=== PATIENT | male | born 1950 | race Caucasian/White ===

== ENCOUNTER 2019-11-19 12:44 | Inpatient (IN) ==
[2019-11-19 14:05] LABS: Hematocrit (blood only) 41.3 % (42-52); Hemoglobin 14.3 g/dL (14.0-18.0); Mean Corpuscular Hemoglobin 32.7 pg (25-34); Mean Corpuscular Hgb Conc 34.6 g/dL (32-36); Mean Corpuscular Volume 94.5 fL (80-100); Mean Platelet Volume 10.2 fL (7.4-10.4); Platelet Count 137 K/uL (130-400); RDW Coefficient of Variation 13.6 % (11.5-14.5); RDW Standard Deviation 46.8 fL (36.4-46.3); Red Blood Count 4.37 M/uL (4.7-6.1); White Blood Count 13.32 K/uL (4.8-10.8)
[2019-11-19 14:22] LABS: BUN Creatinine Ratio 12.8 (10-20); C Reactive Protein 11.7 mg/dl (0-0.29); Calcium 8.4 mg/dl (8.5-10.1); Creatinine Clr Calc Pharmacy 61.9 ml/min; Est GFR (Non-African American) 41.4; Potassium 4.4 mmol/L (3.5-5.1)
[2019-11-19 14:23] LABS: Basophils # (auto) 0.01 K/uL (0-0.2); Basophils % (auto) 0.1 %; Immature Granulocytes # (auto) 0.11 K/uL (0.00-0.02); Immature Granulocytes % (auto) 0.8 %; Lymphocytes # (auto) 0.42 K/uL (1.2-3.4); Lymphocytes % (auto) 3.2 %; Monocytes # (auto) 0.81 K/uL (0.11-0.59); Monocytes % (auto) 6.1 %; Neutrophils # (auto) 11.97 K/uL (1.4-6.5); Neutrophils % (auto) 89.8 %
[2019-11-19] MEDS ORDERED: DAPTOmycin 625 MG in SYRINGE 0 ML IV ONE (14:29)
[2019-11-19] MEDS ORDERED: CEFEPIME 2,000 MG/20 ML VIAL IV STA (14:29)
[2019-11-19] MEDS ORDERED: SODIUM CHLORIDE 0.9% 1000ML 1,000 ML IV ONE (14:29)
[2019-11-19] MEDS ORDERED: MoRPHine SULFATE 10 MG/ML CARP/VIAL IV STA (14:38)
[2019-11-19] MEDS ORDERED: ONDANSETRON INJ 2 MG/ML 2 ML VIAL IV STA (16:09)
--- NOTE | 2019-11-19 16:19 | History & Physical Report ---
Date of Service November 19, 2019 Assessment & Plan (1) Cellulitis of left leg: (2) PAD (peripheral artery disease): (3) Leg wound, left: - has had LLE wound since July 2019 - was treated w/ Bactim and also in wound clinic, discharged from wound clinic earlier this month (October) - in the past 4 days developed increased pain in LLE, erythema, and swelling, there is superficial open wound above left ankle - lactic acid elevated at 2.2, CRP above 11 - received daptomycin and cefepime in the ER - will obtain LLE U/S and L ankle MR to r/o osteomyelitis - will repeat lactic acid - will cont. dapto and cefepime for now - blood cltx - obtained - will obtain wound cltx - wound nurse consult (4) GERD (gastroesophageal reflux disease): - at home takes ranitidine as needed, no active issues (5) CAD (coronary artery disease): s/p CAD - at home on ASA, metoprolol and atorvastatin - will hold statin while on daptomycin - currently no chest pain, no active issues (6) COPD (chronic obstructive pulmonary disease): - does not use inhalers - no active issues (7) Dyslipidemia: - on statin, will hold while on daptomycin (8) Chronic venous insufficiency of lower extremity: - as above, chronic venous insuff. - venous stasis changes anthony. of LLE (9) Morbid obesity: - encourage lifestyle modification Code status: Full (10) ELIZ (acute kidney injury): - no known hx of CKD - current Cr 1.66, (Cr 1.2 in 02/2019 per review of outpt records) - poss. prerenal as pt reported poor appetite in the past couple of days, poss. 2/2 NSAID use (for pain) - received IVF in the ED - hold losartan for now - will cont. to monitor, avoid nephrotoxic agents, renally dose meds History of Present Illness Chief Complaint: Left lower extremity pain and fever Primary Care Provider: Vee Marquez MD Mr. Aditya Yusuf is a 68-year-old male, with history of CAD status post CABG, in 2011, PAD, hypertension, COPD, dyslipidemia, GERD, morbid obesity, chronic venous insufficiency who presents with left lower extremity pain and ulceration, and fever. Patient has had wound at his medial ankle since the end of June 2019. At that time he was evaluated at PCPs office, and was treated with Bactrim. As this was not easily healed, he was also evaluated and treated at wound clinic, by Dr. Ferguson, was diagnosed with chronic venous insufficiency and PAD, has been improving and actually discharged from wound clinic earlier this month. Per wound care clinic, it was recommended for him to wear compression stockings and continuous care for the wound. About 4 days ago, he developed pain in his left lower extremity again, which got progressively worse. He also noticed increased erythema from his ankle area up to his knee, and a superficial open wound at his medial ankle area. He then developed fever which prompted him to come to the hospital. In the ED, he was started on daptomycin and cefepime, blood cultures were obtained. He was also given 1 L of normal saline. Lactate was elevated at 2.2. CRP 11.7, WBC 13.3k. Cr also elevated at 1.66. He otherwise denied any shortness of breath, chest pain, palpitations, abdominal pain, nausea or vomiting. Allergies Allergy/AdvReac Type Severity Reaction Status Date / Time No Known Drug Allergies Allergy Verified 11/19/19 13:17 Home Medications Home Medications Medication Instructions Recorded Confirmed Type aspirin 81 mg tablet,delayed 81 mg PO DAILY 08/14/19 11/19/19 History release atorvastatin 40 mg tablet 40 mg PO DAILY 08/14/19 11/19/19 History doxazosin 2 mg tablet 2 mg PO DAILY 08/14/19 11/19/19 History furosemide 40 mg tablet 40 mg PO DAILY 08/14/19 11/19/19 History gabapentin 300 mg capsule 300 mg PO TID 08/14/19 11/19/19 History metoprolol tartrate 50 mg tablet 50 mg PO DAILY tab 08/14/19 11/19/19 History naltrexone 8 mg-bupropion 90 mg 1 tab PO BID 08/14/19 11/19/19 History tablet,extended release nitroglycerin 0.4 mg sublingual 0.4 mg SL Q5M PRN 08/14/19 11/19/19 History tablet potassium chloride 20 mEq 20 meq PO DAILY 08/14/19 11/19/19 History tablet,extended release(part/cryst) ranitidine HCl 150 mg tablet 150 mg PO BID 08/14/19 11/19/19 History ibuprofen [Advil] 600 mg PO Q6H PRN 11/19/19 11/19/19 History losartan 11/20/19 History Past Med/Surg History Medical History BPH (benign prostatic hyperplasia) (Chronic) Chronic GERD (Chronic) High cholesterol (Chronic) HTN (hypertension) (Chronic) Neuropathy (Chronic) Obesity (Chronic) Surgical History H/O wisdom tooth extraction (Resolved) History of cholecystectomy (Resolved) History of heart bypass surgery (Chronic) Family History Father Diabetes Heart disease Brother AAA (abdominal aortic aneurysm) Social History Preferred Language: Romanian Communication Ability: Effective Visual Impairment: Limited Hearing Ability: Normal 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 Beliefs That Will Affect Care: None marital status: Current Living Situation: Family current occupational status: employed current occupation: [employer] Other Information That Helps Us Care for You: No Feels Safe at Home: Yes Safety Concerns: Feels Safe At This Time Smoking Status: Former smoker Tobacco Type: cigarettes ; packs per day: 1 ; Second Hand Exposure: No ; Hx Alcohol Use: No Hx Substance Use: No Childhood Exposure to Second-Hand Smoke: Yes Review of Systems Review of Systems: All systems reviewed & are unremarkable except as noted in HPI & below Constitutional: + fever and + chills Eyes: no eye pain, no worsening vision and no problem reported Ear, Nose, Mouth, Throat: as per Subjective / HPI; no ear pain, no hearing loss and no sore throat Respiratory: as per Subjective / HPI; no cough and no dyspnea Cardiovascular: as per Subjective / HPI and + edema (LLE); no chest pain and no palpitations Gastrointestinal: + nausea; no abdominal pain and no vomiting Genitourinary: + as per Subjective / HPI; no dysuria and no flank pain Musculoskeletal: as per Subjective / HPI; no back pain and no muscle weakness Integumentary: + wounds (LLE above ankle) and + erythema (LLE) Neurologic: as per Subjective / HPI; no gait abnormality, no generalized weakness and no headache(s) Psychiatric: as per Subjective / HPI; no behavioral changes and no problem reported Endocrine: as per Subjective / HPI; no fatigue, no cold intolerance and no heat intolerance Hematologic / Lymphatic: as per Subjective / HPI; no easy bleeding and no lymphadenopathy Allergy / Immunological: as per Subjective / HPI; no seasonal rhinorrhea Physical Exam Physical Exam: Obese male sitting up in bed in NAD Constitutional: WD/WN, vitals as above well developed, well nourished and + morbidly obese; no acute distress Eyes: PERRL, conjunctivae normal, anicteric sclerae EOM intact bilaterally ENMT: external ear and nose normal, oropharynx normal Ears: no hearing impairment Neck: trachea midline, no thyromegaly normal visual inspection Respiratory: normal respiratory effort, lungs clear to auscultation Auscultation: no crackles, no rhonchi and no wheezes Cardiovascular: RRR, no murmur, no edema Heart Sounds: no murmur Extremities: + edema (LLE) Chest (Breasts): Chest: normal inspection of chest (vertical post. surg. scar) Gastrointestinal (Abdomen): Inspection/Auscultation: abdomen normal to inspection and normal bowel sounds; abdomen not distended Percussion/Palpation: abdomen soft; abdomen nontender and no guarding obese Musculoskeletal: Head/Neck/Chest: normocephalic, head atraumatic and neck supple Extremities: + extremities abnormal to inspection (LLE erythema, wound above left ankle, mild swelling, tenderness to palp.) Skin: + wound (LLE above ankle) Neurologic: PERRL, EOMI, accommodation nl, no face palsy, no dysarthria moves all extremities; no focal motor deficits Speech / Cognition: normal speech Psychiatric: A+Ox3, euthymic affect Speech: normal rate/rhythm/volume of speech Genitourinary: no CVA tenderness Lymphatic: no cervical or axillary lymphadenopathy + lymphedema (LLE) Results & Data Vital Signs (Past 12 Hours) Vital Signs Temp Pulse Pulse Resp BP BP Pulse Ox 11/19/19 15:26 84 20 173/75 H 96 11/19/19 12:46 36.6 C 88 20 152/74 H 96 Laboratory Results 11/19/19 11/19/19 11/19/19 Range/Units 13:56 13:56 13:56 WBC 13.32 H (4.8-10.8) K/uL RBC 4.37 L (4.7-6.1) M/uL Hgb 14.3 (14.0-18.0) g/dL Hct 41.3 L (42-52) % MCV 94.5 (80-100) fL MCH 32.7 (25-34) pg MCHC 34.6 (32-36) g/dL RDW Std Deviation 46.8 H (36.4-46.3) fL RDW Coeff of Alan 13.6 (11.5-14.5) % Plt Count 137 (130-400) K/uL MPV 10.2 (7.4-10.4) fL Immature Gran % (Auto) 0.8 % Neut % (Auto) 89.8 % Lymph % (Auto) 3.2 % [place] % (Auto) 6.1 % Eos % (Auto) 0.0 % Baso % (Auto) 0.1 % Immature Gran # (Auto) 0.11 H (0.00-0.02) K/uL Neut # (Auto) 11.97 H (1.4-6.5) K/uL Lymph # (Auto) 0.42 L (1.2-3.4) K/uL [place] # (Auto) 0.81 H (0.11-0.59) K/uL Eos # (Auto) 0.00 (0-0.5) K/uL Baso # (Auto) 0.01 (0-0.2) K/uL Sodium 138 (136-145) mmol/L Potassium 4.4 (3.5-5.1) mmol/L Chloride 105 (98-107) mmol/L Carbon Dioxide 28 (21-32) mmol/L Anion Gap 5.0 (3-11) BUN 21 H (7-18) mg/dl Creatinine 1.66 H (0.6-1.4) mg/dl Est Cr Clr Drug Dosing 61.9 ml/min Est GFR ( Amer) 48.0 Est GFR (Non-Af Amer) 41.4 BUN/Creatinine Ratio 12.8 (10-20) Glucose 74 (70-99) mg/dl Lactate 2.2 H* (0.4-2.0) mmol/L Calcium 8.4 L (8.5-10.1) mg/dl C-Reactive Protein 11.70 H (0-0.29) mg/dl Code Status & VTE Plan Code Status FULL CODE VTE Prophylaxis Plan VTE Prophylaxis will be ordered: Yes
[2019-11-19] MEDS ORDERED: NITROGLYCERIN SL 0.4 MG/TAB TAB SL PRN (18:19)
[2019-11-19] MEDS ORDERED: CEFEPIME CONSULT ACTIVE PRN (18:19)
[2019-11-19] MEDS ORDERED: POLYETHYLENE (MIRALAX) 17 GM PACK PO PRN (18:19)
[2019-11-19] MEDS ORDERED: DAPTOMYCIN CONSULT ACTIVE PRN (19:23)
--- NOTE | 2019-11-19 20:53 | Ultrasound Report ---
LEFT LOWER EXTREMITY VENOUS DOPPLER CLINICAL HISTORY: Left lower extremity swelling. COMPARISON STUDY: Left lower extremity venous Doppler ultrasound March 22, 2019. TECHNIQUE: Sonography of the deep venous system of the left lower extremity was performed. Compressi on and augmentation were evaluated. FINDINGS: The left common femoral, superficial femoral and popliteal veins were compressible. Augmen tation was normal. Flow was shown within the deep calf vessels. Left lower extremity subcutaneous angelita ma was noted. IMPRESSION: No evidence of deep venous thrombus within the left lower extremity. ACT 112: Negative or not required by law. Electronically signed by: Jay Jaime M.D. 11/19/2019 8:52 PM
[2019-11-19] MEDS: LACTATED RINGER'S 1,000 ML IV SCH (21:15)
[2019-11-19] MEDS: GABAPENTIN 300 MG CAP PO SCH (21:15)
[2019-11-19] MEDS: ACETAMINOPHEN 325 MG TAB PO PRN (22:19)
[2019-11-20] MEDS ORDERED: MoRPHine SULFATE 4 MG/ML 1 ML CARP\\VIAL IV STA (00:16)
[2019-11-20] MEDS ORDERED: MoRPHine SULFATE 4 MG/ML 1 ML CARP\\VIAL ONE (00:22)
[2019-11-20] MEDS ORDERED: CEFEPIME 2,000 MG in SYRINGE 7.5 ML IV SCH (03:00)
[2019-11-20] MEDS: SODIUM CHLORIDE 0.9% 1000ML 1,000 ML IV SCH ×4 (03:24→23:23)
[2019-11-20 06:11] LABS: Hematocrit (blood only) 39.5 % (42-52); Hemoglobin 13.5 g/dL (14.0-18.0); Immature Granulocytes # (auto) 0.21 K/uL (0.00-0.02); Immature Granulocytes % (auto) 1.7 %; Lymphocytes % (auto) 4.2 %; Mean Corpuscular Hemoglobin 32.5 pg (25-34); Mean Corpuscular Hgb Conc 34.2 g/dL (32-36); Mean Platelet Volume 10.2 fL (7.4-10.4); Monocytes # (auto) 0.59 K/uL (0.11-0.59); Monocytes % (auto) 4.9 %; Neutrophils # (auto) 10.74 K/uL (1.4-6.5); Neutrophils % (auto) 89.2 %; Platelet Count 118 K/uL (130-400); RDW Coefficient of Variation 13.8 % (11.5-14.5); Red Blood Count 4.16 M/uL (4.7-6.1); White Blood Count 12.04 K/uL (4.8-10.8)
[2019-11-20 06:45] LABS: Calcium 8.2 mg/dl (8.5-10.1); Est GFR (African American) 53.8; Est GFR (Non-African American) 46.5; Magnesium 1.9 mg/dl (1.8-2.4); Potassium 3.6 mmol/L (3.5-5.1)
--- NOTE | 2019-11-20 07:29 | Magnetic Resonance Report ---
MR ankle LT wo con CLINICAL HISTORY: 68 years-old Male presenting with open wound along the medial ankle, marker placed, r/o osteomyelitis. TECHNIQUE: Multisequence, multiplanar MR imaging of the left ankle was performed without the use of i ntravenous contrast. IV contrast: None. COMPARISON: None. FINDINGS: Localizer images: Unremarkable. The [id number] was widened to include the lower leg ensure adequate assessment to address the clin ical question. This results in a slightly suboptimal assessment of the ankle ligaments and tendons. A marker is in place over the medial lower leg, where there is a bandage. At this site, a blister is noted. There is also minimal irregularity of the cutis (series 12 image 26). Extensive subcutaneous e jerrica not limited to this region noted. No gross evidence of the subjacent fluid collection. Flow-void s within the subjacent superficial veins preserved. No edema deep to the superficial fascia. The subj acent musculature and osseous structures are preserved. Bone marrow signal is normal throughout. Medial, anterior, and lateral tendons are preserved. Lateral ligamentous complex and deltoid ligament ous complex grossly preserved. Chopart joint ligaments not well assessed. Plantar fascia and Achilles tendon grossly preserved. No ankle joint effusion. Suboptimal assessment of the articular cartilage. IMPRESSION: 1. No evidence of osteomyelitis. 2. Minimal irregularity/erosion of the cutis and suspected blister at the site of clinical concern. No subjacent abscess or deeper soft tissue wound. 3. Diffuse subcutaneous edema not limited to the site of clinical concern, nonspecific. ACT 112: Negative or not required by law. Electronically signed by: Adalid Francisco M.D. 11/20/2019 7:27 AM
[2019-11-20] MEDS: GABAPENTIN 300 MG CAP PO SCH ×3 (07:56→21:05)
[2019-11-20] MEDS: POTASSIUM CHLORIDE 20 MEQ TABCR PO SCH (07:57)
[2019-11-20] MEDS: ASPIRIN 81 MG ECTAB PO SCH (07:57)
[2019-11-20] MEDS: DOXAZosin MESYLATE TAB 2 MG TAB PO SCH (07:57)
[2019-11-20] MEDS: METOPROLOL TARTRATE 50 MG TAB PO SCH (07:58)
[2019-11-20] MEDS: ACETAMINOPHEN 325 MG TAB PO PRN (08:07)
[2019-11-20] MEDS ORDERED: LOSARTAN POTASSIUM 50 MG TAB PO SCH ×2 (09:00)
[2019-11-20] MEDS ORDERED: ATORVASTATIN 40 MG TAB PO SCH (09:00)
[2019-11-20] MEDS ORDERED: FUROSEMIDE 40 MG TAB PO SCH (09:00)
--- NOTE | 2019-11-20 09:08 | Hospitalist Progress Note ---
Date of Service November 20, 2019 Assessment & Plan (1) Bacteremia: Blood culture from November 19, 2019 -positive for gram-positive cocci -Patient is already on daptomycin, will continue for now -Likely source is patient's left lower extremity wound -ID consulted for further recommendations -Transthoracic echo ordered -Repeat blood cultures -Upgrade patient to PCU with telemetry, given his worsening clinical status (patient is now very somnolent, nauseous, fever last night), concern for pt becoming septic (2) Leg wound, left: - has had LLE wound since July 2019 -vwas treated w/ Bactim and also in wound clinic, discharged from wound clinic earlier this month (October) - in the past 4 days prior to admission developed increased pain in LLE, erythema, and swelling, there is superficial open wound above left ankle - lactic acid elevated at 2.2, CRP above 11, WBC above 13k - received daptomycin and cefepime in the ER - LLE U/S -negative for DVT and L ankle MR - negative for osteomyelitis - - will cont. dapto and cefepime for now, ID consulted - blood cltx - positive for Gram posit. cocci - wound cltx-pending - wound provider consulted (3) Chronic venous insufficiency of lower extremity: - as above, chronic venous insuff. - venous stasis changes anthony. of LLE (4) Cellulitis of left leg: (5) ELIZ (acute kidney injury): - no known hx of CKD - Cr 1.2 in 02/2019 per review of outpt records - Cr 1.66 on admission, now improved to 1.5 - poss. prerenal as pt reported poor appetite in the past couple of days, poss. 2/2 NSAID use (for pain), 2/2 infection - received IVF in the ED - hold losartan for now - will cont. to monitor, avoid nephrotoxic agents, renally dose meds (6) CAD (coronary artery disease): s/p CAD - at home on ASA, metoprolol and atorvastatin - will hold statin while on daptomycin - currently no chest pain, no active issues (7) PAD (peripheral artery disease): (8) COPD (chronic obstructive pulmonary disease): - does not use inhalers - no active issues (9) Dyslipidemia: - on statin, will hold while on daptomycin (10) Morbid obesity: - encourage lifestyle modification (11) GERD (gastroesophageal reflux disease): - at home takes ranitidine as needed, no active issues CODE STATUS : FULL Subjective Patient is lying in bed, appears tired, answers questions appropriately. Complains of some nausea. His left lower extremity, now besides superficial open wound also has increased blisters. Fever last night, Tmax 38.8C. Patient's at the bedside. Patient denies any chest pain, shortness of breath, palpitations, abdominal pain, diarrhea,or vomiting. Notified this morning that patient's blood cultures came positive, discussed t his with patient and his . Review of Systems Review of Systems: All systems reviewed & are unremarkable except as noted in HPI & below Constitutional: + fatigue Respiratory: no cough and no dyspnea Cardiovascular: + edema (LLE); no chest pain and no palpitations Gastrointestinal: + nausea; no abdominal pain and no vomiting Integumentary: + wounds (LLE above ankle, also incr. blistering of LLE) and + erythema (LLE) Neurologic: no headache(s) Endocrine: + fatigue Physical Exam Physical Exam: Obese male, lying in bed, appears tired, answers questions appropriately Constitutional: well developed, well nourished and + morbidly obese; no acute distress Eyes: PERRL, conjunctivae normal, anicteric sclerae EOM intact bilaterally ENMT: external ear and nose normal, oropharynx normal Ears: no hearing impairment Neck: trachea midline, no thyromegaly normal visual inspection Respiratory: normal respiratory effort, lungs clear to auscultation Auscultation: no crackles, no rhonchi and no wheezes Cardiovascular: RRR, no murmur, no edema Heart Sounds: no murmur Extremities: + edema (LLE) Chest (Breasts): Chest: normal inspection of chest (vertical post. surg. scar) Gastrointestinal (Abdomen): Inspection/Auscultation: abdomen normal to inspection (but very obese), + abdomen distended and normal bowel sounds Percussion/Palpation: abdomen soft; abdomen nontender and no guarding Musculoskeletal: Head/Neck/Chest: normocephalic, head atraumatic and neck supple Extremities: + extremities abnormal to inspection (LLE erythema, wound above left ankle, mild swelling, tenderness to palp.) also incr. blistering of LLE Skin: + wound (LLE above ankle) Neurologic: PERRL, EOMI, accommodation nl, no face palsy, no dysarthria moves all extremities; no focal motor deficits Speech / Cognition: normal speech appears tired Psychiatric: A+Ox3, euthymic affect Speech: normal rate/rhythm/volume of speech Genitourinary: no CVA tenderness Lymphatic: no cervical or axillary lymphadenopathy + lymphedema (LLE) Results & Data Vital Signs (Past 12 Hours) Vital Signs Temp Pulse Resp BP BP Pulse Ox 11/20/19 07:37 37.2 C 79 20 111/66 94 11/19/19 23:03 38.8 C H 89 20 140/72 93 Laboratory Results Blood cltx (11/19/2019) - Gram posit. cocci 11/20/19 11/20/19 11/20/19 Range/Units 06:03 06:03 06:03 WBC (4.8-10.8) K/uL RBC (4.7-6.1) M/uL Hgb (14.0-18.0) g/dL Hct (42-52) % MCV (80-100) fL MCH (25-34) pg MCHC (32-36) g/dL RDW Std Deviation (36.4-46.3) fL RDW Coeff of Alan (11.5-14.5) % Plt Count (130-400) K/uL MPV (7.4-10.4) fL Immature Gran % (Auto) % Neut % (Auto) % Lymph % (Auto) % [place] % (Auto) % Eos % (Auto) % Baso % (Auto) % Immature Gran # (Auto) (0.00-0.02) K/uL Neut # (Auto) (1.4-6.5) K/uL Lymph # (Auto) (1.2-3.4) K/uL [place] # (Auto) (0.11-0.59) K/uL Eos # (Auto) (0-0.5) K/uL Baso # (Auto) (0-0.2) K/uL Sodium 139 (136-145) mmol/L Potassium 3.6 D (3.5-5.1) mmol/L Chloride 106 (98-107) mmol/L Carbon Dioxide 25 (21-32) mmol/L Anion Gap 8.0 (3-11) BUN 32 H D (7-18) mg/dl Creatinine 1.51 H (0.6-1.4) mg/dl Est Cr Clr Drug Dosing 68.0 ml/min Est GFR ( Amer) 53.8 Est GFR (Non-Af Amer) 46.5 BUN/Creatinine Ratio 21.0 H (10-20) Glucose 99 (70-99) mg/dl POC Lactic Acid Rodolfo (0.90-1.70) mmol/L Lactate 2.2 H* (0.4-2.0) mmol/L Calcium 8.2 L (8.5-10.1) mg/dl Magnesium 1.9 (1.8-2.4) mg/dl C-Reactive Protein (0-0.29) mg/dl Hepatitis C Ab Screen Neg (Neg) 11/20/19 11/20/19 11/19/19 Range/Units 06:03 01:21 18:55 WBC 12.04 H (4.8-10.8) K/uL RBC 4.16 L (4.7-6.1) M/uL Hgb 13.5 L (14.0-18.0) g/dL Hct 39.5 L (42-52) % MCV 95.0 (80-100) fL MCH 32.5 (25-34) pg MCHC 34.2 (32-36) g/dL RDW Std Deviation 48.0 H (36.4-46.3) fL RDW Coeff of Alan 13.8 (11.5-14.5) % Plt Count 118 L (130-400) K/uL MPV 10.2 (7.4-10.4) fL Immature Gran % (Auto) 1.7 % Neut % (Auto) 89.2 % Lymph % (Auto) 4.2 % [place] % (Auto) 4.9 % Eos % (Auto) 0.0 % Baso % (Auto) 0.0 % Immature Gran # (Auto) 0.21 H (0.00-0.02) K/uL Neut # (Auto) 10.74 H (1.4-6.5) K/uL Lymph # (Auto) 0.50 L (1.2-3.4) K/uL [place] # (Auto) 0.59 (0.11-0.59) K/uL Eos # (Auto) 0.00 (0-0.5) K/uL Baso # (Auto) 0.00 (0-0.2) K/uL Sodium (136-145) mmol/L Potassium (3.5-5.1) mmol/L Chloride (98-107) mmol/L Carbon Dioxide (21-32) mmol/L Anion Gap (3-11) BUN (7-18) mg/dl Creatinine (0.6-1.4) mg/dl Est Cr Clr Drug Dosing ml/min Est GFR ( Amer) Est GFR (Non-Af Amer) BUN/Creatinine Ratio (10-20) Glucose (70-99) mg/dl POC Lactic Acid Rodolfo (0.90-1.70) mmol/L Lactate 3.4 H* 2.5 H* (0.4-2.0) mmol/L Calcium (8.5-10.1) mg/dl Magnesium (1.8-2.4) mg/dl C-Reactive Protein (0-0.29) mg/dl Hepatitis C Ab Screen (Neg) 11/19/19 11/19/19 11/19/19 Range/Units 17:00 13:56 13:56 WBC (4.8-10.8) K/uL RBC (4.7-6.1) M/uL Hgb (14.0-18.0) g/dL Hct (42-52) % MCV (80-100) fL MCH (25-34) pg MCHC (32-36) g/dL RDW Std Deviation (36.4-46.3) fL RDW Coeff of Alan (11.5-14.5) % Plt Count (130-400) K/uL MPV (7.4-10.4) fL Immature Gran % (Auto) % Neut % (Auto) % Lymph % (Auto) % [place] % (Auto) % Eos % (Auto) % Baso % (Auto) % Immature Gran # (Auto) (0.00-0.02) K/uL Neut # (Auto) (1.4-6.5) K/uL Lymph # (Auto) (1.2-3.4) K/uL [place] # (Auto) (0.11-0.59) K/uL Eos # (Auto) (0-0.5) K/uL Baso # (Auto) (0-0.2) K/uL Sodium 138 (136-145) mmol/L Potassium 4.4 (3.5-5.1) mmol/L Chloride 105 (98-107) mmol/L Carbon Dioxide 28 (21-32) mmol/L Anion Gap 5.0 (3-11) BUN 21 H (7-18) mg/dl Creatinine 1.66 H (0.6-1.4) mg/dl Est Cr Clr Drug Dosing 61.9 ml/min Est GFR ( Amer) 48.0 Est GFR (Non-Af Amer) 41.4 BUN/Creatinine Ratio 12.8 (10-20) Glucose 74 (70-99) mg/dl POC Lactic Acid Rodolfo 2.25 H (0.90-1.70) mmol/L Lactate 2.2 H* (0.4-2.0) mmol/L Calcium 8.4 L (8.5-10.1) mg/dl Magnesium (1.8-2.4) mg/dl C-Reactive Protein 11.70 H (0-0.29) mg/dl Hepatitis C Ab Screen (Neg) 11/19/19 Range/Units 13:56 WBC 13.32 H (4.8-10.8) K/uL RBC 4.37 L (4.7-6.1) M/uL Hgb 14.3 (14.0-18.0) g/dL Hct 41.3 L (42-52) % MCV 94.5 (80-100) fL MCH 32.7 (25-34) pg MCHC 34.6 (32-36) g/dL RDW Std Deviation 46.8 H (36.4-46.3) fL RDW Coeff of Alan 13.6 (11.5-14.5) % Plt Count 137 (130-400) K/uL MPV 10.2 (7.4-10.4) fL Immature Gran % (Auto) 0.8 % Neut % (Auto) 89.8 % Lymph % (Auto) 3.2 % [place] % (Auto) 6.1 % Eos % (Auto) 0.0 % Baso % (Auto) 0.1 % Immature Gran # (Auto) 0.11 H (0.00-0.02) K/uL Neut # (Auto) 11.97 H (1.4-6.5) K/uL Lymph # (Auto) 0.42 L (1.2-3.4) K/uL [place] # (Auto) 0.81 H (0.11-0.59) K/uL Eos # (Auto) 0.00 (0-0.5) K/uL Baso # (Auto) 0.01 (0-0.2) K/uL Sodium (136-145) mmol/L Potassium (3.5-5.1) mmol/L Chloride (98-107) mmol/L Carbon Dioxide (21-32) mmol/L Anion Gap (3-11) BUN (7-18) mg/dl Creatinine (0.6-1.4) mg/dl Est Cr Clr Drug Dosing ml/min Est GFR ( Amer) Est GFR (Non-Af Amer) BUN/Creatinine Ratio (10-20) Glucose (70-99) mg/dl POC Lactic Acid Rodolfo (0.90-1.70) mmol/L Lactate (0.4-2.0) mmol/L Calcium (8.5-10.1) mg/dl Magnesium (1.8-2.4) mg/dl C-Reactive Protein (0-0.29) mg/dl Hepatitis C Ab Screen (Neg) Diagnostic Findings MRI Left ankle 11/19/2019 IMPRESSION: 1. No evidence of osteomyelitis. 2. Minimal irregularity/erosion of the cutis and suspected blister at the site of clinical concern. No subjacent abscess or deeper soft tissue wound. 3. Diffuse subcutaneous edema not limited to the site of clinical concern, nonspecific. Left LE doppler 11/19/2019 FINDINGS: The left common femoral, superficial femoral and popliteal veins were compressible. Augmentation was normal. Flow was shown within the deep calf vessels. Left lower extremity subcutaneous edema was noted. IMPRESSION: No evidence of deep venous thrombus within the left lower extremity. Medications Administered Current Inpatient Medications Acetaminophen (Tylenol) 650 mg PO Q4H [facility] Stop: 12/20/19 09:14 Aspirin (Ecotrin Ectab) 81 mg PO DAILY [facility] Stop: 12/20/19 08:59 Last Admin: 11/20/19 07:57 Dose: 81 mg Documented by: Doxazosin Mesylate (Cardura) 2 mg PO DAILY [facility] Stop: 12/20/19 08:59 Last Admin: 11/20/19 07:57 Dose: 2 mg Documented by: Gabapentin (Neurontin) 300 mg PO TID [facility] Stop: 12/19/19 20:59 Last Admin: 11/20/19 07:56 Dose: 300 mg Documented by: Daptomycin 425 mg/ Syringe 8.5 mls @ 4.25 mls/min IV DAILY@1600 [facility]; Protocol Stop: 11/29/19 15:59 Cefepime HCl 2,000 mg/ Syringe 20 mls @ 5 mls/min IV Q12H [facility] Stop: 11/30/19 02:59 Last Admin: 11/20/19 02:57 Dose: 5 mls/min Documented by: Sodium Chloride (Nss 1000ml) 1,000 mls @ 150 mls/hr IV .Q6H40M [facility] Stop: 12/20/19 03:14 Last Admin: 11/20/19 03:24 Dose: 150 mls/hr Documented by: Losartan Potassium (Cozaar) 50 mg PO DAILY [facility] Stop: 12/20/19 08:59 Last Admin: 11/20/19 08:00 Dose: 50 mg Documented by: Metoprolol Tartrate (Lopressor) 50 mg PO DAILY [facility] Stop: 12/20/19 08:59 Last Admin: 11/20/19 07:58 Dose: 50 mg Documented by: Miscellaneous (Order Awaiting Action) 1 ea N/A QS [facility] Stop: 12/20/19 00:00 Last Admin: 11/20/19 08:02 Dose: Not Given Documented by: Miscellaneous Information (Cefepime Consult Active) 1 ea N/A UD PRN PRN Reason: Consult Stop: 12/19/19 18:18 Miscellaneous Information (Consult) 1 ea N/A UD PRN PRN Reason: Consult Stop: 12/19/19 19:22 Nitroglycerin (Nitrostat) 0.4 mg SL Q5M PRN PRN Reason: Chest Pain Stop: 12/19/19 18:18 Polyethylene Glycol (Miralax Powder Packet) 17 gm PO DAILY PRN PRN Reason: Constipation Stop: 12/19/19 18:18 Potassium Chloride (Klor-Con M20) 20 meq PO DAILY [facility] Stop: 12/20/19 08:59 Last Admin: 11/20/19 07:57 Dose: 20 meq Documented by: Tramadol HCl (Ultram) 50 mg PO Q4H PRN PRN Reason: Pain Stop: 12/20/19 09:03
[2019-11-20] MEDS: LACTATED RINGER'S 1,000 ML IV SCH (10:57)
[2019-11-20] MEDS: ACETAMINOPHEN 325 MG TAB PO SCH ×4 (10:57→21:05)
--- NOTE | 2019-11-20 11:07 | Infectious Disease Consult ---
Date of Consultation November 20, 2019 Assessment & Plan (1) Gram positive sepsis: will continue abx, if no gnr identified tomorrow, can stop cefepime. continue dapto. repeat blood cultures, will need echo. suggest surgery eval. (2) Cellulitis of left leg: History of Present Illness Attending Physician: Benedict Maldonado MD pt admitted with increased pain on lle. was previously treated at wound center for MSSA infection, did not follow with ID, was treated with bactrim and improved. now with pain in leg. pt was lethargic on my exam and did not supply ros. He was seen on 4th floor but not transferred to [facility]. His blood cultures in ER are growing gpc in chains, 2/2 sets. wound culture done yesterday is growing S. aureus, no additional sensitivity info at this time. tmax 38.8 this am, he is currently on cefepime and dapto, tolerating well. wbc 12, creat 1.5, CRP 11. ankle MRI negative for osteo. Doppler negative for clot. he admits to fever, letheragy and pain in leg on my exam. Allergies Allergy/AdvReac Type Severity Reaction Status Date / Time No Known Drug Allergies Allergy Verified 11/19/19 13:17 Home Medications Home Medications Medication Instructions Recorded Confirmed Type aspirin 81 mg tablet,delayed 81 mg PO DAILY 08/14/19 11/19/19 History release atorvastatin 40 mg tablet 40 mg PO DAILY 08/14/19 11/19/19 History doxazosin 2 mg tablet 2 mg PO DAILY 08/14/19 11/19/19 History furosemide 40 mg tablet 40 mg PO DAILY 08/14/19 11/19/19 History gabapentin 300 mg capsule 300 mg PO TID 08/14/19 11/19/19 History metoprolol tartrate 50 mg tablet 50 mg PO DAILY tab 08/14/19 11/19/19 History naltrexone 8 mg-bupropion 90 mg 1 tab PO BID 08/14/19 11/19/19 History tablet,extended release nitroglycerin 0.4 mg sublingual 0.4 mg SL Q5M PRN 08/14/19 11/19/19 History tablet potassium chloride 20 mEq 20 meq PO DAILY 08/14/19 11/19/19 History tablet,extended release(part/cryst) ranitidine HCl 150 mg tablet 150 mg PO BID 08/14/19 11/19/19 History ibuprofen [Advil] 600 mg PO Q6H PRN 11/19/19 11/19/19 History losartan 11/20/19 History Patient History Medical History BPH (benign prostatic hyperplasia) (Chronic) Chronic GERD (Chronic) High cholesterol (Chronic) HTN (hypertension) (Chronic) Neuropathy (Chronic) Obesity (Chronic) Surgical History H/O wisdom tooth extraction (Resolved) History of cholecystectomy (Resolved) History of heart bypass surgery (Chronic) Family History Father Diabetes Heart disease Brother AAA (abdominal aortic aneurysm) Social History Preferred Language: Yakut Communication Ability: Effective Visual Impairment: Limited Hearing Ability: Normal 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 Beliefs That Will Affect Care: None marital status: Current Living Situation: Family current occupational status: employed current occupation: [employer] Other Information That Helps Us Care for You: No Feels Safe at Home: Yes Safety Concerns: Feels Safe At This Time Smoking Status: Former smoker Tobacco Type: cigarettes ; packs per day: 1 ; Second Hand Exposure: No ; Hx Alcohol Use: No Hx Substance Use: No Childhood Exposure to Second-Hand Smoke: Yes Review of Systems Review of Systems: All systems reviewed & are unremarkable except as noted in HPI & below Physical Exam Constitutional: WD/WN, vitals as above Eyes: PERRL, conjunctivae normal, anicteric sclerae ENMT: external ear and nose normal, oropharynx normal Neck: normal visual inspection Respiratory: normal respiratory effort, lungs clear to auscultation Auscultation: + diminished lung sounds Cardiovascular: RRR, no murmur, no edema Gastrointestinal (Abdomen): normal bowel sounds, soft, nontender, no hepatosplenomegaly Musculoskeletal: no cyanosis or clubbing, extremities motor strength 5/5 Skin: no rashes, warm and dry + wound, + erythema and + purpura Trauma: + evidence of skin trauma lle with significant edema, erythema, warmth, multiple bullous lesions noted Psychiatric: A+Ox3, euthymic affect appropriate but lethargic Results & Data Vital Signs (Past 12 Hours) Vital Signs Temp Pulse Resp BP Pulse Ox 11/20/19 07:37 37.2 C 79 20 111/66 94 Laboratory Results Microbiology 11/19/19 16:30 Leg,Left Gram Stain - Final 11/19/19 16:30 Leg,Left Wound Culture - Preliminary Staphylococcus aureus 11/19/19 13:56 Blood Aerobic Blood Culture - Preliminary Gram positive cocci in chains 11/19/19 13:56 Blood Anaerobic Blood Culture - Preliminary Gram positive cocci in chains 11/19/19 13:56 Blood Aerobic Blood Culture - Preliminary Gram positive cocci in chains 11/19/19 13:56 Blood Anaerobic Blood Culture - Preliminary Gram positive cocci in chains PG Care Time/CCT Total # of Minutes Spent Total Time Spent with Patient: Total time spent is greater than 50% in coordination of care (as documented) at patient's floor/unit and/or counseling patient:
[2019-11-20] MEDS: CEFEPIME 2,000 MG in SYRINGE 7.5 ML IV SCH ×2 (11:39→21:05)
[2019-11-20] MEDS ORDERED: DAPTOmycin 625 MG in SYRINGE 0 ML IV SCH (16:00)
[2019-11-20] MEDS ORDERED: DAPTOmycin 425 MG in SYRINGE 0 ML IV SCH (16:00)
[2019-11-20] MEDS ORDERED: PROMETHAZINE HCL 6.25 MG in SODIUM CHLORIDE 0.9% 50 ML IV STA (17:27)
[2019-11-20] MEDS: SACCHAROMYCES BOULARDII 250 MG CAP PO SCH (18:09)
--- NOTE | 2019-11-20 18:25 | Emergency Department Note ---
Entered by Annalisa Jefferson acting as a scribe for ED Provider Note Name: DAYA BALLARD Age: 68 Arrives Via: Walk-In Informant: Patient CC: Wound HPI: [id number] arrives for evaluation of a wound. He has an existing wound on his left lower leg, and states it has been painful and swollen for the past few days. His thinks he was febrile last night. [facility]. He denies any groin pain. He denies any recent falls or trauma. He was nauseous last night but did not vomit. He denies any other symptoms. He denies any abdominal pain, shortness of breath or issues urinating. ROS: See above HPI for pertinent positives & negatives. A total of 10 systems reviewed and were otherwise negative. Past Medical History:COPD, CAD, GERD, DLP, HTN Past Surgical History:Cholecystectomy Family History:CAD, DMII, AAA Social History:, retired, no smoking, no drugs Home Medications:See Below Allergies:NKDA Vitals:See Below Physical Exam: GENERAL: Patient is mildly uncomfortable appearing and in no acute distress. EYES: No scleral icterus, unremarkable pupils. ENT: Mucous membranes moist, no nasal congestion. NECK: No masses appreciated, nomeningismus, trachea is midline. RESPIRATORY: No dyspnea. Clear to auscultation and equal bilaterally. No wheeze, no rhonchi. CARDIOVASCULAR: Regular rate and rhythm.No murmurs, rubs, gallops appreciated. GASTROINTESTINAL: Abdomen soft, non-tender, no peritonitis.Bowel sounds positive.No masses appreciated. BACK: No midline tenderness, no CVA tenderness EXTREMITIES: Erythema to left lower leg from the knee to the ankle, 8 cm by 4 cm area of weeping tissue along medial left lower leg, some abrasions over the top of the foot, streaking and erythema up the medial left thigh to the groin. NEUROLOGIC: Alert and oriented, no acute motor or sensory deficits, no focal weakness, cranial nerves grossly intact. SKIN: No rash, no jaundice, no diaphoresis. ED Course: Prior Medical Record, Triage/Nursing Notes, Medications, Allergies reviewed by Me Vital Signs: reviewed and remarkable for no significant abnormalities Labs:Reviewed and remarkable for +lactic acid, moderate wbc elevation, CRP elevation Interventions: saline lock, dapto IV, cefepime IV, NSS bolus Reassessments/Times: 1306: The patient was evaluated in room C11. A complete history and physical were performed. 1435: I reevaluated the patient. I discussed his results and my recommendation he remain in the hospital for further evaluation and management and he is agreeable with the plan. 1440: I discussed the patients case with Faustina Garcia PA-C, [facility] Hospitalist. The patient will be further evaluated. The admitting doctor is Dr. Maldonado. 1608: The patient is nauseous and was given IV Zofran. Blood pressure:Elevated - Referred to Hospitalist Disposition:Hospitalization. Condition: Good.. Differentials: includes etiologies such as cellulitis, abscess, MRSA infection, DVT, necrotizing fasciitis, dermatitis, drug eruption, as well as others were entertained. Medical Decision Makin yr old overweight male with history of DMII, HTN, CAD, COPD and on and off wound left lower leg though OK for last few weeks. Arrives with diffuse lower leg erythema and draining wound left lower inner leg. While here rash actively spreading and is all the way to groin with streaking. Vitals OK though CRP and LA are elevated. Having fevers at home. He very much appears to be septic and will be treated as much. I did obtain blood cultures due to concerns for bacteremia. Previously with MSSA as well as Pseudomona wound infections thus dapto and cefepine used. Fluids given as well though due to size clearly not 30ml/kg. He was stable while here and hospitalist to evaluate further. Impression: Left leg cellulitis Sepsis Lactic acidosis The scribe's documentation has been prepared under my direction and personally reviewed by me in its entirety. I confirm that the note above accurately reflects all work, treatment, procedures, and medical decision making performed by me. Boo Mata MD Impression & Plan Cellulitis of left leg, Sepsis, Lactic acidosis Past Med/Surg History Medical History BPH (benign prostatic hyperplasia) (Chronic) Chronic GERD (Chronic) High cholesterol (Chronic) HTN (hypertension) (Chronic) Neuropathy (Chronic) Obesity (Chronic) Surgical History H/O wisdom tooth extraction (Resolved) History of cholecystectomy (Resolved) History of heart bypass surgery (Chronic) Family History Father Diabetes Heart disease Brother AAA (abdominal aortic aneurysm) Social History Preferred Language: Korean Communication Ability: Effective Visual Impairment: Limited Hearing Ability: Normal Psychology Instructor Required: No Beliefs That Will Affect Care: None marital status: Current Living Situation: Family current occupational status: employed 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 Other Information That Helps Us Care for You: No Feels Safe at Home: Yes Safety Concerns: Feels Safe At This Time Smoking Status: Former smoker Tobacco Type: cigarettes ; packs per day: 1 ; Second Hand Exposure: No ; Hx Alcohol Use: No Hx Substance Use: No Childhood Exposure to Second-Hand Smoke: Yes Results & Data Vital Signs Vital Signs - 24 hr 11/19/19 12:46 11/19/19 15:26 Temperature 97.9 F Temperature Source Oral Pulse Rate 88 Pulse Rate [Right Finger] 84 Respiratory Rate 20 20 Respiratory Effort / Characteristics Non-Labored Spontaneous Respiratory Depth Normal Blood Pressure 152/74 H Blood Pressure [Right Arm] 173/75 H Blood Pressure Mean 100 Blood Pressure Mean [Right Arm] 107 Pulse Oximetry 96 96 Oxygen Delivery Method Room Air Room Air Sepsis Recent Fever Within 48 Hours Yes Sepsis New/Unexplained Change in Mental Status Yes Sepsis Action Taken by Nursing No Action Required Home Medications Current Medication List: was personally reviewed by me Laboratory Data Attestation: I reviewed the patient's lab results. Result diagrams: 11/20/19 06:03 11/20/19 06:03 Lab Results 11/19/19 11/19/19 11/19/19 Range/Units 13:56 13:56 13:56 WBC 13.32 H (4.8-10.8) K/uL RBC 4.37 L (4.7-6.1) M/uL Hgb 14.3 (14.0-18.0) g/dL Hct 41.3 L (42-52) % MCV 94.5 (80-100) fL MCH 32.7 (25-34) pg MCHC 34.6 (32-36) g/dL RDW Std Deviation 46.8 H (36.4-46.3) fL RDW Coeff of Alan 13.6 (11.5-14.5) % Plt Count 137 (130-400) K/uL MPV 10.2 (7.4-10.4) fL Immature Gran % (Auto) 0.8 % Neut % (Auto) 89.8 % Lymph % (Auto) 3.2 % [place] % (Auto) 6.1 % Eos % (Auto) 0.0 % Baso % (Auto) 0.1 % Immature Gran # (Auto) 0.11 H (0.00-0.02) K/uL Neut # (Auto) 11.97 H (1.4-6.5) K/uL Lymph # (Auto) 0.42 L (1.2-3.4) K/uL [place] # (Auto) 0.81 H (0.11-0.59) K/uL Eos # (Auto) 0.00 (0-0.5) K/uL Baso # (Auto) 0.01 (0-0.2) K/uL Sodium 138 (136-145) mmol/L Potassium 4.4 (3.5-5.1) mmol/L Chloride 105 (98-107) mmol/L Carbon Dioxide 28 (21-32) mmol/L Anion Gap 5.0 (3-11) BUN 21 H (7-18) mg/dl Creatinine 1.66 H (0.6-1.4) mg/dl Est Cr Clr Drug Dosing 61.9 ml/min Est GFR ( Amer) 48.0 Est GFR (Non-Af Amer) 41.4 BUN/Creatinine Ratio 12.8 (10-20) Glucose 74 (70-99) mg/dl Lactate 2.2 H* (0.4-2.0) mmol/L Calcium 8.4 L (8.5-10.1) mg/dl C-Reactive Protein 11.70 H (0-0.29) mg/dl Administered Medications Acetaminophen (Tylenol) 650 mg PO Q4H [facility] Stop: 12/20/19 09:14 Last Admin: 11/20/19 18:14 Dose: 650 mg Documented by: [id number] Admin: 11/20/19 13:32 Dose: 650 mg Documented by: [id number] Admin: 11/20/19 10:57 Dose: Not Given Documented by: [id number] Aspirin (Ecotrin Ectab) 81 mg PO DAILY [facility] Stop: 12/20/19 08:59 Last Admin: 11/20/19 07:57 Dose: 81 mg Documented by: [id number] Doxazosin Mesylate (Cardura) 2 mg PO DAILY [facility] Stop: 12/20/19 08:59 Last Admin: 11/20/19 07:57 Dose: 2 mg Documented by: [id number] Gabapentin (Neurontin) 300 mg PO TID [facility] Stop: 12/19/19 20:59 Last Admin: 11/20/19 13:33 Dose: 300 mg Documented by: [id number] Admin: 11/20/19 07:56 Dose: 300 mg Documented by: [id number] Admin: 11/19/19 21:15 Dose: 300 mg Documented by: [id number] Sodium Chloride (Nss 1000ml) 1,000 mls @ 150 mls/hr IV .Q6H40M [facility] Stop: 12/20/19 03:14 Last Admin: 11/20/19 17:26 Dose: 150 mls/hr Documented by: [id number] Infusion: 11/20/19 16:41 Dose: 150 mls/hr Documented by: [id number] Admin: 11/20/19 10:00 Dose: 150 mls/hr Documented by: [id number] Infusion: 11/20/19 09:59 Dose: 0 mls/hr Documented by: [id number] Admin: 11/20/19 03:24 Dose: 150 mls/hr Documented by: [id number] Daptomycin 625 mg/ Syringe 12.5 mls @ 6.25 mls/min IV DAILY@1600 [facility]; Protocol Stop: 11/30/19 15:59 Last Admin: 11/20/19 15:29 Dose: 6.25 mls/min Documented by: [id number] Cefepime HCl 2,000 mg/ Syringe 20 mls @ 5 mls/min IV Q8H [facility] Stop: 11/30/19 10:29 Last Admin: 11/20/19 11:39 Dose: 5 mls/min Documented by: [id number] Metoprolol Tartrate (Lopressor) 50 mg PO DAILY [facility] Stop: 12/20/19 08:59 Last Admin: 11/20/19 07:58 Dose: 50 mg Documented by: [id number] Miscellaneous (Order Awaiting Action) 1 ea N/A QS [facility] Stop: 12/20/19 00:00 Last Admin: 11/20/19 15:29 Dose: Not Given Documented by: [id number] Admin: 11/20/19 08:02 Dose: Not Given Documented by: [id number] Admin: 11/20/19 01:12 Dose: Not Given Documented by: [id number] Potassium Chloride (Klor-Con M20) 20 meq PO DAILY [facility] Stop: 12/20/19 08:59 Last Admin: 11/20/19 07:57 Dose: 20 meq Documented by: [id number] Saccharomyces Boulardii (Florastor) 250 mg PO DAILY [facility] Stop: 12/20/19 17:44 Last Admin: 11/20/19 18:09 Dose: 250 mg Documented by: [id number] Discontinued Medications Acetaminophen (Tylenol) 650 mg PO Q4H PRN PRN Reason: pain/fever Stop: 12/19/19 18:18 Last Admin: 11/20/19 08:07 Dose: 650 mg Documented by: [id number] Admin: 11/19/19 22:19 Dose: 650 mg Documented by: [id number] Atorvastatin Calcium (Lipitor) 40 mg PO DAILY [facility] Stop: 12/20/19 08:59 Last Admin: 11/20/19 07:56 Dose: 40 mg Documented by: [id number] Furosemide (Lasix) 40 mg PO DAILY [facility] Stop: 12/20/19 08:59 Last Admin: 11/20/19 07:56 Dose: 40 mg Documented by: [id number] Sodium Chloride (Nss 1000ml) 1,000 mls @ 999 mls/hr IV .Q1H1M [facility] Stop: 11/19/19 15:29 Last Infusion: 11/19/19 16:51 Dose: 0 mls/hr Documented by: [id number] Admin: 11/19/19 15:28 Dose: 999 mls/hr Documented by: [id number] Cefepime HCl (Maxipime) 2,000 mg in 20 mls @ 5 mls/min IV NOW STA Stop: 11/19/19 14:32 Last Admin: 11/19/19 15:21 Dose: 5 mls/min Documented by: [id number] Daptomycin 625 mg/ Syringe 12.5 mls @ 6.25 mls/min IV NOW ONE; Protocol Stop: 11/19/19 14:30 Last Admin: 11/19/19 16:01 Dose: 6.25 mls/min Documented by: [id number] Lactated Ringer's (Lr) 1,000 mls @ 150 mls/hr IV .Q6H40M [facility] Stop: 12/19/19 19:59 Last Admin: 11/20/19 10:57 Dose: Not Given Documented by: [id number] Infusion: 11/20/19 03:18 Dose: 0 mls/hr Documented by: [id number] Admin: 11/19/19 21:15 Dose: 150 mls/hr Documented by: [id number] Cefepime HCl 2,000 mg/ Syringe 20 mls @ 5 mls/min IV Q12H [facility] Stop: 11/30/19 02:59 Last Admin: 11/20/19 02:57 Dose: 5 mls/min Documented by: [id number] Promethazine HCl 6.25 mg/ (Sodium Chloride) 50.25 mls @ 201 mls/hr IV NOW STA Stop: 11/20/19 17:41 Last Admin: 11/20/19 18:09 Dose: 201 mls/hr Documented by: [id number] Losartan Potassium (Cozaar) 50 mg PO DAILY [facility] Stop: 12/20/19 08:59 Last Admin: 11/20/19 08:00 Dose: 50 mg Documented by: [id number] Morphine Sulfate (Morphine Sulfate) 8 mg IV NOW STA Stop: 11/19/19 14:39 Last Admin: 11/19/19 15:21 Dose: 8 mg Documented by: [id number] Morphine Sulfate (Morphine Sulfate) 3 mg IV NOW STA Stop: 11/20/19 00:17 Last Admin: 11/20/19 00:38 Dose: 3 mg Documented by: [id number] Morphine Sulfate (Morphine Sulfate) Confirm Administered Dose 4 mg .ROUTE .STK- MED ONE Stop: 11/20/19 00:23 Last Admin: 11/20/19 01:14 Dose: Not Given Documented by: [id number] Ondansetron HCl (Zofran) 4 mg IV NOW STA Stop: 11/19/19 16:10 Last Admin: 11/19/19 16:28 Dose: 4 mg Documented by: [id number] Blood Pressure Blood Pressure Findings: Elevated blood pressure Blood Pressure Disposition: further management by hospitalist Discharge Plan Visit Data *Final* Discharge Date/Time: 11/19/19 18:29 Chief Complaint: Wound Stated Complaint: LEFT LEG SENSITIVITY, OPEN WOUND ED Provider: Esperanza,Boo F Discharge Problem: Cellulitis of left leg, Sepsis, Lactic acidosis Patient Disposition: Admitted As Inpatient Discharge Instructions Interventions: ED Discharge Assessment Last Done: 11/19/19 18:29 The scribe's documentation has been prepared under my direction and personally reviewed by me in its entirety. I confirm that the note above accurately r eflects all work, treatment, procedures, and medical decision making performed by me.
[2019-11-20] MEDS ORDERED: ONDANSETRON INJ 2 MG/ML 2 ML VIAL IV STA (23:08)
[2019-11-20] MEDS ORDERED: ONDANSETRON INJ 2 MG/ML 2 ML VIAL ONE (23:12)
[2019-11-21] MEDS: PROMETHAZINE HCL 6.25 MG in SODIUM CHLORIDE 0.9% 50 ML IV PRN ×2 (01:09→10:05)
[2019-11-21] MEDS: ACETAMINOPHEN 325 MG TAB PO SCH ×6 (01:09→23:41)
[2019-11-21] MEDS: CEFEPIME 2,000 MG in SYRINGE 7.5 ML IV SCH (03:49)
[2019-11-21 06:11] LABS: Basophils # (auto) 0.01 K/uL (0-0.2); Basophils % (auto) 0.1 %; Eosinophils # (auto) 0.01 K/uL (0-0.5); Eosinophils % (auto) 0.1 %; Hemoglobin 12.9 g/dL (14.0-18.0); Immature Granulocytes # (auto) 0.04 K/uL (0.00-0.02); Immature Granulocytes % (auto) 0.4 %; Lymphocytes # (auto) 0.44 K/uL (1.2-3.4); Lymphocytes % (auto) 4.4 %; Mean Corpuscular Hemoglobin 31.9 pg (25-34); Mean Corpuscular Hgb Conc 33.9 g/dL (32-36); Mean Corpuscular Volume 94.1 fL (80-100); Mean Platelet Volume 10.4 fL (7.4-10.4); Monocytes # (auto) 0.45 K/uL (0.11-0.59); Monocytes % (auto) 4.5 %; Neutrophils # (auto) 9.01 K/uL (1.4-6.5); Neutrophils % (auto) 90.5 %; Platelet Count 121 K/uL (130-400); RDW Coefficient of Variation 13.7 % (11.5-14.5); RDW Standard Deviation 47.2 fL (36.4-46.3); Red Blood Count 4.04 M/uL (4.7-6.1); White Blood Count 9.96 K/uL (4.8-10.8)
[2019-11-21] MEDS: SODIUM CHLORIDE 0.9% 1000ML 1,000 ML IV SCH ×2 (06:13→06:31)
[2019-11-21 06:46] LABS: BUN Creatinine Ratio 28.8 (10-20); Calcium 8.1 mg/dl (8.5-10.1); Creatinine Clr Calc Pharmacy 87.7 ml/min; Est GFR (African American) 72.5; Est GFR (Non-African American) 62.6; Magnesium 2.2 mg/dl (1.8-2.4); Potassium 3.7 mmol/L (3.5-5.1)
[2019-11-21] MEDS: POTASSIUM CHLORIDE 20 MEQ TABCR PO SCH (07:24)
[2019-11-21] MEDS: METOPROLOL TARTRATE 50 MG TAB PO SCH (07:24)
[2019-11-21] MEDS: ASPIRIN 81 MG ECTAB PO SCH (07:24)
[2019-11-21] MEDS: SACCHAROMYCES BOULARDII 250 MG CAP PO SCH (07:24)
[2019-11-21] MEDS: GABAPENTIN 300 MG CAP PO SCH ×3 (07:24→21:08)
[2019-11-21] MEDS: DOXAZosin MESYLATE TAB 2 MG TAB PO SCH (07:24)
--- NOTE | 2019-11-21 07:57 | Hospitalist Progress Note ---
Date of Service November 21, 2019 Assessment & Plan (1) Bacteremia: Blood culture from November 19, 2019 -positive for Group A strep -Patient treated with daptomycin and cefepime since admission, per ID, switch to Rocephin and Clinda for GAS (11/21) -thought the source is patient's left lower extremity wound (wound cltx - posit. for MSSA) -ID consulted for further recommendations -Transthoracic echo (11/21) - EF 55-60%, grade II diast. dysfunction,moderate pericardial effusion w/o hemodynamic compromise, poorly visualized valves -Repeat blood cultures- ordered/pending -continue to monitor patient at PCU with telemetry (2) Leg wound, left: - has had LLE wound since July 2019 - was treated w/ Bactim and also in wound clinic, discharged from wound clinic earlier this month (October) - in the past 4 days prior to admission developed increased pain in LLE, erythema, and swelling, there is superficial open wound above left ankle - lactic acid elevated at 2.2, CRP above 11, WBC above 13k - received daptomycin and cefepime in the ER - LLE U/S -negative for DVT and L ankle MR - negative for osteomyelitis - continued dapto and cefepime until now, ID consulted, switch to rocephin and clinda for GAS (11/21) - blood cltx - positive for Group A Strep - wound cltx- posit. for MSSA - wound nurse consulted, wound provider/physician also consulted (was unable to see the pt today, as pt was in EGD) (3) Chronic venous insufficiency of lower extremity: - as above, chronic venous insuff. - venous stasis changes anthony. of LLE (4) Cellulitis of left leg: (5) ELIZ (acute kidney injury): - no known hx of CKD - Cr 1.2 in 02/2019 per review of outpt records - Cr 1.66 on admission, now resolved, current Cr 1.18 (back to baseline) - poss. prerenal as pt reported poor appetite in the past couple of days, poss. 2/2 NSAID use (for pain), 2/2 infection - received IVF in the ED - hold losartan for now - will cont. to monitor, avoid nephrotoxic agents, renally dose meds (6) GERD (gastroesophageal reflux disease): - at home takes ranitidine as needed - today developed severe epigastric pain, on CT image there is duodenitis and poss. ulcer - started pt on pantoprazole and carafate, GI was consulted, plan for EGD - Update: EGD showed erosive esophagitis. Gastritis and Multiple non-bleeding large and deeply cratered duodenal ulcers. - Recommend IV PPI for 2 days then PO PPI for 3 months, cont. carafate, consult surgery for duodenal ulcer - risk of perforation, avoid NSAIDs (7) Gastritis: - found today (11/21) on EGD - likely d/t NSAID use - recommendations, as above - cont. IV PPI for 2 days then PO PPI for 3 months, carafate, avoid NSAIDS (8) Erosive esophagitis: found today (11/21) on EGD - recommendations, as above - cont. IV PPI for 2 days then PO PPI for 3 months, carafate, avoid NSAIDS (9) Duodenal ulcer: found today (11/21) on EGD - recommendations, as above - cont. IV PPI for 2 days then PO PPI for 3 months, carafate, avoid NSAIDS - surgery consulted for evaluation - risk of duodenal ulcer perforation, rec ommend PPI and clear liquid diet for now, will cont. to follow (10) CAD (coronary artery disease): s/p CAD - at home on ASA, metoprolol and atorvastatin - will hold statin while on daptomycin - currently no chest pain, no active issues (11) PAD (peripheral artery disease): (12) COPD (chronic obstructive pulmonary disease): - does not use inhalers - no active issues (13) Dyslipidemia: - on statin, will hold while on daptomycin (14) Morbid obesity: - encourage lifestyle modification CODE STATUS: FULL Subjective This morning patient was undergoing echocardiogram (to r/o endocarditis), and developed abdominal pain, this was concerning for possible AAA dissection and so cardiology ordered CTA of the abdomen. CTA negative for dissection but significant for inflammation of duodenum and poss. ulcer. Also showed small to mod. pericardial effusion. Pt is sitting up in bed, somewhat uncomfortable d/t epigastric abd. pain. Says it started after he got MRI of his ankle here (to r/o osteomyelitis). At home he would take ranitidine for GERD and also took NSAIDs for leg pain. Discussed the findings with him and his . Will start pantoprazole and carafate and will consult GI. Pt denies fever, chills, chest pain, shortness of breath. Says his abd. pain is bothering him more than his leg now. Review of Systems Review of Systems: All systems reviewed & are unremarkable except as noted in HPI & below Constitutional: + fatigue; no fever and no chills Respiratory: no cough and no dyspnea Cardiovascular: + edema (LLE); no chest pain and no palpitations Gastrointestinal: + abdominal pain (epigatric, severe) Integumentary: + wounds (LLE above ankle, also incr. blistering of LLE) and + erythema (LLE) Physical Exam Physical Exam: Obese male sitting up in the bed, in mild distress due to abdominal pain Constitutional: well developed, well nourished, + acute distress (mild distress d/t abd. pain) and + morbidly obese Eyes: PERRL, conjunctivae normal, anicteric sclerae EOM intact bilaterally ENMT: external ear and nose normal, oropharynx normal Ears: no hearing impairment Neck: trachea midline, no thyromegaly normal visual inspection Respiratory: normal respiratory effort, lungs clear to auscultation Auscultation: no crackles, no rhonchi and no wheezes Cardiovascular: RRR, no murmur, no edema Heart Sounds: no murmur Extremities: + edema (LLE) Chest (Breasts): Chest: normal inspection of chest (vertical post. surg. scar) Gastrointestinal (Abdomen): Inspection/Auscultation: abdomen normal to inspection (but very obese), + abdomen distended and normal bowel sounds Percussion/Palpation: + abdomen tender (in epigastric region) and abdomen soft; no guarding Musculoskeletal: Head/Neck/Chest: normocephalic, head atraumatic and neck supple Extremities: + extremities abnormal to inspection (LLE erythema, wound above left ankle, mild swelling, tenderness to palp.) Skin: + wound (LLE above ankle) Neurologic: PERRL, EOMI, accommodation nl, no face palsy, no dysarthria moves all extremities; no focal motor deficits Speech / Cognition: normal speech Psychiatric: A+Ox3, euthymic affect Speech: normal rate/rhythm/volume of speech Genitourinary: no CVA tenderness Lymphatic: no cervical or axillary lymphadenopathy + lymphedema (LLE) Results & Data Vital Signs (Past 12 Hours) Vital Signs Temp Pulse Pulse Resp BP Pulse Ox 11/21/19 06:48 37.3 C 75 22 157/71 H 95 11/21/19 03:08 37 C 70 18 115/64 95 11/20/19 23:52 73 11/20/19 23:12 36.9 C 70 20 102/56 L 93 Laboratory Results 11/21/19 11/21/19 11/20/19 Range/Units 05:56 05:56 06:03 WBC 9.96 (4.8-10.8) K/uL RBC 4.04 L (4.7-6.1) M/uL Hgb 12.9 L (14.0-18.0) g/dL Hct 38.0 L (42-52) % MCV 94.1 (80-100) fL MCH 31.9 (25-34) pg MCHC 33.9 (32-36) g/dL RDW Std Deviation 47.2 H (36.4-46.3) fL RDW Coeff of Alan 13.7 (11.5-14.5) % Plt Count 121 L (130-400) K/uL MPV 10.4 (7.4-10.4) fL Immature Gran % (Auto) 0.4 % Neut % (Auto) 90.5 % Lymph % (Auto) 4.4 % [place] % (Auto) 4.5 % Eos % (Auto) 0.1 % Baso % (Auto) 0.1 % Immature Gran # (Auto) 0.04 H (0.00-0.02) K/uL Neut # (Auto) 9.01 H (1.4-6.5) K/uL Lymph # (Auto) 0.44 L (1.2-3.4) K/uL [place] # (Auto) 0.45 (0.11-0.59) K/uL Eos # (Auto) 0.01 (0-0.5) K/uL Baso # (Auto) 0.01 (0-0.2) K/uL Sodium 139 (136-145) mmol/L Potassium 3.7 (3.5-5.1) mmol/L Chloride 109 H (98-107) mmol/L Carbon Dioxide 24 (21-32) mmol/L Anion Gap 6.0 (3-11) BUN 34 H (7-18) mg/dl Creatinine 1.18 D (0.6-1.4) mg/dl Est Cr Clr Drug Dosing 87.7 ml/min Est GFR ( Amer) 72.5 Est GFR (Non-Af Amer) 62.6 BUN/Creatinine Ratio 28.8 H (10-20) Glucose 119 H (70-99) mg/dl Calcium 8.1 L (8.5-10.1) mg/dl Magnesium 2.2 (1.8-2.4) mg/dl Hepatitis C Ab Screen Neg (Neg) Diagnostic Findings CTA abdomen/pelvis 11/21/2019 IMPRESSION: 1. Extensive calcified atherosclerotic plaque. No focal vessel occlusion, aneurysm, or dissection. Less than 50% stenosis of the origin of the SMA. 2. Extensive inflammatory changes at the level of the duodenal bulb and descending duodenum with associated wall thickening, retroperitoneal fluid, and adjacent inflammatory changes along the hepatic flexure of the colon. Findings are suspicious for duodenitis or underlying duodenal ulcer. Gastroenterology consultation to be considered. 3. 2.1 cm left adrenal nodule, statistically most likely to represent a benign adenoma. 4. Small to moderate pericardial effusion. Medications Administered Current Inpatient Medications Acetaminophen (Tylenol) 650 mg PO Q4H [facility] Stop: 12/20/19 09:14 Last Admin: 11/21/19 04:55 Dose: 650 mg Documented by: Aspirin (Ecotrin Ectab) 81 mg PO DAILY [facility] Stop: 12/20/19 08:59 Last Admin: 11/21/19 07:24 Dose: 81 mg Documented by: Doxazosin Mesylate (Cardura) 2 mg PO DAILY [facility] Stop: 12/20/19 08:59 Last Admin: 11/21/19 07:24 Dose: 2 mg Documented by: Gabapentin (Neurontin) 300 mg PO TID [facility] Stop: 12/19/19 20:59 Last Admin: 11/21/19 07:24 Dose: 300 mg Documented by: Sodium Chloride (Nss 1000ml) 1,000 mls @ 150 mls/hr IV .Q6H40M [facility] Stop: 12/20/19 03:14 Last Infusion: 11/21/19 07:28 Dose: 0 mls/hr Documented by: Daptomycin 625 mg/ Syringe 12.5 mls @ 6.25 mls/min IV DAILY@1600 [facility]; Protocol Stop: 11/30/19 15:59 Last Admin: 11/20/19 15:29 Dose: 6.25 mls/min Documented by: Cefepime HCl 2,000 mg/ Syringe 20 mls @ 5 mls/min IV Q8H [facility] Stop: 11/30/19 10:29 Last Admin: 11/21/19 03:49 Dose: 5 mls/min Documented by: Promethazine HCl 6.25 mg/ (Sodium Chloride) 50.25 mls @ 201 mls/hr IV Q6H PRN PRN Reason: Nausea And Vomiting Stop: 12/20/19 17:26 Last Infusion: 11/21/19 01:36 Dose: Infused Documented by: Metoprolol Tartrate (Lopressor) 50 mg PO DAILY [facility] Stop: 12/20/19 08:59 Last Admin: 11/21/19 07:24 Dose: 50 mg Documented by: Miscellaneous (Order Awaiting Action) 1 ea N/A QS [facility] Stop: 12/20/19 00:00 Last Admin: 11/21/19 07:25 Dose: Not Given Documented by: Miscellaneous Information (Cefepime Consult Active) 1 ea N/A UD PRN PRN Reason: Consult Stop: 12/19/19 18:18 Miscellaneous Information (Consult) 1 ea N/A UD PRN PRN Reason: Consult Stop: 12/19/19 19:22 Nitroglycerin (Nitrostat) 0.4 mg SL Q5M PRN PRN Reason: Chest Pain Stop: 12/19/19 18:18 Polyethylene Glycol (Miralax Powder Packet) 17 gm PO DAILY PRN PRN Reason: Constipation Stop: 12/19/19 18:18 Potassium Chloride (Klor-Con M20) 20 meq PO DAILY [facility] Stop: 12/20/19 08:59 Last Admin: 11/21/19 07:24 Dose: 20 meq Documented by: Saccharomyces Boulardii (Florastor) 250 mg PO DAILY [facility] Stop: 12/20/19 17:44 Last Admin: 11/21/19 07:24 Dose: 250 mg Documented by: Tramadol HCl (Ultram) 50 mg PO Q4H PRN PRN Reason: Pain Stop: 12/20/19 09:03
[2019-11-21] MEDS ORDERED: OPTIRAY 320 125ml IV PRN (08:33)
--- NOTE | 2019-11-21 08:35 | Cardiology Consultation ---
Date of Consultation November 21, 2019 Assessment & Plan (1) Acute abdominal pain: Given the clinical presentation along with the fact that he is a male over the age of 64 with a history of hypertension and tobacco abuse my initial concern is that he could be suffering from an abdominal aortic aneurysm dissection. His body habitus makes physical examination very difficult to appreciate any bruit. For further evaluation he will undergo a stat CT angios of the abdomen and pelvis to further evaluate. He did have some decreased renal function on admission but is now normalized and he was made aware of the risk of renal impairment or failure with dye load and he states he agrees to proceed with the angiogram. A moderate anterior pericardial effusion is also present however, given the presentation I believe is more prudent to rule out AAA dissection first and should it be ruled out then we can initiate treatment for pericarditis. (2) Morbid obesity: (3) CAD (coronary artery disease): Stable (4) Cellulitis of left leg: (5) PAD (peripheral artery disease): (6) Chronic venous insufficiency of lower extremity: (7) Tobacco abuse, in remission: History of Present Illness Reason for Consultation: abdominal pain Attending Physician: Benedict Maldonado MD History of Present Illness It was my pleasure to see Mr. Guthrie is a stat cardiology consult today November 21, 2019. He is a very pleasant yet very medically complex 68-year-old gentleman who normally follows with Dr. Love of our cardiology practice. He presented to [facility] on 11/19/2019 with complaints of recurrent lower extremity cellulitis. However, during admission he started complaining of abdominal pain. He states that started during his MRI of his ankle and he describes as a sharp stabbing/tearing sensation occurring in his abdomen with radiation into his back. He states is been waxing and waning overnight but during transthoracic echocardiogram today became very severe. I was called in the room to evaluate the patient and he is currently in moderate distress. He states that sometimes it can improve if he sits up but it does significantly worsen with motion otherwise. He denies any history of abdominal aortic aneurysm but states he is not sure if he is ever been screened for one either. He does have a history of hypertension and tobacco abuse. He states that this pain is completely different than his chronic low back pain. Past cardiac history per Dr. Huff's most recent outpatient follow-up: 1. Stable chronic coronary heart disease status post CABG x2 with ZAPATA to LAD SVG to OM on 10/28/2012, [facility], Dr. Hernandez 2. Known chronic occlusion of the right coronary artery and therefore this territory was not bypassed 3. Peripheral arterial disease 4. Hypertension 5. Dyslipidemia 6. Chronic low back pain, radiculopathy Allergies Allergy/AdvReac Type Severity Reaction Status Date / Time No Known Drug Allergies Allergy Verified 11/19/19 13:17 Home Medications Home Medications Medication Instructions Recorded Confirmed Type aspirin 81 mg tablet,delayed 81 mg PO DAILY 08/14/19 11/19/19 History release atorvastatin 40 mg tablet 40 mg PO DAILY 08/14/19 11/19/19 History doxazosin 2 mg tablet 2 mg PO DAILY 08/14/19 11/19/19 History furosemide 40 mg tablet 40 mg PO DAILY 08/14/19 11/19/19 History gabapentin 300 mg capsule 300 mg PO TID 08/14/19 11/19/19 History metoprolol tartrate 50 mg tablet 50 mg PO DAILY tab 08/14/19 11/19/19 History naltrexone 8 mg-bupropion 90 mg 1 tab PO BID 08/14/19 11/19/19 History tablet,extended release nitroglycerin 0.4 mg sublingual 0.4 mg SL Q5M PRN 08/14/19 11/19/19 History tablet potassium chloride 20 mEq 20 meq PO DAILY 08/14/19 11/19/19 History tablet,extended release(part/cryst) ranitidine HCl 150 mg tablet 150 mg PO BID 08/14/19 11/19/19 History ibuprofen [Advil] 600 mg PO Q6H PRN 11/19/19 11/19/19 History losartan 11/20/19 History Patient History Medical History BPH (benign prostatic hyperplasia) (Chronic) Chronic GERD (Chronic) High cholesterol (Chronic) HTN (hypertension) (Chronic) Neuropathy (Chronic) Obesity (Chronic) Surgical History H/O wisdom tooth extraction (Resolved) History of cholecystectomy (Resolved) History of heart bypass surgery (Chronic) Family History Father Diabetes Heart disease Brother AAA (abdominal aortic aneurysm) Social History Preferred Language: Maori Communication Ability: Effective Visual Impairment: Limited Hearing Ability: Normal Access Clinician Required: No Beliefs That Will Affect Care: None marital status: Current Living Situation: Family current occupational status: employed 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 No acute distress. HEENT: Normocephalic, atraumatic. Pupils equal, round and reactive to light and accommodation. Extraocular muscles are intact. Anicteric sclera. Moist mucous membranes. Neck: No JVD. No bruit. Cardiovascular: Regular. Positive S-4. Normal S-1 and S-2. No S-3. No murmurs or rubs. Pulmonary: Clear to auscultation B/L. No rales, rhonchi or wheezing Abdomen: Very large and protuberant. Unable to appreciate bowel sounds or bruit. Diffusely tender to palpation particularly in the upper midline. Extremities: No clubbing, cyanosis. +2 bilateral lower extremity nonpitting edema. +1 pedal pulses bilaterally. Left leg dressed. Significant chronic venous stasis changes bilaterally. Skin: Warm and dry. Results & Data Vital Signs (Past 12 Hours) Vital Signs Temp Pulse Pulse Resp BP Pulse Ox 11/21/19 06:48 37.3 C 75 22 157/71 H 95 11/21/19 03:08 37 C 70 18 115/64 95 11/20/19 23:52 73 11/20/19 23:12 36.9 C 70 20 102/56 L 93 Laboratory Results Laboratory Results - last 24 hr 11/21/19 11/21/19 05:56 05:56 WBC 9.96 RBC 4.04 L Hgb 12.9 L Hct 38.0 L MCV 94.1 MCH 31.9 MCHC 33.9 RDW Std Deviation 47.2 H RDW Coeff of Alan 13.7 Plt Count 121 L MPV 10.4 Immature Gran % (Auto) 0.4 Neut % (Auto) 90.5 Lymph % (Auto) 4.4 [place] % (Auto) 4.5 Eos % (Auto) 0.1 Baso % (Auto) 0.1 Immature Gran # (Auto) 0.04 H Neut # (Auto) 9.01 H Lymph # (Auto) 0.44 L [place]ac[place] # (Auto) 0.45 Eos # (Auto) 0.01 Baso # (Auto) 0.01 Sodium 139 Potassium 3.7 Chloride 109 H Carbon Dioxide 24 Anion Gap 6.0 BUN 34 H Creatinine 1.18 D Est Cr Clr Drug Dosing 87.7 Est GFR ( Amer) 72.5 Est GFR (Non-Af Amer) 62.6 BUN/Creatinine Ratio 28.8 H Glucose 119 H Calcium 8.1 L Magnesium 2.2 Medications Administered Current Inpatient Medications Acetaminophen (Tylenol) 650 mg PO Q4H [facility] Stop: 12/20/19 09:14 Last Admin: 11/21/19 04:55 Dose: 650 mg Documented by: Aspirin (Ecotrin Ectab) 81 mg PO DAILY [facility] Stop: 12/20/19 08:59 Last Admin: 11/21/19 07:24 Dose: 81 mg Documented by: Doxazosin Mesylate (Cardura) 2 mg PO DAILY [facility] Stop: 12/20/19 08:59 Last Admin: 11/21/19 07:24 Dose: 2 mg Documented by: Gabapentin (Neurontin) 300 mg PO TID [facility] Stop: 12/19/19 20:59 Last Admin: 11/21/19 07:24 Dose: 300 mg Documented by: Sodium Chloride (Nss 1000ml) 1,000 mls @ 150 mls/hr IV .Q6H40M [facility] Stop: 12/20/19 03:14 Last Infusion: 11/21/19 07:28 Dose: 0 mls/hr Documented by: Daptomycin 625 mg/ Syringe 12.5 mls @ 6.25 mls/min IV DAILY@1600 [facility]; Protocol Stop: 11/30/19 15:59 Last Admin: 11/20/19 15:29 Dose: 6.25 mls/min Documented by: Cefepime HCl 2,000 mg/ Syringe 20 mls @ 5 mls/min IV Q8H [facility] Stop: 11/30/19 10:29 Last Admin: 11/21/19 03:49 Dose: 5 mls/min Documented by: Promethazine HCl 6.25 mg/ (Sodium Chloride) 50.25 mls @ 201 mls/hr IV Q6H PRN PRN Reason: Nausea And Vomiting Stop: 12/20/19 17:26 Last Infusion: 11/21/19 01:36 Dose: Infused Documented by: Metoprolol Tartrate (Lopressor) 50 mg PO DAILY [facility] Stop: 12/20/19 08:59 Last Admin: 11/21/19 07:24 Dose: 50 mg Documented by: Miscellaneous (Order Awaiting Action) 1 ea N/A QS [facility] Stop: 12/20/19 00:00 Last Admin: 11/21/19 07:25 Dose: Not Given Documented by: Miscellaneous Information (Cefepime Consult Active) 1 ea N/A UD PRN PRN Reason: Consult Stop: 12/19/19 18:18 Miscellaneous Information (Consult) 1 ea N/A UD PRN PRN Reason: Consult Stop: 12/19/19 19:22 Nitroglycerin (Nitrostat) 0.4 mg SL Q5M PRN PRN Reason: Chest Pain Stop: 12/19/19 18:18 Polyethylene Glycol (Miralax Powder Packet) 17 gm PO DAILY PRN PRN Reason: Constipation Stop: 12/19/19 18:18 Potassium Chloride (Klor-Con M20) 20 meq PO DAILY [facility] Stop: 12/20/19 08:59 Last Admin: 11/21/19 07:24 Dose: 20 meq Documented by: Saccharomyces Boulardii (Florastor) 250 mg PO DAILY [facility] Stop: 12/20/19 17:44 Last Admin: 11/21/19 07:24 Dose: 250 mg Documented by: Tramadol HCl (Ultram) 50 mg PO Q4H PRN PRN Reason: Pain Stop: 12/20/19 09:03
--- NOTE | 2019-11-21 08:52 | CT Scan Report ---
CT angio abdomen pelvis w con CLINICAL HISTORY: 68 years-old Male presenting with persistent nausea, generalized abdominal pain, cl inical concern for aneurysm or dissection. TECHNIQUE: Multidetector CT angiography of the abdomen and pelvis was performed after the administrat ion of intravenous contrast. 3-D volumetric and/or maximum intensity projection (MIP) images were sub sequently reconstructed for review. IV contrast: Optiray 320. One or more dose lowering techniques we re used consistent with the principles of ALARA (as low as reasonably achievable), including automati c exposure control, mA or kV adjustment to individual patient size, and/or use of iterative reconstru ction. Stenosis measurements were based on NASCET-like criteria (distal lumen diameter as the denomin ator for stenosis measurement). COMPARISON: None. CT DOSE (mGy.cm): The estimated cumulative dose is 1742.96 mGy.cm. FINDINGS: Senior Quality Analyst topogram: Cholecystectomy clips. Median sternotomy wires noted. Vasculature: Atherosclerosis of the normal caliber abdominal aorta. No aneurysm. No dissection. No periaortic fat infiltration or hematoma. Densely calcified atherosclerotic plaque at the origins of the major branch vessels. The greatest degree of stenosis is evident at the origin of the superior mesenteric artery, where there is less than 50% stenosis. Bilateral common, external, and internal iliac arteries paten t though with significant calcified atherosclerotic burden. Similar findings in the patent bilateral common, superficial and deep femoral arteries. Remaining abdomen and pelvis: Lung bases: Normal heart size. Coronary artery calcification. Small to moderate pericardial effusion noted. No pleural effusion. Minimal dependent changes likely atelectasis. Liver: Normal morphology. No focal lesion allowing for the early arterial phase of contrast. Conventi onal hepatic arterial anatomy. Biliary: No intrahepatic or extrahepatic biliary ductal dilatation. Gallbladder surgically absent. Pancreas: Mild parenchymal atrophy. Spleen: Normal. Adrenal glands: 2.1 cm nodule in the left adrenal gland, indeterminate by density on this contrast-en hanced study. Right adrenal gland with focus of calcification possibly implying prior hemorrhage or i nfection. Kidneys and ureters: Normal. No hydronephrosis. Bladder: Normal. Pelvic organs: Prostate and seminal vesicles normal. Bowel: Pericolonic fat infiltration at the level of the hepatic flexure, which also tracks along the duodenal bulb and descending duodenum. The greatest degree of inflammation appears to emanate from th e duodenum, which is thick-walled. No significant wall thickening of the hepatic flexure of the colon . The appendix is normal. No bowel obstruction. No gross evidence of extravasation of contrast in the bowel lumen. Peritoneal cavity: No free fluid or intraperitoneal gas. Trace retroperitoneal fluid tracking along t he periduodenal region. Lymph nodes: No enlarged lymph nodes in the abdomen or pelvis. Abdominal wall: Trace fat infiltration along the anterior subcutaneous tissue, nonspecific edema. Fat -containing ability hernia. Musculoskeletal: Degenerative changes of the spine. IMPRESSION: 1. Extensive calcified atherosclerotic plaque. No focal vessel occlusion, aneurysm, or dissection. L ess than 50% stenosis of the origin of the SMA. 2. Extensive inflammatory changes at the level of the duodenal bulb and descending duodenum with ass ociated wall thickening, retroperitoneal fluid, and adjacent inflammatory changes along the hepatic f lexure of the colon. Findings are suspicious for duodenitis or underlying duodenal ulcer. Gastroenter ology consultation to be considered. 3. 2.1 cm left adrenal nodule, statistically most likely to represent a benign adenoma. 4. Small to moderate pericardial effusion. ACT 112: Negative or not required by law. Electronically signed by: Adalid Francisco M.D. 11/21/2019 8:51 AM
--- NOTE | 2019-11-21 09:28 | Infectious Disease Progress Nt ---
Date of Service November 21, 2019 Assessment & Plan (1) Gram positive sepsis: will change to rocephin, will add clinda due to GAS, concerning for possibility of necrotizing infection, would suggest ct leg and surgery eval. will need echo. repeat blood cultures pending. will need min 21 days abx. I will be away until 12/04/2019, if any ongoing ID concerns would suggest transfer. (2) Cellulitis of left leg: Subjective pt transferred to second floor yesterday, more awake today but remains lethargic. no f/c. 11/19 blood cultures growing GAS, sensitivities pending. wound culture growing MSSA, remains on dapto and cefepime. repeat cultures p ending, echo pending. leg dressed, states less pain. no cp, sob, cough. no abd pain, no n/v/d. Review of Systems Review of Systems: All systems reviewed & are unremarkable except as noted in HPI & below Physical Exam Constitutional: WD/WN, vitals as above Eyes: PERRL, conjunctivae normal, anicteric sclerae ENMT: external ear and nose normal, oropharynx normal Neck: normal visual inspection Respiratory: normal respiratory effort, lungs clear to auscultation Auscultation: + diminished lung sounds Cardiovascular: RRR, no murmur, no edema Gastrointestinal (Abdomen): normal bowel sounds, soft, nontender, no hepatosplenomegaly Musculoskeletal: no cyanosis or clubbing, extremities motor strength 5/5 Skin: no rashes, warm and dry + wound, + erythema and + purpura Trauma: + evidence of skin trauma dressing c/d/i Psychiatric: A+Ox3, euthymic affect Results & Data Vital Signs (Past 12 Hours) Vital Signs Temp Pulse Pulse Resp BP Pulse Ox 11/21/19 06:48 37.3 C 75 22 157/71 H 95 11/21/19 03:08 37 C 70 18 115/64 95 11/20/19 23:52 73 11/20/19 23:12 36.9 C 70 20 102/56 L 93 Laboratory Results Microbiology 11/19/19 16:30 Leg,Left Gram Stain - Final 11/19/19 16:30 Leg,Left Wound Culture - Final Staphylococcus aureus 11/19/19 13:56 Blood Aerobic Blood Culture - Preliminary Gram positive cocci in chains 11/19/19 13:56 Blood Anaerobic Blood Culture - Preliminary Group A Beta Strep 11/19/19 13:56 Blood Aerobic Blood Culture - Preliminary Gram positive cocci in chains 11/19/19 13:56 Blood Anaerobic Blood Culture - Preliminary Group A Beta Strep PG Care Time/CCT Total # of Minutes Spent Total Time Spent with Patient: Total time spent is greater than 50% in coordination of care (as documented) at patient's floor/unit and/or counseling patient:
[2019-11-21] MEDS ORDERED: PANTOprazole 40 MG TAB PO SCH (09:30)
--- NOTE | 2019-11-21 09:53 | Gastrointestinal Consultation ---
Date of Consultation November 21, 2019 Assessment & Plan (1) Epigastric pain: Epigastric pain in the setting of chronic NSAID use and abnormal CT that suggests an ulcer and duodenitis. Plan for EGD today to r/o duodenitis and duodenal ulcer. Please keep pt NPO until after the procedure. Further recommendations to follow EGD. Present on Admission?: Yes Supervising Physician Co-Signing Physician Notes I performed a history and physical examination of the patient, including specifically on physical exam - soft, nontender abdomen. I have discussed the patient's management with Dino. Please refer to the nurse practitioner's note for the documented findings and plan of care. Abdominal pain in the setting of NSAIDs, use, likely PUD, will do EGD History of Present Illness Reason for Consultation: Abdominal pain, duodenitis on CT. Requesting Physician: Dr. Maldonado Attending Physician: Benedict Maldonado MD History of Present Illness Mr. Aditya Guthrie is a 68 yr old male with a hx of COPD, CAD, PVD, BPH, HTN,GERD and obesity. He presented to the ED on 11/19 for cellulitis. During the hospitalization, he experienced abdominal pain. CT was completed with suggestion of duodenal wall thickening suggestive of possible ulcer disease. He tells me that, at baseline, he has reflux symptoms, managed with ranitidine. Recently, his reflux has been somewhat worsened but not severe. Since yesterday he has had severe upper abd pain, nausea and some dry heaves. He denies any melena or hematochezia though he did have a large liquid BM yesterday. He takes 3 ibuprofen daily for pain. Allergies Allergy/AdvReac Type Severity Reaction Status Date / Time No Known Drug Allergies Allergy Verified 11/19/19 13:17 Home Medications Home Medications Medication Instructions Recorded Confirmed Type aspirin 81 mg tablet,delayed 81 mg PO DAILY 08/14/19 11/19/19 History release atorvastatin 40 mg tablet 40 mg PO DAILY 08/14/19 11/19/19 History doxazosin 2 mg tablet 2 mg PO DAILY 08/14/19 11/19/19 History furosemide 40 mg tablet 40 mg PO DAILY 08/14/19 11/19/19 History gabapentin 300 mg capsule 300 mg PO TID 08/14/19 11/19/19 History metoprolol tartrate 50 mg tablet 50 mg PO DAILY tab 08/14/19 11/19/19 History naltrexone 8 mg-bupropion 90 mg 1 tab PO BID 08/14/19 11/19/19 History tablet,extended release nitroglycerin 0.4 mg sublingual 0.4 mg SL Q5M PRN 08/14/19 11/19/19 History tablet potassium chloride 20 mEq 20 meq PO DAILY 08/14/19 11/19/19 History tablet,extended release(part/cryst) ranitidine HCl 150 mg tablet 150 mg PO BID 08/14/19 11/19/19 History ibuprofen [Advil] 600 mg PO Q6H PRN 11/19/19 11/19/19 History losartan 11/20/19 History Patient History Medical History BPH (benign prostatic hyperplasia) (Chronic) Chronic GERD (Chronic) High cholesterol (Chronic) HTN (hypertension) (Chronic) Neuropathy (Chronic) Obesity (Chronic) Surgical History H/O wisdom tooth extraction (Resolved) History of cholecystectomy (Resolved) History of heart bypass surgery (Chronic) Family History Father Diabetes Heart disease Brother AAA (abdominal aortic aneurysm) Social History Preferred Language: Slovenian Communication Ability: Effective Visual Impairment: Limited Hearing Ability: Normal Process 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 Required: No Beliefs That Will Affect Care: None marital status: Current Living Situation: Family current occupational status: employed current occupation: [employer] Other Information That Helps Us Care for You: No Feels Safe at Home: Yes Safety Concerns: Feels Safe At This Time Smoking Status: Former smoker Tobacco Type: cigarettes ; packs per day: 1 ; Second Hand Exposure: No ; Hx Alcohol Use: No Hx Substance Use: No Childhood Exposure to Second-Hand Smoke: Yes Review of Systems Review of Systems: ROS: Gen: Denies weakness, fevers, weight loss Eyes: No eye redness, or pain, no recent vision changes Resp: No SOB, no cough Cardio: No palpitations/irregular beats, no chest pain GI: + abdominal pain, + nausea/vomiting, no melena, no hematochezia : Denies pain on urination Skin: No jaundice, + cellulitis Physical Exam Constitutional: WD/WN, vitals as above + obese Eyes: PERRL, conjunctivae normal, anicteric sclerae ENMT: external ear and nose normal, oropharynx normal Neck: trachea midline, no thyromegaly Respiratory: normal respiratory effort, lungs clear to auscultation Cardiovascular: RRR, no murmur, no edema Gastrointestinal (Abdomen): Inspection/Auscultation: abdomen not distended Percussion/Palpation: + abdomen tender (moderately tender across the entire upper abdomen) and abdomen soft obese Neurologic: PERRL, EOMI, accommodation nl, no face palsy, no dysarthria Psychiatric: A+Ox3, euthymic affect Results & Data Vital Signs (Past 12 Hours) Vital Signs Temp Pulse Pulse Resp BP Pulse Ox 11/21/19 06:48 37.3 C 75 22 157/71 H 95 11/21/19 03:08 37 C 70 18 115/64 95 11/20/19 23:52 73 11/20/19 23:12 36.9 C 70 20 102/[address] abd/pelvis on 11/11/19: 1. Extensive calcified atherosclerotic plaque. No focal vessel occlusion, aneurysm, or dissection. Less than 50% stenosis of the origin of the SMA. 2. Extensive inflammatory changes at the level of the duodenal bulb and desc ending duodenum with associated wall thickening, retroperitoneal fluid, and adjacent inflammatory changes along the hepatic flexure of the colon. Findings are suspicious for duodenitis or underlying duodenal ulcer. Gastroenterology consultation to be considered. 3. 2.1 cm left adrenal nodule, statistically most likely to represent a benign adenoma. 4. Small to moderate pericardial effusion.
--- NOTE | 2019-11-21 11:15 | Anesthesiology Consultation ---
Date of Service November 21, 2019 Assessment & Plan Chart Review Chart Review: Acceptable Risk for Surgery and Patient NOT seen in Pre Admission Testing Consults Requested none History Surgery Operation Date: 11/21/19 17:00 Proposed Procedures p Esophagogastroduodenoscopy Dr Patrick - oRb Patrick MD Height/Weight Height: 5 ft 10 in Weight: 152.8 kg Allergies Allergy/AdvReac Type Severity Reaction Status Date / Time No Known Drug Allergies Allergy Verified 11/19/19 13:17 Medications Home Medications Medication Instructions Recorded Confirmed Last Taken aspirin 81 mg tablet,delayed 81 mg PO DAILY 08/14/19 11/19/19 11/18/19 release atorvastatin 40 mg tablet 40 mg PO DAILY 08/14/19 11/19/19 11/18/19 doxazosin 2 mg tablet 2 mg PO DAILY 08/14/19 11/19/19 11/18/19 furosemide 40 mg tablet 40 mg PO DAILY 08/14/19 11/19/19 11/18/19 gabapentin 300 mg capsule 300 mg PO TID 08/14/19 11/19/19 11/18/19 metoprolol tartrate 50 mg tablet 50 mg PO DAILY tab 08/14/19 11/19/19 11/18/19 naltrexone 8 mg-bupropion 90 mg 1 tab PO BID 08/14/19 11/19/19 11/18/19 tablet,extended release nitroglycerin 0.4 mg sublingual 0.4 mg SL Q5M PRN 08/14/19 11/19/19 Unknown tablet potassium chloride 20 mEq 20 meq PO DAILY 08/14/19 11/19/19 11/18/19 tablet,extended release(part/cryst) ranitidine HCl 150 mg tablet 150 mg PO BID 08/14/19 11/19/19 11/18/19 ibuprofen [Advil] 600 mg PO Q6H PRN 11/19/19 11/19/19 11/19/19 losartan 11/20/19 Unknown Active Medications Generic Name Dose Route Start Last Admin Trade Name Freq PRN Reason Stop Dose Admin Acetaminophen 650 mg 11/20/19 09:15 11/21/19 09:20 Tylenol PO 12/20/19 09:14 650 mg Q4H MARY BETH Administration Aspirin 81 mg 11/20/19 09:00 11/21/19 07:24 Ecotrin Ectab PO 12/20/19 08:59 81 mg DAILY MARY BETH Administration Doxazosin Mesylate 2 mg 11/20/19 09:00 11/21/19 07:24 Cardura PO 12/20/19 08:59 2 mg DAILY MARY BETH Administration Gabapentin 300 mg 11/19/19 21:00 11/21/19 07:24 Neurontin PO 12/19/19 20:59 300 mg TID MARY BETH Administration Promethazine HCl 6.25 mg/ 50.25 mls @ 201 mls/hr 11/20/19 17:27 11/21/19 10:24 Sodium Chloride IV 12/20/19 17:26 Infused Q6H PRN Infusion Nausea And Vomiting Ioversol 119 ml 11/21/19 08:33 11/21/19 08:36 Optiray 320 125ml IV 11/25/19 08:32 119 ml ONCE PRN Administration Interaction Checking Metoprolol Tartrate 50 mg 11/20/19 09:00 11/21/19 07:24 Lopressor PO 12/20/19 08:59 50 mg DAILY MARY BETH Administration Miscellaneous 1 ea 11/20/19 00:00 11/21/19 07:25 Order Awaiting Action N/A 12/20/19 00:00 Not Given QS MARY BETH Potassium Chloride 20 meq 11/20/19 09:00 11/21/19 07:24 Klor-Con M20 PO 12/20/19 08:59 20 meq DAILY MARY BETH Administration Saccharomyces Boulardii 250 mg 11/20/19 17:45 11/21/19 07:24 Florastor PO 12/20/19 17:44 250 mg DAILY MARY BETH Administration NPO Date Last Intake of Fluids: 11/21/19 Time Last Intake of Fluids: 10:30 Last Intake of Fluids Comment: SIP OF WATER WITH PILL Date Last Intake of Solids: 11/20/19 Time Last Intake of Solids: 16:00 Past Medical History Medical History BPH (benign prostatic hyperplasia) (Chronic) Chronic GERD (Chronic) High cholesterol (Chronic) HTN (hypertension) (Chronic) Neuropathy (Chronic) Obesity (Chronic) Past Family History Family History Father Diabetes Heart disease Brother AAA (abdominal aortic aneurysm) Past Surgical History Surgical History H/O wisdom tooth extraction (Resolved) History of cholecystectomy (Resolved) History of heart bypass surgery (Chronic) Social History Smoking Status: Former smoker tobacco type: cigarettes Hx Alcohol Use: No Hx Substance Use: No Physical Exam Vital Signs Last Vital Signs Temp 36.8 C 11/21/19 11:05 Pulse 69 11/21/19 11:05 Resp 24 11/21/19 11:05 BP 152/62 H 11/21/19 11:05 Pulse Ox 96 11/21/19 11:05 Testing Laboratory Results 11/21/19 05:56 11/21/19 05:56 11/19/19 13:56 Aerobic Blood Culture - Preliminary Blood Gram positive cocci in chains Anaerobic Blood Culture - Preliminary Group A Beta Strep 11/19/19 16:30 Gram Stain - Final Leg,Left Wound Culture - Final Staphylococcus aureus 11/19/19 13:56 Aerobic Blood Culture - Preliminary Blood Gram positive cocci in chains Anaerobic Blood Culture - Preliminary Group A Beta Strep
[2019-11-21] MEDS ORDERED: ePHEDrine sulfate 50 MG/ML AMP IV PRN (11:19)
[2019-11-21] MEDS ORDERED: ATROPINE SULFATE 0.1 MG/ML 10ML SYR IV PRN (11:19)
[2019-11-21] MEDS ORDERED: PROPOFOL IV EMULSION 10 MG/ML 20 ML VIAL IV ONE (11:50)
[2019-11-21] MEDS ORDERED: LIDOCAINE HCL 2% 2 ML VIAL/AMP(20MG/ML) INFIL ONE (11:50)
[2019-11-21] MEDS ORDERED: PANTOprazole 80 MG in DEXTROSE 5% 100 ML IV SCH (12:15)
--- NOTE | 2019-11-21 12:17 | GI REPORT ---
Patient Name: Aditya Guthrie Procedure Date: 11/21/2019 11:23 AM Date of : 1950 Admit Type: Inpatient Age: 68 Gender: Male Attending MD: Rob Patrick MD Procedure: Upper GI endoscopy Providers: Rob Patrick MD Referring MD: Benedict Maldonado Md Indications: Epigastric abdominal pain, Abnormal CT of the GI tract Medicines: Propofol per Anesthesia Complications: No immediate complications. Estimated Blood Loss: Estimated blood loss: none. Procedure: Pre-Anesthesia Assessment: - Prior to the procedure, a History and Physical was performed, and patient medications, allergies and sensitivities were reviewed. The patient's tolerance of previous anesthesia was reviewed. - The risks and benefits of the procedure and the sedation options and risks were discussed with the patient. All questions were answered and informed consent was obtained. - Patient identification and proposed procedure were verified prior to the procedure by the physician and the nurse. The procedure was verified in the procedure room. - Pre-procedure physical examination revealed no contraindications to sedation. After obtaining informed consent, the endoscope was passed under direct vision. Throughout the procedure, the patient's blood pressure, pulse, and oxygen saturations were monitored continuously. The Endoscope was introduced through the mouth, and advanced to the second part of duodenum. The upper GI endoscopy was accomplished without difficulty. The patient tolerated the procedure well. Findings: LA Grade B (one or more mucosal breaks greater than 5 mm, not extending between the tops of two mucosal folds) esophagitis with no bleeding was found in the lower third of the esophagus. Moderate inflammation characterized by erosions and erythema was found in the stomach. Biopsies were taken with a cold forceps for Helicobacter pylori testing. Verification of patient identification for the specimen was done by the physician and nurse using the patient's name and date. Many non-bleeding cratered duodenal ulcers with no stigmata of bleeding were found in the duodenal bulb and in the second portion of the duodenum. The largest lesion was 20 mm in largest dimension. The ulcers were deeply cratered and circumferential. Impression: - LA Grade B reflux and erosive esophagitis. - Gastritis. Biopsied. - Multiple non-bleeding duodenal ulcers with no stigmata of bleeding. Recommendation: - Discharge patient to home. - Await pathology results. - Repeat upper endoscopy in 3 months to check healing. - No aspirin, ibuprofen, naproxen, or other non-steroidal anti-inflammatory drugs. - Use a proton pump inhibitor IV daily for 2 days. - Use Protonix (pantoprazole) 40 mg PO BID for 3 months. - Use sucralfate suspension 1 gram PO QID for 2 weeks. - Surgery evaluation as the ulcer is at high risk for perforation. Rob Patrick MD 11/21/2019 12:17:05 PM This report has been signed electronically. Note Initiated On: 11/21/2019 11:23 AM Number of Addenda: 0 I attest to the content of the Intraoperative Record and orders documented therein, exceptions below {[id number]}
[2019-11-21] MEDS: CLINDAMYCIN 600 MG in DEXTROSE 5% 50 ML IV SCH ×2 (12:28→19:30)
--- NOTE | 2019-11-21 12:32 | Progress Note ---
Date of Service November 21, 2019 Subjective EGD showed erosive esophagitis. Gastritis and Multiple non-bleeding large and deeply cratered duodenal ulcers. Recommend: Avoid NSAIDS. IV PPI for 2 days then switch to max dose PO PPI for 3 months. Sucralfate suspension 1 gram PO QID for 2 weeks. Surgery evaluation as the ulcer is at high risk for perforation. 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 Recall if needed. Results & Data Vital Signs (Past 12 Hours) Vital Signs Temp Pulse Pulse Resp BP Pulse Ox 11/21/19 12:24 36.6 C 70 20 144/72 H 98 11/21/19 12:17 65 18 154/64 H 98 11/21/19 12:02 68 16 149/66 H 98 11/21/19 11:47 70 16 136/53 L 97 11/21/19 11:05 36.8 C 69 24 152/62 H 96 11/21/19 06:48 37.3 C 75 22 157/71 H 95 11/21/19 03:08 37 C 70 18 115/64 95
--- NOTE | 2019-11-21 12:50 | Anesthesiology Progress Note ---
Date of Service November 21, 2019 Anesthesia Post Procedure Vital Signs Vital Signs: Temp Pulse Pulse Pulse Resp BP Pulse Ox 11/21/19 12:24 36.6 C 70 20 144/72 H 98 11/21/19 12:17 65 18 154/64 H 98 11/21/19 12:02 68 16 149/66 H 98 11/21/19 11:47 70 16 136/53 L 97 11/21/19 11:05 36.8 C 69 24 152/62 H 96 11/21/19 06:48 37.3 C 75 22 157/71 H 95 11/21/19 03:08 37 C 70 18 115/64 95 11/20/19 23:52 73 11/20/19 23:12 36.9 C 70 20 102/56 L 93 11/20/19 19:36 36.8 C 72 17 107/62 94 11/20/19 17:12 75 11/20/19 15:02 36.5 C 69 22 107/65 98 Pain Intensity Left Lower Leg: Pain Intensity: 10 Abdomen: Pain Intensity: 8 Transfer of Care Handoff Completed per policy Notes Mental Status: alert / awake / arousable Patient Amnestic to Procedure: Yes Nausea / Vomiting: adequately controlled Pain: adequately controlled Airway Patency, RR, SpO2: stable & adequate BP & HR: stable & adequate Hydration State: stable & adequate Anesthetic Complications: no major complications apparent and Pt Satisfied with anesthetic care
[2019-11-21] MEDS: SUCRALFATE 1 GM TAB PO SCH ×3 (12:54→21:07)
[2019-11-21] MEDS: PANTOprazole 40 MG in DEXTROSE 5% 100 ML IV SCH ×3 (12:55→22:01)
[2019-11-21] MEDS: cefTRIAXone SODIUM 2,000 MG in DEXTROSE 5% 50 ML IV SCH (12:55)
--- NOTE | 2019-11-21 15:25 | Surgery Consultation ---
Date of Consultation November 21, 2019 Assessment & Plan (1) Epigastric pain: Duodenal ulceration most likely secondary to nonsteroidal anti- inflammatory use. He has been placed on a PPI and Carafate. We will continue to follow. There is no evidence for immediate surgical intervention at this time. (2) Leg wound, left: Continue local care as per wound care team. History of Present Illness Requesting Physician: Rob Mcdermott Attending Physician: Benedict Maldonado MD History of Present Illness I have been asked by Dr. Mcdermott to see this 68-year-old male who was initially admitted for care cellulitis and ulcerations in the calf region on his left leg. He was being evaluated with an MRI and following that procedure he developed abdominal pain centered in the upper abdomen. There was no lower abdominal pain. He had no nausea or vomiting. He has had no fever or chills. He had been taking a large amount of nonsteroidal anti-inflammatory medication for the pain related to the ulcers. He has had a laparoscopic cholecystectomy. He underwent an EGD that demonstrated a circumferential ulcer in the duodenal bulb. There was no evidence of acute perforation and no bleeding. He has a history of coronary artery disease. He underwent coronary artery bypass grafting. He stated that when he walks up steps he occasionally gets a little bit of short of breath and a little bit of chest pain. Allergies Allergy/AdvReac Type Severity Reaction Status Date / Time No Known Drug Allergies Allergy Verified 11/19/19 13:17 Home Medications Home Medications Medication Instructions Recorded Confirmed Type aspirin 81 mg tablet,delayed 81 mg PO DAILY 08/14/19 11/19/19 History release atorvastatin 40 mg tablet 40 mg PO DAILY 08/14/19 11/19/19 History doxazosin 2 mg tablet 2 mg PO DAILY 08/14/19 11/19/19 History furosemide 40 mg tablet 40 mg PO DAILY 08/14/19 11/19/19 History gabapentin 300 mg capsule 300 mg PO TID 08/14/19 11/19/19 History metoprolol tartrate 50 mg tablet 50 mg PO DAILY tab 08/14/19 11/19/19 History naltrexone 8 mg-bupropion 90 mg 1 tab PO BID 08/14/19 11/19/19 History tablet,extended release nitroglycerin 0.4 mg sublingual 0.4 mg SL Q5M PRN 08/14/19 11/19/19 History tablet potassium chloride 20 mEq 20 meq PO DAILY 08/14/19 11/19/19 History tablet,extended release(part/cryst) ranitidine HCl 150 mg tablet 150 mg PO BID 08/14/19 11/19/19 History ibuprofen [Advil] 600 mg PO Q6H PRN 11/19/19 11/19/19 History losartan 11/20/19 History Patient History Medical History BPH (benign prostatic hyperplasia) (Chronic) Chronic GERD (Chronic) High cholesterol (Chronic) HTN (hypertension) (Chronic) Neuropathy (Chronic) Obesity (Chronic) Surgical History H/O wisdom tooth extraction (Resolved) History of cholecystectomy (Resolved) History of heart bypass surgery (Chronic) Family History Father Diabetes Heart disease Brother AAA (abdominal aortic aneurysm) Social History Preferred Language: Croatian Communication Ability: Effective Visual Impairment: Limited Hearing Ability: Normal Gateman Required: No Beliefs That Will Affect Care: None marital status: Current Living Situation: Family current occupational status: employed current occupation: [employer] Other Information That Helps Us Care for You: No Feels Safe at Home: Yes Safety Concerns: Feels Safe At This Time Smoking Status: Former smoker Tobacco Type: cigarettes ; packs per day: 1 ; Second Hand Exposure: No ; Hx Alcohol Use: No Hx Substance Use: No Childhood Exposure to Second-Hand Smoke: Yes Physical Exam Constitutional: no acute distress Neck: trachea midline Respiratory: normal respiratory effort, lungs clear to auscultation Cardiovascular: Rate/Rhythm: regular rate and regular rhythm Gastrointestinal (Abdomen): Inspection/Auscultation: normal bowel sounds; abdomen not distended Percussion/Palpation: + abdomen tender (Mild to moderate palpation in the upper abdomen bilaterally) and abdomen soft Musculoskeletal: Dressings are in place over the ulceration in the left lower leg and he has edema of both lower extremities below the knee. Results & Data Vital Signs (Past 12 Hours) Vital Signs Temp Pulse Pulse Resp BP Pulse Ox 11/21/19 12:24 36.6 C 70 20 144/72 H 98 11/21/19 12:17 65 18 154/64 H 98 11/21/19 12:02 68 16 149/66 H 98 11/21/19 11:47 70 16 136/53 L 97 11/21/19 11:05 36.8 C 69 24 152/62 H 96 11/21/19 06:48 37.3 C 75 22 157/71 H 95 Laboratory Results 11/21/19 11/21/19 Range/Units 05:56 05:56 WBC 9.96 (4.8-10.8) K/uL RBC 4.04 L (4.7-6.1) M/uL Hgb 12.9 L (14.0-18.0) g/dL Hct 38.0 L (42-52) % MCV 94.1 (80-100) fL MCH 31.9 (25-34) pg MCHC 33.9 (32-36) g/dL RDW Std Deviation 47.2 H (36.4-46.3) fL RDW Coeff of Alan 13.7 (11.5-14.5) % Plt Count 121 L (130-400) K/uL MPV 10.4 (7.4-10.4) fL Immature Gran % (Auto) 0.4 % Neut % (Auto) 90.5 % Lymph % (Auto) 4.4 % [place]ike % (Auto) 4.5 % Eos % (Auto) 0.1 % Baso % (Auto) 0.1 % Immature Gran # (Auto) 0.04 H (0.00-0.02) K/uL Neut # (Auto) 9.01 H (1.4-6.5) K/uL Lymph # (Auto) 0.44 L (1.2-3.4) K/uL [place]ike # (Auto) 0.45 (0.11-0.59) K/uL Eos # (Auto) 0.01 (0-0.5) K/uL Baso # (Auto) 0.01 (0-0.2) K/uL Sodium 139 (136-145) mmol/L Potassium 3.7 (3.5-5.1) mmol/L Chloride 109 H (98-107) mmol/L Carbon Dioxide 24 (21-32) mmol/L Anion Gap 6.0 (3-11) BUN 34 H (7-18) mg/dl Creatinine 1.18 D (0.6-1.4) mg/dl Est Cr Clr Drug Dosing 87.7 ml/min Est GFR ( Amer) 72.5 Est GFR (Non-Af Amer) 62.6 BUN/Creatinine Ratio 28.8 H (10-20) Glucose 119 H (70-99) mg/dl Calcium 8.1 L (8.5-10.1) mg/dl Magnesium 2.2 (1.8-2.4) mg/dl
--- NOTE | 2019-11-21 23:11 | Wound Consultation ---
Date of Consultation November 21, 2019 Assessment & Plan (1) Cellulitis of left leg: Patient was in EGD suite and was not seen. Will continue to dress wounds with aquacel AG. Will continue to follow. Will see in office after discharge. Thank you for allowing me to participate in the care of this patient. (2) Venous ulcer of left leg: History of Present Illness Reason for Consultation: LLE cellulitis Attending Physician: Nellie Crocker MD History of Present Illness This is a 68 year old male with a history of cad s/p cabg, pad, venous insufficiency, hypertension, copd and gerd who is known to the wound clinic. Patient was admitted with cellulitis left lower extremity in the setting of chronic venous insufficiency. Allergies Allergy/AdvReac Type Severity Reaction Status Date / Time No Known Drug Allergies Allergy Verified 11/19/19 13:17 Home Medications Home Medications Medication Instructions Recorded Confirmed Type aspirin 81 mg tablet,delayed 81 mg PO DAILY 08/14/19 11/19/19 History release atorvastatin 40 mg tablet 40 mg PO DAILY 08/14/19 11/19/19 History doxazosin 2 mg tablet 2 mg PO DAILY 08/14/19 11/19/19 History furosemide 40 mg tablet 40 mg PO DAILY 08/14/19 11/19/19 History gabapentin 300 mg capsule 300 mg PO TID 08/14/19 11/19/19 History metoprolol tartrate 50 mg tablet 50 mg PO DAILY tab 08/14/19 11/19/19 History naltrexone 8 mg-bupropion 90 mg 1 tab PO BID 08/14/19 11/19/19 History tablet,extended release nitroglycerin 0.4 mg sublingual 0.4 mg SL Q5M PRN 08/14/19 11/19/19 History tablet potassium chloride 20 mEq 20 meq PO DAILY 08/14/19 11/19/19 History tablet,extended release(part/cryst) ranitidine HCl 150 mg tablet 150 mg PO BID 08/14/19 11/19/19 History ibuprofen [Advil] 600 mg PO Q6H PRN 11/19/19 11/19/19 History losartan 11/20/19 History Patient History Medical History BPH (benign prostatic hyperplasia) (Chronic) Chronic GERD (Chronic) High cholesterol (Chronic) HTN (hypertension) (Chronic) Neuropathy (Chronic) Obesity (Chronic) Surgical History H/O wisdom tooth extraction (Resolved) History of cholecystectomy (Resolved) History of heart bypass surgery (Chronic) Family History Father Diabetes Heart disease Brother AAA (abdominal aortic aneurysm) Social History Preferred Language: Estonian Communication Ability: Effective Visual Impairment: Limited Hearing Ability: Normal Nuclear Operator Required: No Beliefs That Will Affect Care: None marital status: Current Living Situation: Family current occupational status: employed current occupation: [email or web address] Other Information That Helps Us Care for You: No Feels Safe at Home: Yes Safety Concerns: Feels Safe At This Time Smoking Status: Former smoker Tobacco Type: cigarettes ; packs per day: 1 ; Second Hand Exposure: No ; Hx Alcohol Use: No Hx Substance Use: No Childhood Exposure to Second-Hand Smoke: Yes Results & Data Vital Signs (Past 12 Hours) Vital Signs Temp Pulse Pulse Pulse Resp BP Pulse Ox 11/21/19 18:51 37.0 C 81 18 146/63 H 96 11/21/19 16:00 73 11/21/19 15:39 37 C 72 20 131/71 98 11/21/19 12:24 36.6 C 70 20 144/72 H 98 11/21/19 12:17 65 18 154/64 H 98 11/21/19 12:02 68 16 149/66 H 98 11/21/19 11:47 70 16 136/53 L 97 PG Care Time/CCT Total # of Minutes Spent Total Time Spent with Patient: Total time spent is greater than 50% in coordination of care (as documented) at patient's floor/unit and/or counseling patient:
[2019-11-22] MEDS: PANTOprazole 40 MG in DEXTROSE 5% 100 ML IV SCH ×5 (02:21→22:28)
[2019-11-22] MEDS: CLINDAMYCIN 600 MG in DEXTROSE 5% 50 ML IV SCH ×3 (02:21→17:59)
[2019-11-22] MEDS: TRAMADOL HCL 50 MG TABLET PO PRN (02:24)
[2019-11-22] MEDS: ACETAMINOPHEN 325 MG TAB PO SCH ×4 (06:27→23:56)
[2019-11-22 06:52] LABS: Basophils # (auto) 0.01 K/uL (0-0.2); Basophils % (auto) 0.1 %; Eosinophils # (auto) 0.21 K/uL (0-0.5); Eosinophils % (auto) 2.2 %; Hematocrit (blood only) 35.8 % (42-52); Hemoglobin 12.2 g/dL (14.0-18.0); Immature Granulocytes # (auto) 0.03 K/uL (0.00-0.02); Immature Granulocytes % (auto) 0.3 %; Lymphocytes # (auto) 0.61 K/uL (1.2-3.4); Lymphocytes % (auto) 6.4 %; Mean Corpuscular Hemoglobin 32.4 pg (25-34); Mean Corpuscular Hgb Conc 34.1 g/dL (32-36); Mean Corpuscular Volume 95.2 fL (80-100); Mean Platelet Volume 9.9 fL (7.4-10.4); Monocytes # (auto) 0.64 K/uL (0.11-0.59); Monocytes % (auto) 6.7 %; Neutrophils # (auto) 8.04 K/uL (1.4-6.5); Neutrophils % (auto) 84.3 %; Platelet Count 138 K/uL (130-400); RDW Coefficient of Variation 13.6 % (11.5-14.5); RDW Standard Deviation 46.7 fL (36.4-46.3); Red Blood Count 3.76 M/uL (4.7-6.1); White Blood Count 9.54 K/uL (4.8-10.8)
[2019-11-22 07:34] LABS: BUN Creatinine Ratio 18.9 (10-20); Calcium 8.1 mg/dl (8.5-10.1); Creatinine Clr Calc Pharmacy 106.6 ml/min; Est GFR (African American) 91.9; Est GFR (Non-African American) 79.3; Potassium 3.2 mmol/L (3.5-5.1)
[2019-11-22] MEDS: GABAPENTIN 300 MG CAP PO SCH ×3 (07:38→20:42)
[2019-11-22] MEDS: ASPIRIN 81 MG ECTAB PO SCH (07:39)
[2019-11-22] MEDS: DOXAZosin MESYLATE TAB 2 MG TAB PO SCH (07:39)
[2019-11-22] MEDS: SUCRALFATE 1 GM TAB PO SCH ×4 (07:39→20:42)
[2019-11-22] MEDS: SACCHAROMYCES BOULARDII 250 MG CAP PO SCH (07:39)
[2019-11-22] MEDS: METOPROLOL TARTRATE 50 MG TAB PO SCH (07:39)
[2019-11-22] MEDS: POTASSIUM CHLORIDE 20 MEQ TABCR PO SCH (07:40)
--- NOTE | 2019-11-22 11:17 | Cardiology Progress Note ---
Date of Service November 22, 2019 Assessment & Plan (1) Acute abdominal pain: EGD reflected erosive esophagitis and duodenal ulcers as cause her pain symptoms now nearly resolved with IV proton pump inhibitor (2) Morbid obesity: (3) CAD (coronary artery disease): Stable (4) Cellulitis of left leg: Clinically improved per patient but weeping from lower extremity edema. Patient did initially receive high-volume fluid resuscitation appropriately for infection and elevated lactate levels. Diuretics have been held since admission Recommend resuming furosemide 40 mg/day and adding spironolactone 25 mg/day (5) PAD (peripheral artery disease): (6) Chronic venous insufficiency of lower extremity: (7) Tobacco abuse, in remission: (8) Pericardial effusion: Moderate sized effusion identified on routine echocardiogram. No signs of tamponade or hemodynamic significance initially. IVC nondilated Subjective Patient feels substantially improved from day prior. Abdominal pain is nearly resolved. No chest pain or discomfort. Notes leg pain has improved also substantially still with weeping wounds in the left lower extremity. Results of endoscopy noted with erosive esophagitis as well as duodenal ulcers defined Physical Exam Constitutional: + morbidly obese Eyes: PERRL, conjunctivae normal, anicteric sclerae ENMT: external ear and nose normal, oropharynx normal Neck: + thick neck Respiratory: normal respiratory effort, lungs clear to auscultation Auscultation: + diminished lung sounds Cardiovascular: Rate/Rhythm: regular rate and regular rhythm Heart Sounds: normal S1 and normal S2 Vessels: no JVD Gastrointestinal (Abdomen): Percussion/Palpation: abdomen soft; no hepatomegaly Musculoskeletal: Weeping cellulitis left lower extremity Results & Data Vital Signs (Past 12 Hours) Vital Signs Temp Pulse Resp BP BP Pulse Ox 11/22/19 06:54 36.7 C 81 20 149/73 H 98 11/22/19 03:37 37.0 C 83 20 124/57 L 94 11/21/19 23:49 37.1 C 83 20 143/50 H 95 Laboratory Results Laboratory Results - last 24 hr 11/22/19 11/22/19 06:37 06:37 WBC 9.54 RBC 3.76 L Hgb 12.2 L Hct 35.8 L MCV 95.2 MCH 32.4 MCHC 34.1 RDW Std Deviation 46.7 H RDW Coeff of Alan 13.6 Plt Count 138 MPV 9.9 Immature Gran % (Auto) 0.3 Neut % (Auto) 84.3 Lymph % (Auto) 6.4 Amelia % (Auto) 6.7 Eos % (Auto) 2.2 Baso % (Auto) 0.1 Immature Gran # (Auto) 0.03 H Neut # (Auto) 8.04 H Lymph # (Auto) 0.61 L Amelia # (Auto) 0.64 H Eos # (Auto) 0.21 Baso # (Auto) 0.01 Sodium 140 Potassium 3.2 L Chloride 108 H Carbon Dioxide 28 Anion Gap 4.0 BUN 18 Creatinine 0.97 Est Cr Clr Drug Dosing 106.6 Est GFR ( Amer) 91.9 Est GFR (Non-Af Amer) 79.3 BUN/Creatinine Ratio 18.9 Glucose 101 H Calcium 8.1 L
[2019-11-22] MEDS ORDERED: POTASSIUM CHLORIDE 20 MEQ TABCR PO STA (11:25)
[2019-11-22] MEDS: cefTRIAXone SODIUM 2,000 MG in DEXTROSE 5% 50 ML IV SCH (11:26)
[2019-11-22] MEDS: FUROSEMIDE 40 MG TAB PO SCH (11:57)
[2019-11-22] MEDS: SPIRONOLACTONE 25 MG TAB PO SCH (11:57)
--- NOTE | 2019-11-22 12:33 | Progress Note ---
Date of Service November 22, 2019 Subjective Patient was seen and examined today, feels much better, abdominal pain resolved, tolerating clears, no BM or bleeding. On exam abdomen is nontender. Labs: stable H/H Recommend: Continue IV PPI till tomorrow then switch to PO BID max dose. Advance diet as tolerated. Recall GI if needed. Results & Data Vital Signs (Past 12 Hours) Vital Signs Temp Pulse Pulse Resp BP BP Pulse Ox 11/22/19 11:37 37.1 C 71 20 109/68 97 11/22/19 06:54 36.7 C 81 20 149/73 H 98 11/22/19 03:37 37.0 C 83 20 124/57 L 94
--- NOTE | 2019-11-22 12:55 | Surgery Progress Note ---
Date of Service pt is doing better, no abdominal pain, November 22, 2019 Assessment & Plan (1) Epigastric pain: Duodenal ulceration most likely secondary to nonsteroidal anti- inflammatory use. He has been placed on a PPI and Carafate. We will continue to follow. There is no evidence for immediate surgical intervention at this time. 11/22/2019 12:54PM Dr. Stanley doing better, continue treatment, will F/U (2) Leg wound, left: Continue local care as per wound care team. Supervising Physician Co-Signing Physician Notes I performed a history and physical examination of the patient, including specifically on physical exam - soft, nontender abdomen. I have discussed the patient's management with Dino. Please refer to the nurse practitioner's note for the documented findings and plan of care. Abdominal pain in the setting of NSAIDs, use, likely PUD, will do EGD Subjective Patient was seen and examined today, feels much better, abdominal pain resolved, tolerating clears, no BM or bleeding. On exam abdomen is nontender. Labs: stable H/H Recommend: Continue IV PPI till tomorrow then switch to PO BID max dose. Advance diet as tolerated. Recall GI if needed. Physical Exam Constitutional: WD/WN, vitals as above well developed and well nourished Neck: trachea midline, no thyromegaly Respiratory: normal respiratory effort, lungs clear to auscultation Cardiovascular: RRR, no murmur, no edema Gastrointestinal (Abdomen): soft, NT, ND, BS + Neurologic: patellar DTR's 2+ bilat, sensation intact awake Psychiatric: Orientation: alert and oriented x 3 Results & Data Vital Signs (Past 12 Hours) Vital Signs Temp Pulse Pulse Resp BP BP Pulse Ox 11/22/19 11:37 37.1 C 71 20 109/68 97 11/22/19 06:54 36.7 C 81 20 149/73 H 98 11/22/19 03:37 37.0 C 83 20 124/57 L 94 Laboratory Results Abnormal lab results 11/22/19 11/22/19 Range/Units 06:37 06:37 RBC 3.76 L (4.7-6.1) M/uL Hgb 12.2 L (14.0-18.0) g/dL Hct 35.8 L (42-52) % RDW Std Deviation 46.7 H (36.4-46.3) fL Immature Gran # (Auto) 0.03 H (0.00-0.02) K/uL Neut # (Auto) 8.04 H (1.4-6.5) K/uL Lymph # (Auto) 0.61 L (1.2-3.4) K/uL [place] # (Auto) 0.64 H (0.11-0.59) K/uL Potassium 3.2 L (3.5-5.1) mmol/L Chloride 108 H (98-107) mmol/L Glucose 101 H (70-99) mg/dl Calcium 8.1 L (8.5-10.1) mg/dl
--- NOTE | 2019-11-22 14:37 | Hospitalist Progress Note ---
Date of Service November 22, 2019 Assessment & Plan (1) Bacteremia: Blood culture from November 19, 2019 -positive for Group A strep -Patient treated with daptomycin and cefepime since admission, per ID, switch to Rocephin and Clinda for GAS (11/21) -thought the source is patient's left lower extremity wound (wound cltx - posit. for MSSA) -ID consulted for further recommendations -Transthoracic echo (11/21) - EF 55-60%, grade II diast. dysfunction,moderate pericardial effusion w/o hemodynamic compromise, poorly visualized valves -Repeat blood cultures- ordered/pending -continue to monitor patient at PCU with telemetry (2) Leg wound, left: - has had LLE wound since July 2019 Follows at [facility] wound clinic - was treated w/ Bactim and also in wound clinic, discharged from wound clinic earlier this month (October) - in the past 4 days prior to admission developed increased pain in LLE, erythema, and swelling, there is superficial open wound above left ankle - LLE U/S -negative for DVT and L ankle MR - negative for osteomyelitis , ID consulted, switch to rocephin and clinda for GAS (11/21) - blood cltx - positive for Group A Strep - wound cltx- posit. for MSSA - wound nurse consulted, wound provider/physician also consulted -patient input (3) Chronic venous insufficiency of lower extremity: - as above, chronic venous insuff. - venous stasis changes anthony. of LLE (4) Cellulitis of left leg: (5) ELIZ (acute kidney injury): - no known hx of CKD - Cr 1.2 in 02/2019 per review of outpt records - Cr 1.66 on admission, now resolved, current Cr 1.18 (back to baseline) - poss. prerenal as pt reported poor appetite in the past couple of days, poss. 2/2 NSAID use (for pain), 2/2 infection Resume losartan tomorrow - will cont. to monitor, avoid nephrotoxic agents, renally dose meds (6) GERD (gastroesophageal reflux disease): - at home takes ranitidine as needed - today developed severe epigastric pain, on CT image there is duodenitis and poss. ulcer - started pt on pantoprazole and carafate, GI was consulted, status post EGD - : EGD showed erosive esophagitis. Gastritis and Multiple non-bleeding large and deeply cratered duodenal ulcers. Possible NSAID induced, - Recommend IV PPI for 2 days then PO PPI for 3 months, cont. carafate, Patient did not had any episode of GI bleed, no complaint of abdominal pain, no nausea vomiting, appreciate GI input, diet advance to full liquid (7) Gastritis: -Noted in EGD - likely d/t NSAID use - recommendations, as above - cont. IV PPI for 2 days then PO PPI for 3 months, carafate, avoid NSAIDS (8) Erosive esophagitis: found today (11/21) on EGD - recommendations, as above - cont. IV PPI for 2 days then PO PPI for 3 months, carafate, avoid NSAIDS (9) Duodenal ulcer: found today (11/21) on EGD - recommendations, as above - cont. IV PPI for 2 days then PO PPI for 3 months, carafate, avoid NSAIDS (10) CAD (coronary artery disease): s/p CAD - at home on ASA, metoprolol and atorvastatin - - currently no chest pain, no active issues (11) PAD (peripheral artery disease): (12) COPD (chronic obstructive pulmonary disease): - does not use inhalers - no active issues (13) Dyslipidemia: - on statin, (14) Morbid obesity: - encourage lifestyle modification CODE STATUS: FULL Disposition: Expected to be discharged home when medically stable Subjective Patient clear liquid diet, feels hungry, wants diet to be advanced no complaint of abdominal pain, no nausea vomiting, no dark stool did not had any bowel movement for last 2 days Has mild soreness of right lower extremity, which is improved since before, no fever chills, no cough no shortness of breath no chest discomfort Review of Systems Constitutional: + fatigue; no fever and no chills Ear, Nose, Mouth, Throat: as per Subjective / HPI; no ear pain, no hearing loss and no sore throat Cardiovascular: + edema (LLE); no chest pain and no palpitations Gastrointestinal: + abdominal pain (epigatric, severe) Genitourinary: + as per Subjective / HPI; no dysuria and no flank pain Musculoskeletal: as per Subjective / HPI; no back pain and no muscle weakness Integumentary: + wounds (LLE above ankle, also incr. blistering of LLE) and + erythema (LLE) Psychiatric: as per Subjective / HPI; no behavioral changes and no problem reported Endocrine: + fatigue Hematologic / Lymphatic: as per Subjective / HPI; no easy bleeding and no lymphadenopathy Allergy / Immunological: as per Subjective / HPI; no seasonal rhinorrhea Physical Exam Constitutional: WD/WN, vitals as above well developed, well nourished, + acute distress (mild distress d/t abd. pain) and + morbidly obese Eyes: PERRL, conjunctivae normal, anicteric sclerae EOM intact bilaterally ENMT: external ear and nose normal, oropharynx normal Ears: no hearing impairment Neck: trachea midline, no thyromegaly normal visual inspection Respiratory: normal respiratory effort, lungs clear to auscultation Auscultation: no crackles, no rhonchi and no wheezes Cardiovascular: RRR, no murmur, no edema Heart Sounds: no murmur Extremities: + edema (LLE) Chest (Breasts): Chest: normal inspection of chest (vertical post. surg. scar) Gastrointestinal (Abdomen): Inspection/Auscultation: abdomen normal to inspection (but very obese), + abdomen distended and normal bowel sounds Percussion/Palpation: + abdomen tender (in epigastric region) and abdomen soft; no guarding Musculoskeletal: Head/Neck/Chest: normocephalic, head atraumatic and neck supple Extremities: + extremities abnormal to inspection (LLE erythema, wound above left ankle, mild swelling, tenderness to palp.) Skin: + wound (LLE above ankle) Neurologic: PERRL, EOMI, accommodation nl, no face palsy, no dysarthria moves all extremities; no focal motor deficits Speech / Cognition: normal speech Psychiatric: A+Ox3, euthymic affect Speech: normal rate/rhythm/volume of speech Genitourinary: no CVA tenderness Lymphatic: no cervical or axillary lymphadenopathy + lymphedema (LLE) Results & Data Vital Signs (Past 12 Hours) Vital Signs Temp Pulse Pulse Resp BP BP Pulse Ox 11/22/19 11:37 37.1 C 71 20 109/68 97 11/22/19 06:54 36.7 C 81 20 149/73 H 98 11/22/19 03:37 37.0 C 83 20 124/57 L 94
[2019-11-23] MEDS: PANTOprazole 40 MG in DEXTROSE 5% 100 ML IV SCH ×3 (03:38→16:01)
[2019-11-23] MEDS: CLINDAMYCIN 600 MG in DEXTROSE 5% 50 ML IV SCH ×2 (03:40→11:36)
[2019-11-23] MEDS: ACETAMINOPHEN 325 MG TAB PO SCH ×4 (05:30→23:14)
[2019-11-23 06:50] LABS: Hematocrit (blood only) 36.8 % (42-52); Hemoglobin 12.2 g/dL (14.0-18.0)
[2019-11-23] MEDS: ASPIRIN 81 MG ECTAB PO SCH (08:42)
[2019-11-23] MEDS: GABAPENTIN 300 MG CAP PO SCH ×3 (08:43→20:38)
[2019-11-23] MEDS: FUROSEMIDE 40 MG TAB PO SCH (08:43)
[2019-11-23] MEDS: METOPROLOL TARTRATE 50 MG TAB PO SCH (08:43)
[2019-11-23] MEDS: SPIRONOLACTONE 25 MG TAB PO SCH (08:43)
[2019-11-23] MEDS: SUCRALFATE 1 GM TAB PO SCH ×4 (08:44→20:35)
[2019-11-23] MEDS: POTASSIUM CHLORIDE 20 MEQ TABCR PO SCH (08:44)
[2019-11-23] MEDS: DOXAZosin MESYLATE TAB 2 MG TAB PO SCH (08:45)
--- NOTE | 2019-11-23 09:50 | Surgery Progress Note ---
Date of Service November 23, 2019 Assessment & Plan (1) Duodenal ulcer: H&H stable abdominal pain resolved tolerating full liquids Plan: No surgical indication at this time Clinically improving on PPI drip , Carafate Diet advancement per GI Highly advised pt to avoid any NSAIDs. Patient and completely agreed. Our service signing off, please call with questions or concerns. Dr. Dillard has seen and examined pt, agrees with above. (2) Epigastric pain: Supervising Physician Co-Signing Physician Notes I have interviewed and examined this patient I agree with the above note. He is now asymptomatic from the duodenal ulcer standpoint. I do not feel there is any need for surgical intervention at this time. We will sign off. Please let us know if we can be of further assistance. Subjective feeling much better no abdominal pain no nausea or vomiting, tolerating full liquids Physical Exam Constitutional: + morbidly obese; no acute distress and not ill appearing Gastrointestinal (Abdomen): Inspection/Auscultation: abdomen normal to inspection; abdomen not distended Percussion/Palpation: abdomen soft; abdomen nontender, no guarding and abdomen not rigid Skin: no rashes, warm and dry LLE covered with dressing due to cellulitis and wound Psychiatric: A+Ox3, euthymic affect Results & Data Vital Signs (Past 12 Hours) Vital Signs Temp Pulse Pulse Pulse Resp BP Pulse Ox 11/23/19 07:52 36.8 C 76 18 142/68 H 96 11/23/19 02:35 36.8 C 75 20 162/72 H 95 11/22/19 23:50 75 11/22/19 23:01 37.0 C 75 19 119/66 97 Laboratory Results 11/23/19 Range/Units 05:59 Hgb 12.2 L (14.0-18.0) g/dL Hct 36.8 L (42-52) %
[2019-11-23] MEDS: cefTRIAXone SODIUM 2,000 MG in DEXTROSE 5% 50 ML IV SCH (12:15)
[2019-11-23] MEDS: TRAMADOL HCL 50 MG TABLET PO PRN ×2 (12:48→20:34)
--- NOTE | 2019-11-23 14:15 | Wound Progress Note ---
Date of Service November 23, 2019 Assessment & Plan (1) Cellulitis of left le-year-old male with cellulitis of his left leg in the setting of chronic venous insufficiency. Wound is improving. Wound needed debridement. After obtaining permission topical Xylocaine was applied. Using scissors and forceps, the wound was debrided of nonviable skin and slough. Patient tolerated the procedure well with no complications. There was no bleeding. This represents non-excisional debridement of less than 20 cm. Wound will be dressed with Aquasol AG, ultra sorb and a Coban lite wrap. Continue antibiotics. We will see patient in the office upon discharge. Thank you for limited to speak in the care of this patient. Please not hesitate to call with any questions. (2) Leg wound, left: (3) Venous ulcer of left leg: Subjective Patient was seen laying in bed with at bedside. History is given IV antibiotics. Patient with no complaints. States the swelling in his leg has gone down. Blister on the left anterior leg has popped and has been draining. Review of Systems Review of Systems: All systems reviewed & are unremarkable except as noted in HPI & below Physical Exam Skin: Left leg wound measuring 8 x 13.5 x 0.1 cm. Wound is covered with fibrin, slough and nonviable skin. Periwound is intact with erythema. There is large amount drainage no foul odors. Neurologic: awake; not confused Psychiatric: A+Ox3, euthymic affect Results & Data Vital Signs (Past 12 Hours) Vital Signs Temp Pulse Pulse Pulse Resp BP Pulse Ox 11/23/19 11:39 36.8 C 81 18 123/65 98 11/23/19 07:52 36.8 C 76 18 142/68 H 96 11/23/19 07:25 88 11/23/19 02:35 36.8 C 75 20 162/72 H 95 PG Care Time/CCT Total # of Minutes Spent Total Time Spent with Patient: Total time spent is greater than 50% in coordination of care (as documented) at patient's floor/unit and/or counseling patient:
[2019-11-23] MEDS ORDERED: OXYCODONE HCL IR 5 MG TAB (IMMEDIATE RELEASE) PO STA (15:56)
--- NOTE | 2019-11-23 16:09 | Hospitalist Progress Note ---
Date of Service November 23, 2019 Assessment & Plan (1) Bacteremia: Blood culture from November 19, 2019 -positive for Group A strep -Patient treated with daptomycin and cefepime since admission, per ID, switch to Rocephin on 11/21/19 -thought the source is patient's left lower extremity wound (wound cltx - staph aureus MSSA clindamycin D/jeffrey -resistant to staph Aureus changed to PO Doxycycline -ID consulted for further recommendations -Transthoracic echo (11/21) - EF 55-60%, grade II diast. dysfunction,moderate pericardial effusion w/o hemodynamic compromise, poorly visualized valves -Repeat blood cultures- negative growth pt will need total 21 days of Abx ( Rocephin /Doxycycline ) (2) Leg wound, left: - has had LLE wound since July 2019 Follows at [facility] wound clinic - was treated w/ Bactim and also in wound clinic, discharged from wound clinic earlier this month (October) - in the past 4 days prior to admission developed increased pain in LLE, erythema, and swelling, there is superficial open wound above left ankle - LLE U/S -negative for DVT and L ankle MR - negative for osteomyelitis , ID consulted, - blood cltx - positive for Group A Strep - wound cltx- posit. for MSSA pt is on Antibiotic IV Rocephin /PO Doxycycline : Day of Abx therapy # 4 needs total 3 weeks of tx ordered for USG guided IV access for home abx - wound nurse consulted, wound provider/physician also consulted -patient input pt will continue to follow with [facility] (3) Chronic venous insufficiency of lower extremity: - as above, chronic venous insuff. - venous stasis changes anthony. of LLE-treatment of wound infection as outlined above (4) Cellulitis of left leg: management as discussed above (5) ELIZ (acute kidney injury): - no known hx of CKD - Cr 1.2 in 02/2019 per review of outpt records - Cr 1.66 on admission, now resolved, current Cr 1.18 (back to baseline) - poss. prerenal as pt reported poor appetite in the past couple of days, poss. 2/2 NSAID use (for pain), 2/2 infection Resume losartan (6) GERD (gastroesophageal reflux disease): - at home takes ranitidine as needed - today developed severe epigastric pain, on CT image there is duodenitis and poss. ulcer - started pt on pantoprazole and carafate, GI was consulted, status post EGD - : EGD showed erosive esophagitis. Gastritis and Multiple non-bleeding large and deeply cratered duodenal ulcers. Possible NSAID induced, - Recommend IV PPI for 2 days then PO PPI for 3 months, cont. carafate, Patient did not had any episode of GI bleed, no complaint of abdominal pain, no nausea vomiting, appreciate GI input, diet advance to solid tolerating well pt is counselled numerous times NOT to take NSAIDS's (7) Gastritis: -Noted in EGD - likely d/t NSAID use - recommendations, as above - treated with IV PPI for 2 days changed to PO protonix 40 mg BID , will cont for 3 months, carafate, avoid NSAIDS (8) Erosive esophagitis: found today (11/21) on EGD - recommendations, as above - (9) Duodenal ulcer: found (11/21) on EGD: hx of chronic NSAID use - recommendations, as above - (10) CAD (coronary artery disease): s/p CAD - at home on ASA, metoprolol and atorvastatin - - currently no chest pain, no active issues (11) PAD (peripheral artery disease): (12) COPD (chronic obstructive pulmonary disease): - does not use inhalers - no active issues (13) Dyslipidemia: - on statin, (14) Morbid obesity: - encourage lifestyle modification CODE STATUS: FULL Disposition: Expected to be discharged home tomorrow 11/24/19 Subjective Patient is doing well no complaint of abdominal pain or nausea, tolerating solid diet, no dark stool H&H been stable No fever or chills Ambulating independently Patient will need total of 3 weeks of IV Rocephin, Discussed with patient's and patient, comfortable for home IV Rocephin therapy Plan to discharge home after home IV antibiotic treatment is arranged Patient is stable to be transferred to medical floor Review of Systems Constitutional: as per Subjective / HPI; no fatigue Ear, Nose, Mouth, Throat: as per Subjective / HPI; no ear pain, no hearing loss and no sore throat Cardiovascular: + edema (LLE); no chest pain and no palpitations Genitourinary: + as per Subjective / HPI; no dysuria and no flank pain Musculoskeletal: as per Subjective / HPI; no back pain and no muscle weakness Integumentary: + erythema (LLE) Psychiatric: as per Subjective / HPI; no behavioral changes and no problem reported Hematologic / Lymphatic: as per Subjective / HPI; no easy bleeding and no lymphadenopathy Allergy / Immunological: as per Subjective / HPI; no seasonal rhinorrhea Physical Exam Constitutional: WD/WN, vitals as above + morbidly obese; no acute distress (mild distress d/t abd. pain) Eyes: PERRL, conjunctivae normal, anicteric sclerae ENMT: external ear and nose normal, oropharynx normal Ears: no hearing impairment Neck: trachea midline, no thyromegaly normal visual inspection Respiratory: normal respiratory effort, lungs clear to auscultation Auscultation: no crackles, no rhonchi and no wheezes Cardiovascular: RRR, no murmur, no edema Heart Sounds: no murmur Extremities: + edema (LLE) Gastrointestinal (Abdomen): Inspection/Auscultation: abdomen normal to inspection (but very obese) and normal bowel sounds Percussion/Palpation: abdomen soft; no guarding Musculoskeletal: Head/Neck/Chest: normocephalic, head atraumatic and neck supple Extremities: + extremities abnormal to inspection (LLE chronic wound , bandage present ) Skin: + wound (LLE above ankle) Neurologic: PERRL, EOMI, accommodation nl, no face palsy, no dysarthria moves all extremities; no focal motor deficits Psychiatric: A+Ox3, euthymic affect Results & Data Vital Signs (Past 12 Hours) Vital Signs Temp Pulse Pulse Resp BP Pulse Ox 11/23/19 15:56 36.9 C 71 23 151/76 H 97 11/23/19 11:39 36.8 C 81 18 123/65 98 11/23/19 07:52 36.8 C 76 18 142/68 H 96 11/23/19 07:25 88
[2019-11-23] MEDS: LACTOBACILLUS ACIDOPHILUS (FLORANEX) TAB PO SCH ×2 (16:58→20:37)
[2019-11-23] MEDS ORDERED: CLINDAMYCIN HCL 150 MG CAP PO SCH ×2 (18:00→22:00)
[2019-11-23] MEDS: PANTOprazole 40 MG TAB PO SCH (20:38)
[2019-11-23] MEDS: DOXYCYCLINE HYCLATE 100 MG CAP PO SCH (20:58)
[2019-11-24] MEDS: TRAMADOL HCL 50 MG TABLET PO PRN ×3 (04:45→15:44)
[2019-11-24] MEDS: ACETAMINOPHEN 325 MG TAB PO SCH ×3 (06:01→17:08)
[2019-11-24] MEDS: DOXYCYCLINE HYCLATE 100 MG CAP PO SCH (06:01)
[2019-11-24 06:51] LABS: Hematocrit (blood only) 37.4 % (42-52); Hemoglobin 12.5 g/dL (14.0-18.0)
[2019-11-24] MEDS: LACTOBACILLUS ACIDOPHILUS (FLORANEX) TAB PO SCH ×3 (08:03→16:44)
[2019-11-24] MEDS: SUCRALFATE 1 GM TAB PO SCH ×3 (08:03→16:44)
[2019-11-24] MEDS: DOXAZosin MESYLATE TAB 2 MG TAB PO SCH (08:05)
[2019-11-24] MEDS: POTASSIUM CHLORIDE 20 MEQ TABCR PO SCH (08:05)
[2019-11-24] MEDS: ASPIRIN 81 MG ECTAB PO SCH (08:06)
[2019-11-24] MEDS: GABAPENTIN 300 MG CAP PO SCH ×2 (08:06→15:40)
[2019-11-24] MEDS: SPIRONOLACTONE 25 MG TAB PO SCH (08:06)
[2019-11-24] MEDS: METOPROLOL TARTRATE 50 MG TAB PO SCH (08:06)
[2019-11-24] MEDS: PANTOprazole 40 MG TAB PO SCH (08:07)
[2019-11-24] MEDS: FUROSEMIDE 40 MG TAB PO SCH (08:07)
[2019-11-24] MEDS: cefTRIAXone SODIUM 2,000 MG in DEXTROSE 5% 50 ML IV SCH (12:30)
--- NOTE | 2019-11-24 16:05 | Discharge Summary ---
Date of Service November 24, 2019 Admission HPI Per Admitting Provider Mr. Aditya Yusuf is a 68-year-old male, with history of CAD status post CABG, in 2012, PAD, hypertension, COPD, dyslipidemia, GERD, morbid obesity, chronic venous insufficiency who presents with left lower extremity pain and ulceration, and fever. Patient has had wound at his medial ankle since the end of June 2019. At that time he was evaluated at PCPs office, and was treated with Bactrim. As this was not easily healed, he was also evaluated and treated at wound clinic, by Dr. Ferguson, was diagnosed with chronic venous insufficiency and PAD, has been improving and actually discharged from wound clinic earlier this month. Per wound care clinic, it was recommended for him to wear compression stockings and continuous care for the wound. About 4 days ago, he developed pain in his left lower extremity again, which got progressively worse. He also noticed increased erythema from his ankle area up to his knee, and a superficial open wound at his medial ankle area. He then developed fever which prompted him to come to the hospital. In the ED, he was started on daptomycin and cefepime, blood cultures were obtained. He was also given 1 L of normal saline. Lactate was elevated at 2.2. CRP 11.7, WBC 13.3k. Cr also elevated at 1.66. He otherwise denied any shortness of breath, chest pain, palpitations, abdominal pain, nausea or vomiting. Principal Diagnosis Left lower extremity chronic venous insufficiency, left lower extremity chronic wound infection, group B streptococcus bacteremia, gastric/duodenal ulcer due to NSAID Discharge Exam Constitutional WD/WN, vitals as above + morbidly obese; no acute distress (mild distress d/t abd. pain) Eyes PERRL, conjunctivae normal, anicteric sclerae EOM intact bilaterally ENMT external ear and nose normal, oropharynx normal Ears: no hearing impairment Neck trachea midline, no thyromegaly normal visual inspection Respiratory normal respiratory effort, lungs clear to auscultation Auscultation: no crackles, no rhonchi and no wheezes Cardiovascular RRR, no murmur, no edema Heart Sounds: no murmur Extremities: + edema (LLE) Chest (Breasts) Chest: normal inspection of chest (vertical post. surg. scar) Gastrointestinal (Abdomen) Inspection/Auscultation: abdomen normal to inspection (but very obese) and normal bowel sounds Percussion/Palpation: abdomen soft; no guarding Musculoskeletal Head/Neck/Chest: normocephalic, head atraumatic and neck supple Extremities: + extremities abnormal to inspection (LLE chronic wound , bandage present ) Skin + wound (LLE above ankle) Neurologic PERRL, EOMI, accommodation nl, no face palsy, no dysarthria moves all extremities; no focal motor deficits Speech / Cognition: normal speech Psychiatric A+Ox3, euthymic affect Speech: normal rate/rhythm/volume of speech Genitourinary no CVA tenderness Lymphatic no cervical or axillary lymphadenopathy + lymphedema (LLE) Discharge Data Allergies Allergy/AdvReac Type Severity Reaction Status Date / Time No Known Drug Allergies Allergy Verified 11/19/19 13:17 Consultations 11/19/19 14:41 ED Decision to Admit Stat 11/20/19 07:31 Consult Infectious Diseases Routine 11/20/19 17:31 Consult Wound Care Provider Routine 11/21/19 08:25 Consult Cardiology Stat 11/21/19 09:25 Consult Gastroenterology Routine 11/21/19 11:37 Consult General Surgery Routine 11/21/19 11:41 Consult Vascular Surgery Routine Procedures Performed Operation Date: 11/21/19 17:00 Actual Procedures p EGD Biopsy Cytology - Rob Patrick MD Ordered Studies 11/19/19 15:50 MR ankle LT wo con Routine 11/19/19 16:19 US venous doppler LE LT Urgent 11/21/19 08:22 CT angio abdomen pelvis w con Stat Hospital Course (1) Bacteremia: Blood culture from November 19, 2019 -positive for Group A strep -Patient treated with daptomycin and cefepime since admission, per ID, switch to Rocephin on 11/21/19 -thought the source is patient's left lower extremity wound (wound cltx - staph aureus MSSA clindamycin D/jeffrey -resistant to staph Aureus changed to PO Doxycycline -ID consulted for further recommendations -Transthoracic echo (11/21) - EF 55-60%, grade II diast. dysfunction,moderate pericardial effusion w/o hemodynamic compromise, poorly visualized valves -Repeat blood cultures- negative growth pt will need total 21 days of Abx ( Rocephin /Doxycycline ) Ultrasound-guided IV site placed, arrangement made for home IV Rocephin Patient is stable to be discharged home (2) Leg wound, left: - has had LLE wound since July 2019 Follows at [facility] wound clinic - was treated w/ Bactim and also in wound clinic, discharged from wound clinic earlier this month (October) - in the past 4 days prior to admission developed increased pain in LLE, eryth pema, and swelling, there is superficial open wound above left ankle - LLE U/S -negative for DVT and L ankle MR - negative for osteomyelitis , ID consulted, - blood cltx - positive for Group A Strep - wound cltx- posit. for MSSA pt is on Antibiotic IV Rocephin /PO Doxycycline : Day of Abx therapy # 4 needs total 3 weeks of tx ordered for USG guided IV access /arrangement made for home IV antibiotics - wound nurse consulted, wound provider/physician also consulted -patient input pt will continue [place] [facility] [place] [facility] (3) Chronic venous insufficiency of lower extremity: - as above, chronic venous insuff. - venous stasis changes anthony. of LLE-treatment of wound infection as outlined above (4) Cellulitis of left leg: management as discussed above (5) ELIZ (acute kidney injury): - no known hx of CKD - Cr 1.2 in 02/2019 per review of outpt records - Cr 1.66 on admission, now resolved, current Cr 1.18 (back to baseline) - poss. prerenal as pt reported poor appetite in the past couple of days, poss. 2/2 NSAID use (for pain), 2/2 infection Resume losartan (6) GERD (gastroesophageal reflux disease): - at home takes ranitidine as needed - today developed severe epigastric pain, on CT image there is duodenitis and poss. ulcer - started pt on pantoprazole and carafate, GI was consulted, status post EGD - : EGD showed erosive esophagitis. Gastritis and Multiple non-bleeding large and deeply cratered duodenal ulcers. Possible NSAID induced, Treated with IV PPI for 2 days Continue PO PPI for 3 months, cont. carafate, Repeat EGD as outpatient per GI Patient did not had any episode of GI bleed, no complaint of abdominal pain, no nausea vomiting, appreciate GI input, diet advance to solid tolerating well pt is counselled numerous times NOT to take NSAIDS's (7) Gastritis: -Noted in EGD - likely d/t NSAID use - recommendations, as above - treated with IV PPI for 2 days changed to PO protonix 40 mg BID , will cont for 3 months, carafate, avoid NSAIDS (8) Erosive esophagitis: - recommendations, as above - (9) Duodenal ulcer: found (11/21) on EGD: hx of chronic NSAID use - recommendations, as above - (10) CAD (coronary artery disease): s/p CAD - at home on ASA, metoprolol and atorvastatin - - currently no chest pain, no active issues (11) PAD (peripheral artery disease): (12) COPD (chronic obstructive pulmonary disease): - does not use inhalers - no active issues (13) Dyslipidemia: - on statin, (14) Morbid obesity: - encourage lifestyle modification CODE STATUS: FULL Disposition: Able to be discharged home today with IV antibiotics Total Time Total Time Spent Total Time Spent (In Minutes): Approximately 35 minutes Total Time Includes: Examination of the Patient, Discharge Planning and Medication Reconciliation Discharge Plan Discharge Items Patient Disposition: Home - Home Health Services Reason For Visit: LLE CELLULITIS Discharge Diagnosis: Left lower extremity chronic venous insufficiency, left lower extremity chronic wound infection, group B Streptococcus bacteremia, gastric/duodenal ulcer: Due to NSAID Activity: Resume your previous activity Non-emergency contact: Primary Care Provider Call non-emergency contact if: you have any medication questions Follow-up/Referrals: Penelope Cifuentes DO [Physician] - Vee Marquez MD [Primary Care Provider] - 11/28/19 11:05 am Teja Connor [Physician] - Diet: Heart Healthy Addtl Attending Provider Instructions: Complete IV Rocephin (antibiotic) for 16 more days IV access should be discontinued after antibiotic is complete Infectious disease follow-up in 2 weeks prior to completion of antibiotic treatment Wound care clinic follow-up in 1 week Do not take: Motrin, Aleve, Advil, ibuprofen, naproxen, high-dose aspirin-you have ulcers/inflammation in your stomach and small intestine, Taking [id number] medications belonging to the group NSAIDs can cause recurrent ulcer, nonhealing of ulcer and active bleeding You can utilize [id number] Tylenol as needed for pain Please notify your family physician anytime you notice dark tarry stool Pending Studies at Discharge: No Stand-Alone Forms: My Nas[employer]-kl[employer].pl, Smoking Cessation Medications and DC Order Prescriptions: New doxycycline hyclate 100 mg Capsule 100 mg PO BID 16 Days Qty: 32 RF: 0 sucralfate 1 gram Tablet 1 g PO ACHS 30 Days Qty: 30 RF: 3 pantoprazole 40 mg Tablet,Delayed Release (Dr/Ec) 40 mg PO BID 90 Days Qty: 180 RF: 2 ceftriaxone 2 gram recon soln 2 gm IV DAILY Qty: 16 RF: 0 Continued furosemide [Lasix] 40 mg tablet 40 mg PO DAILY RF: 0 Contrave 8-90 mg tablet extended release 1 tab PO BID RF: 0 ranitidine HCl [Zantac] 150 mg tablet 150 mg PO BID RF: 0 potassium chloride [Klor-Con M20] 20 mEq tablet,ER particles/crystals 20 meq PO DAILY RF: 0 aspirin [Adult Aspirin Regimen] 81 mg tablet,delayed release (DR/EC) 81 mg PO DAILY RF: 0 doxazosin [Cardura] 2 mg tablet 2 mg PO DAILY RF: 0 atorvastatin 40 mg tablet 40 mg PO DAILY RF: 0 metoprolol tartrate 50 mg tablet 50 mg PO DAILY RF: 0 nitroglycerin 0.4 mg tablet, sublingual 0.4 mg SL Q5M PRN (Reason: Chest Pain) RF: 0 gabapentin 300 mg capsule 300 mg PO TID RF: 0 losartan 50 mg tablet RF: 0 Discontinued ibuprofen [Advil] 200 mg Tablet 600 mg PO Q6H PRN (Reason: Pain) RF: 0 Discharge Orders: Discharge Order (Routine); Ordered 11/24/19 Ordered By: Nellie Crocker Admission Data Admit Date/Time: 11/19/19 16:14 Attending Provider: Nellie Crocker Admit Provider: Benedict Maldonado Primary Care Provider: Vee Marquez Other Providers: [facility] ; Benedict Maldonado ; Aidan Chaves ; Penelope Cifuentes ; Gerry Peña ; Oleg Blanc ; Dino Garcia ; Samantha Cano ; Juan Manuel Franco ; Candi Peres ; Teja Connor ; Franky Ozuna ; Sacha Deng ; Balbina Cota ; Arsenio Crow ; Mukesh Silverman ; Valeria Segura ; Ofelia Cordova ; Leny Woodall ; Ashly Barreto ; Rob Patrick ; Aiden Dillard ; Guy Tapia Other Interventions: Discharge Summary Assessment (RN) Last Done: 11/24/19 16:07 DC Date/Time DO NOT enter until pt leaves facility: 11/24/19 17:10
[2019-11-24] MEDS ORDERED: PANTOprazole 40 MG in SYRINGE 0 ML IV SCH (21:00)
== END 2019-11-24 17:10 | disposition home health service (06) | DRG 872 ==
LOC: ED 12:44 → 4W 16:14 → SUATTDRO 16:14 → 4W 18:29 → 2S 11-20 09:20 → 2N 11-23 18:37

== ENCOUNTER 2021-07-25 09:56 | Inpatient (IN) ==
[2021-07-25 11:22] LABS: Basophils # (auto) 0.01 K/uL (0-0.2); Basophils % (auto) 0.1 %; Eosinophils % (auto) 0.9 %; Hematocrit (blood only) 43.6 % (42-52); Hemoglobin 14.6 g/dL (14.0-18.0); Immature Granulocytes # (auto) 0.01 K/uL (0.00-0.02); Immature Granulocytes % (auto) 0.1 %; Lymphocytes # (auto) 1.47 K/uL (1.2-3.4); Lymphocytes % (auto) 13.6 %; Mean Corpuscular Hemoglobin 32.4 pg (25-34); Mean Corpuscular Hgb Conc 33.5 g/dL (32-36); Mean Corpuscular Volume 96.7 fL (80-100); Mean Platelet Volume 11.3 fL (7.4-10.4); Monocytes # (auto) 0.79 K/uL (0.11-0.59); Monocytes % (auto) 7.3 %; Neutrophils # (auto) 8.43 K/uL (1.4-6.5); Platelet Count 187 K/uL (130-400); RDW Coefficient of Variation 13.4 % (11.5-14.5); RDW Standard Deviation 46.8 fL (36.4-46.3); Red Blood Count 4.51 M/uL (4.7-6.1); White Blood Count 10.81 K/uL (4.8-10.8)
[2021-07-25 11:36] LABS: INR 1.5 (0.9-1.1); Partial Thromboplastin Time 26.7 Seconds (21.0-31.0); Prothrombin Time 14.8 Seconds (9.0-12.0)
[2021-07-25 11:49] LABS: Alanine Aminotransferase 58 U/L (12-78); Albumin Level 3.1 gm/dl (3.4-5.0); Alkaline Phosphatase 77 U/L (45-117); Aspartate Aminotransferase 41 U/L (15-37); BUN Creatinine Ratio 23.2 (10-20); Bilirubin,Total 0.8 mg/dl (0.2-1); Blood Urea Nitrogen 51 mg/dl (7-18); Calcium 8.7 mg/dl (8.5-10.1); Carbon Dioxide 26 mmol/L (21-32); Chloride 107 mmol/L (98-107); Creatinine Clr Calc Pharmacy 47.6 ml/min; Est GFR (African American) 34.1 ml/min; Est GFR (Non-African American) 29.4 ml/min; Globulin 3.1 gm/dl (2.5-4.0); Glucose 111 mg/dl (70-99); Magnesium 2.6 mg/dl (1.8-2.4); NT Pro B Type Natriuretic Pept 767 pg/ml (0-900); Potassium 5.1 mmol/L (3.5-5.1); Sodium 137 mmol/L (136-145); Total Protein 6.2 gm/dl (6.4-8.2); Troponin I < 0.015 ng/ml (0-0.045)
--- NOTE | 2021-07-25 12:42 | XRay Report ---
SINGLE VIEW CHEST CLINICAL HISTORY: Dyspnea. FINDINGS: 2 AP, portable, upright chest radiographs are obtained. No prior studies are available for comparison at the time of dictation. The patient is status post midline sternotomy. The heart is enl arged noting atherosclerotic calcification of the thoracic aorta. There is mild pulmonary vascular co ngestion. Atelectasis is seen at the lung bases. No large pleural effusion or pneumothorax is identif ied. The skeletal structures are osteopenic. The bony thorax is grossly intact. IMPRESSION: Cardiomegaly with mild pulmonary vascular congestion. ACT 112: Negative or not required by law. Electronically signed by: Juan Carlos Krishna M.D. 07/25/2021 12:40 PM
--- NOTE | 2021-07-25 13:15 | History & Physical Report ---
Date of Service July 25, 2021 Assessment & Plan (1) Pericardial effusion: (2) Fluid retention: Plan: This is a 70yo M with a PMH of PAD s/p interventions on Xarelto, CAD (s/p CABG x 2 in 2011), COPD, HTN, dyslipidemia, chronic back pain, morbid obesity and other medical problems listed below who presents with progressive dyspnea over the past 2 weeks and was found to have moderate pericardial effusion and acute kidney injury. Presenting with progressive dyspnea, 20 pound weight gain, BLE edema EKG with SR with low amplitude and TWI in inferior and lateral leads, which are new from previous CXR with cardiomegaly and mild pulmonary vascular congestion TTE with moderate sized circumferential pericardial effusion, preserved EF, consistent with pretamponade physiology BP and HR stable, patient not in distress ESR and TSH wnl, CRP minimally elevated Per Dr. Blackburn, pericardial effusion does not appear to be easily accessible for pericardiocentesis based on anatomical nature of fluid collection and body habitus Will hold Xarelto for now IV albumin, Tristan placement Lasix dosing per cardiology Monitor in PCU (3) ELIZ (acute kidney injury): Plan: Cr 2.18 today (baseline Cr ~1.2), K of 5.1 In setting of pericardial effusion, pulmonary congestion No evidence of hydronephrosis on renal u/s Hold Valsartan Daily BMP (4) PAD (peripheral artery disease): Plan: Follows with Dr. Ferguson Continue statin Hold Xarelto (5) CAD (coronary artery disease): Plan: S/p CABG x 2 in 2011 Continue aspirin, statin, Toprol (6) COPD (chronic obstructive pulmonary disease): Plan: At baseline, albuterol inh PRN (7) HTN (hypertension): Plan: Continue Toprol with hold parameters, holding Valsartan (8) Morbid obesity: Plan: BMI >50 Recently started Contrave 8-90mg BID DVT Ppx: Holding Xarelto for now Code status: FULL PCP: Alvin Dispo: Admitted to PCU Patient seen in collaboration with Dr. Hagen. Please see addendum. History of Present Illness Chief Complaint: Progressive dyspnea Primary Care Provider: Valente Esquivel, DO This is a 70yo M with a PMH of PAD s/p interventions on Xarelto, CAD (s/p CABG x 2 in 2011), COPD, HTN, dyslipidemia, chronic back pain, morbid obesity and other medical problems listed below who presents with progressive dyspnea over the past 2 weeks. Two weeks ago, patient notes having severe leg cramps and feeling more fatigued than usual. Since then, has noted more labored breathing. Patient states with any type of exertion, even walking around the house, he feels extremely short of breath. Also endorses increased fluid in abdomen and lower legs with approximate 20 pound weight gain in the past 2 weeks. Does not restrict fluids or eat a low sodium diet. No open wounds on BLE or feet. Recently transitioned from lasix to Bumex diuretic for 3-day trial. States he has not been urinating any more frequently and continued to feel short of breath. Denies any orthopnea or PND. Is able to sleep on his side with 1-2 pillows. Denies any chest pain or palpitations. Was sent in Dr. Blackburn due to progressive dyspnea and worsening renal function. No fever, chills, recent known sick contacts, congestion or wheezing. Did receive both doses of Covid vaccine. Did also mention some lower back pain on right side a week ago that is since resolved. No history of kidney stones. Denies lightheadedness, headache, nausea, vomiting, abdominal pain, dysuria, diarrhea or constipation. Allergies Allergy/AdvReac Type Severity Reaction Status Date / Time No Known Drug Allergies Allergy Unknown Verified 07/25/21 13:24 Home Medications Medication Instructions Recorded Confirmed Type aspirin 81 mg tablet,delayed 81 mg PO HS 08/14/19 07/25/21 History release (Adult Aspirin Regimen) atorvastatin 40 mg tablet (Lipitor) 40 mg PO HS 08/14/19 07/25/21 History doxazosin 2 mg tablet (Cardura) 2 mg PO HS 08/14/19 07/25/21 History gabapentin 300 mg capsule See Rx Instructions .ROUTE .COMPLEX 08/14/19 07/25/21 History (Neurontin) naltrexone 8 mg-bupropion 90 mg 2 tab PO BID 08/14/19 07/25/21 History tablet,extended release (Contrave) nitroglycerin 0.4 mg sublingual 0.4 mg SL Q5M PRN 08/14/19 07/25/21 History tablet (Nitrostat) albuterol sulfate 90 mcg/actuation 2 puffs INH BID PRN gm 06/27/20 07/25/21 History aerosol inhaler (Ventolin HFA) pantoprazole 40 mg tablet,delayed 40 mg PO HS 07/16/20 07/25/21 History release (Protonix) rivaroxaban 2.5 mg tablet (Xarelto) 2.5 mg PO BID #60 tab 06/09/21 07/25/21 Rx calcium carbonate 600 mg(1,500 1 tab PO BID 07/25/21 07/25/21 History mg)-vitamin D3 800 unit chewable tablet (Caltrate 600 plus D) metoprolol succinate 50 mg 50 mg PO DAILY 07/25/21 07/25/21 History tablet,extended release 24 hr bumetanide 1 mg tablet 1 mg PO BID17 #60 tab 08/04/21 Rx potassium chloride 20 mEq 20 meq PO BID #60 tab 08/04/21 Rx tablet,extended release(part/cryst) (Klor-Con M) Past Med/Surg History Medical History BPH (benign prostatic hyperplasia) CAD (coronary artery disease) Cellulitis of right leg Chronic GERD COPD (chronic obstructive pulmonary disease) Duodenal ulcer High cholesterol HTN (hypertension) Leg ulcer, left Morbid obesity with BMI of 45.0-49.9, adult Neuropathy Obesity PAD (peripheral artery disease) Peptic ulcer disease Surgical History H/O wisdom tooth extraction History of cholecystectomy History of esophagogastroduodenoscopy (EGD) (~02/05/20) History of heart bypass surgery 10/28/2012--DOUBLE> EVANGELINA > FOLLOWS DR. BLACKBURN> JEANNE History of tonsillectomy Hx of angiography 01/29/2020 @ [facility] Hx of colonoscopy Family History Father Diabetes Heart disease Brother AAA (abdominal aortic aneurysm) Other No family history of adverse response to anesthesia Social History Smoking Status: Former smoker Tobacco Type: Cigarettes packs per day: 1; Years Smoked: 40; Number of Years Since Quit: 20; Second Hand Exposure: No; Hx Alcohol Use: No Hx Substance Use: No Preferred Language: Maltese Communication Ability: Effective Visual Impairment: Limited Hearing Ability: Normal Cattle Killer Required: No Beliefs That Will Affect Care: None marital status: Current Living Situation: Spouse current occupational status: employed current occupation: [employer] How many Children do You have: 1 Feels Safe at Home: Yes Childhood Exposure to Second-Hand Smoke: Yes Assistive Devices: None Review of Systems Review of Systems: At least ten systems reviewed and negative except as noted in the HPI. Physical Exam Physical Exam: General Appearance: WD/WN, vitals as above, NAD, sitting up in bed, morbidly obese Head: normocephalic, atraumatic Eyes: normal inspection, PERRL, conjunctivae normal, anicteric sclerae ENT: external ear and nose normal, oropharynx normal Neck: normal visual inspection, trachea midline, no thyromegaly Respiratory: normal respiratory effort, diminished lung sounds bilaterally, no wheeze, rales or rhonchi. No accessory muscle use Cardiovascular: diminished heart sounds, no murmur appreciated, normal peripheral pulses, 3+ BLE edema. Vessels: unable to assess JVD 2/2 habitus Chest: normal inspection of chest Abdomen/GI: normal bowel sounds, soft but distended, nontender, no hepatosplenomegaly Extremities/Musculoskeletal: no cyanosis or clubbing, extremities motor strength 5/5 Neurologic: PERRL, EOMI, accommodation nl, no face palsy, no dysarthria, CN's II-XI intact bilaterally and moves all extremities Psychiatric: A+Ox3, euthymic affect Skin: no rashes, normal color, warm/dry Results & Data Results & Data ([facility]) Vital Signs (Past 12 Hours) Vital Signs Temp Pulse Pulse Resp BP BP Pulse Ox 07/25/21 13:00 64 15 136/80 97 07/25/21 12:31 66 16 129/73 99 07/25/21 12:00 64 16 96/68 L 96 07/25/21 11:15 65 22 96 07/25/21 11:13 65 20 116/75 96 07/25/21 10:06 36.7 C 72 18 121/62 97 Laboratory Results Short CBC 07/25/21 Range/Units 11:08 WBC 10.81 H (4.8-10.8) K/uL Hgb 14.6 (14.0-18.0) g/dL Hct 43.6 (42-52) % Plt Count 187 (130-400) K/uL BMP 07/25/21 11:08 Sodium 137 Potassium 5.1 Chloride 107 Carbon Dioxide 26 BUN 51 H Creatinine 2.18 H Glucose 111 H Calcium 8.7 Cardiac Enzymes 07/25/21 Range/Units 11:08 Troponin I < 0.015 (0-0.045) ng/ml Liver Function 07/25/21 Range/Units 11:08 Total Bilirubin 0.8 (0.2-1) mg/dl AST 41 H (15-37) U/L ALT 58 (12-78) U/L Alkaline Phosphatase 77 (45-117) U/L Albumin 3.1 L (3.4-5.0) gm/dl Diagnostic Findings Chest X-Ray 07/25/21 11:13 SINGLE VIEW CHEST CLINICAL HISTORY: Dyspnea. FINDINGS: 2 AP, portable, upright chest radiographs are obtained. No prior studies are available for comparison at the time of dictation. The patient is status post midline sternotomy. The heart is enlarged noting atherosclerotic calcification of the thoracic aorta. There is mild pulmonary vascular congestion. Atelectasis is seen at the lung bases. No large pleural effusion or pneumothorax is identified. The skeletal structures are osteopenic. The bony thorax is grossly intact. IMPRESSION: Cardiomegaly with mild pulmonary vascular congestion. ACT 112: Negative or not required by law. Electronically signed by: Juan Carlos Krishna M.D. 07/25/2021 12:40 PM Code Status & VTE Plan VTE Prophylaxis Plan VTE Prophylaxis will be ordered: Yes Supervising Physician Co-Signing Physician Notes Pt was seen and examined. Agreed with Becka HANKS exam, assessment and plan. 70yo M with a PMH of PAD s/p interventions on Xarelto, CAD (s/p CABG x 2 in 2011), COPD, HTN, dyslipidemia, chronic back pain, morbid obesity presents to the ED with worsening progressive dyspnea. He was sent to the ED by his cardiology dr. Blackburn. Pt said that for the last 2 weeks that he has been having SOB worsening with exertion. He said that he feels very fatigue lately. He said that he noted increase in his lower extremities and around his abdomen. He said that he gained about 20 lbs in the last 2 weeks. He said that his doctor changed the lasix to Bumex trial with no significant help with the lower extremity swelling. Denies any chest pain, palpitation, dizziness, fever and chills. CXR on admission showed Cardiomegaly with mild pulmonary vascular congestion. ECHO done in the ER by cardiology showed moderate sized circumferential pericardial effusion, preserved EF, consistent with pretamponade physiology. Cardilogy was consulted that started him on Albumin and Low dose IV lasix. Creatinine elevated to 2.18 with baseline around 1.2. Renal U/S showed no hydronephrosis. Moderate bilateral cortical renal scarring/thinning. Will monitor BMP closely while on IV lasix. Will hold Xarelto. as per cardiology pericardial effusion does not appear to be easily accessible for pericardiocentesis based on anatomical nature of fluid collection and body habitus. Continue monitor I/O. Will monitor closely in Tele. MD Xiao
--- NOTE | 2021-07-25 14:53 | Ultrasound Report ---
RENAL ULTRASOUND HISTORY: acute kidney insufficiency , volume overload COMPARISON: Abdomen and pelvis CTA 11/21/2019. FINDINGS: Right kidney: 12.6 cm. No hydronephrosis. Moderate cortical thinning/scarring. Left kidney: 12.5 cm. No hydronephrosis. Moderate cortical thinning/scarring. Bladder: No bladder wall thickening. The bilateral ureteral jets were identified. Trace perihepatic ascites. IMPRESSION: 1. No hydronephrosis. 2. Moderate bilateral cortical renal scarring/thinning. 3. Trace perihepatic ascites. ACT 112: Negative or not required by law. Electronically signed by: Regan Yousif M.D. 07/25/2021 2:52 PM
[2021-07-25 15:01] LABS: C Reactive Protein 0.61 mg/dl (0-0.29); Thyroid Stimulating Hormone 1.96 uIu/ml (0.300-4.500)
--- NOTE | 2021-07-25 15:19 | Cardiology Consultation ---
Date of Consultation July 25, 2021 Assessment & Plan (1) Fluid retention: (2) Pericardial effusion: (3) ELIZ (acute kidney injury): (4) Hypoalbuminemia: The patient has multifactorial fluid retention with a history of diastolic dysfunction, morbid obesity, venous insufficiency, hypoalbuminemia. He has significant lower extremity edema, ascites, pulmonary edema on chest x-ray, and a moderate circumferential pericardial effusion. Blood pressure has been stable. His symptoms of worsening shortness of breath and fluid retention did not respond to an escalation in his outpatient diuretic dose, and ELIZ developed with baseline creatinine of 1.2, noted to be 2.3 on outpatient labs this morning, 2.18 in the emergency room with borderline hyperkalemia, 5.1 mmol/L. The patient is not in acute distress. He was sitting upright at the time my conversation with him and he was comfortable. Renal ultrasound revealed no evidence of hydronephrosis. I do have concerns that he is at risk for progression of the pericardial effusion with resultant hemodynamic compromise. Terms the cause of the pericardial effusion, he is ESR and TSH are within normal limits. C-reactive protein only minimally elevated 0.61 mg per dl. Pericardial effusion does not appear to be easily accessible for pericardiocentesis based on patient's body characteristics and the anatomical nature of where the fluid has accumulated. At present, recommend placement of a Tristan catheter. 1 dose of albumin has been ordered. We will likely start cautious furosemide IV, perhaps 20 mg twice daily after catheter has been placed with plans to titrate as necessary. Discussed plan with patient and spouse. History of Present Illness History of Present Illness Mr Guthrie is a 70-year-old male seen in cardiology consultation per the [facility] the evaluation of shortness of breath with exertion and fluid retention. The patient notes worsening shortness of breath and lower extremity edema x1 week. He notes dyspnea with minimal exertion such as walking short distances in the parking lot. He had been seen by primary care earlier this week, and it was recommended to discontinue furosemide 40 mg daily in favor of Bumex 1 mg daily for a 3-day course. In the meantime, chemistry panels have revealed ELIZ with baseline creatinine of 1.2, up to 2.3 today, and mild hyperkalemia. The 3-day course of Bumex did not change the way he felt in terms of worsening shortness of breath and he feels his edema has been worse as well. He was therefore referred for emergency room evaluation. At the time my assessment, no conversational dyspnea noted, 2+ pitting lower extremity Noted, slightly worse than when I had recently seen him in the office. Outpatient problem list: 1. Chronic coronary heart disease status post CABG x2 with ZAPATA to LAD, SVG to OM on 10/28/12, with known chronic total occlusion of the right coronary artery and therefore this territory was not bypassed 2. Peripheral arterial disease -followed by Dr Zach Ferguson and Iris Kirby PA-C, of [facility] endovascular medicine /interventional cardiology -In January 2020, underwent left lower extremity angiography with intervention to his left SFA and popliteal arteries in the setting of non healing wounds -Has venous insufficiency as well -Maintained on aspirin and Xarelto (PAD dose) 3. Hypertension 4. Dyslipidemia 5. Chronic low back pain, radiculopathy 6. Morbid obesity, 255 pounds, BMI greater than 50 kg/m Allergies Allergy/AdvReac Type Severity Reaction Status Date / Time No Known Drug Allergies Allergy Unknown Verified 07/25/21 13:24 Home Medications Medication Instructions Recorded Confirmed Type aspirin 81 mg tablet,delayed 81 mg PO HS 08/14/19 07/25/21 History release (Adult Aspirin Regimen) atorvastatin 40 mg tablet (Lipitor) 40 mg PO HS 08/14/19 07/25/21 History doxazosin 2 mg tablet (Cardura) 2 mg PO HS 08/14/19 07/25/21 History furosemide 40 mg tablet (Lasix) 40 mg PO PM 08/14/19 07/25/21 History gabapentin 300 mg capsule See Rx Instructions .ROUTE .COMPLEX 08/14/19 07/25/21 History (Neurontin) naltrexone 8 mg-bupropion 90 mg 2 tab PO BID 08/14/19 07/25/21 History tablet,extended release (Contrave) nitroglycerin 0.4 mg sublingual 0.4 mg SL Q5M PRN 08/14/19 07/25/21 History tablet (Nitrostat) potassium chloride 20 mEq 20 meq PO HS 08/14/19 07/25/21 History tablet,extended release(part/cryst) (Klor-Con M) albuterol sulfate 90 mcg/actuation 2 puffs INH BID PRN gm 06/27/20 07/25/21 History aerosol inhaler (Ventolin HFA) pantoprazole 40 mg tablet,delayed 40 mg PO HS 07/16/20 07/25/21 History release (Protonix) rivaroxaban 2.5 mg tablet (Xarelto) 2.5 mg PO BID #60 tab 06/09/21 07/25/21 Rx bumetanide 1 mg tablet 1 mg PO DAILY 07/25/21 07/25/21 History calcium carbonate 600 mg(1,500 1 tab PO BID 07/25/21 07/25/21 History mg)-vitamin D3 800 unit chewable tablet (Caltrate 600 plus D) metoprolol succinate 50 mg 50 mg PO DAILY 07/25/21 07/25/21 History tablet,extended release 24 hr valsartan 80 mg tablet (Diovan) 80 mg PO HS 07/25/21 07/25/21 History Patient History Medical History BPH (benign prostatic hyperplasia) CAD (coronary artery disease) Cellulitis of right leg Chronic GERD COPD (chronic obstructive pulmonary disease) Duodenal ulcer High cholesterol HTN (hypertension) Leg ulcer, left Morbid obesity with BMI of 45.0-49.9, adult Neuropathy Obesity PAD (peripheral artery disease) Peptic ulcer disease Surgical History H/O wisdom tooth extraction History of cholecystectomy History of esophagogastroduodenoscopy (EGD) (~02/05/20) History of heart bypass surgery 10/28/2012--DOUBLE> [place]ANGELINA > FOLLOWS DR. BLACKBURN> JEANNE History of tonsillectomy Hx of angiography 01/29/2020 @ [facility] Hx of colonoscopy Family History Father Diabetes Heart disease Brother AAA (abdominal aortic aneurysm) Other No family history of adverse response to anesthesia Social History Smoking Status: Former smoker Tobacco Type: Cigarettes packs per day: 1; Years Smoked: 40; Number of Years Since Quit: 20; Second Hand Exposure: No; Hx Alcohol Use: No Hx Substance Use: No Preferred Language: Greenlandic Communication Ability: Effective Visual Impairment: Limited Hearing Ability: Normal Technical Service Rep Required: No Beliefs That Will Affect Care: None marital status: Current Living Situation: Spouse current occupational status: employed current occupation: [employer] Feels Safe at Home: Yes Childhood Exposure to Second-Hand Smoke: Yes Assistive Devices: None Review of Systems Review of Systems: All systems reviewed & are unremarkable except as noted in HPI & below Physical Exam Physical Exam: Temp Pulse Resp BP Pulse Ox 36.7 C 62 13 124/87 99 07/25/21 10:06 07/25/21 16:00 07/25/21 16:00 07/25/21 16:00 07/25/21 16:00 Constitutional: no acute distress Respiratory: Auscultation: + diminished lung sounds (Mildly decreased breath sounds at the bases) Cardiovascular: Distant heart sounds, not auscultated 2+ bilateral lower extremity edema Gastrointestinal (Abdomen): Obese, soft nontender Skin: No erythema or skin breakdown Results & Data ([facility]) Vital Signs (Past 12 Hours) Vital Signs Temp Pulse Pulse Resp BP BP Pulse Ox 07/25/21 14:00 68 14 114/78 96 07/25/21 13:30 65 15 162/93 H 98 07/25/21 13:00 64 15 136/80 97 07/25/21 12:31 66 16 129/73 99 07/25/21 12:00 64 16 96/68 L 96 07/25/21 11:15 65 22 96 07/25/21 11:13 65 20 116/75 96 07/25/21 10:06 36.7 C 72 18 121/62 97 Laboratory Results Laboratory Results WBC 10.81 K/uL (4.8-10.8) H 07/25/21 11:08 RBC 4.51 M/uL (4.7-6.1) L 07/25/21 11:08 Hgb 14.6 g/dL (14.0-18.0) 07/25/21 11:08 Hct 43.6 % (42-52) 07/25/21 11:08 MCV 96.7 fL (80-100) 07/25/21 11:08 MCH 32.4 pg (25-34) 07/25/21 11:08 MCHC 33.5 g/dL (32-36) 07/25/21 11:08 RDW Std Deviation 46.8 fL (36.4-46.3) H 07/25/21 11:08 RDW Coeff of Alan 13.4 % (11.5-14.5) 07/25/21 11:08 Plt Count 187 K/uL (130-400) 07/25/21 11:08 MPV 11.3 fL (7.4-10.4) H 07/25/21 11:08 (Auto) 0.10 K/uL (0-0.5) 07/25/21 11:08 Baso # (Auto) 0.01 K/uL (0-0.2) 07/25/21 11:08 Immature Gran # (Auto) 0.01 K/uL (0.00-0.02) 07/25/21 11:08 ESR 5 mm/hr (0-20) 07/25/21 11:08 PT 14.8 Seconds (9.0-12.0) H 07/25/21 11:08 INR 1.5 (0.9-1.1) H 07/25/21 11:08 APTT 26.7 Seconds (21.0-31.0) 07/25/21 11:08 PTT Ratio 1.0 07/25/21 11:08 Sodium 137 mmol/L (136-145) 07/25/21 11:08 Potassium 5.1 mmol/L (3.5-5.1) 07/25/21 11:08 Chloride 107 mmol/L (98-107) 07/25/21 11:08 Carbon Dioxide 26 mmol/L (21-32) 07/25/21 11:08 Anion Gap 4.0 (3-11) 07/25/21 11:08 BUN 51 mg/dl (7-18) H 07/25/21 11:08 Creatinine 2.18 mg/dl (0.6-1.4) H 07/25/21 11:08 Est Cr Clr Drug Dosing 47.6 ml/min 07/25/21 11:08 Est GFR ( Amer) 34.1 ml/min 07/25/21 11:08 Est GFR (Non-Af Amer) 29.4 ml/min 07/25/21 11:08 BUN/Creatinine Ratio 23.2 (10-20) H 07/25/21 11:08 Glucose 111 mg/dl (70-99) H 07/25/21 11:08 Calcium 8.7 mg/dl (8.5-10.1) 07/25/21 11:08 Magnesium 2.6 mg/dl (1.8-2.4) H 07/25/21 11:08 Total Bilirubin 0.8 mg/dl (0.2-1) 07/25/21 11:08 AST 41 U/L (15-37) H 07/25/21 11:08 ALT 58 U/L (12-78) 07/25/21 11:08 Alkaline Phosphatase 77 U/L (45-117) 07/25/21 11:08 Troponin I < 0.015 ng/ml (0-0.045) 07/25/21 11:08 C-Reactive Protein 0.61 mg/dl (0-0.29) H 07/25/21 11:08 NT-Pro-B Natriuret Pep 767 pg/ml (0-900) 07/25/21 11:08 Total Protein 6.2 gm/dl (6.4-8.2) L 07/25/21 11:08 Albumin 3.1 gm/dl (3.4-5.0) L 07/25/21 11:08 Globulin 3.1 gm/dl (2.5-4.0) 07/25/21 11:08 Albumin/Globulin Ratio 1.0 (0.9-2) 07/25/21 11:08 TSH 1.960 uIu/ml (0.300-4.500) 07/25/21 11:08 Specimen Hemolysis 07/25/21 11:08 COVID-19 Eval Order Covid19 at [facility] 07/25/21 11:45 SARS-CoV-2 (PCR) NEGATIVE (Negative) 07/25/21 11:45 Impressions Chest X-Ray 07/25/21 11:13 SINGLE VIEW CHEST CLINICAL HISTORY: Dyspnea. FINDINGS: 2 AP, portable, upright chest radiographs are obtained. No prior studies are available for comparison at the time of dictation. The patient is status post midline sternotomy. The heart is enlarged noting atherosclerotic calcification of the thoracic aorta. There is mild pulmonary vascular congestion. Atelectasis is seen at the lung bases. No large pleural effusion or pneumothorax is identified. The skeletal structures are osteopenic. The bony thorax is grossly intact. IMPRESSION: Cardiomegaly with mild pulmonary vascular congestion. ACT 112: Negative or not required by law. Electronically signed by: Juan Carlos Krishna M.D. 07/25/2021 12:40 PM Renal Ultrasound 07/25/21 13:09 RENAL ULTRASOUND HISTORY: acute kidney insufficiency , volume overload COMPARISON: Abdomen and pelvis CTA 11/21/2019. FINDINGS: Right kidney: 12.6 cm. No hydronephrosis. Moderate cortical thinning/scarring. Left kidney: 12.5 cm. No hydronephrosis. Moderate cortical thinning/scarring. Bladder: No bladder wall thickening. The bilateral ureteral jets were identified. Trace perihepatic ascites. IMPRESSION: 1. No hydronephrosis. 2. Moderate bilateral cortical renal scarring/thinning. 3. Trace perihepatic ascites. ACT 112: Negative or not required by law. Electronically signed by: Regan Yousif M.D. 07/25/2021 2:52 PM Diagnostic Findings EKG performed today at 1056 revealed sinus rhythm at 72 bpm with low amplitude, T wave inversions noted in the inferior and lateral leads, new compared to previous outpatient EKG. Echocardiogram is technically limited due to patient characteristics/poor acoustic windows but adequate for the referral indication. Biventricular systolic function is normal, LVEF 55-60. There is a moderate size circumferential pericardial effusion with focal posterior fluid collection. The inferior vena cava is plethoric suggestive of increased pericardial pressure and suggestive of pretamponade physiology. Compared to the previous echo performed 11/21/2019, there has been interval increase in the size of the pericardial effusion.
[2021-07-25] MEDS ORDERED: POLYETHYLENE (MIRALAX) 17 GM PACK PO PRN (17:15)
[2021-07-25] MEDS ORDERED: NITROGLYCERIN SL 0.4 MG/TAB TAB SL PRN (17:15)
[2021-07-25] MEDS ORDERED: ALBUTEROL HFA 8 GM INHALER INH PRN (17:15)
[2021-07-25] MEDS ORDERED: ACETAMINOPHEN 325 MG TAB PO PRN (17:15)
[2021-07-25] MEDS: ALBUMIN 25% 12.5 GM/50 ML VIAL IV SCH ×2 (17:27→18:42)
--- NOTE | 2021-07-25 18:03 | Communication Note ---
Date of Service: July 25, 2021 Patient reassessed at bedside, Tristan catheter placement was unsuccessful. Proceed with furosemide 20 mg IV x 1 now.
[2021-07-25] MEDS ORDERED: FUROSEMIDE 20 MG in SYRINGE 0 ML IV ONE (18:30)
--- NOTE | 2021-07-25 18:49 | Emergency Department Note ---
History of Present Illness General Chief complaint: Shortness of Breath/Dyspnea Stated complaint: FLUID BUILD UP CAUSING SOB Source: patient and RN notes reviewed Mode of arrival: ambulatory Limitations: no limitations History of Present Illness Provider complaint: Shortness of breath, fluid retention, sent by cardiology Maximum Pain Intensity: 2 This patient is a 70-year-old male who presents to the emergency department with complaints of shortness of breath, fluid retention and states he was sent by his correction warden for further evaluation. Patient states he has been on fluid pills as well as prednisone this week with no improvement of his symptoms. He states his weight has gone up over 20 pounds over the last 2 weeks. At rest the patient feels fine but any exertion causes him to be dyspneic. He denies any chest pain, fevers, chills, cough, vomiting or diarrhea. Home Medications Medication Instructions Recorded Confirmed Type aspirin 81 mg tablet,delayed 81 mg PO HS 08/14/19 07/25/21 History release (Adult Aspirin Regimen) atorvastatin 40 mg tablet (Lipitor) 40 mg PO HS 08/14/19 07/25/21 History doxazosin 2 mg tablet (Cardura) 2 mg PO HS 08/14/19 07/25/21 History furosemide 40 mg tablet (Lasix) 40 mg PO PM 08/14/19 07/25/21 History gabapentin 300 mg capsule See Rx Instructions .ROUTE .COMPLEX 08/14/19 07/25/21 History (Neurontin) naltrexone 8 mg-bupropion 90 mg 2 tab PO BID 08/14/19 07/25/21 History tablet,extended release (Contrave) nitroglycerin 0.4 mg sublingual 0.4 mg SL Q5M PRN 08/14/19 07/25/21 History tablet (Nitrostat) potassium chloride 20 mEq 20 meq PO HS 08/14/19 07/25/21 History tablet,extended release(part/cryst) (Klor-Con M) albuterol sulfate 90 mcg/actuation 2 puffs INH BID PRN gm 06/27/20 07/25/21 History aerosol inhaler (Ventolin HFA) pantoprazole 40 mg tablet,delayed 40 mg PO HS 07/16/20 07/25/21 History release (Protonix) rivaroxaban 2.5 mg tablet (Xarelto) 2.5 mg PO BID #60 tab 06/09/21 07/25/21 Rx bumetanide 1 mg tablet 1 mg PO DAILY 07/25/21 07/25/21 History calcium carbonate 600 mg(1,500 1 tab PO BID 07/25/21 07/25/21 History mg)-vitamin D3 800 unit chewable tablet (Caltrate 600 plus D) metoprolol succinate 50 mg 50 mg PO DAILY 07/25/21 07/25/21 History tablet,extended release 24 hr valsartan 80 mg tablet (Diovan) 80 mg PO HS 07/25/21 07/25/21 History Allergies Allergy/AdvReac Type Severity Reaction Status Date / Time No Known Drug Allergies Allergy Unknown Verified 07/25/21 13:24 Past Med/Surg History Medical History BPH (benign prostatic hyperplasia) CAD (coronary artery disease) Cellulitis of right leg Chronic GERD COPD (chronic obstructive pulmonary disease) Duodenal ulcer High cholesterol HTN (hypertension) Leg ulcer, left Morbid obesity with BMI of 45.0-49.9, adult Neuropathy Obesity PAD (peripheral artery disease) Peptic ulcer disease Surgical History H/O wisdom tooth extraction History of cholecystectomy History of esophagogastroduodenoscopy (EGD) (~02/05/20) History of heart bypass surgery 10/28/2012--DOUBLE> EVANGELINA > FOLLOWS DR. BLACKBURN> JEANNE History of tonsillectomy Hx of angiography 01/29/2020 @ [facility] Hx of colonoscopy Family History Father Diabetes Heart disease Brother AAA (abdominal aortic aneurysm) Other No family history of adverse response to anesthesia Social History Smoking Status: Former smoker Tobacco Type: Cigarettes packs per day: 1; Years Smoked: 40; Number of Years Since Quit: 20; Second Hand Exposure: No; Hx Alcohol Use: No Hx Substance Use: No Preferred Language: American Communication Ability: Effective Visual Impairment: Limited Hearing Ability: Normal Investor Relations Manager Required: No Beliefs That Will Affect Care: None marital status: Current Living Situation: Spouse current occupational status: employed 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 and A total of 10 systems reviewed and were otherwise negative Physical Exam Vital Signs Vital Signs - 24 hr 07/25/21 10:06 07/25/21 10:10 07/25/21 11:13 Temperature 36.7 C Temperature Source Temporal Artery Scan Pulse Rate 72 Pulse Rate [Apical] 65 Pulse Rate from SpO2 Sensor Respiratory Rate 18 20 Respiratory Effort / Characteristics Short of Breath Short of Breath Non-Labored Spontaneous Respiratory Depth Normal Respiratory Pattern Regular Blood Pressure 121/62 Blood Pressure [Right Arm] 116/75 Blood Pressure Mean 81 Blood Pressure Mean [Right Arm] 88 Blood Pressure Position Sitting Pulse Oximetry 97 96 Oxygen Delivery Method Room Air Room Air Room Air Sepsis Recent Fever Within 48 Hours No Sepsis New/Unexplained Change in Mental Status N/A Sepsis Action Taken by Nursing No Action Required 07/25/21 11:15 07/25/21 12:00 07/25/21 12:31 Temperature Temperature Source Pulse Rate 65 64 66 Pulse Rate [Apical] Pulse Rate from SpO2 Sensor 65 64 Respiratory Rate 22 16 16 Respiratory Effort / Characteristics Respiratory Depth Respiratory Pattern Blood Pressure 96/68 L 129/73 Blood Pressure [Right Arm] Blood Pressure Mean 77 91 Blood Pressure Mean [Right Arm] Blood Pressure Position Pulse Oximetry 96 96 99 Oxygen Delivery Method Room Air Sepsis Recent Fever Within 48 Hours Sepsis New/Unexplained Change in Mental Status Sepsis Action Taken by Nursing 07/25/21 13:00 Temperature Temperature Source Pulse Rate 64 Pulse Rate [Apical] Pulse Rate from SpO2 Sensor 64 Respiratory Rate 15 Respiratory Effort / Characteristics Respiratory Depth Respiratory Pattern Blood Pressure 136/80 Blood Pressure [Right Arm] Blood Pressure Mean 98 Blood Pressure Mean [Right Arm] Blood Pressure Position Pulse Oximetry 97 Oxygen Delivery Method Sepsis Recent Fever Within 48 Hours Sepsis New/Unexplained Change in Mental Status Sepsis Action Taken by Nursing Vital signs reviewed. General: Chronically ill-appearing 70-year-old morbidly obese male, in no significant distress. HEENT: No scleral icterus, PERRLA, neck supple. Atraumatic. Cardiovascular: Diminished heart tones, regular rate and rhythm, no extra sounds. Pulmonary: Clear to auscultation bilaterally, normal work of breathing at rest. Distant breath sounds. Abdomen: Soft, obese, nontender, nondistended, positive bowel sounds. Musculoskeletal: Atraumatic, dependent peripheral edema bilaterally. Neurologic: Patient awake alert and oriented x 3 Skin: Warm, dry, no rash Course Administered Medications Aspirin (Aspirin 81 Mg Ectab) 81 mg PO HS MARY BETH Stop: 08/24/21 20:59 Last Admin: 07/27/21 20:01 Dose: 81 mg Documented by: [id number] Admin: 07/26/21 20:35 Dose: 81 mg Documented by: [id number] Admin: 07/25/21 22:05 Dose: 81 mg Documented by: [id number] Atorvastatin Calcium (Atorvastatin 40 Mg Tab) 40 mg PO HS MARY BETH Stop: 08/24/21 20:59 Last Admin: 07/27/21 20:01 Dose: 40 mg Documented by: [id number] Admin: 07/26/21 20:35 Dose: 40 mg Documented by: [id number] Admin: 07/25/21 21:27 Dose: 40 mg Documented by: [id number] Doxazosin Mesylate (Doxazosin Mesylate Tab 2 Mg Tab) 2 mg PO HS MARY BETH Stop: 08/24/21 20:59 Last Admin: 07/27/21 20:01 Dose: 2 mg Documented by: [id number] Admin: 07/26/21 20:33 Dose: 2 mg Documented by: [id number] Admin: 07/25/21 21:29 Dose: 2 mg Documented by: [id number] Gabapentin (Gabapentin 300 Mg Cap) 600 mg PO QPM MARY BETH Stop: 08/24/21 20:59 Last Admin: 07/27/21 20:01 Dose: 600 mg Documented by: [id number] Admin: 07/26/21 20:35 Dose: 600 mg Documented by: [id number] Admin: 07/25/21 22:06 Dose: 600 mg Documented by: [id number] Gabapentin (Gabapentin 300 Mg Cap) 300 mg PO QAM MARY BETH Stop: 08/25/21 08:59 Last Admin: 07/28/21 08:25 Dose: 300 mg Documented by: [id number] Admin: 07/27/21 08:23 Dose: 300 mg Documented by: [id number] Admin: 07/26/21 07:49 Dose: 300 mg Documented by: [id number] Furosemide 40 mg/ Syringe 4 mls @ 4 mls/min IV BID MARY BETH Stop: 08/26/21 20:59 Last Admin: 07/28/21 08:25 Dose: 4 mls/min Documented by: [id number] Admin: 07/27/21 20:01 Dose: 4 mls/min Documented by: [id number] Metoprolol Succinate (Metoprolol Succ 50mg Ext Rel Tab) 50 mg PO DAILY MARY BETH Stop: 08/25/21 08:59 Last Admin: 07/28/21 08:25 Dose: 50 mg Documented by: [id number] Admin: 07/27/21 08:24 Dose: 50 mg Documented by: [id number] Admin: 07/26/21 07:48 Dose: 50 mg Documented by: [id number] Miscellaneous (Naltrexone-Bupropion [Contrave]*Order Awaiting Action) 1 ea N/A QS MARY BETH Stop: 08/25/21 07:59 Last Admin: 07/28/21 08:10 Dose: Not Given Documented by: [id number] Admin: 07/28/21 08:10 Dose: Not Given Documented by: [id number] Admin: 07/27/21 15:55 Dose: Not Given Documented by: [id number] Admin: 07/27/21 09:32 Dose: Not Given Documented by: [id number] Admin: 07/27/21 02:08 Dose: Not Given Documented by: [id number] Admin: 07/26/21 19:08 Dose: Not Given Documented by: [id number] Admin: 07/26/21 10:18 Dose: Not Given Documented by: [id number] Multivitamins/Minerals (Calcium 600mg + Vit D 400 Iu Tab) 1 tab PO BID MARY BETH Stop: 08/24/21 20:59 Last Admin: 07/28/21 08:25 Dose: 1 tab Documented by: [id number] Admin: 07/27/21 20:01 Dose: 1 tab Documented by: [id number] Admin: 07/27/21 08:24 Dose: 1 tab Documented by: [id number] Admin: 07/26/21 20:34 Dose: 1 tab Documented by: [id number] Admin: 07/26/21 07:47 Dose: 1 tab Documented by: [id number] Admin: 07/25/21 21:27 Dose: 1 tab Documented by: [id number] Pantoprazole Sodium (Pantoprazole 40 Mg Tab) 40 mg PO HS [facility] Stop: 08/24/21 20:59 Last Admin: 07/27/21 20:01 Dose: 40 mg Documented by: [id number] Admin: 07/26/21 20:36 Dose: 40 mg Documented by: [id number] Admin: 07/25/21 22:05 Dose: 40 mg Documented by: [id number] Discontinued Medications Albumin Human (Albumin 25%) 12.5 gm in 50 mls @ 50 mls/hr IV Q1H MARY BETH Stop: 07/25/21 17:59 Last Infusion: 07/25/21 19:42 Dose: 0 mls/hr Documented by: [id number] Admin: 07/25/21 18:42 Dose: 50 mls/hr Documented by: [id number] Infusion: 07/25/21 18:30 Dose: 0 mls/hr Documented by: [id number] Admin: 07/25/21 17:27 Dose: 50 mls/hr Documented by: [id number] Furosemide 20 mg/ Syringe 2 mls @ 4 mls/min IV ONE ONE Stop: 07/25/21 18:31 Last Admin: 07/25/21 19:39 Dose: 4 mls/min Documented by: [id number] Albumin Human (Albumin 25%) 12.5 gm in 50 mls @ 50 mls/hr IV 0830 ONE Stop: 07/26/21 09:29 Last Infusion: 07/26/21 11:28 Dose: 0 mls/hr Documented by: [id number] Admin: 07/26/21 09:26 Dose: 50 mls/hr Documented by: [id number] Furosemide 20 mg/ Syringe 2 mls @ 4 mls/min IV BID MARY BETH Stop: 08/25/21 09:29 Last Admin: 07/27/21 09:35 Dose: 4 mls/min Documented by: [id number] Admin: 07/26/21 20:34 Dose: 4 mls/min Documented by: [id number] Admin: 07/26/21 09:26 Dose: 4 mls/min Documented by: [id number] Medical Decision Making Differential Diagnosis Reactive airway disease, pneumonia, pneumothorax, COPD, CHF, infections, cardiac ischemia, pulmonary embolism, musculoskeletal, gastrointestinal, as well as other pathologies. Medical Records Attestation: I reviewed the patient's medical records. Home Medications Current Medication List: was personally reviewed by me Laboratory Data Attestation: I reviewed the patient's lab results. Result diagrams: 07/27/21 05:55 07/28/21 07:57 Lab Results 07/25/21 07/25/21 07/25/21 Range/Units 11:08 11:08 11:08 WBC 10.81 H (4.8-10.8) K/uL RBC 4.51 L (4.7-6.1) M/uL Hgb 14.6 (14.0-18.0) g/dL Hct 43.6 (42-52) % MCV 96.7 (80-100) fL MCH 32.4 (25-34) pg MCHC 33.5 (32-36) g/dL RDW Std Deviation 46.8 H (36.4-46.3) fL RDW Coeff of Alan 13.4 (11.5-14.5) % Plt Count 187 (130-400) K/uL MPV 11.3 H (7.4-10.4) fL Immature Gran % (Auto) 0.1 % Neut % (Auto) 78.0 % Lymph % (Auto) 13.6 % Hudson % (Auto) 7.3 % Eos % (Auto) 0.9 % Baso % (Auto) 0.1 % Neut # (Auto) 8.43 H (1.4-6.5) K/uL Lymph # (Auto) 1.47 (1.2-3.4) K/uL Hudson # (Auto) 0.79 H (0.11-0.59) K/uL Eos # (Auto) 0.10 (0-0.5) K/uL Baso # (Auto) 0.01 (0-0.2) K/uL Immature Gran # (Auto) 0.01 (0.00-0.02) K/uL ESR (0-20) mm/hr PT 14.8 H (9.0-12.0) Seconds INR 1.5 H (0.9-1.1) APTT 26.7 (21.0-31.0) Seconds PTT Ratio 1.0 Sodium 137 (136-145) mmol/L Potassium 5.1 (3.5-5.1) mmol/L Chloride 107 (98-107) mmol/L Carbon Dioxide 26 (21-32) mmol/L Anion Gap 4.0 (3-11) BUN 51 H (7-18) mg/dl Creatinine 2.18 H (0.6-1.4) mg/dl Est Cr Clr Drug Dosing 47.6 ml/min Est GFR ( Amer) 34.1 ml/min Est GFR (Non-Af Amer) 29.4 ml/min BUN/Creatinine Ratio 23.2 H (10-20) Glucose 111 H (70-99) mg/dl Calcium 8.7 (8.5-10.1) mg/dl Magnesium 2.6 H (1.8-2.4) mg/dl Total Bilirubin 0.8 (0.2-1) mg/dl AST 41 H (15-37) U/L ALT 58 (12-78) U/L Alkaline Phosphatase 77 (45-117) U/L Troponin I < 0.015 (0-0.045) ng/ml C-Reactive Protein (0-0.29) mg/dl NT-Pro-B Natriuret Pep 767 (0-900) pg/ml Total Protein 6.2 L (6.4-8.2) gm/dl Albumin 3.1 L (3.4-5.0) gm/dl Globulin 3.1 (2.5-4.0) gm/dl Albumin/Globulin Ratio 1.0 (0.9-2) TSH (0.300-4.500) uIu/ml Specimen Hemolysis COVID-19 Eval Order SARS-CoV-2 (PCR) (Negative) 07/25/21 07/25/21 07/25/21 Range/Units 11:08 11:08 11:45 WBC (4.8-10.8) K/uL RBC (4.7-6.1) M/uL Hgb (14.0-18.0) g/dL Hct (42-52) % MCV (80-100) fL MCH (25-34) pg MCHC (32-36) g/dL RDW Std Deviation (36.4-46.3) fL RDW Coeff of Alan (11.5-14.5) % Plt Count (130-400) K/uL MPV (7.4-10.4) fL Immature Gran % (Auto) % Neut % (Auto) % Lymph % (Auto) % Hudson % (Auto) % Eos % (Auto) % Baso % (Auto) % Neut # (Auto) (1.4-6.5) K/uL Lymph # (Auto) (1.2-3.4) K/uL Hudson # (Auto) (0.11-0.59) K/uL Eos # (Auto) (0-0.5) K/uL Baso # (Auto) (0-0.2) K/uL Immature Gran # (Auto) (0.00-0.02) K/uL ESR 5 (0-20) mm/hr PT (9.0-12.0) Seconds INR (0.9-1.1) APTT (21.0-31.0) Seconds PTT Ratio Sodium (136-145) mmol/L Potassium (3.5-5.1) mmol/L Chloride (98-107) mmol/L Carbon Dioxide (21-32) mmol/L Anion Gap (3-11) BUN (7-18) mg/dl Creatinine (0.6-1.4) mg/dl Est Cr Clr Drug Dosing ml/min Est GFR ( Amer) ml/min Est GFR (Non-Af Amer) ml/min BUN/Creatinine Ratio (10-20) Glucose (70-99) mg/dl Calcium (8.5-10.1) mg/dl Magnesium (1.8-2.4) mg/dl Total Bilirubin (0.2-1) mg/dl AST (15-37) U/L ALT (12-78) U/L Alkaline Phosphatase (45-117) U/L Troponin I (0-0.045) ng/ml C-Reactive Protein 0.61 H (0-0.29) mg/dl NT-Pro-B Natriuret Pep (0-900) pg/ml Total Protein (6.4-8.2) gm/dl Albumin (3.4-5.0) gm/dl Globulin (2.5-4.0) gm/dl Albumin/Globulin Ratio (0.9-2) TSH 1.960 (0.300-4.500) uIu/ml Specimen Hemolysis COVID-19 Eval Order Covid19 at [facility] SARS-CoV-2 (PCR) (Negative) 07/25/21 Range/Units 11:45 WBC (4.8-10.8) K/uL RBC (4.7-6.1) M/uL Hgb (14.0-18.0) g/dL Hct (42-52) % MCV (80-100) fL MCH (25-34) pg MCHC (32-36) g/dL RDW Std Deviation (36.4-46.3) fL RDW Coeff of Alan (11.5-14.5) % Plt Count (130-400) K/uL MPV (7.4-10.4) fL Immature Gran % (Auto) % Neut % (Auto) % Lymph % (Auto) % Hudson % (Auto) % Eos % (Auto) % Baso % (Auto) % Neut # (Auto) (1.4-6.5) K/uL Lymph # (Auto) (1.2-3.4) K/uL Hudson # (Auto) (0.11-0.59) K/uL Eos # (Auto) (0-0.5) K/uL Baso # (Auto) (0-0.2) K/uL Immature Gran # (Auto) (0.00-0.02) K/uL ESR (0-20) mm/hr PT (9.0-12.0) Seconds INR (0.9-1.1) APTT (21.0-31.0) Seconds PTT Ratio Sodium (136-145) mmol/L Potassium (3.5-5.1) mmol/L Chloride (98-107) mmol/L Carbon Dioxide (21-32) mmol/L Anion Gap (3-11) BUN (7-18) mg/dl Creatinine (0.6-1.4) mg/dl Est Cr Clr Drug Dosing ml/min Est GFR ( Amer) ml/min Est GFR (Non-Af Amer) ml/min BUN/Creatinine Ratio (10-20) Glucose (70-99) mg/dl Calcium (8.5-10.1) mg/dl Magnesium (1.8-2.4) mg/dl Total Bilirubin (0.2-1) mg/dl AST (15-37) U/L ALT (12-78) U/L Alkaline Phosphatase (45-117) U/L Troponin I (0-0.045) ng/ml C-Reactive Protein (0-0.29) mg/dl NT-Pro-B Natriuret Pep (0-900) pg/ml Total Protein (6.4-8.2) gm/dl Albumin (3.4-5.0) gm/dl Globulin (2.5-4.0) gm/dl Albumin/Globulin Ratio (0.9-2) TSH (0.300-4.500) uIu/ml Specimen Hemolysis COVID-19 Eval Order SARS-CoV-2 (PCR) NEGATIVE (Negative) Imaging Data Radiologist's Impression: Chest X-Ray 07/25/21 11:13 SINGLE VIEW CHEST CLINICAL HISTORY: Dyspnea. FINDINGS: 2 AP, portable, upright chest radiographs are obtained. No prior studies are available for comparison at the time of dictation. The patient is status post midline sternotomy. The heart is enlarged noting atherosclerotic calcification of the thoracic aorta. There is mild pulmonary vascular congestion. Atelectasis is seen at the lung bases. No large pleural effusion or pneumothorax is identified. The skeletal structures are osteopenic. The bony thorax is grossly intact. IMPRESSION: Cardiomegaly with mild pulmonary vascular congestion. ACT 112: Negative or not required by law. Electronically signed by: Juan Carlos Krishna M.D. 07/25/2021 12:40 PM Renal Ultrasound 07/25/21 13:09 RENAL ULTRASOUND HISTORY: acute kidney insufficiency , volume overload COMPARISON: Abdomen and pelvis CTA 11/21/2019. FINDINGS: Right kidney: 12.6 cm. No hydronephrosis. Moderate cortical thinning/scarring. Left kidney: 12.5 cm. No hydronephrosis. Moderate cortical thinning/scarring. Bladder: No bladder wall thickening. The bilateral ureteral jets were identified. Trace perihepatic ascites. IMPRESSION: 1. No hydronephrosis. 2. Moderate bilateral cortical renal scarring/thinning. 3. Trace perihepatic ascites. ACT 112: Negative or not required by law. Electronically signed by: Regan Yousif M.D. 07/25/2021 2:52 PM ECG Data Attestation: I personally reviewed and interpreted this ECG as follows: Indication: + SOB/dyspnea Rhythm: + normal sinus ECG Intervals/blocks: + Normal QT-c; no Normal QRS (Low voltage) ECG [place]: + Right axis deviation ECG ST segments: + Nonspecific ST abnormalities ECG Findings: + Q waves (Anterior); no PACs or no PVCs Blood Pressure Blood Pressure Findings: Normal blood pressure Blood Pressure Disposition: did not require urgent referral MDM Narrative This patient was evaluated and appeared to be in no significant distress. IV access was obtained and laboratory work was drawn. An order for cardiac monitoring was placed and the patient is noted to be in a normal sinus rhythm at 64 bpm. Patient's EKG reveals overall low voltage without acute ischemic change. Chest x-ray reveals cardiomegaly with pulmonary vascular congestion. Laboratory work is relatively other than acute kidney injury, likely from the patient's recent diuresis. Patient's physical exam is significantly limited due to his body habitus. Patient's case has been referred to the emergency department for direct admission. The hospitalist service and Dr. Blackburn of cardiology have been notified. Patient is aware of the plan and agrees. Impression & Plan Exertional dyspnea Discharge Plan Visit Data Chief Complaint: Shortness of Breath/Dyspnea Stated Complaint: FLUID BUILD UP CAUSING SOB ED Provider: Dayana Jade Discharge Problem: Exertional dyspnea Patient Disposition: Admitted As Inpatient Discharge Instructions Interventions: ED Discharge Assessment Last Done: 07/25/21 16:10
[2021-07-25] MEDS: ATORVASTATIN 40 MG TAB PO SCH (21:27)
[2021-07-25] MEDS: CALCIUM 600MG + VIT D 400 IU TAB PO SCH (21:27)
[2021-07-25] MEDS: DOXAZosin MESYLATE TAB 2 MG TAB PO SCH (21:29)
[2021-07-25] MEDS: PANTOprazole 40 MG TAB PO SCH (22:05)
[2021-07-25] MEDS: ASPIRIN 81 MG ECTAB PO SCH (22:05)
[2021-07-25] MEDS: GABAPENTIN 300 MG CAP PO SCH (22:06)
[2021-07-26 00:49] LABS: Appearance Urine Clear (Clear); Bacteria Urine Automated Negative (Negative); Bilirubin Urine Negative (Negative); Blood Urine 1+ (Negative); Color Urine Yellow; Glucose Urine UA Negative (Negative); Ketones Urine Negative (Negative); Leukocyte Esterase Urine Negative (Negative); Nitrite Urine Negative (Negative); Protein Urine Negative (Negative); RBC Urine Automated 0-4 /hpf (0-4); Specific Gravity Urine 1.013 (1.000-1.030); Urobilinogen Urine Negative (Negative); pH Urine 5.5 (4.5-7.5)
[2021-07-26 06:27] LABS: Hematocrit (blood only) 42.4 % (42-52); Hemoglobin 14.1 g/dL (14.0-18.0); Mean Corpuscular Hemoglobin 32.3 pg (25-34); Mean Corpuscular Hgb Conc 33.3 g/dL (32-36); Platelet Count 155 K/uL (130-400); RDW Coefficient of Variation 13.4 % (11.5-14.5); RDW Standard Deviation 47.6 fL (36.4-46.3); Red Blood Count 4.37 M/uL (4.7-6.1); White Blood Count 7.98 K/uL (4.8-10.8)
[2021-07-26 07:03] LABS: Calcium 9.3 mg/dl (8.5-10.1); Potassium 4.1 mmol/L (3.5-5.1)
[2021-07-26 07:14] LABS: BUN Creatinine Ratio 28.1 (10-20); Creatinine Clr Calc Pharmacy 64.7 ml/min; Est GFR (African American) 49.1 ml/min; Est GFR (Non-African American) 42.4 ml/min
--- NOTE | 2021-07-26 07:30 | Electrocardiogram Report ---
Test Reason : Blood Pressure : / mmHG Vent. Rate : 072 BPM Atrial Rate : 072 BPM P-R Int : 186 ms QRS Dur : 074 ms QT Int : 364 ms P-R-T Axes : 035 113 215 degrees QTc Int : 398 ms Normal sinus rhythm Right axis deviation Low voltage QRS Cannot rule out Anterior infarct , age undetermined Abnormal ECG When compared with ECG of 20-NOV-2019 23:19, QRS axis Shifted right T wave inversion now evident in Inferior leads Inverted T waves have replaced nonspecific T wave abnormality in Lateral leads Confirmed by Grant Solo ([id number]) on 07/26/2021 7:30:06 AM Referred By: Aditya Love Confirmed By:Grant Solo
[2021-07-26] MEDS: CALCIUM 600MG + VIT D 400 IU TAB PO SCH ×2 (07:47→20:34)
[2021-07-26] MEDS: METOPROLOL SUCC 50MG EXT REL TAB PO SCH (07:48)
[2021-07-26] MEDS: GABAPENTIN 300 MG CAP PO SCH ×2 (07:49→20:35)
[2021-07-26] MEDS ORDERED: ALBUMIN 25% 12.5 GM/50 ML VIAL IV ONE (08:30)
[2021-07-26] MEDS: FUROSEMIDE 20 MG in SYRINGE 0 ML IV SCH ×2 (09:26→20:34)
--- NOTE | 2021-07-26 10:18 | Cardiology Progress Note ---
Date of Service July 26, 2021 Assessment & Plan (1) Acute on chronic heart failure with preserved ejection fraction (HFpEF): (2) Fluid retention: (3) Pericardial effusion: (4) ELIZ (acute kidney injury): (5) Hypoalbuminemia: Plan: Multifactorial fluid retention with a history of diastolic dysfunction, morbid obesity, venous insufficiency, hypoalbuminemia. Significant lower extremity edema, ascites, pulmonary edema, and a moderate pericardial effusion. Fluid balance negative as noted above. Clinically improving today. Recommend Lasix 20 mg IV twice daily. Will give additional dose of IV albumin prior to Lasix this a.m. Monitor daily weight, GFR, and fluid balance. I do have concerns that he is at risk for progression of the pericardial effusion with resultant hemodynamic compromise. Pericardial effusion does not appear to be easily accessible for pericardiocentesis based on patient's body characteristics and posterior location of the effusion. Admission and Anticipated Discharge Date Admission Date: July 25, 2021 Subjective Patient seen and examined at the bedside. Fluid balance -775 cc after 1 dose of intravenous furosemide and albumin yesterday. Patient denies dyspnea or symptoms at rest. No lightheaded, dizziness, syncope, or near syncope. Reports progressive edema and weight gain in the 7 days prior to hospitalization. Oral diuretic therapy was ineffective in the outpatient setting. Admits to daily excessive sodium intake. Compliant with compression stockings in the outpatient setting. 2D transthoracic echocardiogram reviewed demonstrating a moderate primarily posterior loculated pericardial effusion. The IVC was plethoric. Review of Systems Review of Systems: All systems reviewed & are unremarkable except as noted in Subjective Physical Exam Constitutional: well developed, well nourished and + obese; no acute distress Respiratory: Auscultation: + diminished lung sounds (Bases bilateral); no crackles, no rales, no rhonchi and no wheezes Cardiovascular: Rate/Rhythm: regular rate and regular rhythm Heart Sounds: normal S1 and normal S2; no murmur and no cardiac rub Gastrointestinal (Abdomen): Inspection/Auscultation: abdomen normal to in spection and normal bowel sounds; abdomen not distended Percussion/Palpation: abdomen soft; abdomen nontender, no guarding and abdomen not rigid Neurologic: CN's II-XI intact bilaterally and moves all extremities; no focal motor deficits Motor/Sensory: no tremor Psychiatric: A+Ox3, euthymic affect Results & Data ([facility]) Vital Signs (Past 12 Hours) Vital Signs Temp Pulse Pulse Resp BP Pulse Ox 07/26/21 07:18 36.5 C 62 19 126/66 97 07/26/21 05:04 65 07/26/21 00:16 36.5 C 66 17 119/77 96
--- NOTE | 2021-07-26 16:50 | Hospitalist Progress Note ---
Date of Service July 26, 2021 Assessment & Plan (1) Pericardial effusion: (2) Fluid retention: Plan: This is a 70yo M with a PMH of PAD s/p interventions on Xarelto, CAD (s/p CABG x 2 in 2011), COPD, HTN, dyslipidemia, chronic back pain, morbid obesity presents with progressive dyspnea over the past 2 weeks and was found to have moderate pericardial effusion and acute kidney injury. CXR showed cardiomegaly with mild pulmonary vascular congestion. Echo showed moderate sized circumferential pericardial effusion, preserved EF, consistent with pretamponade physiology cardiology on board Continue lasix 20mg IV BID and IV albumin Continue monitor I/O Clinically improves (3) ELIZ (acute kidney injury): Plan: Cr 2.18 on admission (baseline Cr ~1.2), K of 5.1 Renal U/S showed no evidence of hydronephrosis Creatine improves to 1.6 Continue to hold valsartan Continue monitor BMP while on IV lasix (4) PAD (peripheral artery disease): Plan: Follows with Dr. Ferguson Continue statin Continue to hold Xarelto due to pericardial effusion (5) CAD (coronary artery disease): Plan: S/p CABG x 2 in 2011 Continue aspirin, statin, Toprol (6) COPD (chronic obstructive pulmonary disease): Plan: At baseline, albuterol inh PRN (7) HTN (hypertension): Plan: Continue Toprol with hold parameters, Continue holding Valsartan Continue monitor BP (8) Morbid obesity: Plan: BMI >50 Recently started Contrave 8-90mg BID Counseling on weight loss DVT Ppx: SCD Xarelto on hold Code status: FULL Dispo: Will discharge once medically stable Admission and Anticipated Discharge Date Admission Date: July 25, 2021 Subjective Pt was seen and examined for follow up of SOB Sitting in chair with no distress Pt said that his breathing is much better Denies any chest pain, palpitation, dizziness and fever Physical Exam Physical Exam: General- No acute distress Head- atraumatic Eyes- PERRL, EOMI, ENT- oropharynx clear Neck- supple, no JVD Lungs- diminished BS Heart- regular rhythm; no murmur Abdomen- normal bowel sounds, soft, nontender Extremities- no calf tenderness, +edema Neuro- alert, oriented x 3; PERRL, EOMI; no facial palsy; no dysarthria Skin- warm & dry Results & Data Results & Data ([facility]) Vital Signs (Past 12 Hours) Vital Signs Temp Pulse Pulse Pulse Resp BP Pulse Ox 07/26/21 15:10 36.7 C 79 18 127/78 96 07/26/21 12:12 36.6 C 67 21 125/70 97 07/26/21 07:18 36.5 C 62 19 126/66 97 07/26/21 05:04 65
[2021-07-26] MEDS: DOXAZosin MESYLATE TAB 2 MG TAB PO SCH (20:33)
[2021-07-26] MEDS: ATORVASTATIN 40 MG TAB PO SCH (20:35)
[2021-07-26] MEDS: ASPIRIN 81 MG ECTAB PO SCH (20:35)
[2021-07-26] MEDS: PANTOprazole 40 MG TAB PO SCH (20:36)
[2021-07-27 06:48] LABS: Hematocrit (blood only) 41.1 % (42-52); Hemoglobin 13.5 g/dL (14.0-18.0); Mean Corpuscular Hemoglobin 32.4 pg (25-34); Mean Corpuscular Hgb Conc 32.8 g/dL (32-36); Mean Corpuscular Volume 98.6 fL (80-100); Mean Platelet Volume 11.1 fL (7.4-10.4); Platelet Count 149 K/uL (130-400); RDW Coefficient of Variation 13.6 % (11.5-14.5); RDW Standard Deviation 48.7 fL (36.4-46.3); Red Blood Count 4.17 M/uL (4.7-6.1); White Blood Count 6.61 K/uL (4.8-10.8)
[2021-07-27 07:16] LABS: Calcium 8.5 mg/dl (8.5-10.1); Creatinine Clr Calc Pharmacy 73.9 ml/min; Est GFR (African American) 57.7 ml/min; Est GFR (Non-African American) 49.8 ml/min
--- NOTE | 2021-07-27 07:48 | Electrocardiogram Report ---
Test Reason : Blood Pressure : / mmHG Vent. Rate : 064 BPM Atrial Rate : 064 BPM P-R Int : 172 ms QRS Dur : 078 ms QT Int : 396 ms P-R-T Axes : 053 099 198 degrees QTc Int : 408 ms Sinus rhythm with occasional Premature ventricular complexes Rightward axis Low voltage QRS Cannot rule out Anterior infarct (cited on or before 25-JUL-2021) T wave abnormality, consider anterior ischemia Abnormal ECG When compared with ECG of 25-JUL-2021 10:56, Premature ventricular complexes are now Present Confirmed by Addison Soto ([id number]) on 07/27/2021 7:48:07 AM Referred By: Aditya Love Confirmed By:Addison Soto
[2021-07-27] MEDS: GABAPENTIN 300 MG CAP PO SCH ×2 (08:23→20:01)
[2021-07-27] MEDS: METOPROLOL SUCC 50MG EXT REL TAB PO SCH (08:24)
[2021-07-27] MEDS: CALCIUM 600MG + VIT D 400 IU TAB PO SCH ×2 (08:24→20:01)
[2021-07-27] MEDS: FUROSEMIDE 20 MG in SYRINGE 0 ML IV SCH (09:35)
--- NOTE | 2021-07-27 10:51 | Cardiology Progress Note ---
Date of Service July 27, 2021 Assessment & Plan (1) Acute on chronic heart failure with preserved ejection fraction (HFpEF): (2) Fluid retention: (3) Pericardial effusion: (4) ELIZ (acute kidney injury): (5) Hypoalbuminemia: Plan: Negative fluid balance with improved renal function. Blood pressure remains adequate. Recommend titration of Lasix to 40 mg twice daily. Follow daily weight, GFR, and fluid balance. Predominantly posterior pericardial effusion noted. Hemodynamics remain stable. Pericardial effusion does not appear to be easily accessible for pericardiocentesis based on patient's body characteristics and posterior location of the effusion. Continue diuretic therapy. Admission and Anticipated Discharge Date Admission Date: July 25, 2021 Subjective Patient seen exam at the bedside. Feeling better today. Edema unchanged. Fluid balance negative nearly 2 L. Serum creatinine trending downward. Blood pressure stable/adequate. Telemetry demonstrates sinus rhythm with occasional PVCs. Review of Systems Review of Systems: All systems reviewed & are unremarkable except as noted in Subjective Physical Exam Constitutional: well developed, well nourished and + obese; no acute distress Respiratory: Auscultation: + diminished lung sounds (Bases bilateral); no crackles, no rales, no rhonchi and no wheezes Cardiovascular: Rate/Rhythm: regular rate and regular rhythm Heart Sounds: normal S1 and normal S2; no murmur and no cardiac rub Gastrointestinal (Abdomen): Inspection/Auscultation: abdomen normal to inspection and normal bowel sounds; abdomen not distended Percussion/Palpation: abdomen soft; abdomen nontender, no guarding and abdomen not rigid Neurologic: CN's II-XI intact bilaterally and moves all extremities; no focal motor deficits Motor/Sensory: no tremor Psychiatric: A+Ox3, euthymic affect Results & Data ([facility]) Vital Signs (Past 12 Hours) Vital Signs Temp Pulse Pulse Resp BP Pulse Ox 07/27/21 07:59 59 L 07/27/21 07:45 36.4 C L 61 19 137/82 98 07/27/21 03:12 36.5 C 57 L 18 137/86 98
--- NOTE | 2021-07-27 14:53 | Hospitalist Progress Note ---
Date of Service July 27, 2021 Assessment & Plan (1) Pericardial effusion: (2) Fluid retention: Plan: 70yo M with a PMH of PAD s/p interventions on Xarelto, CAD (s/p CABG x 2 in 2011), COPD, HTN, dyslipidemia, chronic back pain, morbid obesity and other medical problems listed below who presents with progressive dyspnea over the past 2 weeks and was found to have moderate pericardial effusion and acute kidney injury. This is a 70yo M with a PMH of PAD s/p interventions on Xarelto, CAD (s/p CABG x 2 in 2011), COPD, HTN, dyslipidemia, chronic back pain, morbid obesity presents with progressive dyspnea over the past 2 weeks and was found to have moderate pericardial effusion and acute kidney injury. CXR showed cardiomegaly with mild pulmonary vascular congestion. Echo showed moderate sized circumferential pericardial effusion, preserved EF, consistent with pretamponade physiology cardiology on board Continue Lasix 40 mg IV twice daily Continue monitor I/O Continue monitor BMP Clinically improves (3) ELIZ (acute kidney injury): Cr 2.18 on admission (baseline Cr ~1.2), K of 5.1 Renal U/S showed no evidence of hydronephrosis Creatine stable at 1.4 Continue to hold valsartan Continue monitor BMP while on IV lasix (4) PAD (peripheral artery disease): Follows with Dr. Ferguson Continue statin Continue to hold Xarelto due to pericardial effusion (5) CAD (coronary artery disease): S/p CABG x 2 in 2012 Continue aspirin, statin, Toprol (6) COPD (chronic obstructive pulmonary disease): At baseline, albuterol inh PRN (7) HTN (hypertension): Continue Toprol with hold parameters, Continue holding Valsartan Continue monitor BP (8) Morbid obesity: BMI >50 Recently started Contrave 8-90mg BID Counseling on weight loss DVT Ppx: SCD Xarelto on hold Code status: FULL Dispo: Will discharge once medically stable Admission and Anticipated Discharge Date Admission Date: July 25, 2021 Subjective Patient was seen and examined for follow-up of pericardial effusion Sitting in chair with no acute distress Patient said that he has been going to the bathroom with the increase of Lasix He said that his breathing is better Denies any chest pain, palpitation, dizziness, shortness of breath. Physical Exam Physical Exam: General- No acute distress Head- atraumatic Eyes- PERRL, EOMI, ENT- oropharynx clear Neck- supple, no JVD Lungs- diminished BS Heart- regular rhythm; no murmur Abdomen- normal bowel sounds, soft, nontender Extremities- no calf tenderness, +edema Neuro- alert, oriented x 3; PERRL, EOMI; no facial palsy; no dysarthria Skin- warm & dry Results & Data Results & Data ([facility]) Vital Signs (Past 12 Hours) Vital Signs Temp Pulse Pulse Resp BP Pulse Ox 07/27/21 11:23 36.4 C L 67 18 129/66 97 07/27/21 07:59 59 L 07/27/21 07:45 36.4 C L 61 19 137/82 98 07/27/21 03:12 36.5 C 57 L 18 137/86 98
[2021-07-27] MEDS: ATORVASTATIN 40 MG TAB PO SCH (20:01)
[2021-07-27] MEDS: DOXAZosin MESYLATE TAB 2 MG TAB PO SCH (20:01)
[2021-07-27] MEDS: FUROSEMIDE 40 MG in SYRINGE 0 ML IV SCH (20:01)
[2021-07-27] MEDS: PANTOprazole 40 MG TAB PO SCH (20:01)
[2021-07-27] MEDS: ASPIRIN 81 MG ECTAB PO SCH (20:01)
[2021-07-28] MEDS: METOPROLOL SUCC 50MG EXT REL TAB PO SCH (08:25)
[2021-07-28] MEDS: FUROSEMIDE 40 MG in SYRINGE 0 ML IV SCH ×2 (08:25→19:22)
[2021-07-28] MEDS: GABAPENTIN 300 MG CAP PO SCH ×2 (08:25→19:23)
[2021-07-28] MEDS: CALCIUM 600MG + VIT D 400 IU TAB PO SCH ×2 (08:25→19:21)
[2021-07-28 08:50] LABS: BUN Creatinine Ratio 20.3 (10-20); Calcium 9.1 mg/dl (8.5-10.1); Creatinine Clr Calc Pharmacy 71.6 ml/min; Est GFR (African American) 54.8 ml/min; Est GFR (Non-African American) 47.3 ml/min; Potassium 3.7 mmol/L (3.5-5.1)
--- NOTE | 2021-07-28 11:48 | Cardiology Progress Note ---
Date of Service July 28, 2021 Assessment & Plan (1) Acute on chronic heart failure with preserved ejection fraction (HFpEF): (2) Fluid retention: (3) Pericardial effusion: (4) ELIZ (acute kidney injury): (5) Hypoalbuminemia: Plan: Maintain negative fluid balance. Lasix titrated to 40 mg IV twice daily 07/27/2021. Monitor daily weight, GFR, and electrolytes. Sodium restriction (less than 2 g daily) and fluid restriction (less than 1.5 L daily) recommended. Predominantly posterior pericardial effusion noted. Hemodynamics remain stable. Pericardial effusion does not appear to be easily accessible for pericardiocentesis based on patient's body characteristics and posterior location of the effusion. Continue diuretic therapy. Case discussed with via telephone for 15 minutes. All questions answered to her satisfaction. Admission and Anticipated Discharge Date Admission Date: July 25, 2021 Subjective Patient seen examined at the bedside. Lower extremity edema unchanged. Mild weeping of the of the right lower extremity. No erythema or associated discomfort. Denies orthopnea or PND. Fluid balance negative approximately 1800 cc. Renal function remains stable. Telemetry demonstrating sinus rhythm with heart rate ranging from 50-70 bpm. Occasional PVCs. No sustained dysrhythmias. Review of Systems Review of Systems: All systems reviewed & are unremarkable except as noted in Subjective Physical Exam Constitutional: well developed, well nourished and + obese; no acute distress Respiratory: Auscultation: + diminished lung sounds (Bases bilateral); no crackles, no rales, no rhonchi and no wheezes Cardiovascular: Rate/Rhythm: regular rate and regular rhythm Heart Sounds: normal S1 and normal S2; no murmur and no cardiac rub Extremities: + edema (2-3+ bilateral pretibial edema,stasis changes,RLE serosanguineous drainage ) Gastrointestinal (Abdomen): Inspection/Auscultation: abdomen normal to inspection and normal bowel sounds; abdomen not distended Percussion/Palpation: abdomen soft; abdomen nontender, no guarding and abdomen not rigid Neurologic: CN's II-XI intact bilaterally and moves all extremities; no focal motor deficits Motor/Sensory: no tremor Psychiatric: A+Ox3, euthymic affect Results & Data ([facility]) Vital Signs (Past 12 Hours) Vital Signs Temp Pulse Pulse Resp BP BP Pulse Ox 07/28/21 08:20 36.6 C 60 20 143/84 H 96 08/30/21 07:57 56 L 07/28/21 03:45 36.4 C L 58 L 20 143/84 H 98
--- NOTE | 2021-07-28 17:15 | Hospitalist Progress Note ---
Date of Service July 28, 2021 Assessment & Plan (1) Pericardial effusion: (2) Fluid retention: Plan: 70yo M with a PMH of PAD s/p interventions on Xarelto, CAD (s/p CABG x 2 in 2011), COPD, HTN, dyslipidemia, chronic back pain, morbid obesity and other medical problems listed below who presents with progressive dyspnea over the past 2 weeks and was found to have moderate pericardial effusion and acute kidney injury. This is a 70yo M with a PMH of PAD s/p interventions on Xarelto, CAD (s/p CABG x 2 in 2011), COPD, HTN, dyslipidemia, chronic back pain, morbid obesity presents with progressive dyspnea over the past 2 weeks and was found to have moderate pericardial effusion and acute kidney injury. CXR showed cardiomegaly with mild pulmonary vascular congestion. Echo showed moderate sized circumferential pericardial effusion, preserved EF, consistent with pretamponade physiology cardiology on board Continue Lasix 40 mg IV twice daily Fluid restriction to 1.5 L daily Continue monitor I/O Continue monitor BMP Clinically improves (3) ELIZ (acute kidney injury): Cr 2.18 on admission (baseline Cr ~1.2), K of 5.1 Renal U/S showed no evidence of hydronephrosis Creatine stable at 1.47 Continue to hold valsartan Continue monitor BMP while on IV lasix (4) PAD (peripheral artery disease): Follows with Dr. Ferguson Continue statin Cardiology recommended to hold Xarelto for another 24 hours due to the pericardial effusion (5) CAD (coronary artery disease): S/p CABG x 2 in 2011 Continue aspirin, statin, Toprol (6) COPD (chronic obstructive pulmonary disease): At baseline, albuterol inh PRN (7) HTN (hypertension): Continue Toprol with hold parameters, Continue holding Valsartan Continue monitor BP (8) Morbid obesity: BMI >50 Recently started Contrave 8-90mg BID Counseling on weight loss DVT Ppx: SCD Xarelto on hold Code status: FULL Dispo: Will discharge once medically stable Admission and Anticipated Discharge Date Admission Date: July 25, 2021 Subjective Patient was seen and examined for follow-up of pericardial effusion Sitting in chair with no acute distress Patient said that he he slept well last night He said that his breathing is better Cardiology spoke to today and provided with updates Denies any chest pain, palpitation, dizziness, shortness of breath. Physical Exam Physical Exam: General- No acute distress Head- atraumatic Eyes- PERRL, EOMI, ENT- oropharynx clear Neck- supple, no JVD Lungs- diminished BS Heart- regular rhythm; no murmur Abdomen- normal bowel sounds, soft, nontender Extremities- no calf tenderness, +edema Neuro- alert, oriented x 3; PERRL, EOMI; no facial palsy; no dysarthria Skin- warm & dry Results & Data Results & Data ([facility]) Vital Signs (Past 12 Hours) Vital Signs Temp Pulse Pulse Resp BP Pulse Ox 07/28/21 17:00 36.5 C 60 18 118/63 98 07/28/21 12:00 36.9 C 59 L 18 121/66 96 07/28/21 08:20 36.6 C 60 20 143/84 H 96 07/28/21 07:57 56 L
[2021-07-28] MEDS ORDERED: FUROSEMIDE 40 MG/4 ML VIAL IV ONE (19:15)
[2021-07-28] MEDS: ATORVASTATIN 40 MG TAB PO SCH (19:21)
[2021-07-28] MEDS: ASPIRIN 81 MG ECTAB PO SCH (19:21)
[2021-07-28] MEDS: PANTOprazole 40 MG TAB PO SCH (19:21)
[2021-07-28] MEDS: DOXAZosin MESYLATE TAB 2 MG TAB PO SCH (19:21)
[2021-07-29 07:07] LABS: BUN Creatinine Ratio 16.1 (10-20); Calcium 8.7 mg/dl (8.5-10.1); Creatinine Clr Calc Pharmacy 64.7 ml/min; Est GFR (African American) 49.1 ml/min; Est GFR (Non-African American) 42.4 ml/min; Potassium 3.7 mmol/L (3.5-5.1)
[2021-07-29] MEDS: CALCIUM 600MG + VIT D 400 IU TAB PO SCH ×2 (08:59→19:31)
[2021-07-29] MEDS: FUROSEMIDE 40 MG in SYRINGE 0 ML IV SCH ×2 (09:03→19:31)
[2021-07-29] MEDS: GABAPENTIN 300 MG CAP PO SCH ×2 (09:04→19:31)
[2021-07-29] MEDS: METOPROLOL SUCC 50MG EXT REL TAB PO SCH (09:04)
--- NOTE | 2021-07-29 13:52 | Cardiology Progress Note ---
Date of Service July 29, 2021 Assessment & Plan (1) Acute on chronic heart failure with preserved ejection fraction (HFpEF): (2) Fluid retention: (3) Pericardial effusion: (4) ELIZ (acute kidney injury): (5) Hypoalbuminemia: Plan: Current hospitalization precipitated by NSAID intake and consumption of excessive water for treatment of leg cramps. Creatinine trending upward. Continue IV Lasix 40 mg every 12 hours. Consider addition of metolazone tomorrow pending review of a.m. labs. Maintain negative fluid balance. Fluid restriction 1.5 L daily. Sodium restriction less than 2 g daily. Predominantly posterior pericardial effusion noted. Hemodynamics remain stable. Pericardial effusion does not appear to be easily accessible for pericardiocentesis based on patient's body characteristics and posterior location of the effusion. Continue diuretic therapy. Admission and Anticipated Discharge Date Admission Date: July 25, 2021 Subjective Patient seen and examined the bedside. Edema unchanged. Creatinine trending upward. Denies chest pain or shortness of breath. Fluid balance -2.5 L. Offers no new concerns/complaints. Telemetry reveals sinus rhythm with heart rate ranging from 70-50 bpm. Occasional PVCs. Review of Systems Review of Systems: All systems reviewed & are unremarkable except as noted in Subjective Physical Exam Constitutional: well developed, well nourished and + obese; no acute distress Respiratory: Auscultation: + diminished lung sounds (Bases bilateral); no crackles, no rales, no rhonchi and no wheezes Cardiovascular: Rate/Rhythm: regular rate and regular rhythm Heart Sounds: normal S1 and normal S2; no murmur and no cardiac rub Extremities: + edema (2-3+ bilateral pretibial edema,stasis changes) Gastrointestinal (Abdomen): Inspection/Auscultation: abdomen normal to inspection and normal bowel sounds; abdomen not distended Percussion/Palpation: abdomen soft; abdomen nontender, no guarding and abdomen not rigid Neurologic: CN's II-XI intact bilaterally and moves all extremities; no focal motor deficits Motor/Sensory: no tremor Psychiatric: A+Ox3, euthymic affect Results & Data ([facility]) Vital Signs (Past 12 Hours) Vital Signs Temp Pulse Pulse Resp BP BP Pulse Ox 07/29/21 11:00 36.9 C 62 20 147/83 H 96 07/29/21 08:00 36.8 C 63 18 163/74 H 95 07/29/21 07:23 58 L 07/29/21 04:11 37 C 66 18 164/93 H 98
[2021-07-29] MEDS: DOXAZosin MESYLATE TAB 2 MG TAB PO SCH (19:32)
[2021-07-29] MEDS: PANTOprazole 40 MG TAB PO SCH (19:32)
[2021-07-29] MEDS: ATORVASTATIN 40 MG TAB PO SCH (19:32)
[2021-07-29] MEDS: ASPIRIN 81 MG ECTAB PO SCH (19:32)
--- NOTE | 2021-07-29 23:15 | Hospitalist Progress Note ---
Date of Service July 29, 2021 Assessment & Plan (1) Pericardial effusion: (2) Fluid retention: Plan: Acute on chronic heart failure with preserved ejection fraction (HFpEF) 70yo M with a PMH of PAD s/p interventions on Xarelto, CAD (s/p CABG x 2 in 2011), COPD, HTN, dyslipidemia, chronic back pain, morbid obesity and other medical problems listed below who presents with progressive dyspnea over the past 2 weeks and was found to have moderate pericardial effusion and acute kidney injury. This is a 70yo M with a PMH of PAD s/p interventions on Xarelto, CAD (s/p CABG x 2 in 2011), COPD, HTN, dyslipidemia, chronic back pain, morbid obesity presents with progressive dyspnea over the past 2 weeks and was found to have moderate pericardial effusion and acute kidney injury. CXR showed cardiomegaly with mild pulmonary vascular congestion. Echo showed moderate sized circumferential pericardial effusion, preserved EF, consistent with pretamponade physiology cardiology on board Continue Lasix 40 mg IV twice daily Fluid restriction to 1.5 L daily Cardiology plan to start on metolazone tomorrow Continue monitor I/O Continue monitor BMP Clinically improves (3) ELIZ (acute kidney injury): Cr 2.18 on admission (baseline Cr ~1.2), K of 5.1 Renal U/S showed no evidence of hydronephrosis Creatine stable at 1.6 Continue to hold valsartan Continue monitor BMP while on IV lasix (4) PAD (peripheral artery disease): Follows with Dr. Ferguson Continue statin Cardiology recommended to hold Xarelto for another 24 hours due to the pericardial effusion (5) CAD (coronary artery disease): S/p CABG x 2 in 2011 Continue aspirin, statin, Toprol (6) COPD (chronic obstructive pulmonary disease): At baseline, albuterol inh PRN (7) HTN (hypertension): Continue Toprol with hold parameters, Continue holding Valsartan Continue monitor BP (8) Morbid obesity: BMI >50 Recently started Contrave 8-90mg BID Counseling on weight loss DVT Ppx: SCD Xarelto on hold Code status: FULL Dispo: Will discharge once medically stable Admission and Anticipated Discharge Date Admission Date: July 25, 2021 Subjective Patient was seen and examined for follow-up of lower extremity edema Sitting in chair with no acute distress Continue to have significant edema in both legs Denies any chest pain, palpitation, dizziness, shortness of breath, and fever Physical Exam Physical Exam: General- No acute distress Head- atraumatic Eyes- PERRL, EOMI, ENT- oropharynx clear Neck- supple, no JVD Lungs- diminished BS Heart- regular rhythm; no murmur Abdomen- normal bowel sounds, soft, nontender Extremities- no calf tenderness, +3 edema Neuro- alert, oriented x 3; PERRL, EOMI; no facial palsy; no dysarthria Skin- warm & dry Results & Data Results & Data ([facility]) Vital Signs (Past 12 Hours) Vital Signs Temp Pulse Pulse Resp BP BP Pulse Ox 07/29/21 22:48 36.8 C 62 18 130/61 96 07/29/21 20:00 60 07/29/21 19:41 36.5 C 59 L 20 126/66 96 07/29/21 15:15 36.5 C 74 18 102/78 96 07/29/21 14:56 58 L
[2021-07-30 06:12] LABS: Hematocrit (blood only) 41.1 % (42-52); Hemoglobin 13.4 g/dL (14.0-18.0); Mean Corpuscular Hemoglobin 31.7 pg (25-34); Mean Corpuscular Hgb Conc 32.6 g/dL (32-36); Mean Corpuscular Volume 97.2 fL (80-100); Mean Platelet Volume 10.4 fL (7.4-10.4); Platelet Count 141 K/uL (130-400); RDW Coefficient of Variation 13.6 % (11.5-14.5); RDW Standard Deviation 47.5 fL (36.4-46.3); Red Blood Count 4.23 M/uL (4.7-6.1); White Blood Count 6.79 K/uL (4.8-10.8)
[2021-07-30 06:49] LABS: Calcium 8.7 mg/dl (8.5-10.1); Creatinine Clr Calc Pharmacy 66.8 ml/min; Est GFR (African American) 51.8 ml/min; Est GFR (Non-African American) 44.7 ml/min; Potassium 3.6 mmol/L (3.5-5.1)
[2021-07-30] MEDS: FUROSEMIDE 40 MG in SYRINGE 0 ML IV SCH ×2 (09:58→21:13)
[2021-07-30] MEDS: METOPROLOL SUCC 50MG EXT REL TAB PO SCH (09:59)
[2021-07-30] MEDS: GABAPENTIN 300 MG CAP PO SCH ×2 (09:59→21:01)
[2021-07-30] MEDS: CALCIUM 600MG + VIT D 400 IU TAB PO SCH ×2 (09:59→20:59)
--- NOTE | 2021-07-30 11:52 | Cardiology Progress Note ---
Date of Service July 30, 2021 Assessment & Plan (1) Acute on chronic heart failure with preserved ejection fraction (HFpEF): (2) Fluid retention: (3) Pericardial effusion: (4) ELIZ (acute kidney injury): (5) Hypoalbuminemia: Plan: Edema improved with creatinine trending downward. Continue IV Lasix 40 mg every 12 hours. I will not administer metolazone today. Consider adding metolazone tomorrow pending review of a.m. labs. Maintain negative fluid balance. Fluid restriction 1.5 L daily. Sodium restriction less than 2 g daily. Predominantly posterior pericardial effusion noted. Hemodynamics remain stable. Pericardial effusion does not appear to be easily accessible for pericardiocentesis based on patient's body characteristics and posterior location of the effusion. Continue diuretic therapy. Admission and Anticipated Discharge Date Admission Date: July 25, 2021 Subjective Patient seen and examined at the bedside. Edema mildly improved. Fluid balance -1.8 L. Creatinine trending downward. Denies orthopnea or PND. No chest discomfort or shortness of breath at rest. Telemetry reveals sinus rhythm with occasional PVCs. Review of Systems Review of Systems: All systems reviewed & are unremarkable except as noted in Subjective Physical Exam Constitutional: well developed, well nourished and + obese; no acute distress Respiratory: Auscultation: + diminished lung sounds (Bases bilateral); no crackles, no rales, no rhonchi and no wheezes Cardiovascular: Rate/Rhythm: regular rate and regular rhythm Heart Sounds: normal S1 and normal S2; no murmur and no cardiac rub Extremities: + edema (2-3+ bilateral pretibial edema,stasis changes) Gastrointestinal (Abdomen): Inspection/Auscultation: abdomen normal to inspection and normal bowel sounds; abdomen not distended Percussion/Palpation: abdomen soft; abdomen nontender, no guarding and abdomen not rigid Neurologic: CN's II-XI intact bilaterally and moves all extremities; no focal motor deficits Motor/Sensory: no tremor Psychiatric: A+Ox3, euthymic affect Results & Data ([facility]) Vital Signs (Past 12 Hours) Vital Signs Temp Pulse Resp BP Pulse Ox 07/30/21 07:49 37.1 C 60 20 121/68 97 07/30/21 05:19 36.7 C 57 L 18 136/58 L 97
--- NOTE | 2021-07-30 12:31 | Hospitalist Progress Note ---
Date of Service July 30, 2021 Assessment & Plan (1) Pericardial effusion: (2) Fluid retention: Plan: Acute on chronic heart failure with preserved ejection fraction (HFpEF) CXR showed cardiomegaly with mild pulmonary vascular congestion. Echo showed moderate sized circumferential pericardial effusion, preserved EF, consistent with pretamponade physiology cardiology on board Continue Lasix 40 mg IV twice daily Net -1.8L in the past 24h Fluid restriction to 1.5 L daily Continue monitor I/O Continue monitor BMP Cardiology on board (3) ELIZ (acute kidney injury): Cr 2.18 on admission (baseline Cr ~1.2), K of 5.1 Renal U/S showed no evidence of hydronephrosis Creatine stable at 1.5 today Continue to hold valsartan Continue monitor BMP while on IV lasix (4) PAD (peripheral artery disease): Follows with Dr. Ferguson Continue statin Discussed with Cardiology. Ok with resuming home xarelto but monitor renal function (5) CAD (coronary artery disease): S/p CABG x 2 in 2011 Continue aspirin, statin, Toprol (6) COPD (chronic obstructive pulmonary disease): At baseline, albuterol inh PRN (7) HTN (hypertension): Controlled Continue Toprol with hold parameters, Continue holding Valsartan Continue monitor BP (8) Morbid obesity: BMI >50 Recently started Contrave 8-90mg BID Counseling on weight loss DVT Ppx: Xarelto Code status: FULL Admission and Anticipated Discharge Date Admission Date: July 25, 2021 Subjective 70-year-old man with history of PAD status post interventions on Xarelto, CAD status post CABG x2 in 2012, COPD, hypertension, hyperlipidemia, chronic back pain, morbid obesity who presented with progressive dyspnea over 2 weeks. Found to be fluid overloaded with moderate pericardial effusion and ELIZ. Patient seen and examined this morning Denies any new complaints Reports only leg swelling which he reports is improving compared to admission. Denies any chest pain or shortness of breath Review of Systems Review of Systems: Other review of systems negative except as mentioned in Subjective above Physical Exam Constitutional: + well hydrated and + obese; no acute distress Eyes: PERRL, conjunctivae normal, anicteric sclerae ENMT: external ear and nose normal, oropharynx normal Respiratory: normal respiratory effort; no respiratory distress Auscultation: + diminished lung sounds (lung bases) Cardiovascular: Rate/Rhythm: regular rate and regular rhythm S1 S2 Gastrointestinal (Abdomen): normal bowel sounds, soft, nontender, no hepatosplenomegaly Musculoskeletal: Bilateral pitting pedal edema Neurologic: PERRL, EOMI, accommodation nl, no face palsy, no dysarthria Psychiatric: A+Ox3, euthymic affect Results & Data Results & Data ([facility]) Vital Signs (Past 12 Hours) Vital Signs Temp Pulse Resp BP Pulse Ox 07/30/21 11:35 36.7 C 58 L 20 120/71 97 07/30/21 07:49 37.1 C 60 20 121/68 97 07/30/21 05:19 36.7 C 57 L 18 136/58 L 97 Laboratory Results Abnormal lab results 07/30/21 07/30/21 Range/Units 05:42 05:42 RBC 4.23 L (4.7-6.1) M/uL Hgb 13.4 L (14.0-18.0) g/dL Hct 41.1 L (42-52) % RDW Std Deviation 47.5 H (36.4-46.3) fL BUN 25 H (7-18) mg/dl Creatinine 1.54 H (0.6-1.4) mg/dl
[2021-07-30] MEDS: ASPIRIN 81 MG ECTAB PO SCH (20:58)
[2021-07-30] MEDS: ATORVASTATIN 40 MG TAB PO SCH (20:59)
[2021-07-30] MEDS: DOXAZosin MESYLATE TAB 2 MG TAB PO SCH (21:00)
[2021-07-30] MEDS: PANTOprazole 40 MG TAB PO SCH (21:01)
[2021-07-30] MEDS: RIVAROXABAN 2.5 MG TAB PO SCH (21:19)
[2021-07-31 07:23] LABS: BUN Creatinine Ratio 16.5 (10-20); Calcium 8.7 mg/dl (8.5-10.1); Est GFR (African American) 55.8 ml/min; Est GFR (Non-African American) 48.1 ml/min; Magnesium 2.3 mg/dl (1.8-2.4)
[2021-07-31 07:24] LABS: Phosphorus 3.2 mg/dl (2.5-4.9)
[2021-07-31] MEDS: METOPROLOL SUCC 50MG EXT REL TAB PO SCH (08:41)
[2021-07-31] MEDS: GABAPENTIN 300 MG CAP PO SCH ×2 (08:43→20:56)
[2021-07-31] MEDS: CALCIUM 600MG + VIT D 400 IU TAB PO SCH ×2 (08:44→20:55)
[2021-07-31] MEDS: RIVAROXABAN 2.5 MG TAB PO SCH ×2 (08:48→20:57)
[2021-07-31] MEDS: FUROSEMIDE 40 MG in SYRINGE 0 ML IV SCH ×2 (08:52→17:45)
--- NOTE | 2021-07-31 13:04 | Cardiology Progress Note ---
Date of Service July 31, 2021 Assessment & Plan (1) Acute on chronic heart failure with preserved ejection fraction (HFpEF): (2) Fluid retention: (3) Pericardial effusion: (4) ELIZ (acute kidney injury): (5) Hypoalbuminemia: Plan: Patient has made modest improvement since admission with approximately 1.8-2.1 L diuresis per day. Change dose schedule of IV Lasix to 7 AM and 5 PM. Add 2.5 mg of metolazone today approximately 30 minutes prior to 5 PM dose of Lasix. Maintain negative fluid balance. Fluid restriction 1.5 L daily. Sodium restriction less than 2 g daily. Avoid NSAIDs. Predominantly posterior pericardial effusion noted. Hemodynamics remain stable. Pericardial effusion does not appear to be easily accessible for pericardiocentesis based on patient's body characteristics and posterior location of the effusion. Continue diuretic therapy. Admission and Anticipated Discharge Date Admission Date: July 25, 2021 Subjective Patient seen and examined at the bedside. Fluid balance -2.1 L over the past 24 hours. Renal function remained stable. Received his second dose of IV Lasix last evening at 9 PM. Reports mild disruption of his sleep. Edema minimally improved. No orthopnea or PND. Telemetry reveals sinus rhythm and sinus bradycardia with heart rates in the 50s and 60s. No palpitations, lighthea dedness, or dizziness. He offers no new concerns/complaints. Review of Systems Review of Systems: All systems reviewed & are unremarkable except as noted in Subjective Physical Exam Constitutional: well developed, well nourished and + obese; no acute distress Respiratory: Auscultation: + diminished lung sounds (Bases bilateral); no crackles, no rales, no rhonchi and no wheezes Cardiovascular: Rate/Rhythm: regular rate and regular rhythm Heart Sounds: normal S1 and normal S2; no murmur and no cardiac rub Extremities: + edema (2-3+ bilateral pretibial edema,stasis changes) Gastrointestinal (Abdomen): Inspection/Auscultation: abdomen normal to inspection and normal bowel sounds; abdomen not distended Percussion/Palpation: abdomen soft; abdomen nontender, no guarding and abdomen not rigid Neurologic: CN's II-XI intact bilaterally and moves all extremities; no focal motor deficits Motor/Sensory: no tremor Psychiatric: A+Ox3, euthymic affect Results & Data ([facility]) Vital Signs (Past 12 Hours) Vital Signs Temp Pulse Pulse Resp BP BP Pulse Ox 07/31/21 11:55 36.3 C L 60 19 151/76 H 98 07/31/21 10:15 55 L 07/31/21 07:11 36.7 C 56 L 18 105/65 96 07/31/21 05:01 36.8 C 54 L 18 131/76 96
--- NOTE | 2021-07-31 15:22 | Hospitalist Progress Note ---
Date of Service July 31, 2021 Assessment & Plan (1) Pericardial effusion: (2) Fluid retention: Plan: Acute on chronic heart failure with preserved ejection fraction (HFpEF) CXR showed cardiomegaly with mild pulmonary vascular congestion. Echo showed moderate sized circumferential pericardial effusion, preserved EF, consistent with pretamponade physiology cardiology on board Continue Lasix 40 mg IV twice daily Net -2L in the past 24h Fluid restriction to 1.5 L daily Continue monitor I/O Continue monitor BMP Cardiology on board. Get one dose of metolazone (3) ELIZ (acute kidney injury): Cr 2.18 on admission (baseline Cr ~1.2), K of 5.1 Renal U/S showed no evidence of hydronephrosis Creatine stable at 1.45 today Continue to hold valsartan Continue monitor BMP while on IV lasix (4) PAD (peripheral artery disease): Follows with Dr. Ferguson Continue statin Discussed with Cardiology. Ok with resuming home xarelto but monitor renal function (5) CAD (coronary artery disease): S/p CABG x 2 in 2011 Continue aspirin, statin, Toprol (6) COPD (chronic obstructive pulmonary disease): At baseline, albuterol inh PRN (7) HTN (hypertension): Controlled Continue Toprol with hold parameters, Continue holding Valsartan Continue monitor BP (8) Morbid obesity: BMI >50 Recently started Contrave 8-90mg BID Counseling on weight loss DVT Ppx: Xarelto Code status: FULL Admission and Anticipated Discharge Date Admission Date: July 25, 2021 Subjective 70-year-old man with history of PAD status post interventions on Xarelto, CAD status post CABG x2 in 2011, COPD, hypertension, hyperlipidemia, chronic back pain, morbid obesity who presented with progressive dyspnea over 2 weeks. Found to be fluid overloaded with moderate pericardial effusion and ELIZ. Patient seen and examined this morning Denies any new complaints except for leg swelling Review of Systems Review of Systems: Other review of systems negative except as mentioned in Subjective above Physical Exam Constitutional: + well hydrated and + obese; no acute distress Eyes: PERRL, conjunctivae normal, anicteric sclerae ENMT: external ear and nose normal, oropharynx normal Respiratory: normal respiratory effort; no respiratory distress Auscultation: + diminished lung sounds (lung bases) Cardiovascular: Rate/Rhythm: regular rate and regular rhythm S1 S2 Gastrointestinal (Abdomen): normal bowel sounds, soft, nontender, no hepatosplenomegaly Musculoskeletal: 2+ bilateral leg edema Neurologic: PERRL, EOMI, accommodation nl, no face palsy, no dysarthria Psychiatric: A+Ox3, euthymic affect Results & Data Results & Data ([facility]) Vital Signs (Past 12 Hours) Vital Signs Temp Pulse Pulse Resp BP BP Pulse Ox 07/31/21 11:55 36.3 C L 60 19 151/76 H 98 07/31/21 10:15 55 L 07/31/21 07:11 36.7 C 56 L 18 105/65 96 07/31/21 05:01 36.8 C 54 L 18 131/76 96 Laboratory Results Abnormal lab results 07/31/21 Range/Units 06:14 Chloride 108 H (98-107) mmol/L Carbon Dioxide 34 H (21-32) mmol/L Anion Gap 1.0 L (3-11) BUN 24 H (7-18) mg/dl Creatinine 1.45 H (0.6-1.4) mg/dl
[2021-07-31] MEDS ORDERED: metOLazone 2.5 MG TABLET PO ONE (16:30)
[2021-07-31] MEDS: ATORVASTATIN 40 MG TAB PO SCH (20:54)
[2021-07-31] MEDS: ASPIRIN 81 MG ECTAB PO SCH (20:54)
[2021-07-31] MEDS: DOXAZosin MESYLATE TAB 2 MG TAB PO SCH (20:55)
[2021-07-31] MEDS: PANTOprazole 40 MG TAB PO SCH (20:57)
[2021-08-01 07:05] LABS: BUN Creatinine Ratio 13.6 (10-20); Calcium 8.8 mg/dl (8.5-10.1); Creatinine Clr Calc Pharmacy 67.3 ml/min; Est GFR (African American) 53.1 ml/min; Est GFR (Non-African American) 45.8 ml/min; Phosphorus 3.6 mg/dl (2.5-4.9)
[2021-08-01 08:20] LABS: Magnesium 2.2 mg/dl (1.8-2.4); Potassium 3.3 mmol/L (3.5-5.1)
[2021-08-01] MEDS: CALCIUM 600MG + VIT D 400 IU TAB PO SCH ×2 (08:27→19:08)
[2021-08-01] MEDS: GABAPENTIN 300 MG CAP PO SCH ×2 (08:28→19:07)
[2021-08-01] MEDS: RIVAROXABAN 2.5 MG TAB PO SCH ×2 (08:28→19:07)
[2021-08-01] MEDS: METOPROLOL SUCC 50MG EXT REL TAB PO SCH (08:28)
[2021-08-01] MEDS ORDERED: POTASSIUM CHLORIDE CRTAB 20 MEQ TABCR PO STA (08:42)
[2021-08-01] MEDS: POTASSIUM CHLORIDE / WTR 10 MEQ/100 ML PLCT IV SCH ×2 (09:10→10:28)
[2021-08-01] MEDS: FUROSEMIDE 40 MG in SYRINGE 0 ML IV SCH ×2 (09:10→17:02)
--- NOTE | 2021-08-01 10:52 | Hospitalist Progress Note ---
Date of Service August 01, 2021 Assessment & Plan (1) Pericardial effusion: (2) Fluid retention: Plan: Acute on chronic heart failure with preserved ejection fraction (HFpEF) CXR showed cardiomegaly with mild pulmonary vascular congestion. Echo showed moderate sized circumferential pericardial effusion, preserved EF, consistent with pretamponade physiology cardiology on board Continue Lasix 40 mg IV twice daily Got one dose of metolazone yesterday Net -3L in the past 24h Fluid restriction to 1.5 L daily Continue monitor I/O Continue monitor BMP Cardiology on board. Hypokalemic today. Being repleted (3) ELIZ (acute kidney injury): Cr 2.18 on admission (baseline Cr ~1.2), K of 5.1 Renal U/S showed no evidence of hydronephrosis Creatine stable at 1.5 today Continue to hold valsartan Continue monitor BMP while on IV lasix (4) PAD (peripheral artery disease): Follows with Dr. Ferguson Continue statin Discussed with Cardiology. Ok with resuming home xarelto but monitor renal function (5) CAD (coronary artery disease): S/p CABG x 2 in 2011 Continue aspirin, statin, Toprol (6) COPD (chronic obstructive pulmonary disease): At baseline, albuterol inh PRN (7) HTN (hypertension): Controlled Continue Toprol with hold parameters, Continue holding Valsartan Continue monitor BP (8) Morbid obesity: BMI >50 Recently started Contrave 8-90mg BID Counseling on weight loss DVT Ppx: Xarelto Code status: FULL Admission and Anticipated Discharge Date Admission Date: July 25, 2021 Subjective 70-year-old man with history of PAD status post interventions on Xarelto, CAD status post CABG x2 in 2012, COPD, hypertension, hyperlipidemia, chronic back pain, morbid obesity who presented with progressive dyspnea over 2 weeks. Found to be fluid overloaded with moderate pericardial effusion and ELIZ. Patient seen and examined this morning No chest pain or shortness of breath Leg swelling Review of Systems Review of Systems: Other review of systems negative except as mentioned in Subjective above Physical Exam Constitutional: + well hydrated and + obese; no acute distress Eyes: PERRL, conjunctivae normal, anicteric sclerae ENMT: external ear and nose normal, oropharynx normal Respiratory: normal respiratory effort; no respiratory distress Auscultation: + diminished lung sounds (lung bases) Cardiovascular: Rate/Rhythm: regular rate and regular rhythm S1 S2 Gastrointestinal (Abdomen): normal bowel sounds, soft, nontender, no hepatosplenomegaly Musculoskeletal: bilateral pitting pedal edema Neurologic: PERRL, EOMI, accommodation nl, no face palsy, no dysarthria Psychiatric: A+Ox3, euthymic affect Results & Data Results & Data ([facility]) Vital Signs (Past 12 Hours) Vital Signs Temp Pulse Resp BP Pulse Ox 08/01/21 08:01 36.6 C 62 20 144/82 H 99 08/01/21 03:40 36.7 C 62 18 125/80 96 07/31/21 23:16 36.6 C 63 18 119/65 96 Laboratory Results Abnormal lab results 08/01/21 08/01/21 Range/Units 06:10 07:32 Potassium 3.3 L D (3.5-5.1) mmol/L Carbon Dioxide 36 H (21-32) mmol/L Anion Gap 0 L (3-11) BUN 21 H (7-18) mg/dl Creatinine 1.51 H (0.6-1.4) mg/dl
--- NOTE | 2021-08-01 12:54 | Cardiology Progress Note ---
Date of Service August 01, 2021 Assessment & Plan (1) Acute on chronic heart failure with preserved ejection fraction (HFpEF): (2) Fluid retention: (3) Pericardial effusion: (4) ELIZ (acute kidney injury): (5) Hypoalbuminemia: (6) Hypokalemia: Plan: Urine output improved 07/31/2021 with addition of metolazone. Recommend additional oral dose of metolazone today approximately 30 minutes prior to 5 PM dose of Lasix. Maintain negative fluid balance. Fluid restriction 1.5 L daily. Sodium restriction less than 2 g daily. Avoid NSAIDs. Replace potassium as indicated. Predominantly posterior pericardial effusion noted. Hemodynamics remain stable. Pericardial effusion does not appear to be easily accessible for pericardiocentesis based on patient's body characteristics and posterior location of the effusion. Continue diuretic therapy. Admission and Anticipated Discharge Date Admission Date: July 25, 2021 Subjective Patient seen and examined the bedside. Fluid balance -3.7 L. Weight is down approximately 8 pounds. Renal function and electrolytes remained stable. Patient denies orthopnea or PND. Telemetry reveals sinus rhythm. No dysrhythmias. Occasional PVCs. Tolerating diet and medications. Offers no new concerns/complaints. Review of Systems Review of Systems: All systems reviewed & are unremarkable except as noted in Subjective Physical Exam Constitutional: well developed, well nourished and + obese; no acute distress Respiratory: Auscultation: + diminished lung sounds (Bases bilateral); no cr ackles, no rales, no rhonchi and no wheezes Cardiovascular: Rate/Rhythm: regular rate and regular rhythm Heart Sounds: normal S1 and normal S2; no murmur and no cardiac rub Extremities: + edema (2-3+ bilateral pretibial edema,stasis changes) Gastrointestinal (Abdomen): Inspection/Auscultation: abdomen normal to inspection and normal bowel sounds; abdomen not distended Percussion/Palpation: abdomen soft; abdomen nontender, no guarding and abdomen not rigid Neurologic: CN's II-XI intact bilaterally and moves all extremities; no focal motor deficits Motor/Sensory: no tremor Psychiatric: A+Ox3, euthymic affect Results & Data ([facility]) Vital Signs (Past 12 Hours) Vital Signs Temp Pulse Pulse Resp BP Pulse Ox 08/01/21 12:08 36.5 C 61 19 139/85 97 08/01/21 08:01 36.6 C 62 20 144/82 H 99 08/01/21 08:00 60 08/01/21 03:40 36.7 C 62 18 125/80 96
[2021-08-01] MEDS ORDERED: metOLazone 2.5 MG TABLET PO ONE (16:30)
[2021-08-01] MEDS: PANTOprazole 40 MG TAB PO SCH (19:07)
[2021-08-01] MEDS: ASPIRIN 81 MG ECTAB PO SCH (19:08)
[2021-08-01] MEDS: DOXAZosin MESYLATE TAB 2 MG TAB PO SCH (19:08)
[2021-08-01] MEDS: ATORVASTATIN 40 MG TAB PO SCH (19:08)
[2021-08-02 07:22] LABS: Calcium 9.4 mg/dl (8.5-10.1); Est GFR (African American) 55.8 ml/min; Est GFR (Non-African American) 48.1 ml/min; Magnesium 2.2 mg/dl (1.8-2.4); Potassium 3.3 mmol/L (3.5-5.1)
[2021-08-02 07:23] LABS: Phosphorus 3.7 mg/dl (2.5-4.9)
[2021-08-02] MEDS ORDERED: POTASSIUM CHLORIDE CRTAB 20 MEQ TABCR PO ONE (08:30)
[2021-08-02] MEDS: POTASSIUM CHLORIDE / WTR 10 MEQ/100 ML PLCT IV SCH ×2 (09:02→10:18)
[2021-08-02] MEDS: METOPROLOL SUCC 50MG EXT REL TAB PO SCH (09:03)
[2021-08-02] MEDS: CALCIUM 600MG + VIT D 400 IU TAB PO SCH ×2 (09:03→20:42)
[2021-08-02] MEDS: GABAPENTIN 300 MG CAP PO SCH ×2 (09:03→20:41)
[2021-08-02] MEDS: FUROSEMIDE 40 MG in SYRINGE 0 ML IV SCH ×3 (09:03→21:00)
[2021-08-02] MEDS: RIVAROXABAN 2.5 MG TAB PO SCH ×2 (09:04→20:40)
--- NOTE | 2021-08-02 10:06 | Hospitalist Progress Note ---
Date of Service August 02, 2021 Assessment & Plan (1) Pericardial effusion: (2) Fluid retention: Plan: Acute on chronic heart failure with preserved ejection fraction (HFpEF) CXR showed cardiomegaly with mild pulmonary vascular congestion. Echo showed moderate sized circumferential pericardial effusion, preserved EF, consistent with pretamponade physiology cardiology on board Has been diuresing quite well on iv lasix with some doses of metolazone in the past 2 days Down 7kg since admission Cardiology on board Lasix increased to TID dosing Continue monitor I/O Hypokalemic today. Being repleted. Now on schedule po potassium as well (3) ELIZ (acute kidney injury) on CKD: Cr 2.18 on admission (baseline Cr ~1.2), K of 5.1 Renal U/S showed no evidence of hydronephrosis Creatine stable at 1.45 today Continue to hold valsartan Continue monitor BMP while on IV lasix (4) PAD (peripheral artery disease): Follows with Dr. Ferguson Continue statin Continue xarelto (5) CAD (coronary artery disease): S/p CABG x 2 in 2011 Continue aspirin, statin, Toprol (6) COPD (chronic obstructive pulmonary disease): At baseline, albuterol inh PRN (7) HTN (hypertension): Controlled Continue Toprol with hold parameters, Continue holding Valsartan Continue monitor BP (8) Morbid obesity: BMI >50 Recently started Contrave 8-90mg BID DVT Ppx: Xarelto Code status: FULL Admission and Anticipated Discharge Date Admission Date: July 25, 2021 Subjective 70-year-old man with history of PAD status post interventions on Xarelto, CAD status post CABG x2 in 2011, COPD, hypertension, hyperlipidemia, chronic back pain, morbid obesity who presented with progressive dyspnea over 2 weeks. Found to be fluid overloaded with moderate pericardial effusion and ELIZ. Patient seen and examined this morning No new complaints except for leg swelling Review of Systems Review of Systems: Other review of systems negative except as mentioned in Subjective above Physical Exam Constitutional: + well hydrated and + obese; no acute distress Eyes: PERRL, conjunctivae normal, anicteric sclerae ENMT: external ear and nose normal, oropharynx normal Respiratory: normal respiratory effort; no respiratory distress Auscultation: + diminished lung sounds (lung bases) Cardiovascular: Rate/Rhythm: regular rate and regular rhythm S1 S2 Gastrointestinal (Abdomen): normal bowel sounds, soft, nontender, no hepatosplenomegaly Musculoskeletal: Bilateral pitting leg edema Neurologic: PERRL, EOMI, accommodation nl, no face palsy, no dysarthria Psychiatric: A+Ox3, euthymic affect Results & Data Results & Data ([facility]) Vital Signs (Past 12 Hours) Vital Signs Temp Pulse Pulse Resp BP Pulse Ox 08/02/21 07:25 36.8 C 68 18 109/68 96 08/02/21 07:00 60 08/02/21 04:15 36.7 C 60 20 132/83 96 08/01/21 23:34 36.7 C 62 20 154/83 H 95 Laboratory Results Abnormal lab results 08/02/21 Range/Units 06:30 Potassium 3.3 L (3.5-5.1) mmol/L Carbon Dioxide 34 H (21-32) mmol/L BUN 20 H (7-18) mg/dl Creatinine 1.45 H (0.6-1.4) mg/dl
[2021-08-02] MEDS ORDERED: POTASSIUM CHLORIDE CRTAB 20 MEQ TABCR PO STA (10:17)
--- NOTE | 2021-08-02 13:05 | Cardiology Progress Note ---
Date of Service August 02, 2021 Assessment & Plan (1) Acute on chronic heart failure with preserved ejection fraction (HFpEF): (2) Fluid retention: (3) Pericardial effusion: (4) ELIZ (acute kidney injury): (5) Hypoalbuminemia: (6) Hypokalemia: Plan: Patient admitted with acute on chronic systolic heart failure with preserved ejection fraction, right greater than left. Now manifesting diuresis. Hypokalemia this morning with poor tolerance of IV potassium. Good oral intake and no problems with potassium orally Plan we will increase furosemide to 40 mg IV 3 times daily Supplement potassium orally with an additional 40 mEq in addition to a.m. dose ordered. We will add potassium 20 mill equivalent twice daily as routine order. Previous hyperkalemia, renal insufficiency precludes use of spironolactone currently Continue CHF instructions fluid and sodium restriction Admission and Anticipated Discharge Date Admission Date: July 25, 2021 Subjective Patient was seen and examined, chart, medications, telemetry reviewed. No acute cardiac complaints but complaining of severe pain and discomfort with potassium infusion. He has manifested brisk diuresis last 2 days with additional metolazone. Weight now down 7 kg. No chest pains or worsening shortness of breath. No dizziness or lightheadedness. Persistent lower extremity edema still present Review of Systems Review of Systems: All systems reviewed & are unremarkable except as noted in Subjective Physical Exam Constitutional: + morbidly obese; no acute distress Eyes: PERRL, conjunctivae normal, anicteric sclerae ENMT: external ear and nose normal, oropharynx normal Neck: trachea midline, no thyromegaly Respiratory: Auscultation: + diminished lung sounds Cardiovascular: Rate/Rhythm: regular rate and regular rhythm Heart Sounds: no murmur Extremities: + edema (2-3+) Gastrointestinal (Abdomen): Inspection/Auscultation: + abdomen distended Percussion/Palpation: abdomen soft; abdomen nontender Musculoskeletal: no cyanosis or clubbing, extremities motor strength 5/5 Neurologic: PERRL, EOMI, accommodation nl, no face palsy, no dysarthria Psychiatric: A+Ox3, euthymic affect Results & Data ([facility]) Vital Signs (Past 12 Hours) Vital Signs Temp Pulse Pulse Resp BP BP Pulse Ox 08/02/21 11:52 36.5 C 60 16 146/68 H 95 08/02/21 07:25 36.8 C 68 18 109/68 96 08/02/21 07:00 60 08/02/21 04:15 36.7 C 60 20 132/83 96 Laboratory Results Laboratory Results - last 24 hr 08/02/21 06:30 Sodium 140 Potassium 3.3 L Chloride 101 Carbon Dioxide 34 H Anion Gap 5.0 BUN 20 H Creatinine 1.45 H Est Cr Clr Drug Dosing 70.0 Est GFR ( Amer) 55.8 Est GFR (Non-Af Amer) 48.1 BUN/Creatinine Ratio 14.0 Glucose 88 Calcium 9.4 Phosphorus 3.7 Magnesium 2.2
[2021-08-02] MEDS: POTASSIUM CHLORIDE CRTAB 20 MEQ TABCR PO SCH (16:29)
[2021-08-02] MEDS: ASPIRIN 81 MG ECTAB PO SCH (20:42)
[2021-08-02] MEDS: ATORVASTATIN 40 MG TAB PO SCH (20:42)
[2021-08-02] MEDS: DOXAZosin MESYLATE TAB 2 MG TAB PO SCH (20:43)
[2021-08-02] MEDS: PANTOprazole 40 MG TAB PO SCH (20:43)
[2021-08-03 06:25] LABS: Calcium 9.6 mg/dl (8.5-10.1); Creatinine Clr Calc Pharmacy 61.4 ml/min; Est GFR (African American) 49.1 ml/min; Est GFR (Non-African American) 42.4 ml/min; Magnesium 2.3 mg/dl (1.8-2.4); Phosphorus 4.1 mg/dl (2.5-4.9); Potassium 3.4 mmol/L (3.5-5.1)
[2021-08-03] MEDS ORDERED: POTASSIUM CHLORIDE CRTAB 20 MEQ TABCR PO STA (07:24)
[2021-08-03] MEDS: GABAPENTIN 300 MG CAP PO SCH ×2 (08:22→20:57)
[2021-08-03] MEDS: FUROSEMIDE 40 MG in SYRINGE 0 ML IV SCH ×2 (08:22→15:27)
[2021-08-03] MEDS: CALCIUM 600MG + VIT D 400 IU TAB PO SCH ×2 (08:23→20:56)
[2021-08-03] MEDS: METOPROLOL SUCC 50MG EXT REL TAB PO SCH (08:23)
[2021-08-03] MEDS: POTASSIUM CHLORIDE CRTAB 20 MEQ TABCR PO SCH ×2 (08:24→17:33)
[2021-08-03] MEDS: RIVAROXABAN 2.5 MG TAB PO SCH ×2 (08:24→20:56)
--- NOTE | 2021-08-03 09:39 | Hospitalist Progress Note ---
Date of Service August 03, 2021 Assessment & Plan (1) Pericardial effusion: (2) Fluid retention: Plan: Acute on chronic heart failure with preserved ejection fraction (HFpEF) CXR showed cardiomegaly with mild pulmonary vascular congestion. Echo showed moderate sized circumferential pericardial effusion, preserved EF, consistent with pretamponade physiology cardiology on board Has been diuresing quite well on iv lasix Cardiology on board Lasix was increased to TID dosing yesterday Continue monitor I/O Hypokalemic 3.4 today. Being repleted. Continue scheduled po potassium as well (3) ELIZ (acute kidney injury) on CKD: Cr 2.18 on admission (baseline Cr ~1.2), K of 5.1 Renal U/S showed no evidence of hydronephrosis Creatine bumped up to 1.61 today. Will discuss with Cardiology about diuretic regimen today Continue to hold valsartan Continue monitor BMP while on IV lasix (4) PAD (peripheral artery disease): Follows with Dr. Ferguson Continue statin Continue xarelto (5) CAD (coronary artery disease): S/p CABG x 2 in 2011 Continue aspirin, statin, Toprol (6) COPD (chronic obstructive pulmonary disease): At baseline, albuterol inh PRN (7) HTN (hypertension): Controlled Continue Toprol with hold parameters, Continue holding Valsartan Continue monitor BP (8) Morbid obesity: BMI >50 Recently started Contrave 8-90mg BID DVT Ppx: Xarelto Code status: FULL Admission and Anticipated Discharge Date Admission Date: July 25, 2021 Subjective 70-year-old man with history of PAD status post interventions on Xarelto, CAD status post CABG x2 in 2011, COPD, hypertension, hyperlipidemia, chronic back pain, morbid obesity who presented with progressive dyspnea over 2 weeks. Found to be fluid overloaded with moderate pericardial effusion and ELIZ. Patient seen and examined this morning No new complaints except for leg swelling Review of Systems Review of Systems: Other review of systems negative except as mentioned in Subjective above Physical Exam Constitutional: + well hydrated and + obese; no acute distress Eyes: PERRL, conjunctivae normal, anicteric sclerae ENMT: external ear and nose normal, oropharynx normal Respiratory: normal respiratory effort; no respiratory distress Auscultation: + diminished lung sounds (lung bases) Cardiovascular: Rate/Rhythm: regular rate and regular rhythm S1 S2 Gastrointestinal (Abdomen): normal bowel sounds, soft, nontender, no hepatosplenomegaly Musculoskeletal: Bilateral pitting edema Neurologic: PERRL, EOMI, accommodation nl, no face palsy, no dysarthria Psychiatric: A+Ox3, euthymic affect Results & Data Results & Data ([facility]) Vital Signs (Past 12 Hours) Vital Signs Temp Pulse Pulse Resp BP Pulse Ox 08/03/21 07:47 36.6 C 57 L 16 132/74 93 08/03/21 07:16 63 08/03/21 04:05 36.4 C L 65 16 92/49 L 94 08/02/21 23:08 36.7 C 64 18 102/50 L 94 Laboratory Results Abnormal lab results 08/03/21 Range/Units 05:20 Potassium 3.4 L (3.5-5.1) mmol/L Carbon Dioxide 34 H (21-32) mmol/L BUN 21 H (7-18) mg/dl Creatinine 1.61 H (0.6-1.4) mg/dl
--- NOTE | 2021-08-03 11:54 | Cardiology Progress Note ---
Date of Service August 03, 2021 Assessment & Plan (1) Acute on chronic heart failure with preserved ejection fraction (HFpEF): (2) Fluid retention: (3) Pericardial effusion: (4) ELIZ (acute kidney injury): (5) Hypoalbuminemia: (6) Hypokalemia: Plan: Patient admitted with acute on chronic systolic heart failure with preserved ejection fraction, right greater than left. Now manifesting large volume diuresis Plan: Stop IV furosemide after midday dose. Reinitiate oral diuretic with Bumex 1 mg twice daily this evening Continue CHF instructions fluid and sodium restriction Admission and Anticipated Discharge Date Admission Date: July 25, 2021 Subjective Patient was seen and examined, chart, medications, telemetry reviewed. Brisk diuresis yesterday with good tolerance. Weight down now greater than 13 kg from admission. No worsening shortness of breath. Edema now improving No chest pains. No dizziness or lightheadedness. No arrhythmias on telemetry with resting sinus bradycardia Review of Systems Review of Systems: All systems reviewed & are unremarkable except as noted in Subjective Physical Exam Constitutional: + morbidly obese; no acute distress Eyes: PERRL, conjunctivae normal, anicteric sclerae ENMT: external ear and nose normal, oropharynx normal Neck: trachea midline, no thyromegaly Respiratory: Auscultation: + diminished lung sounds Cardiovascular: Rate/Rhythm: regular rate and regular rhythm Heart Sounds: no murmur Extremities: + edema (2-3+) Gastrointestinal (Abdomen): Inspection/Auscultation: + abdomen distended Percussion/Palpation: abdomen soft; abdomen nontender Musculoskeletal: no cyanosis or clubbing, extremities motor strength 5/5 Neurologic: PERRL, EOMI, accommodation nl, no face palsy, no dysarthria Psychiatric: A+Ox3, euthymic affect Results & Data ([facility]) Vital Signs (Past 12 Hours) Vital Signs Temp Pulse Pulse Resp BP Pulse Ox 08/03/21 07:47 36.6 C 57 L 16 132/74 93 08/03/21 07:16 63 08/03/21 04:05 36.4 C L 65 16 92/49 L 94
[2021-08-03] MEDS: BUMETANIDE 1 MG TAB PO SCH (17:33)
[2021-08-03] MEDS: ATORVASTATIN 40 MG TAB PO SCH (20:55)
[2021-08-03] MEDS: ASPIRIN 81 MG ECTAB PO SCH (20:56)
[2021-08-03] MEDS: DOXAZosin MESYLATE TAB 2 MG TAB PO SCH (20:56)
[2021-08-03] MEDS: PANTOprazole 40 MG TAB PO SCH (20:56)
[2021-08-04 07:53] LABS: BUN Creatinine Ratio 14.9 (10-20); Calcium 9.6 mg/dl (8.5-10.1); Creatinine Clr Calc Pharmacy 61.3 ml/min; Est GFR (African American) 49.5 ml/min; Est GFR (Non-African American) 42.7 ml/min; Magnesium 2.1 mg/dl (1.8-2.4); Potassium 3.2 mmol/L (3.5-5.1)
[2021-08-04 07:54] LABS: Phosphorus 3.8 mg/dl (2.5-4.9)
[2021-08-04] MEDS: RIVAROXABAN 2.5 MG TAB PO SCH (08:00)
[2021-08-04] MEDS: GABAPENTIN 300 MG CAP PO SCH (08:00)
[2021-08-04] MEDS: METOPROLOL SUCC 50MG EXT REL TAB PO SCH (08:01)
[2021-08-04] MEDS: CALCIUM 600MG + VIT D 400 IU TAB PO SCH (08:01)
[2021-08-04] MEDS: BUMETANIDE 1 MG TAB PO SCH (08:02)
[2021-08-04] MEDS: POTASSIUM CHLORIDE CRTAB 20 MEQ TABCR PO SCH (08:02)
[2021-08-04] MEDS ORDERED: POTASSIUM CHLORIDE CRTAB 20 MEQ TABCR PO ONE (08:21)
--- NOTE | 2021-08-04 08:21 | Cardiology Progress Note ---
Date of Service August 04, 2021 Assessment & Plan (1) Acute on chronic heart failure with preserved ejection fraction (HFpEF): (2) Fluid retention: (3) Pericardial effusion: (4) ELIZ (acute kidney injury): (5) Hypoalbuminemia: (6) Hypokalemia: Plan: Patient admitted with acute on chronic systolic heart failure with preserved ejection fraction, right greater than left. Now status post large-volume diuresis with clinical improvement Plan: Diuretics transition to oral with Bumex 1 mg twice per day. We will give additional potassium this morning then continue 20 mEq twice per day Will need close clinical follow-up in the next week's time through [facility] physician and [facility] congestive heart failure clinic Continue CHF instructions fluid and sodium restriction Admission and Anticipated Discharge Date Admission Date: July 25, 2021 Subjective Patient was seen and examined, chart, medications, telemetry reviewed. Diuretics have been in transition to oral. Weight down now greater than 16 kg from admission. No worsening shortness of breath. Edema now improving No chest pains. No dizziness or lightheadedness. No arrhythmias on telemetry with resting sinus bradycardia Review of Systems Review of Systems: All systems reviewed & are unremarkable except as noted in Subjective Physical Exam Constitutional: + morbidly obese; no acute distress Eyes: PERRL, conjunctivae normal, anicteric sclerae ENMT: external ear and nose normal, oropharynx normal Neck: trachea midline, no thyromegaly Respiratory: Auscultation: + diminished lung sounds Cardiovascular: Rate/Rhythm: regular rate and regular rhythm Heart Sounds: no murmur Extremities: + edema (2-3+) Gastrointestinal (Abdomen): Inspection/Auscultation: + abdomen distended Percussion/Palpation: abdomen soft; abdomen nontender Musculoskeletal: no cyanosis or clubbing, extremities motor strength 5/5 Neurologic: PERRL, EOMI, accommodation nl, no face palsy, no dysarthria Psychiatric: A+Ox3, euthymic affect Results & Data ([place]) Vital Signs (Past 12 Hours) Vital Signs Temp Pulse Pulse Resp BP BP Pulse Ox 08/04/21 07:39 36.5 C 61 18 125/80 96 08/04/21 07:14 57 L 08/04/21 04:02 36.5 C 64 18 119/69 94 08/04/21 00:11 36.7 C 55 L 18 160/66 H 95 Laboratory Results Laboratory Results - last 24 hr 08/04/21 07:13 Sodium 140 Potassium 3.2 L Chloride 100 Carbon Dioxide 35 H Anion Gap 5.0 BUN 24 H Creatinine 1.60 H Est Cr Clr Drug Dosing 61.3 Est GFR ( Amer) 49.5 Est GFR (Non-Af Amer) 42.7 BUN/Creatinine Ratio 14.9 Glucose 97 Calcium 9.6 Phosphorus 3.8 Magnesium 2.1
--- NOTE | 2021-08-04 11:35 | Discharge Summary ---
Date of Service August 04, 2021 Admission HPI Per Admitting Provider This is a 70yo M with a PMH of PAD s/p interventions on Xarelto, CAD (s/p CABG x 2 in 2012), COPD, HTN, dyslipidemia, chronic back pain, morbid obesity and other medical problems listed below who presents with progressive dyspnea over the past 2 weeks. Two weeks ago, patient notes having severe leg cramps and feeling more fatigued than usual. Since then, has noted more labored breathing. Patient states with any type of exertion, even walking around the house, he feels extremely short of breath. Also endorses increased fluid in abdomen and lower legs with approximate 20 pound weight gain in the past 2 weeks. Does not restrict fluids or eat a low sodium diet. No open wounds on BLE or feet. Recently transitioned from lasix to Bumex diuretic for 3-day trial. States he has not been urinating any more frequently and continued to feel short of breath. Denies any orthopnea or PND. Is able to sleep on his side with 1-2 pillows. Denies any chest pain or palpitations. Was sent in Dr. Love due to progressive dyspnea and worsening renal function. No fever, chills, recent known sick contacts, congestion or wheezing. Did receive both doses of Covid vaccine. Did also mention some lower back pain on right side a week ago that is since resolved. No history of kidney stones. Denies lightheadedness, headache, nausea, vomiting, abdominal pain, dysuria, diarrhea or constipation. Admission Exam Per Admitting Provider General Appearance: WD/WN, vitals as above, NAD, sitting up in bed, morbidly obese Head: normocephalic, atraumatic Eyes: normal inspection, PERRL, conjunctivae normal, anicteric sclerae ENT: external ear and nose normal, oropharynx normal Neck: normal visual inspection, trachea midline, no thyromegaly Respiratory: normal respiratory effort, diminished lung sounds bilaterally, no wheeze, rales or rhonchi. No accessory muscle use Cardiovascular: diminished heart sounds, no murmur appreciated, normal peripheral pulses, 3+ BLE edema. Vessels: unable to assess JVD 2/2 habitus Chest: normal inspection of chest Abdomen/GI: normal bowel sounds, soft but distended, nontender, no hepatosplen omegaly Extremities/Musculoskeletal: no cyanosis or clubbing, extremities motor strength 5/5 Neurologic: PERRL, EOMI, accommodation nl, no face palsy, no dysarthria, CN's II-XI intact bilaterally and moves all extremities Psychiatric: A+Ox3, euthymic affect Skin: no rashes, normal color, warm/dry Principal Diagnosis Acute on chronic diastolic heart failure Pericardial effusion Fluid overload Acute kidney injury Discharge Exam Constitutional + well hydrated and + obese; no acute distress Eyes PERRL, conjunctivae normal, anicteric sclerae ENMT external ear and nose normal, oropharynx normal Respiratory normal respiratory effort; no respiratory distress Auscultation: + diminished lung sounds (lung bases) Cardiovascular Rate/Rhythm: regular rate and regular rhythm S1 S2 Gastrointestinal (Abdomen) normal bowel sounds, soft, nontender, no hepatosplenomegaly Musculoskeletal Bilateral pitting pedal edema Neurologic PERRL, EOMI, accommodation nl, no face palsy, no dysarthria Psychiatric A+Ox3, euthymic affect Discharge Data Allergies Allergy/AdvReac Type Severity Reaction Status Date / Time No Known Drug Allergies Allergy Unknown Verified 07/25/21 13:24 Consultations 07/25/21 13:14 Consult Cardiology Routine 07/25/21 14:19 ED Decision to Admit Stat Ordered Studies 07/25/21 13:09 US renal/blad retro comp Stat Right kidney: 12.6 cm. No hydronephrosis. Moderate cortical thinning/scarring. Left kidney: 12.5 cm. No hydronephrosis. Moderate cortical thinning/scarring. Bladder: No bladder wall thickening. The bilateral ureteral jets were identified. Trace perihepatic ascites. IMPRESSION: 1. No hydronephrosis. 2. Moderate bilateral cortical renal scarring/thinning. 3. Trace perihepatic ascites. Hospital Course (1) Pericardial effusion: (2) Fluid retention: Acute on chronic heart failure with preserved ejection fraction (HFpEF) CXR showed cardiomegaly with mild pulmonary vascular congestion. Echo showed moderate sized circumferential pericardial effusion, preserved EF, consistent with pretamponade physiology Patient was evaluated by Cardiology Patient remained hemodynamically stable throughout hospital stay. He was aggressively diuresed. Weight dropped from 161kg on admission to 146.5kg today He was discharged on bumex 1mg bid and potassium 20mEq bid Patient needs close follow up with Cardiology Provided patient with heart failure education, dietary and fluid restriction education (3) ELIZ (acute kidney injury) on CKD: Cr 2.18 on admission (baseline Cr ~1.2), K of 5.1 Renal U/S showed no evidence of hydronephrosis Creatine is 1.6 today Valsartan was discontinued for now (4) PAD (peripheral artery disease): Follows with Dr. Ferguson Continue statin Continue xarelto (5) CAD (coronary artery disease): S/p CABG x 2 in 2012 Continue aspirin, statin, Toprol (6) COPD (chronic obstructive pulmonary disease): At baseline, albuterol inh PRN (7) HTN (hypertension): Controlled Continue Toprol with hold parameters, Valsartan discontinued for now (8) Morbid obesity: BMI >50 Recently started Contrave 8-90mg BID Total Time Total Time Spent Total Time Spent (In Minutes): 55 Total Time Includes: Examination of the Patient, Discharge Planning, Medication Reconciliation and Communication With Other Providers Discharge Plan Discharge Items Patient Disposition: Home - Self-Care Reason For Visit: PROGRESSIVE DYSPNEA Discharge Diagnosis: Acute on chronic diastolic heart failure Pericardial effusion Fluid overload Acute kidney injury Activity: Resume your previous activity Non-emergency contact: Primary Care Provider and Lpn Instructor Call non-emergency contact if: you have any medication questions and your symptoms worsen Follow-up/Referrals: Valente Esquivel, [Primary Care Provider] - Diet: Heart Healthy and Low Sodium (2gm) Fluids: 1800ml (7 cups) Addtl Attending Provider Instructions: Mr. Guthrie. You came to the hospital complaining of worsening shortness of breath over the past 2 weeks. You were evaluated and found to be volume overloaded with pericardial effusion as well as acute kidney injury. You were comanaged with the test engine mechanic. You required several days of IV diuretics. You are being discharged home on oral Bumex 1mg twice daily as well as potassium 20mEq twice daily. Please stop taking valsartan for now. It is very important that you adhere to the dietary and fluid restrictions as discussed. Please ensure follow-up with the test engine mechanic as well as your primary doctor. It was a pleasure taking care of you. Pending Studies at Discharge: No Stand-Alone Forms: My [employer], Smoking Cessation Medications and DC Order Prescriptions: New bumetanide 1 mg Tablet 1 mg PO [id number] Qty: 60 RF: 0 Continued Contrave 8-90 mg tablet extended release 2 tab PO BID RF: 0 aspirin [Adult Aspirin Regimen] 81 mg tablet,delayed release (DR/EC) 81 mg PO HS RF: 0 doxazosin [Cardura] 2 mg tablet 2 mg PO HS RF: 0 atorvastatin [Lipitor] 40 mg tablet 40 mg PO HS RF: 0 nitroglycerin [Nitrostat] 0.4 mg tablet, sublingual 0.4 mg SL Q5M PRN (Reason: Chest Pain) RF: 0 gabapentin [Neurontin] 300 mg capsule See Rx Instructions .ROUTE .COMPLEX RF: 0 albuterol sulfate [Ventolin HFA] 90 mcg/actuation HFA aerosol inhaler 2 puffs INH BID PRN (Reason: Shortness Of Breath Or Wheezing) RF: 0 Xarelto 2.5 mg tablet 2.5 mg PO BID Qty: 60 RF: 11 pantoprazole [Protonix] 40 mg tablet,delayed release (DR/EC) 40 mg PO HS RF: 0 Caltrate 600 plus D 600 mg (1,500 mg)-800 unit Tablet,Chewable 1 tab PO BID RF: 0 metoprolol succinate 50 mg tablet extended release 24 hr 50 mg PO DAILY RF: 0 Changed potassium chloride [Klor-Con M20] 20 mEq tablet,ER particles/crystals 20 meq PO BID Qty: 60 RF: 0 Discontinued furosemide [Lasix] 40 mg tablet 40 mg PO PM RF: 0 valsartan [Diovan] 80 mg tablet 80 mg PO HS RF: 0 bumetanide 1 mg tablet 1 mg PO DAILY RF: 0 Discharge Orders: Discharge Order (Routine); Ordered 08/04/21 Ordered By: Aida Blackburn/Other Patient Handouts: Heart Failure Making Changes to ... Admission Data Admit Date/Time: 07/25/21 13:14 Attending Provider: Aida Stevens I. Admit Provider: Paty Hagen Primary Care Provider: Valente Esquivel Other Providers: Paty Hagen ; Aditya Love Other Interventions: Discharge Summary Assessment (RN) Last Done: 08/04/21 10:37
== END 2021-08-04 12:55 | disposition home or self-care (01) | DRG 314 ==
LOC: ED 09:56 → 2S 13:14 → SUATTDRO 13:14 → 2S 16:10

== ENCOUNTER 2023-02-24 06:22 | Inpatient (IN) ==
--- NOTE | 2023-02-24 06:33 | Emergency Department Note ---
Impression & Plan Cardiac arrest, Lactic acidosis, Aspiration pneumonia of right lower lobe, Multiple closed fractures of ribs of both sides, Syncope and collapse ED Provider Note Name: DAYA BALLARD Age: 72 Sex: M Arrives Via: Ambulance Informant: Patient, , EMS ED Provider: Boo Mata MD Chief Complaint: Cardiac Arrest Impression: As per impression above Medical Decision Makin-year-old gentleman arrives for evaluation following cardiac arrest. Patient has been feeling well for last 2 to 3 days and got up this morning and collapsed in the hallway. noted no pulse and started CPR which police continued when they arrived. On EMS arrival patient with ROSC and slowly waking up. On arrival patient complaining of anterior chest pain which very much seems musculoskeletal. Vitals with some hypoxia. He has evidence of pulmonary edema on chest x-ray without pneumothorax. His renal function has worsened from baseline. Initial troponin is unremarkable but it is still too early from event. He has no evidence of head injury but as he is on a blood thinner with syncope a CT head was obtained which is negative. CT of the chest and pelvis was also obtained without contrast given his kidney issues which reveals multiple rib fractures possible aspiration of the right lobe and asymmetric pulmonary edema. Initially felt that he had taken his Xarelto this morning but it appears that most likely happened yesterday 24 hours ago. Will defer anticoagulant use plan to primary team and cardiology team. Lactic acid is significantly elevated consistent with hypoxic event versus shock of some sort. He was given some IV fluids. He was also given empiric IV antibiotics for possible sepsis in setting of aspiration. He does not have abdominal tenderness palpation I do not feel that CT angio is immediately indicated given he is on chronic Xarelto as well as avoid giving bolus contrast with his kidneys unless necessary. Patient did have some mildly soft BPs following some Dilaudid that he received due to anterior chest pain felt secondary to multiple rib fractures. Patient without clear evidence of sepsis but does have a significant elevated lactic acid. I do not feel 30/kg IV fluids would be indicated this he was given a 500 mL initial IV bolus of normal saline due to evidence of congestive heart failure, fluid overload and acute renal insufficiency. Prior Medical Record and Triage/Nursing Notes reviewed by Me Outside records and previous hospitalization records reviewed by me. Differentials:Cardiac ischemia, aortic dissection, pulmonary embolism, electrolyte abnormality, acidosis, tension pneumothorax, hypothermia, hypovolemia, intracranial event, cardiac tamponade, as well as other pathologies. Vital Signs: reviewed and remarkable for no significant abnormalities Interventions: Normal saline bolus 500 mL IV, Dilaudid 0.25 mg IV Labs:Reviewed and remarkable for creatinine & lactate elevation amongst multiple other abnormalities and labs all reviewed by me Imaging:X ray results are stated below per my interpretation: Chest: 1 view: Asymmetric right pulmonary edema with enlarged heart. CT of the head without contrast as per my informal interpretation no intracrani al hemorrhage confirmed by radiology. CT of the chest without contrast as per my informal interpretation bilateral rib fractures with right pulmonary edema/aspiration/infiltrate. Confirmed by radiology. CT of the abdomen pelvis without contrast as per my informal interpretation there is no obstruction nor large amount of free fluid. Radiology notes trace free fluid in the pelvis see read on chart. EKG:Indication cardiac arrest. As per my interpretation. Normal sinus rhythm at 74 bpm with no ectopy nor ischemia. When compared to EKG by EMS lateral ST depressions have improved. Cardiac/Tele Monitoring: Cardiac Monitoring: An Order was placed for continuous cardiac monitoring. The monitor shows a rate of 80 with a normal sinus rhythm. Consults:Dr Fabiano Weldon hospitalist Service Plan: Disposition:Hospitalization. Condition: Fair History of Present Illness:72-year-old gentleman arrives to the emergency department for evaluation of cardiac arrest. Patient notes he had been feeling well the last day or so. said he been a bit out of yesterday and then this morning did not seem to be himself. She found him collapsed on the floor shortl y after he had gotten up this morning. Patient was not breathing and no pulse so she started CPR and called 911. On police arrival they to continued CPR. EMS arrived and patient was in agonal respirations so had started regaining a pulse. He was placed on nasal cannula O2 brought to the ER. No interventions prior to arrival other than O2 and compressions. Patient has improved since getting here. Patient complains of anterior chest pain worse with deep breath. Denies any other symptoms. He is not having any abdominal pain back pain headache leg pain or other concerning signs or symptoms states has been taking all his medicines. Home Medications:See Below Allergies:Silver Vitals:Blood Pressure: 116/60, Pulse 72, RR 16, T 37.2C, O2 86% on RA Physical Exam: GENERAL: Patient is uncomfortable appearing and in mild distress. EYES: No scleral icterus, unremarkable pupils. ENT: Mucous membranes moist, no nasal congestion. NECK: No masses appreciated, nomeningismus, trachea is midline. CHEST: TTP bilateral anterior chest, equal rise RESPIRATORY: No dyspnea. Clear to auscultation and equal bilaterally. No wheeze, no rhonchi. CARDIOVASCULAR: Regular rate and rhythm.No murmurs, rubs, gallops appreciated. GASTROINTESTINAL: Abdomen soft, non-tender, no peritonitis.Bowel sounds positive.No masses appreciated. EXTREMITIES: Normal motion all extremities, no cyanosis, no edema. NEUROLOGIC: Alert and oriented, no focal neurologic deficit appreciated SKIN: No rash, no jaundice, no diaphoresis. PSYCH: Appropriate GCS: 15 ED Course: Times/Reassessments: Patient with no memory of the event but he is much improved with some IV fluids and Dilaudid. Blood pressure mildly soft after Dilaudid but he is without complaint. Boo Mata MD Past Med/Surg History Medical History BPH (benign prostatic hyperplasia) CAD (coronary artery disease) Cellulitis of right leg Chronic GERD COPD (chronic obstructive pulmonary disease) Duodenal ulcer High cholesterol HTN (hypertension) Leg ulcer, left Morbid obesity with BMI of 45.0-49.9, adult Neuropathy Obesity PAD (peripheral artery disease) Peptic ulcer disease Surgical History H/O wisdom tooth extraction History of cholecystectomy History of esophagogastroduodenoscopy (EGD) (~02/05/20) History of heart bypass surgery 10/28/2012--DOUBLE> EVANGELINA > FOLLOWS DR. BLACKBURN> JEANNE History of tonsillectomy Hx of angiography 01/29/2020 @ [facility] Hx of colonoscopy Family History Father Diabetes Heart disease Brother AAA (abdominal aortic aneurysm) Other No family history of adverse response to anesthesia Social History Smoking Status: Former smoker Tobacco Type: Cigarettes packs per day: 1; Second Hand Exposure: No; Hx Alcohol Use: No Hx Substance Use: No Preferred Language: Faroese Communication Ability: Effective Visual Impairment: Limited Hearing Ability: Normal Fudge Candy Maker Required: No Beliefs That Will Affect Care: None marital status: Current Living Situation: Spouse current occupational status: employed current occupation: [employer] How many Children do You have: 1 Feels Safe at Home: Yes Childhood Exposure to Second-Hand Smoke: Yes Assistive Devices: None Allergies Allergies Allergy/AdvReac Type Severity Reaction Status Date / Time No Known Drug Allergies Allergy Unknown Verified 09/25/22 13:45 silver AdvReac Mild stinging Verified 09/18/22 10:44 pain Home Meds Home Medications Medication Instructions Recorded Confirmed aspirin 81 mg tablet,delayed 81 mg PO HS 08/14/19 02/24/23 release (Adult Aspirin Regimen) atorvastatin 40 mg tablet (Lipitor) 40 mg PO HS 08/14/19 02/24/23 doxazosin 2 mg tablet (Cardura) 2 mg PO HS 08/14/19 02/24/23 gabapentin 300 mg capsule See Rx Instructions .Route .COMPLEX 08/14/19 02/24/23 (Neurontin) nitroglycerin 0.4 mg sublingual 0.4 mg sublingual Q5M PRN Chest 08/14/19 02/24/23 tablet (Nitrostat) Pain pantoprazole 40 mg tablet,delayed 40 mg PO HS 07/16/20 02/24/23 release (Protonix) metoprolol succinate 50 mg 50 mg PO DAILY 07/25/21 02/24/23 tablet,extended release 24 hr spironolactone 25 mg tablet 25 mg PO DAILY 04/09/22 02/24/23 potassium chloride 20 mEq 20 meq PO TID 06/11/22 02/24/23 tablet,extended release(part/cryst) (Klor-Con M) metolazone 2.5 mg tablet 2.5 mg PO MOWEFR 02/24/23 02/24/23 Previous Rx's Medication Instructions Recorded bumetanide 1 mg tablet 1 mg PO BID17 #60 tabs 08/04/21 rivaroxaban 2.5 mg tablet (Xarelto) 2.5 mg PO BID #60 tabs 06/02/22 Results & Data (ED) Vital Signs Vital Signs - 24 hr 02/24/23 06:28 02/24/23 06:29 02/24/23 07:49 Temperature 37.2 C Temperature Source Oral Pulse Rate 75 75 Pulse Rate [Apical] Pulse Rate from SpO2 Sensor Respiratory Rate 16 Respiratory Effort / Characteristics Non-Labored Spontaneous Respiratory Depth Normal Respiratory Pattern Regular Blood Pressure 116/66 Blood Pressure [Right Arm] Blood Pressure Mean 82 Blood Pressure Mean [Right Arm] Blood Pressure Position [Right Arm] Pulse Oximetry 84 L 97 Oxygen Delivery Method Room Air Nasal Cannula Oxygen Flow Rate 5 Sepsis Recent Fever Within 48 Hours No Sepsis New/Unexplained Change in Mental Status N/A Sepsis Action Taken by Nursing No Action Required 02/24/23 08:00 02/24/23 08:28 02/24/23 07:00 Temperature Temperature Source Pulse Rate 66 Pulse Rate [Apical] 62 63 Pulse Rate from SpO2 Sensor 67 Respiratory Rate 20 16 14 Respiratory Effort / Characteristics Non-Labored Spontaneous Respiratory Depth Normal Normal Respiratory Pattern Blood Pressure 127/81 Blood Pressure [Right Arm] 121/57 L 94/58 L Blood Pressure Mean 96 Blood Pressure Mean [Right Arm] 78 70 Blood Pressure Position [Right Arm] Lying Pulse Oximetry 97 93 96 Oxygen Delivery Method Nasal Cannula Nasal Cannula Oxygen Flow Rate 5 4 Sepsis Recent Fever Within 48 Hours Sepsis New/Unexplained Change in Mental Status Sepsis Action Taken by Nursing 02/24/23 08:01 02/24/23 08:27 02/24/23 08:54 Temperature Temperature Source Pulse Rate 64 64 64 Pulse Rate [Apical] Pulse Rate from SpO2 Sensor 65 65 63 Respiratory Rate 16 14 15 Respiratory Effort / Characteristics Respiratory Depth Respiratory Pattern Blood Pressure 121/57 L 94/58 L 113/67 Blood Pressure [Right Arm] Blood Pressure Mean 78 70 82 Blood Pressure Mean [Right Arm] Blood Pressure Position [Right Arm] Pulse Oximetry 99 92 95 Oxygen Delivery Method Nasal Cannula Nasal Cannula Oxygen Flow Rate 3 3 Sepsis Recent Fever Within 48 Hours Sepsis New/Unexplained Change in Mental Status Sepsis Action Taken by Nursing 02/24/23 09:00 Temperature Temperature Source Pulse Rate 62 Pulse Rate [Apical] Pulse Rate from SpO2 Sensor 63 Respiratory Rate 15 Respiratory Effort / Characteristics Respiratory Depth Respiratory Pattern Blood Pressure 114/87 Blood Pressure [Right Arm] Blood Pressure Mean 96 Blood Pressure Mean [Right Arm] Blood Pressure Position [Right Arm] Pulse Oximetry 95 Oxygen Delivery Method Nasal Cannula Oxygen Flow Rate 3 Sepsis Recent Fever Within 48 Hours Sepsis New/Unexplained Change in Mental Status Sepsis Action Taken by Nursing Laboratory Data 02/24/23 06:52 02/24/23 06:52 Lab Results 02/24/23 02/24/23 02/24/23 Range/Units 06:52 06:52 06:52 WBC 12.65 H (4.8-10.8) K/ul RBC 4.59 L (4.70-6.10) M/uL Hgb 12.4 L (14.0-18.0) g/dl POC Hgb (14.0-18.0) g/dl Hct 39.6 L (42.0-52.0) % POC Hct (42-52) % MCV 86.3 (80.0-100.0) fL MCH 27.0 (25.0-34.0) pg MCHC 31.3 L (32.0-36.0) g/dL RDW Std Deviation 44.5 (36.4-46.3) fL RDW Coeff of Alan 14.5 (11.5-14.5) % Plt Count 227 (130-400) K/uL MPV 11.6 (9.4-12.4) fL Immature Gran % (Auto) 1.3 % Neut % (Auto) 82.5 % Lymph % (Auto) 10.4 % Anson % (Auto) 4.0 % Eos % (Auto) 1.4 % Baso % (Auto) 0.4 % Neut # (Auto) 10.43 H (1.40-6.50) K/uL Lymph # (Auto) 1.32 (1.2-3.4) K/uL Anson # (Auto) 0.51 (0.11-0.59) K/uL Eos # (Auto) 0.18 (0-0.50) K/uL Baso # (Auto) 0.05 (0-0.2) K/uL Immature Gran # (Auto) 0.16 (0.01-0.20) K/uL PT (9.0-12.0) Seconds INR (0.9-1.1) APTT (21.0-31.0) Seconds PTT Ratio D-Dimer (0-500) ug/L FEU POC Sodium (135-144) mmol/L Sodium 140 (136-145) mmol/L POC Potassium (3.3-5.0) mmol/L Potassium 3.1 L (3.5-5.1) mmol/L POC Chloride (101-112) mmol/L Chloride 100 (98-107) mmol/L Carbon Dioxide 23 (21-32) mmol/L POC Total CO2 (24-31) mmol/L Anion Gap 17 H (3-11) POC Anion Gap (16-25) mmol/L POC BUN (7-18) mg/dl BUN 31 H (6-23) mg/dl Creatinine 2.06 H (0.6-1.4) mg/dl POC Creatinine (0.6-1.3) mg/dl Est Cr Clr Drug Dosing 45.5 ml/min Est GFR ( Amer) 36.0 ml/min Est GFR (Non-Af Amer) 31.0 ml/min BUN/Creatinine Ratio 15.0 (10-20) Glucose 173 H (70-99(Fasting)) mg/dl POC Glucose (other) (70-99) mg/dl Lactate (0.4-2.0) mmol/L Calcium 8.7 (8.6-10.3) mg/dl POC Ioniz Calcium Fidencio (1.12-1.32) mmol/l Magnesium 2.1 (1.7-2.4) mg/dl Total Bilirubin 0.7 (0.2-1.0) mg/dl Direct Bilirubin 0.2 (0-0.2) mg/dl AST 27 (13-39) U/L ALT 19 (7-52) U/L Alkaline Phosphatase 59 (34-104) U/L Total Creatine Kinase (30-223) U/L Troponin I High Sens 20.1 H (0-20) pg/ml Total Protein 6.5 (6.0-8.3) gm/dl Albumin 3.7 (3.4-5.0) gm/dl Procalcitonin < 0.05 (0-0.5) ng/ml SARS-CoV-2 (PCR) (Negative) Influenza Type A (PCR) (Neg) Influenza Type B (PCR) (Neg) RSV (RT-PCR) (Neg) 02/24/23 02/24/23 02/24/23 Range/Units 06:53 06:53 06:55 WBC (4.8-10.8) K/ul RBC (4.70-6.10) M/uL Hgb (14.0-18.0) g/dl POC Hgb (14.0-18.0) g/dl Hct (42.0-52.0) % POC Hct (42-52) % MCV (80.0-100.0) fL MCH (25.0-34.0) pg MCHC (32.0-36.0) g/dL RDW Std Deviation (36.4-46.3) fL RDW Coeff of Alan (11.5-14.5) % Plt Count (130-400) K/uL MPV (9.4-12.4) fL Immature Gran % (Auto) % Neut % (Auto) % Lymph % (Auto) % Anson % (Auto) % Eos % (Auto) % Baso % (Auto) % Neut # (Auto) (1.40-6.50) K/uL Lymph # (Auto) (1.2-3.4) K/uL Anson # (Auto) (0.11-0.59) K/uL Eos # (Auto) (0-0.50) K/uL Baso # (Auto) (0-0.2) K/uL Immature Gran # (Auto) (0.01-0.20) K/uL PT 15.6 H (9.0-12.0) Seconds INR 1.5 H (0.9-1.1) APTT 25.5 (21.0-31.0) Seconds PTT Ratio 0.9 D-Dimer (0-500) ug/L FEU POC Sodium (135-144) mmol/L Sodium (136-145) mmol/L POC Potassium (3.3-5.0) mmol/L Potassium (3.5-5.1) mmol/L POC Chloride (101-112) mmol/L Chloride (98-107) mmol/L Carbon Dioxide (21-32) mmol/L POC Total CO2 (24-31) mmol/L Anion Gap (3-11) POC Anion Gap (16-25) mmol/L POC BUN (7-18) mg/dl BUN (6-23) mg/dl Creatinine (0.6-1.4) mg/dl POC Creatinine (0.6-1.3) mg/dl Est Cr Clr Drug Dosing ml/min Est GFR ( Amer) ml/min Est GFR (Non-Af Amer) ml/min BUN/Creatinine Ratio (10-20) Glucose (70-99(Fasting)) mg/dl POC Glucose (other) (70-99) mg/dl Lactate 5.8 H* (0.4-2.0) mmol/L Calcium (8.6-10.3) mg/dl POC Ioniz Calcium Fidencio (1.12-1.32) mmol/l Magnesium (1.7-2.4) mg/dl Total Bilirubin (0.2-1.0) mg/dl Direct Bilirubin (0-0.2) mg/dl AST (13-39) U/L ALT (7-52) U/L Alkaline Phosphatase (34-104) U/L Total Creatine Kinase (30-223) U/L Troponin I High Sens (0-20) pg/ml Total Protein (6.0-8.3) gm/dl Albumin (3.4-5.0) gm/dl Procalcitonin (0-0.5) ng/ml SARS-CoV-2 (PCR) NEGATIVE (Negative) Influenza Type A (PCR) Negative (Neg) Influenza Type B (PCR) Negative (Neg) RSV (RT-PCR) Negative (Neg) 02/24/23 02/24/23 02/24/23 Range/Units 07:00 08:16 08:16 WBC (4.8-10.8) K/ul RBC (4.70-6.10) M/uL Hgb (14.0-18.0) g/dl POC Hgb 13.3 L (14.0-18.0) g/dl Hct (42.0-52.0) % POC Hct 39 L (42-52) % MCV (80.0-100.0) fL MCH (25.0-34.0) pg MCHC (32.0-36.0) g/dL RDW Std Deviation (36.4-46.3) fL RDW Coeff of Alan (11.5-14.5) % Plt Count (130-400) K/uL MPV (9.4-12.4) fL Immature Gran % (Auto) % Neut % (Auto) % Lymph % (Auto) % Anson % (Auto) % Eos % (Auto) % Baso % (Auto) % Neut # (Auto) (1.40-6.50) K/uL Lymph # (Auto) (1.2-3.4) K/uL Anson # (Auto) (0.11-0.59) K/uL Eos # (Auto) (0-0.50) K/uL Baso # (Auto) (0-0.2) K/uL Immature Gran # (Auto) (0.01-0.20) K/uL PT (9.0-12.0) Seconds INR (0.9-1.1) APTT (21.0-31.0) Seconds PTT Ratio D-Dimer 6750 H* (0-500) ug/L FEU POC Sodium 140 (135-144) mmol/L Sodium (136-145) mmol/L POC Potassium 3.2 L (3.3-5.0) mmol/L Potassium (3.5-5.1) mmol/L POC Chloride 97 L (101-112) mmol/L Chloride (98-107) mmol/L Carbon Dioxide (21-32) mmol/L POC Total CO2 28 (24-31) mmol/L Anion Gap (3-11) POC Anion Gap 20.0 (16-25) mmol/L POC BUN 31 H (7-18) mg/dl BUN (6-23) mg/dl Creatinine (0.6-1.4) mg/dl POC Creatinine 2.3 H (0.6-1.3) mg/dl Est Cr Clr Drug Dosing ml/min Est GFR ( Amer) ml/min Est GFR (Non-Af Amer) ml/min BUN/Creatinine Ratio (10-20) Glucose (70-99(Fasting)) mg/dl POC Glucose (other) 193 H (70-99) mg/dl Lactate (0.4-2.0) mmol/L Calcium (8.6-10.3) mg/dl POC Ioniz Calcium Fidencio 1.04 L (1.12-1.32) mmol/l Magnesium (1.7-2.4) mg/dl Total Bilirubin (0.2-1.0) mg/dl Direct Bilirubin (0-0.2) mg/dl AST (13-39) U/L ALT (7-52) U/L Alkaline Phosphatase (34-104) U/L Total Creatine Kinase 60 (30-223) U/L Troponin I High Sens (0-20) pg/ml Total Protein (6.0-8.3) gm/dl Albumin (3.4-5.0) gm/dl Procalcitonin (0-0.5) ng/ml SARS-CoV-2 (PCR) (Negative) Influenza Type A (PCR) (Neg) Influenza Type B (PCR) (Neg) RSV (RT-PCR) (Neg) 02/24/23 Range/Units 08:37 WBC (4.8-10.8) K/ul RBC (4.70-6.10) M/uL Hgb (14.0-18.0) g/dl POC Hgb (14.0-18.0) g/dl Hct (42.0-52.0) % POC Hct (42-52) % MCV (80.0-100.0) fL MCH (25.0-34.0) pg MCHC (32.0-36.0) g/dL RDW Std Deviation (36.4-46.3) fL RDW Coeff of Alan (11.5-14.5) % Plt Count (130-400) K/uL MPV (9.4-12.4) fL Immature Gran % (Auto) % Neut % (Auto) % Lymph % (Auto) % Anson % (Auto) % Eos % (Auto) % Baso % (Auto) % Neut # (Auto) (1.40-6.50) K/uL Lymph # (Auto) (1.2-3.4) K/uL Anson # (Auto) (0.11-0.59) K/uL Eos # (Auto) (0-0.50) K/uL Baso # (Auto) (0-0.2) K/uL Immature Gran # (Auto) (0.01-0.20) K/uL PT (9.0-12.0) Seconds INR (0.9-1.1) APTT (21.0-31.0) Seconds PTT Ratio D-Dimer (0-500) ug/L FEU POC Sodium (135-144) mmol/L Sodium (136-145) mmol/L POC Potassium (3.3-5.0) mmol/L Potassium (3.5-5.1) mmol/L POC Chloride (101-112) mmol/L Chloride (98-107) mmol/L Carbon Dioxide (21-32) mmol/L POC Total CO2 (24-31) mmol/L Anion Gap (3-11) POC Anion Gap (16-25) mmol/L POC BUN (7-18) mg/dl BUN (6-23) mg/dl Creatinine (0.6-1.4) mg/dl POC Creatinine (0.6-1.3) mg/dl Est Cr Clr Drug Dosing ml/min Est GFR ( Amer) ml/min Est GFR (Non-Af Amer) ml/min BUN/Creatinine Ratio (10-20) Glucose (70-99(Fasting)) mg/dl POC Glucose (other) (70-99) mg/dl Lactate 3.4 H* (0.4-2.0) mmol/L Calcium (8.6-10.3) mg/dl POC Ioniz Calcium Fidencio (1.12-1.32) mmol/l Magnesium (1.7-2.4) mg/dl Total Bilirubin (0.2-1.0) mg/dl Direct Bilirubin (0-0.2) mg/dl AST (13-39) U/L ALT (7-52) U/L Alkaline Phosphatase (34-104) U/L Total Creatine Kinase (30-223) U/L Troponin I High Sens (0-20) pg/ml Total Protein (6.0-8.3) gm/dl Albumin (3.4-5.0) gm/dl Procalcitonin (0-0.5) ng/ml SARS-CoV-2 (PCR) (Negative) Influenza Type A (PCR) (Neg) Influenza Type B (PCR) (Neg) RSV (RT-PCR) (Neg) Administered Medications Sodium Chloride (Nss 1000ml) 1,000 mls @ 65 mls/hr IV .[id number] MARY BETH Stop: 02/25/23 17:01 Last Admin: 02/24/23 10:37 Dose: 65 mls/hr Documented By: NH Oxycodone HCl (Oxycodone Hcl Ir 5 Mg Tab (Immediate Release)) 5 mg PO Q4H PRN PRN Reason: MODERATE Pain (4,5,6) & Pre PT Stop: 03/10/23 12:38 Last Admin: 02/24/23 12:57 Dose: 5 mg Documented By: KJL Discontinued Medications Hydromorphone HCl (Hydromorphone Inj 0.5 Mg/0.5 Ml Syr) 0.25 mg IV NOW STA Stop: 02/24/23 07:38 Last Admin: 02/24/23 07:57 Dose: 0.25 mg Documented By: NITIN Sodium Chloride (Nss 1000ml) 500 mls @ 999 mls/hr IV .Q31M ONE Stop: 02/24/23 08:04 Last Infusion: 02/24/23 08:32 Dose: 0 mls/hr Documented By: Admin: 02/24/23 07:58 Dose: 999 mls/hr Documented By: NITIN Ampicillin Sodium/Sulbactam Sodium 3,000 mg/ Sodium Chloride 108 mls @ 200 mls/hr IV NOW STA; Protocol Stop: 02/24/23 08:53 Last Infusion: 02/24/23 10:26 Dose: 0 mls/hr Documented By: Admin: 02/24/23 09:28 Dose: 200 mls/hr Documented By: STEPHANIE Potassium Chloride (K Ricci / Wtr) 10 meq in 100 mls @ 100 mls/hr IV Q1H MARY BETH; Protocol Stop: 02/24/23 12:44 Last Admin: 02/24/23 12:41 Dose: 100 mls/hr Documented By: CARSON Calcium Gluconate 2,000 mg/ (Dextrose) 70 mls @ 140 mls/hr IV NOW ONE Stop: 02/24/23 13:14 Last Admin: 02/24/23 12:55 Dose: 140 mls/hr Documented By: CARSON Potassium Chloride (Potassium Chloride Crtab 20 Meq Tabcr) 40 meq PO NOW STA Stop: 02/24/23 10:43 Last Admin: 02/24/23 12:41 Dose: 40 meq Documented By: CARSON Imaging Data Radiologist's Impression: Chest X-Ray 02/24/23 06:29 XR chest 1V portable HISTORY: Sepsis COMPARISON: 07/25/2021. FINDINGS: No pneumothorax. The cardiac silhouette is mildly enlarged. There is progressive interstitial/vascular thickening, right greater than the left, consistent with mild ulnar edema. No significant pleural fusions. There are p oststernotomy changes. IMPRESSION: Cardiomegaly with interval development of asymmetric pulmonary edema. ACT 112: Negative or not required by law. Electronically signed by: Regan Yousif M.D. 02/24/2023 7:[address] 02/24/23 06:[address] DOSE: 926.94 mGycm HISTORY: Unresponsive. cardiac arrest TECHNIQUE: Multiaxial CT images of the head were performed without the use of intravenous contrast. Automated exposure control was utilized for this study. A dose lowering technique was utilized adhering to the principles of ALARA. Comparison: None. Findings: The paranasal sinuses and mastoid air cells are clear. The calvarium and skull base are intact. The ventricles and sulci are within normal limits. There is no mass, hematoma, midline shift, or acute infarct. Impression: No acute intracranial abnormality. ACT 112: Negative or not required by law. Electronically signed by: Rgean Yousif M.D. 02/24/2023 7:42 AM Abdomen/Pelvis CT 02/24/23 07:01 CT SCAN OF THE CHEST, ABDOMEN, AND PELVIS WITHOUT IV CONTRAST CLINICAL HISTORY: Status post cardiac arrest. COMPARISON STUDY: Chest x-ray dated 02/24/2023. Abdominal CT dated 11/21/2019. TECHNIQUE: Unenhanced CT scan of the chest, abdomen, and pelvis was performed from the thoracic inlet to the proximal femora. Images are reviewed in the axial, sagittal, and coronal planes. IV contrast was not administered for this examination. A dose lowering technique was utilized adhering to the principles of ALARA. CT DOSE: 627.21 mGycm (accession [id number]), 970.06 mGycm (accession [id number]) FINDINGS: CHEST: Thyroid: Imaged portions of the thyroid gland are normal in size and attenuation. Thoracic aorta: There is atherosclerotic calcification of the thoracic aorta, which is normal in caliber and demonstrates standard 3-vessel arch anatomy. Heart: The patient is status post midline sternotomy. The heart is enlarged noting a moderate pericardial effusion. The coronary arteries extensive calcified. Lungs and pleural spaces: Evaluation of the lung parenchyma is degraded by motion artifact. Emphysematous change is noted. Diffuse intralobular septal thickening indicates fluid overload/congestive failure. There are trace pleural effusions. There is multifocal ground glass consolidation seen throughout both lungs. This is most confluent posteriorly within the right upper and lower lobes. The trachea and central airways are clear. There is a 4 mm pleural-based nodule in the left upper lobe seen on image #105. No pneumothorax is seen. Mediastinum: There is no mediastinal lymphadenopathy. Berenice: Not well assessed without contrast. Axillae: There is no axillary lymphadenopathy. Bony thorax: The skeletal structures are osteopenic. There are acute right anterior 2nd through 7th rib fractures, as well as acute left anterior 3rd through 7th rib fractures. There is fracture of the 2nd anterior costal cartilage. Degenerative change is seen throughout the thoracic spine. No lytic or blastic lesions are identified. ABDOMEN AND PELVIS: Liver: The unenhanced liver is normal in size, contour, and attenuation. There is no intra- or extrahepatic biliary ductal dilatation. Gallbladder: Surgically absent noting clips in the gallbladder fossa. Spleen: Normal in size and attenuation. Pancreas: Unremarkable. Adrenal glands: A 2.4 cm left adrenal adenoma is unchanged, as is calcification of the right adrenal gland. Kidneys: The unenhanced kidneys demonstrate cortical atrophy and are without hydronephrosis. No renal calculi are identified. There is no evidence of contour deforming renal mass lesion. Abdominal vasculature: There is advanced atherosclerotic calcification and mild ectasia of the abdominal aorta. Bowel: The small bowel and colon are normal in course and caliber. The appendix is well-visualized and normal. Peritoneum: No intraperitoneal free air is seen. There is trace fluid in the paracolic gutter and pelvis. There is a fat-containing umbilical hernia. Lymphadenopathy: None. Pelvic viscera: The prostate gland is mildly enlarged and heterogeneous. The bladder is decompressed, and the wall appears thickened/trabeculated indicating chronic outlet obstruction. Skeletal structures: The skeletal structures are osteopenic. There is moderate lumbosacral spondylosis. No lytic or blastic lesions are seen. IMPRESSION: 1. There are numerous acute bilateral anterior rib fractures as above. 2. Emphysema. 3. Cardiomegaly and moderate pericardial effusion with evidence of fluid overload/congestive failure. 4. Multifocal groundglass consolidation is seen throughout both lungs as above. This likely represents pulmonary edema. Correlate clinically for evidence of superimposed pneumonia/aspiration pneumonitis or possibly pulmonary hemorrhage. 5. There is no pneumothorax. 6. Trace pleural effusions. 7. There is no evidence of solid organ injury in the abdomen or pelvis on this unenhanced examination. 8. There is trace free fluid in the left paracolic gutter and pelvis. This could be related to hydration status. If there is clinical concern for occult injury consider short-term CT follow-up. 9. Additional findings as above. ACT 112: Negative or not required by law. Electronically signed by: Juan Carlos Krishna M.D. 02/24/2023 8:[address] 02/24/23 07:01 CT SCAN OF THE CHEST, ABDOMEN, AND PELVIS WITHOUT IV CONTRAST CLINICAL HISTORY: Status post cardiac arrest. COMPARISON STUDY: Chest x-ray dated 02/24/2023. Abdominal CT dated 11/21/2019. TECHNIQUE: Unenhanced CT scan of the chest, abdomen, and pelvis was performed from the thoracic inlet to the proximal femora. Images are reviewed in the a xial, sagittal, and coronal planes. IV contrast was not administered for this examination. A dose lowering technique was utilized adhering to the principles of ALARA. CT DOSE: 627.21 mGycm (accession [id number]), 970.06 mGycm (accession [id number]) FINDINGS: CHEST: Thyroid: Imaged portions of the thyroid gland are normal in size and attenuation. Thoracic aorta: There is atherosclerotic calcification of the thoracic aorta, which is normal in caliber and demonstrates standard 3-vessel arch anatomy. Heart: The patient is status post midline sternotomy. The heart is enlarged noting a moderate pericardial effusion. The coronary arteries extensive calcified. Lungs and pleural spaces: Evaluation of the lung parenchyma is degraded by motion artifact. Emphysematous change is noted. Diffuse intralobular septal thi ckening indicates fluid overload/congestive failure. There are trace pleural effusions. There is multifocal ground glass consolidation seen throughout both lungs. This is most confluent posteriorly within the right upper and lower lobes. The trachea and central airways are clear. There is a 4 mm pleural-based nodule in the left upper lobe seen on image #105. No pneumothorax is seen. Mediastinum: There is no mediastinal lymphadenopathy. Berenice: Not well assessed without contrast. Axillae: There is no axillary lymphadenopathy. Bony thorax: The skeletal structures are osteopenic. There are acute right anterior 2nd through 7th rib fractures, as well as acute left anterior 3rd through 7th rib fractures. There is fracture of the 2nd anterior costal cartilage. Degenerative change is seen throughout the thoracic spine. No lytic or blastic lesions are identified. ABDOMEN AND PELVIS: Liver: The unenhanced liver is normal in size, contour, and attenuation. There is no intra- or extrahepatic biliary ductal dilatation. Gallbladder: Surgically absent noting clips in the gallbladder fossa. Spleen: Normal in size and attenuation. Pancreas: Unremarkable. Adrenal glands: A 2.4 cm left adrenal adenoma is unchanged, as is calcification of the right adrenal gland. Kidneys: The unenhanced kidneys demonstrate cortical atrophy and are without hydronephrosis. No renal calculi are identified. There is no evidence of contour deforming renal mass lesion. Abdominal vasculature: There is advanced atherosclerotic calcification and mild ectasia of the abdominal aorta. Bowel: The small bowel and colon are normal in course and caliber. The appendix is well-visualized and normal. Peritoneum: No intraperitoneal free air is seen. There is trace fluid in the paracolic gutter and pelvis. There is a fat-containing umbilical hernia. Lymphadenopathy: None. Pelvic viscera: The prostate gland is mildly enlarged and heterogeneous. The bladder is decompressed, and the wall appears thickened/trabeculated indicating chronic outlet obstruction. Skeletal structures: The skeletal structures are osteopenic. There is moderate lumbosacral spondylosis. No lytic or blastic lesions are seen. IMPRESSION: 1. There are numerous acute bilateral anterior rib fractures as above. 2. Emphysema. 3. Cardiomegaly and moderate pericardial effusion with evidence of fluid overload/congestive failure. 4. Multifocal groundglass consolidation is seen throughout both lungs as above. This likely represents pulmonary edema. Correlate clinically for evidence of superimposed pneumonia/aspiration pneumonitis or possibly pulmonary hemorrhage. 5. There is no pneumothorax. 6. Trace pleural effusions. 7. There is no evidence of solid organ injury in the abdomen or pelvis on this unenhanced examination. 8. There is trace free fluid in the left paracolic gutter and pelvis. This could be related to hydration status. If there is clinical concern for occult injury consider short-term CT follow-up. 9. Additional findings as above. ACT 112: Negative or not required by law. Electronically signed by: Juan Carlos Krishna M.D. 02/24/2023 8:18 AM Discharge Plan Visit Data Chief Complaint: Cardiac Assessment Stated Complaint: Possible post arrest ED Provider: Boo Mata Discharge Problem: Cardiac arrest, Lactic acidosis, Aspiration pneumonia of right lower lobe, Multiple closed fractures of ribs of both sides, Syncope and collapse Patient Disposition: Admitted As Inpatient Discharge Instructions Interventions: ED Discharge Assessment Last Done: 02/24/23 10:40
[2023-02-24 07:12] LABS: iSTAT Creatinine 2.3 mg/dl (0.6-1.3); iSTAT Hemoglobin 13.3 g/dl (14.0-18.0); iSTAT Ionized Calcium 1.04 mmol/l (1.12-1.32); iSTAT Potassium 3.2 mmol/L (3.3-5.0)
--- NOTE | 2023-02-24 07:24 | XRay Report ---
XR chest 1V portable HISTORY: Sepsis COMPARISON: 07/25/2021. FINDINGS: No pneumothorax. The cardiac silhouette is mildly enlarged. There is progressive interstiti al/vascular thickening, right greater than the left, consistent with mild ulnar edema. No significant pleural fusions. There are poststernotomy changes. IMPRESSION: Cardiomegaly with interval development of asymmetric pulmonary edema. ACT 112: Negative or not required by law. Electronically signed by: Regan Yousif M.D. 02/24/2023 7:23 AM
[2023-02-24] MEDS ORDERED: SODIUM CHLORIDE 0.9% 1000ML 500 ML IV ONE (07:34)
[2023-02-24] MEDS ORDERED: HYDROmorphone INJ 0.5 MG/0.5 ML SYR IV STA (07:37)
[2023-02-24 07:40] LABS: Basophils # (auto) 0.05 K/uL (0-0.2); Basophils % (auto) 0.4 %; Eosinophils # (auto) 0.18 K/uL (0-0.50); Eosinophils % (auto) 1.4 %; Hematocrit (blood only) 39.6 % (42.0-52.0); Hemoglobin 12.4 g/dl (14.0-18.0); Immature Granulocytes # (auto) 0.16 K/uL (0.01-0.20); Immature Granulocytes % (auto) 1.3 %; Lymphocytes # (auto) 1.32 K/uL (1.2-3.4); Lymphocytes % (auto) 10.4 %; Mean Corpuscular Hgb Conc 31.3 g/dL (32.0-36.0); Mean Corpuscular Volume 86.3 fL (80.0-100.0); Mean Platelet Volume 11.6 fL (9.4-12.4); Monocytes # (auto) 0.51 K/uL (0.11-0.59); Neutrophils # (auto) 10.43 K/uL (1.40-6.50); Neutrophils % (auto) 82.5 %; Platelet Count 227 K/uL (130-400); RDW Coefficient of Variation 14.5 % (11.5-14.5); RDW Standard Deviation 44.5 fL (36.4-46.3); Red Blood Count 4.59 M/uL (4.70-6.10); White Blood Count 12.65 K/ul (4.8-10.8)
--- NOTE | 2023-02-24 07:44 | CT Scan Report ---
HEAD CT NONCONTRAST CT DOSE: 926.94 mGycm HISTORY: Unresponsive. cardiac arrest TECHNIQUE: Multiaxial CT images of the head were performed without the use of intravenous contrast. A utomated exposure control was utilized for this study. A dose lowering technique was utilized adheri ng to the principles of ALARA. Comparison: None. Findings: The paranasal sinuses and mastoid air cells are clear. The calvarium and skull base are int act. The ventricles and sulci are within normal limits. There is no mass, hematoma, midline shift, or acute infarct. Impression: No acute intracranial abnormality. ACT 112: Negative or not required by law. Electronically signed by: Regan Yousif M.D. 02/24/2023 7:42 AM
[2023-02-24 08:12] LABS: INR 1.5 (0.9-1.1); Partial Thromboplastin Ratio 0.9; Partial Thromboplastin Time 25.5 Seconds (21.0-31.0); Prothrombin Time 15.6 Seconds (9.0-12.0)
[2023-02-24 08:12] LABS: Influenza A virus by PCR Negative (Neg); Influenza B virus by PCR Negative (Neg); RSV by PCR Negative (Neg); SARS CoV2 RNA(COVID-19) Ceph NEGATIVE (Negative)
--- NOTE | 2023-02-24 08:19 | CT Scan Report ---
CT SCAN OF THE CHEST, ABDOMEN, AND PELVIS WITHOUT IV CONTRAST CLINICAL HISTORY: Status post cardiac arrest. COMPARISON STUDY: Chest x-ray dated 02/24/2023. Abdominal CT dated 11/21/2019. TECHNIQUE: Unenhanced CT scan of the chest, abdomen, and pelvis was performed from the thoracic inlet to the proximal femora. Images are reviewed in the axial, sagittal, and coronal planes. IV contrast was not administered for this examination. A dose lowering technique was utilized adhering to the pr inciples of CISCO. CT DOSE: 627.21 mGycm (accession [id number]), 970.06 mGycm (accession [id number]) FINDINGS: CHEST: Thyroid: Imaged portions of the thyroid gland are normal in size and attenuation. Thoracic aorta: There is atherosclerotic calcification of the thoracic aorta, which is normal in [place] and demonstrates standard 3-vessel arch anatomy. Heart: The patient is status post midline sternotomy. The heart is enlarged noting a moderate pericar dial effusion. The coronary arteries extensive calcified. Lungs and pleural spaces: Evaluation of the lung parenchyma is degraded by motion artifact. Emphysema tous change is noted. Diffuse intralobular septal thickening indicates fluid overload/congestive fail ure. There are trace pleural effusions. There is multifocal ground glass consolidation seen throughou t both lungs. This is most confluent posteriorly within the right upper and lower lobes. The trachea and central airways are clear. There is a 4 mm pleural-based nodule in the left upper lobe seen on im age #105. No pneumothorax is seen. Mediastinum: There is no mediastinal lymphadenopathy. Berenice: Not well assessed without contrast. Axillae: There is no axillary lymphadenopathy. Bony thorax: The skeletal structures are osteopenic. There are acute right anterior 2nd through 7th r ib fractures, as well as acute left anterior 3rd through 7th rib fractures. There is fracture of the 2nd anterior costal cartilage. Degenerative change is seen throughout the thoracic spine. No lytic or blastic lesions are identified. ABDOMEN AND PELVIS: Liver: The unenhanced liver is normal in size, contour, and attenuation. There is no intra- or extrah epatic biliary ductal dilatation. Gallbladder: Surgically absent noting clips in the gallbladder fossa. Spleen: Normal in size and attenuation. Pancreas: Unremarkable. Adrenal glands: A 2.4 cm left adrenal adenoma is unchanged, as is calcification of the right adrenal gland. Kidneys: The unenhanced kidneys demonstrate cortical atrophy and are without hydronephrosis. No renal calculi are identified. There is no evidence of contour deforming renal mass lesion. Abdominal vasculature: There is advanced atherosclerotic calcification and mild ectasia of the abdomi nal aorta. Bowel: The small bowel and colon are normal in course and caliber. The appendix is well-visualized a nd normal. Peritoneum: No intraperitoneal free air is seen. There is trace fluid in the paracolic gutter and pel vis. There is a fat-containing umbilical hernia. Lymphadenopathy: None. Pelvic viscera: The prostate gland is mildly enlarged and heterogeneous. The bladder is decompressed, and the wall appears thickened/trabeculated indicating chronic outlet obstruction. Skeletal structures: The skeletal structures are osteopenic. There is moderate lumbosacral spondylosi s. No lytic or blastic lesions are seen. IMPRESSION: 1. There are numerous acute bilateral anterior rib fractures as above. 2. Emphysema. 3. Cardiomegaly and moderate pericardial effusion with evidence of fluid overload/congestive failure. 4. Multifocal groundglass consolidation is seen throughout both lungs as above. This likely represent s pulmonary edema. Correlate clinically for evidence of superimposed pneumonia/aspiration pneumonitis or possibly pulmonary hemorrhage. 5. There is no pneumothorax. 6. Trace pleural effusions. 7. There is no evidence of solid organ injury in the abdomen or pelvis on this unenhanced examination . 8. There is trace free fluid in the left paracolic gutter and pelvis. This could be related to hydrat ion status. If there is clinical concern for occult injury consider short-term CT follow-up. 9. Additional findings as above. ACT 112: Negative or not required by law. Electronically signed by: Juan Carlos Krishna M.D. 02/24/2023 8:18 AM
[2023-02-24] MEDS ORDERED: AMPICILLIN/SULBACTAM SOD 3,000 MG in 0.9 % SODIUM CHLORIDE 100 ML IV STA (08:21)
[2023-02-24 08:49] LABS: Troponin I High Sensitivity 20.1 pg/ml (0-20)
--- NOTE | 2023-02-24 09:02 | History & Physical Report ---
Date of Service February 24, 2023 Assessment & Plan (1) Syncope: (2) Hypoxia: (3) Lactic acidosis: (4) Hypocalcemia: (5) Acute renal failure superimposed on stage 3 chronic kidney disease: (6) CAD (coronary artery disease): (7) COPD (chronic obstructive pulmonary disease): (8) PAD (peripheral artery disease): (9) HTN (hypertension): (10) Pre-diabetes: Plan This is a 72-year-old male who has significant past medical history of CAD status post CABG x2 in 2011, chronic HFpEF, chronic small pericardial effusion, PAD status post atherectomy and angioplasty managed on Xarelto, HTN, HLD, prediabetes, CKD stage III with baseline creatinine of 1.6-1.7, chronic venous insufficiency, COPD, former tobacco abuser who presents to ED after sustaining a syncopal/collapse episode prior to arrival. Patient had unexplained syncopal/collapse this morning that was unwitnessed in which he does not recall any of the events. Last event he recalls was being in the bathroom this morning and was trying to make it back to his bedroom. Syncope/unexplained collapse elevated troponin ?cardiac etiology vs arrhythmia, vs PE, Vs hypotensive episode, vs vasovagal (given pt does not recall any events feel this is less likely) admit to ICU, continue cardiac monitoring consult cardiology - pt follows closely with Dr. Blackburn last echo was 01/26/23 which showed preserved EF 55%, mild AV stenosis, mild chronic pericardial effusion give gentle IVF x 2 L @ 65cc/hr in setting of ELIZ, bnp only minimally elevated, hold diuretics for now cycle troponin obtain d-dimer, likely elevated in setting of rib fx and obtain b/l dopplers, when renal fxn improves consider CT PE unless dimer negative Hypocalcemia give 2g calc gluc x 1 now Hypokalemia replete, give 40meq KCL po x 1 now; give KCL rider 10meq x 1 Lactic acidosis likely secondary to hypoperfusion vs hypoxia will continue IVF, trend lactic acid Hypoxia B/L rib fx 2/2 traumatic from CPR Anterior R 2-7th; L 3-7th; 2nd anterior costal cartilage fx continue O2 supplementation incentive spirometry Prn Oxy IR mod pain; IV morphine severe pain scheduled bowel regimen lidocaine patches Chest CT did mention b/l pleural effusions again likely 2/2 fracture; also of concern was ? asp PNA. He did receive Unasyn in ED. He is w/o resp complaint and procal negative will monitor off antibiotics for now Leukocytosis he does not meet SIRS/SEPSIS criteria will monitor off antibiotic blood/urine culture ordered, follow A/C CKD -3 baseline cr 1.6-7 cr 2.0 ? atn in setting of hypoperfusion vs dehydration continue gentle fluids CAD hx of CABG x 2 PAD w/ hx of angioplasty Chronic HFpEf HTN continue asa, statin, metoprolol hold bumex, metolazone for now hold xarelto due to trauma from rib fx Cycle trops, ecg w/o ischemic change COPD, emphysema hx of tobacco abuse no acute exac Pre DM a1c 6.3, 02/15/[address] on insulin SS if BSG remains elevated consider adding Lantus BID DVT ppx: SCDS for now, xarelto on hold FULL CODE PCP: Alvin Dispo: Admit to ICU, return to home when medically stable A total of 90 minutes was spent with greater than 50% of that time personally viewing all current laboratory work and diagnostic imaging studies obtained in the ED. Additionally, I was able to view the patients past medication reconciliation and history with direct visualization in the patients chart. Included in the time above, a portion of that time was spent assessing the pa tient while discussing and collaborating with specialists, if necessary, and making medical decision making on treatment plan. All of the above was collaborated with Dr. Mario. Please see addendum for further details. History of Present Illness Chief Complaint: Syncope/Collapse prior to arrival. Primary Care Provider: Valente Esquivel, DO This is a 72-year-old male who has significant past medical history of CAD status post CABG x2 in 2012, chronic HFpEF, chronic small pericardial effusion, PAD status post atherectomy and angioplasty managed on Xarelto, HTN, HLD, prediabetes, CKD stage III with baseline creatinine of 1.6-1.7, chronic venous insufficiency, COPD, former tobacco abuser who presents to ED after sustaining a syncopal/collapse episode prior to arrival. Initial history mostly obtained from , Prehospital personnel and ED provider. patient had not been feeling well past 2 days the. stated that he had been a bit out of it yesterday and this morning did not seem to be himself. This morning he had a witnessed syncopal episode in which he was in the hallway and collapsed. stated patient was not breathing and did not have a pulse and CPR was started. 911 was called and on police arrival they continued CPR. Per EMS patient was in agonal respirations and he did have a pulse. He was placed on nasal cannula and brought to the ER. In ED patient was found to have lactic acidosis initially at 5.8 with repeat at 3.4, troponin elevated at 20.1, H&H stable at 12.4 and 39.6, WBC 12.65, creatinine mildly elevated from baseline at 2.3 and ionized calcium of 1.04. Initial head CT was without acute intracranial abnormality. Chest CT revealed numerous acute bilateral anterior rib fractures, right anterior second through seventh as well as left anterior [address] also reveals cardiomegaly, moderate pericardial effusion and evidence of fluid overload/congestive failure along with multifocal groundglass consolidation seen in both lungs likely representing pulmonary edema. Correlate clinically for a superimposed aspiration pneumonia nidus for possible pulmonary hemorrhage. CT abdomen pelvis was otherwise unremarkable although did note trace fluid in the left paracolic gutter and pelvis. In ED he received IV ampicillin, 500 mL fluid bolus and small dose of IV Dilaudid. Upon my evaluation patient was lying comfortably in bed and case discussed mostly with , son and [id number] at bedside. states patient went into the bathroom this morning and needed back to the bedroom when she heard a loud noise. She then found him unresponsive on the floor and passed out. She tried to pat his face and he would not wake up and it did not appear that he was breathing; therefore, she initiated CPR. She called 911 and police arrived on scene first to also continued CPR. states he was doing irregular breathing and was gasping for air. This is never happened in the past. He was in his normal state of health until yesterday when he just did not feel well. He did not go to work and complained of being, "queasy." He slept mostly all day and did eat some chicken broth in the evening. He has been compliant with his medications. Upon interviewing the patient he does recall going to the bathroom this morning in which he moved his bowels and passed urine. He then went back to his bedroom and he thought he made it back to his bed but states, "clearly I did not." He does not recall passing out and falling to the ground. He denies similar events in the past. He confirms what his had stated regarding being in his normal state of health until yesterday when he just did not feel well. He had no other complaints other than feeling queasy in the stomach. He does state that his weight has been up approximately 5 pounds for the last 4 to 5 days. He did weigh himself this morning and he was 298. He did not take any of his morning medications. Currently he complains of bilateral chest pain, pain with deep inspiration and chest pain with movement. He does admit to feeling dizzy this morning when he first got out of bed but currently denies any dizziness or lightheadedness, fever, chills, sweats, shortness of breath, cough, nausea, vomiting, abdominal pain, changes bowel or urinary habits. Allergies Allergy/AdvReac Type Severity Reaction Status Date / Time No Known Drug Allergies Allergy Unknown Verified 09/25/22 13:45 silver AdvReac Mild stinging Verified 09/18/22 10:44 pain Home Medications Medication Instructions Recorded Confirmed Type aspirin 81 mg tablet,delayed 81 mg PO HS 08/14/19 02/24/23 History release (Adult Aspirin Regimen) atorvastatin 40 mg tablet (Lipitor) 40 mg PO HS 08/14/19 02/24/23 History doxazosin 2 mg tablet (Cardura) 2 mg PO HS 08/14/19 02/24/23 History gabapentin 300 mg capsule See Rx Instructions .Route .COMPLEX 08/14/19 02/24/23 History (Neurontin) nitroglycerin 0.4 mg sublingual 0.4 mg sublingual Q5M PRN Chest 08/14/19 02/24/23 History tablet (Nitrostat) Pain pantoprazole 40 mg tablet,delayed 40 mg PO HS 07/16/20 02/24/23 History release (Protonix) metoprolol succinate 50 mg 50 mg PO DAILY 07/25/21 02/24/23 History tablet,extended release 24 hr bumetanide 1 mg tablet 1 mg PO BID17 #60 tabs 08/04/21 02/24/23 Rx spironolactone 25 mg tablet 25 mg PO DAILY 04/09/22 02/24/23 History rivaroxaban 2.5 mg tablet (Xarelto) 2.5 mg PO BID #60 tabs 06/02/22 02/24/23 Rx potassium chloride 20 mEq 20 meq PO TID 06/11/22 02/24/23 History tablet,extended release(part/cryst) (Klor-Con M) metolazone 2.5 mg tablet 2.5 mg PO MOWEFR 02/24/23 02/24/23 History Past Med/Surg History Medical History BPH (benign prostatic hyperplasia) CAD (coronary artery disease) Cellulitis of right leg Chronic GERD COPD (chronic obstructive pulmonary disease) Duodenal ulcer High cholesterol HTN (hypertension) Leg ulcer, left Morbid obesity with BMI of 45.0-49.9, adult Neuropathy Obesity PAD (peripheral artery disease) Peptic ulcer disease Surgical History H/O wisdom tooth extraction History of cholecystectomy History of esophagogastroduodenoscopy (EGD) (~02/05/20) History of heart bypass surgery 10/28/2012--DOUBLE> [facility]ELINA > FOLLOWS DR. BLACKBURN> JEANNE History of tonsillectomy Hx of angiography 01/29/2020 @ [facility] Hx of colonoscopy Family History Father Diabetes Heart disease Brother AAA (abdominal aortic aneurysm) Other No family history of adverse response to anesthesia Social History Smoking Status: Former smoker Tobacco Type: Cigarettes packs per day: 1; Second Hand Exposure: No; Hx Alcohol Use: No Hx Substance Use: No Preferred Language: Romansh Communication Ability: Effective Visual Impairment: Limited Hearing Ability: Normal Game Protector Required: No Beliefs That Will Affect Care: None marital status: Current Living Situation: Spouse current occupational status: employed current occupation: [employer] How many Children do You have: 1 Feels Safe at Home: Yes Childhood Exposure to Second-Hand Smoke: Yes Assistive Devices: None Review of Systems Review of Systems: All systems reviewed & are unremarkable except as noted in HPI & below Physical Exam Physical Exam: Constitutional: WD/WN, Obese, drowsy, nauseous to verbal stimuli and answers questions appropriately, vitals as above, NAD, sitting up in bed, pleasant, conversing easily Head: Normocephalic, Atraumatic Eyes: PERRL, conjunctivae normal, anicteric sclerae ENMT: external ear and nose normal, oropharynx normal dry membranes Neck: trachea midline, no thyromegaly normal visual inspection Respiratory: normal respiratory effort, lungs clear to auscultation, no wheeze, rales, rhonchi. Normal insp/exp effort, no accessory muscle use Cardiovascular: RRR, no murmur, no edema, bilateral venous stasis changes noted, no erythema, warmth, negative Homans, cool peripheral extremities, diminished peripheral pulses weak to +1 vessels: no JVD or carotid bruit Chest: Sternal scar noted, normal inspection of chest Abdomen: normal bowel sounds, soft, nontender, no hepatosplenomegaly Musculoskeletal: no cyanosis or clubbing, extremities motor strength 5/5 Skin: no rashes, warm and dry normal turgor Neurologic: PERRL, EOMI, accommodation nl, no face palsy, no dysarthria CN's II-XI intact bilaterally and moves all extremities Psychiatric: A+Ox3, euthymic affect Lymphatic: no cervical or axillary lymphadenopathy : deferred Results & Data Results & Data Vital Signs (Past 12 Hours) Vital Signs Temp Pulse Pulse Resp BP BP Pulse Ox 02/24/23 08:28 63 16 94/58 L 93 02/24/23 08:00 62 20 121/57 L 97 02/24/23 07:49 97 02/24/23 06:29 37.2 C 75 16 116/66 84 L 02/24/23 06:28 75 O2 Del Method O2 Flow Rate 02/24/23 08:28 Nasal Cannula 4 02/24/23 08:00 Nasal Cannula 5 02/24/23 07:49 Nasal Cannula 5 02/24/23 06:29 Room Air 02/24/23 06:28 Diagnostic Findings Chest X-Ray 02/24/23 06:29 XR chest 1V portable HISTORY: Sepsis COMPARISON: 07/25/2021. FINDINGS: No pneumothorax. The cardiac silhouette is mildly enlarged. There is progressive interstitial/vascular thickening, right greater than the left, consistent with mild ulnar edema. No significant pleural fusions. There are poststernotomy changes. IMPRESSION: Cardiomegaly with interval development of asymmetric pulmonary edema. ACT 112: Negative or not required by law. Electronically signed by: Regan Yousif M.D. 02/24/2023 7:[address] 02/24/23 06:[address] DOSE: 926.94 mGycm HISTORY: Unresponsive. cardiac arrest TECHNIQUE: Multiaxial CT images of the head were performed without the use of intravenous contrast. Automated exposure control was utilized for this study. A dose lowering technique was utilized adhering to the principles of ALARA. Comparison: None. Findings: The paranasal sinuses and mastoid air cells are clear. The calvarium and skull base are intact. The ventricles and sulci are within normal limits. There is no mass, hematoma, midline shift, or acute infarct. Impression: No acute intracranial abnormality. ACT 112: Negative or not required by law. Electronically signed by: Regan Yousif M.D. 02/24/2023 7:42 AM Abdomen/Pelvis CT 02/24/23 07:01 CT SCAN OF THE CHEST, ABDOMEN, AND PELVIS WITHOUT IV CONTRAST CLINICAL HISTORY: Status post cardiac arrest. COMPARISON STUDY: Chest x-ray dated 02/24/2023. Abdominal CT dated 11/21/2019. TECHNIQUE: Unenhanced CT scan of the chest, abdomen, and pelvis was performed from the thoracic inlet to the proximal femora. Images are reviewed in the axial, sagittal, and coronal planes. IV contrast was not administered for this examination. A dose lowering technique was utilized adhering to the principles of ALARA. CT DOSE: 627.21 mGycm (accession [id number]), 970.06 mGycm (accession [id number]) FINDINGS: CHEST: Thyroid: Imaged portions of the thyroid gland are normal in size and attenuation. Thoracic aorta: There is atherosclerotic calcification of the thoracic aorta, wh ich is normal in caliber and demonstrates standard 3-vessel arch anatomy. Heart: The patient is status post midline sternotomy. The heart is enlarged noting a moderate pericardial effusion. The coronary arteries extensive calcified. Lungs and pleural spaces: Evaluation of the lung parenchyma is degraded by motion artifact. Emphysematous change is noted. Diffuse intralobular septal thickening indicates fluid overload/congestive failure. There are trace pleural effusions. There is multifocal ground glass consolidation seen throughout both lungs. This is most confluent posteriorly within the right upper and lower lobes. The trachea and central airways are clear. There is a 4 mm pleural-based nodule in the left upper lobe seen on image #105. No pneumothorax is seen. Mediastinum: There is no mediastinal lymphadenopathy. Berenice: Not well assessed without contrast. Axillae: There is no axillary lymphadenopathy. Bony thorax: The skeletal structures are osteopenic. There are acute right anterior 2nd through 7th rib fractures, as well as acute left anterior 3rd through 7th rib fractures. There is fracture of the 2nd anterior costal cartilage. Degenerative change is seen throughout the thoracic spine. No lytic or blastic lesions are identified. ABDOMEN AND PELVIS: Liver: The unenhanced liver is normal in size, contour, and attenuation. There is no intra- or extrahepatic biliary ductal dilatation. Gallbladder: Surgically absent noting clips in the gallbladder fossa. Spleen: Normal in size and attenuation. Pancreas: Unremarkable. Adrenal glands: A 2.4 cm left adrenal adenoma is unchanged, as is calcification of the right adrenal gland. Kidneys: The unenhanced kidneys demonstrate cortical atrophy and are without hydronephrosis. No renal calculi are identified. There is no evidence of contour deforming renal mass lesion. Abdominal vasculature: There is advanced atherosclerotic calcification and mild ectasia of the abdominal aorta. Bowel: The small bowel and colon are normal in course and caliber. The appendix is well-visualized and normal. Peritoneum: No intraperitoneal free air is seen. There is trace fluid in the paracolic gutter and pelvis. There is a fat-containing umbilical hernia. Lymphadenopathy: None. Pelvic viscera: The prostate gland is mildly enlarged and heterogeneous. The bladder is decompressed, and the wall appears thickened/trabeculated indicating chronic outlet obstruction. Skeletal structures: The skeletal structures are osteopenic. There is moderate lumbosacral spondylosis. No lytic or blastic lesions are seen. IMPRESSION: 1. There are numerous acute bilateral anterior rib fractures as above. 2. Emphysema. 3. Cardiomegaly and moderate pericardial effusion with evidence of fluid overload/congestive failure. 4. Multifocal groundglass consolidation is seen throughout both lungs as above. This likely represents pulmonary edema. Correlate clinically for evidence of superimposed pneumonia/aspiration pneumonitis or possibly pulmonary hemorrhage. 5. There is no pneumothorax. 6. Trace pleural effusions. 7. There is no evidence of solid organ injury in the abdomen or pelvis on this unenhanced examination. 8. There is trace free fluid in the left paracolic gutter and pelvis. This could be related to hydration status. If there is clinical concern for occult injury consider short-term CT follow-up. 9. Additional findings as above. ACT 112: Negative or not required by law. Electronically signed by: Juan Carlos Krishna M.D. 02/24/2023 8:[address] 02/24/23 07:01 CT SCAN OF THE CHEST, ABDOMEN, AND PELVIS WITHOUT IV CONTRAST CLINICAL HISTORY: Status post cardiac arrest. COMPARISON STUDY: Chest x-ray dated 02/24/2023. Abdominal CT dated 11/21/2019. TECHNIQUE: Unenhanced CT scan of the chest, abdomen, and pelvis was performed from the thoracic inlet to the proximal femora. Images are reviewed in the axial, sagittal, and coronal planes. IV contrast was not administered for this examination. A dose lowering technique was utilized adhering to the principles of ALARA. CT DOSE: 627.21 mGycm (accession [id number]), 970.06 mGycm (accession [id number]) FINDINGS: CHEST: Thyroid: Imaged portions of the thyroid gland are normal in size and attenuation. Thoracic aorta: There is atherosclerotic calcification of the thoracic aorta, which is normal in caliber and demonstrates standard 3-vessel arch anatomy. Heart: The patient is status post midline sternotomy. The heart is enlarged noting a moderate pericardial effusion. The coronary arteries extensive calcified. Lungs and pleural spaces: Evaluation of the lung parenchyma is degraded by motion artifact. Emphysematous change is noted. Diffuse intralobular septal thi ckening indicates fluid overload/congestive failure. There are trace pleural effusions. There is multifocal ground glass consolidation seen throughout both lungs. This is most confluent posteriorly within the right upper and lower lobes. The trachea and central airways are clear. There is a 4 mm pleural-based nodule in the left upper lobe seen on image #105. No pneumothorax is seen. Mediastinum: There is no mediastinal lymphadenopathy. Berenice: Not well assessed without contrast. Axillae: There is no axillary lymphadenopathy. Bony thorax: The skeletal structures are osteopenic. There are acute right anterior 2nd through 7th rib fractures, as well as acute left anterior 3rd through 7th rib fractures. There is fracture of the 2nd anterior costal cartilage. Degenerative change is seen throughout the thoracic spine. No lytic or blastic lesions are identified. ABDOMEN AND PELVIS: Liver: The unenhanced liver is normal in size, contour, and attenuation. There is no intra- or extrahepatic biliary ductal dilatation. Gallbladder: Surgically absent noting clips in the gallbladder fossa. Spleen: Normal in size and attenuation. Pancreas: Unremarkable. Adrenal glands: A 2.4 cm left adrenal adenoma is unchanged, as is calcification of the right adrenal gland. Kidneys: The unenhanced kidneys demonstrate cortical atrophy and are without hydronephrosis. No renal calculi are identified. There is no evidence of contour deforming renal mass lesion. Abdominal vasculature: There is advanced atherosclerotic calcification and mild ectasia of the abdominal aorta. Bowel: The small bowel and colon are normal in course and caliber. The appendix is well-visualized and normal. Peritoneum: No intraperitoneal free air is seen. There is trace fluid in the paracolic gutter and pelvis. There is a fat-containing umbilical hernia. Lymphadenopathy: None. Pelvic viscera: The prostate gland is mildly enlarged and heterogeneous. The bladder is decompressed, and the wall appears thickened/trabeculated indicating chronic outlet obstruction. Skeletal structures: The skeletal structures are osteopenic. There is moderate lumbosacral spondylosis. No lytic or blastic lesions are seen. IMPRESSION: 1. There are numerous acute bilateral anterior rib fractures as above. 2. Emphysema. 3. Cardiomegaly and moderate pericardial effusion with evidence of fluid overload/congestive failure. 4. Multifocal groundglass consolidation is seen throughout both lungs as above. This likely represents pulmonary edema. Correlate clinically for evidence of superimposed pneumonia/aspiration pneumonitis or possibly pulmonary hemorrhage. 5. There is no pneumothorax. 6. Trace pleural effusions. 7. There is no evidence of solid organ injury in the abdomen or pelvis on this u nenhanced examination. 8. There is trace free fluid in the left paracolic gutter and pelvis. This could be related to hydration status. If there is clinical concern for occult injury consider short-term CT follow-up. 9. Additional findings as above. ACT 112: Negative or not required by law. Electronically signed by: Juan Carlos Krishna M.D. 02/24/2023 8:18 AM Medications Administered Medication List Discontinued Medications Hydromorphone HCl (Hydromorphone Inj 0.5 Mg/0.5 Ml Syr) 0.25 mg IV NOW STA Stop: 02/24/23 07:38 Last Admin: 02/24/23 07:57 Dose: 0.25 mg Documented By: NITIN Sodium Chloride (Nss 1000ml) 500 mls @ 999 mls/hr IV .Q31M ONE Stop: 02/24/23 08:04 Last Infusion: 02/24/23 08:32 Dose: 0 mls/hr Documented By: Admin: 02/24/23 07:58 Dose: 999 mls/hr Documented By: NITIN ECG Rate (beats per minute): 73 Rhythm: normal sinus COVID-19 Results Results COVID-19 Adm Lab Results: RBC 4.59 M/uL (4.70-6.10) L 02/24/23 WBC 12.65 K/ul (4.8-10.8) H 02/24/23 Hgb 12.4 g/dl (14.0-18.0) L 02/24/23 Hct 39.6 % (42.0-52.0) L 02/24/23 Plt Count 227 K/uL (130-400) 02/24/23 Neutrophils (%) (Auto) 82.5 % 02/24/23 Lymphocytes (%) (Auto) 10.4 % 02/24/23 Monocytes # (Auto) 0.51 K/uL (0.11-0.59) 02/24/23 Eosinophils # (Auto) 0.18 K/uL (0-0.50) 02/24/23 Immature Granulocyte % (Auto) 1.3 % 02/24/23 Neutrophils # (Auto) 10.43 K/uL (1.40-6.50) H 02/24/23 Lymphocytes # (Auto) 1.32 K/uL (1.2-3.4) 02/24/23 Monocytes # (Auto) 0.51 K/uL (0.11-0.59) 02/24/23 Eosinophils # (Auto) 0.18 K/uL (0-0.50) 02/24/23 Basophils # (Auto) 0.05 K/uL (0-0.2) 02/24/23 Immature Granulocyte # (Auto) 0.16 K/uL (0.01-0.20) 3 Na 140 mmol/L (136-145) 02/24/23 K 3.1 mmol/L (3.5-5.1) L 02/24/23 Cl 100 mmol/L (98-107) 02/24/23 CO2 23 mmol/L (21-32) 02/24/23 Anion Gap 17 (3-11) H 02/24/23 BUN 31 mg/dl (6-23) H 02/24/23 Creatinine 2.06 mg/dl (0.6-1.4) H 02/24/23 BUN/Creatinine Ratio 15.0 (10-20) 02/24/23 Glucose Level 173 mg/dl (70-99(Fasting)) H 02/24/23 Ca 8.7 mg/dl (8.6-10.3) 02/24/23 Total Bilirubin 0.7 mg/dl (0.2-1.0) 02/24/23 Direct Bilirubin 0.2 mg/dl (0-0.2) 02/24/23 AST/SGOT 27 U/L (13-39) 02/24/23 ALT/SGPT 19 U/L (7-52) 02/24/23 Alkaline Phosphatase 59 U/L (34-104) 02/24/23 Total Protein 6.5 gm/dl (6.0-8.3) 02/24/23 Albumin 3.7 gm/dl (3.4-5.0) 02/24/23 Total CK Pending 02/24/23 Procalcitonin < 0.05 ng/ml (0-0.5) 02/24/23 D-Dimer 6750 ug/L FEU (0-500) H* 02/24/23 PTT 25.5 Seconds (21.0-31.0) 02/24/23 INR 1.5 (0.9-1.1) H 02/24/23 Adenovirus (PCR) Not Detected (NotDetected) 02/24/23 B. parapertussis DNA (PCR) Not Detected (NotDetected) 01/28 08/21 B. pertussis DNA (PCR) Not Detected (NotDetected) 02/24/23 C. pneumoniae DNA (PCR) Not Detected (NotDetected) 3 Coronavirus Type OC43 (PCR) Not Detected (NotDetected) Coronavirus Type HKU1 (PCR) Not Detected (NotDetected) Coronavirus Type 229E (PCR) Not Detected (NotDetected) COVID-19 PCR Not Detected (NotDetected) 02/24/23 Coronavirus Type NL63 (PCR) Not Detected (NotDetected) Human Metapneumovirus (PCR) Not Detected (NotDetected) Influenza Virus Type A (PCR) Not Detected (NotDetected) Influenza Virus Type B (PCR) Not Detected (NotDetected) M. pneumoniae (PCR) Not Detected (NotDetected) 02/24/23 Parainfluenza Type 1 (PCR) Not Detected (NotDetected) 01/28 08/21 Parainfluenza Type 2 (PCR) Not Detected (NotDetected) 01/28 08/21 Parainfluenza Type 3 (PCR) Not Detected (NotDetected) 01/28 08/21 Parainfluenza Type 4 (PCR) Not Detected (NotDetected) 01/28 08/21 RSV (PCR) Not Detected (NotDetected) 02/24/23 Enterovirus/Rhinovirus (PCR) Not Detected (NotDetected) Chest CT 02/24/23 Chest X-Ray 02/24/23 Code Status & VTE Plan Code Status FULL CODE Supervising Physician Co-Signing Physician Notes 72 yo M w/ PMH of CAD s/p CABG x2 in 2011, chronic HFpEF, chronic small pericardial effusion, PAD s/p atherectomy and angioplasty on xarelto 2.5 mg BID, HTN, HLD, prediabetes, CKD stage III (baseline Cr 1.6-1.7) presented to the ED 02/24 via EMS after supposedly "cardiac arrest". Per Pt, he was feeling queasy since yesterday and did feel some dizziness after waking up, he went to the bathroom/moved bowel and remembers upto returing to the room then he remembers waking up in the hospital. Per , she heard him fall, tried to wake him up by slapping his face, he didn't wake up. She called 911, then started CPR by herself. The police arrived who continued with CPR. Per his , he might have gotten CPR for 10-15 min but when EMS arrived he was found to be in agonal breathing and he regained pulse. Pt fell on carpeted floor/new carpet so "mushy" per . Unwitnessed. Pt not sure about the specifics of fall. #. Cardiac arrest vs syncope 2/2 arrhythmia #. CAD/ho HFpEF: BNP 176. #. Electrolytes abn: maintain K >4.0; Mg > 2.0. Give calcium gluconate 2 gm EKD w/ nonspecific ST-T abn. Trop minimall elevated. Pt denies jaw/LUE/epigastric discomfort. Chest is painful/reproducible. Trend trops, EKG, Gentle IVF, Cardio, ICU monitoring. Get full resp viral panel NPO until cardio eval. Would like to get CTA chest to r/o PE, will wait until creat improves or nephro clearance. #. Rib fracture/free fluid in left paracolic gutter and pelvis: as per admitting CT Chest, pain Mx w/ morphine/percocet/lidocaine/voltaren gel. Add scheduled laxatives. Will hold Xarelto for now. Will repeat CTAP likely 24-48 hours to monitor for paracolic gutter fluid. #. ELIZ CKD III #. Increased blood lactic acid level: likely 2/2 hypoxia/hypoperfusion from arrhythmia/cardiac arrest. Lactate 5.8 at presentation, Cr 2.06. Gentle IVF given h/o HF; will hold nephrotoxics including diuresis for now. Nephrology consult. Others: WBC elevated 2/2 acute stress, procal negative. will monitor off antibiotic. Baseline Hb around 13.5; admitting Hb 12.4, monitor HnH. DVT Px: will continue home aspirin, and SCDs for now. On Exam: GENERAL: Alert and oriented x3. NAD, on 4L O2 via NC. HEENT: No pallor, no icterus. Pupils equal, round and reactive to light. Oral mucosa moist. NECK: No JVD, no neck masses. HEART: S1 and S2 heard. Regular rate and rhythm. No murmur, no gallop. Chest: old healed sternotomy scar. Tender anterior chest on palpation. RESPIRATORY SYSTEM: Normal AP diameter. No accessory muscle use. No wheezing, no crackles. ABDOMEN: Soft, bowel sounds present, nontender, no distention. CENTRAL NERVOUS SYSTEM: No facial droop. Speech is clear. Obeys simple commands. Moves extremities. EXTREMITIES: No edema, no erythema seen. I have seen and examined the patient and have discussed the case with the provider above. I agree with the assessment and plan as stated.
[2023-02-24] MEDS ORDERED: CALCIUM GLUCONATE 1,000 MG/60 ML BAG IV SCH (10:15)
[2023-02-24 10:16] LABS: Albumin Level 3.7 gm/dl (3.4-5.0); Bilirubin Direct 0.2 mg/dl (0-0.2); Bilirubin,Total 0.7 mg/dl (0.2-1.0); Calcium 8.7 mg/dl (8.6-10.3); Magnesium 2.1 mg/dl (1.7-2.4); Potassium 3.1 mmol/L (3.5-5.1)
[2023-02-24 10:22] LABS: Creatinine Clr Calc Pharmacy 45.5 ml/min; Total Protein 6.5 gm/dl (6.0-8.3)
[2023-02-24] MEDS: SODIUM CHLORIDE 0.9% 1000ML 1,000 ML IV SCH (10:37)
[2023-02-24] MEDS ORDERED: POTASSIUM CHLORIDE CRTAB 20 MEQ TABCR PO STA (10:42)
--- NOTE | 2023-02-24 11:08 | Cardiology Consultation ---
Date of Consultation February 24, 2023 Assessment & Plan (1) Cardiac arrest: (2) Cardiac tamponade: (3) Hypoxia: (4) Hypocalcemia: (5) Acute renal failure superimposed on stage 3 chronic kidney disease: (6) Syncope: (7) PAD (peripheral artery disease): (8) Hypoalbuminemia: (9) CAD (coronary artery disease): (10) COPD (chronic obstructive pulmonary disease): Plan Echocardiographic findings consistent with cardiac tamponade with significant RV systolic compression and greater than 50% respiratory variation across the mitral annulus Unclear if this was the inciting event for out of hospital arrest or if this was a result of chest compressions Discussed with interventional cardiology will be taking him emergently to the cardiac [employer] for pericardiocentesis At the same time, normal saline wide open to preserve preload Do not give any possible preload reducing agents at this time Further recommendations to follow procedure History of Present Illness Reason for Consultation: Out of hospital cardiac arrest Requesting Physician: [facility] Attending Physician: Dr. Mario History of Present Illness It was my pleasure to see Mr. Guthrie in cardiac consultation today February 24, 2023. He is a very pleasant 72-year-old gentleman who follows very closely with Dr. Huff of our outpatient cardiology practice for his history of diastolic dysfunction and complex coronary artery disease. The patient arrived to [facility] via EMS on 02/24/2023 with reports of out of hospital cardiac arrest. The patient's states that he frankly syncopized this morning and when she checked on him he was not breathing and did not have a pulse. She started CPR, 911 was called, [employer] assistant manager were the first on the scene and CPR was continued. Upon arrival by EMS he was having agonal respirations but a pulse was present. He was placed on nasal cannula and brought in the emergency department. In the emergency department the patient was somewhat confused and did not remember the events of this morning. Past medical history as per most recent outpatient cardiology clinic note: 1. Chronic diastolic congestive heart failure as detailed above 2. Pericardial effusion, asymptomatic, improved via 08/22/2021 limited resting echocardiogram. 3. Chronic coronary heart disease status post CABG x2 with ZAPATA to LAD SVG to OM on 10/28/2012, [facility], 4. Known chronic occlusion of the right coronary artery and therefore this territory was not bypassed 5. Peripheral arterial disease - followed by Dr. Freguson 6. Hypertension 7. Dyslipidemia 8. Chronic low back pain, radiculopathy Allergies Allergy/AdvReac Type Severity Reaction Status Date / Time No Known Drug Allergies Allergy Unknown Verified 09/25/22 13:45 silver AdvReac Mild stinging Verified 09/18/22 10:44 pain Home Medications Medication Instructions Recorded Confirmed Type aspirin 81 mg tablet,delayed 81 mg PO HS 08/14/19 02/24/23 History release (Adult Aspirin Regimen) atorvastatin 40 mg tablet (Lipitor) 40 mg PO HS 08/14/19 02/24/23 History doxazosin 2 mg tablet (Cardura) 2 mg PO HS 08/14/19 02/24/23 History gabapentin 300 mg capsule See Rx Instructions .Route .COMPLEX 08/14/19 02/24/23 History (Neurontin) nitroglycerin 0.4 mg sublingual 0.4 mg sublingual Q5M PRN Chest 08/14/19 02/24/23 History tablet (Nitrostat) Pain pantoprazole 40 mg tablet,delayed 40 mg PO HS 07/16/20 02/24/23 History release (Protonix) metoprolol succinate 50 mg 50 mg PO DAILY 07/25/21 02/24/23 History tablet,extended release 24 hr bumetanide 1 mg tablet 1 mg PO BID17 #60 tabs 08/04/21 02/24/23 Rx spironolactone 25 mg tablet 25 mg PO DAILY 04/09/22 02/24/23 History rivaroxaban 2.5 mg tablet (Xarelto) 2.5 mg PO BID #60 tabs 06/02/22 02/24/23 Rx potassium chloride 20 mEq 20 meq PO TID 06/11/22 02/24/23 History tablet,extended release(part/cryst) (Klor-Con M) metolazone 2.5 mg tablet 2.5 mg PO MOWEFR 02/24/23 02/24/23 History Patient History Medical History BPH (benign prostatic hyperplasia) CAD (coronary artery disease) Cellulitis of right leg Chronic GERD COPD (chronic obstructive pulmonary disease) Duodenal ulcer High cholesterol HTN (hypertension) Leg ulcer, left Morbid obesity with BMI of 45.0-49.9, adult Neuropathy Obesity PAD (peripheral artery disease) Peptic ulcer disease Surgical History H/O wisdom tooth extraction History of cholecystectomy History of esophagogastroduodenoscopy (EGD) (~02/05/20) History of heart bypass surgery 10/28/2012--DOUBLE> EVANGELINA > FOLLOWS DR. BLACKBURN> JEANNE History of tonsillectomy Hx of angiography 01/29/2020 @ [facility] Hx of colonoscopy Family History Father Diabetes Heart disease Brother AAA (abdominal aortic aneurysm) Other No family history of adverse response to anesthesia Social History Smoking Status: Former smoker Tobacco Type: Cigarettes packs per day: 1; Second Hand Exposure: No; Hx Alcohol Use: No Hx Substance Use: No Preferred Language: Surinamese Communication Ability: Effective Visual Impairment: Limited Hearing Ability: Normal Provider Relations Specialist Required: No Beliefs That Will Affect Care: None marital status: Current Living Situation: Spouse current occupational status: employed current occupation: [employer] How many Children do You have: 1 Feels Safe at Home: Yes Childhood Exposure to Second-Hand Smoke: Yes Assistive Devices: None Review of Systems Review of Systems: All systems reviewed & are unremarkable except as noted in HPI & below Physical Exam Physical Exam: General: Awake, alert and oriented x 3. No acute distress. HEENT: Normocephalic, atraumatic. Pupils equal, round and reactive to light and accommodation. Extraocular muscles are intact. Anicteric sclera. Moist mucous membranes. Neck: No JVD. No bruit. Cardiovascular: Regular but distant. Positive S-4. Normal S-1 and S-2. No S- 3. 3/6 mid to late systolic ejection murmur, greatest at the right sternal border, second intercostal space with radiation to the bilateral carotids. No rubs. Pulmonary: Clear to auscultation bilaterally. No rales, rhonchi, or wheezing. Abdomen: Bowel sounds x 4, soft. No rebound, guarding or tenderness. No organomegaly. Extremities: No clubbing, cyanosis or edema. +2 pedal pulses bilaterally. Skin: Warm and dry. Results & Data Vital Signs (Past 12 Hours) Vital Signs Temp Pulse Pulse Resp BP BP Pulse Ox 02/24/23 10:35 62 13 107/71 93 02/24/23 10:00 64 13 106/76 93 02/24/23 10:31 65 02/24/23 09:30 63 14 94/68 L 93 02/24/23 09:00 62 15 114/87 95 02/24/23 08:54 64 15 113/67 95 02/24/23 08:27 64 14 94/58 L 92 02/24/23 08:01 64 16 121/57 L 99 02/24/23 07:00 66 14 127/81 96 02/24/23 08:28 63 16 94/58 L 93 02/24/23 08:00 62 20 121/57 L 97 02/24/23 07:49 97 02/24/23 06:29 37.2 C 75 16 116/66 84 L 02/24/23 06:28 75 O2 Del Method O2 Flow Rate 02/24/23 10:35 Nasal Cannula 3 02/24/23 10:00 Nasal Cannula 3 02/24/23 10:31 02/24/23 09:30 Nasal Cannula 3 02/24/23 09:00 Nasal Cannula 3 02/24/23 08:54 Nasal Cannula 3 02/24/23 08:27 Nasal Cannula 3 02/24/23 08:01 02/24/23 07:00 02/24/23 08:28 Nasal Cannula 4 02/24/23 08:00 Nasal Cannula 5 02/24/23 07:49 Nasal Cannula 5 02/24/23 06:29 Room Air 02/24/23 06:28
[2023-02-24 11:10] LABS: D Dimer 6750 ug/L FEU (0-500)
--- NOTE | 2023-02-24 11:25 | Critical Care Consultation ---
Date of Consultation February 24, 2023 Assessment & Plan (1) Hypoxia: (2) Hypocalcemia: (3) Pre-diabetes: (4) Acute renal failure superimposed on stage 3 chronic kidney disease: (5) Syncope: (6) Venous stasis ulcer of left lower extremity: (7) PAD (peripheral artery disease): (8) Venous stasis ulcer of right lower leg with edema of right lower leg: (9) Acute on chronic heart failure with preserved ejection fraction (HFpEF): Ángel Burgess is a 72 year-old male with known history of CAD s/p CABG x2 in 2011, chronic HFpEF, chronic small pericardial effusion, PAD s/p atherectomy and angioplasty on xarelto 2.5 mg BID, HTN, HLD, prediabetes, and CKD stage III Neuro - ICU CAM: negative * Alert and oriented currently * Does not remember the event itself this morning * CT head negative Cardiac - Unresponsiveness (Cardiac Arrest vs. Hypotensive Episode vs. Vasovagal), HFpEF, PAD, Venous Insufficiency * Cardiology consulted, recommendations pending * BP has been low 100s/70s, HR 60s * EKG normal sinus rhythm, Trend troponin * Continue ASA, statin, metoprolol. Hold diuretics for now * Prior echo with EF 50-55%, chronic pericardial effusion * Echocardiogram completed, results pending * Ordered LE Venous Duplex, Carotid Ultrasound Respiratory - * No respiratory distress * Currently on 3L NC, wean as tolerated * Elevated D-Dimer, unable to complete CTA chest due to kidney function- will complete LE venous duplex * CT chest with ground glass appearance, will continue empiric Unasyn for now GI - * NPO while awaiting cardiology recommendations Renal/Lytes - CKD Stage III, Superimposed ELIZ * Baseline Cr ~1.6 * Suspect ELIZ from hypoperfusion * Replete electrolytes as needed * Ordered CK * 2 Bags of NSS ordered - * Strict I's and O's * Ordered urinalysis Endo - * Follow ICU hyperglycemia protocol * Prediabetic, not on any medications at home Heme - * Hemoglobin at 12.4, will continue to trend ID - * COVID negative, BioFire pending * Empiric Unasyn for potential aspiration pneumonia vs pneumonitis Lines/IV Access - * Peripheral IVs intact DVT Prophylaxis - * Holding home Xarelto Thank you for allowing us to be a part of this patient's care. Please refer to Dr. White's documentation for additional recommendations. Supervising Physician Co-Signing Physician Notes Patient seen and examined with the resident physician. Agree with the note aside for any additions/exceptions: Doubtful that the patient had a true cardiac arrest. He had evidence of cardiac tamponade on echo. He is status post pericardiocentesis with 750 mL of serous fluid removed. Pericardial drain remains in place. Cardiology to manage. Hemodynamically stable at present. Holding anticoagulation for the time being. Patient with also likely aspiration pneumonitis and pulmonary contusion. Pain control with Dilaudid 25 mg every 4 hours and oral oxycodone. Monitor urine output closely. Patient with ELIZ. Currently receiving crystalloids. Await cultures and cytology from pericardial effusion. History of Present Illness History of Present Illness Aditya is a 72 year-old male with known history of CAD s/p CABG x2 in 2011, chronic HFpEF, chronic small pericardial effusion, PAD s/p atherectomy and angioplasty on xarelto 2.5 mg BID, HTN, HLD, prediabetes, and CKD stage IIIwho presented to the ED via ambulance after an unresponsive episode this morning. History is provided by the patient and his who is at bedside. The patient notes that yesterday he was feeling a bit nauseated and only had a small amount of chicken soup and broth. He recalls that this morning he got up and went to the bathroom where he had a bowel movement which caused him to strain (denies blood or dark color of stool). After finishing in the bathroom he walked towards his bed when he fell/became unresponsive. His did not witness the fall but heard it from the next room. She immediately went to her 's side at which time he was not responding to her voice/questions. She states she did not check a pulse and he was breathing but it sounded "weird", she then called 911 and they advised her to start CPR. She did chest compressions until police arrived and took over. He was then taken via ambulance to the ED. Currently Aditya is resting comfortably, he does note pain in his ribs. He denies any chest pain or shortness of breath. He states he takes all his medications as prescribed, although had not taken his morning meds prior to the event this morning. He denies any recent changes in his medications. Per his , his BP typically runs "normal to low". Allergies Allergy/AdvReac Type Severity Reaction Status Date / Time No Known Drug Allergies Allergy Unknown Verified 09/25/22 13:45 silver AdvReac Mild stinging Verified 09/18/22 10:44 pain Home Medications Medication Instructions Recorded Confirmed Type aspirin 81 mg tablet,delayed 81 mg PO HS 08/14/19 02/24/23 History release (Adult Aspirin Regimen) atorvastatin 40 mg tablet (Lipitor) 40 mg PO HS 08/14/19 02/24/23 History doxazosin 2 mg tablet (Cardura) 2 mg PO HS 08/14/19 02/24/23 History gabapentin 300 mg capsule See Rx Instructions .Route .COMPLEX 08/14/19 02/24/23 History (Neurontin) nitroglycerin 0.4 mg sublingual 0.4 mg sublingual Q5M PRN Chest 08/14/19 0 02/24/23 History tablet (Nitrostat) Pain pantoprazole 40 mg tablet,delayed 40 mg PO HS 07/16/20 02/24/23 History release (Protonix) metoprolol succinate 50 mg 50 mg PO DAILY 07/25/21 02/24/23 History tablet,extended release 24 hr bumetanide 1 mg tablet 1 mg PO BID17 #60 tabs 08/04/21 02/24/23 Rx spironolactone 25 mg tablet 25 mg PO DAILY 04/09/22 02/24/23 History rivaroxaban 2.5 mg tablet (Xarelto) 2.5 mg PO BID #60 tabs 06/02/22 02/24/23 Rx potassium chloride 20 mEq 20 meq PO TID 06/11/22 02/24/23 History tablet,extended release(part/cryst) (Klor-Con M) metolazone 2.5 mg tablet 2.5 mg PO MOWEFR 02/24/23 02/24/23 History Patient History Medical History BPH (benign prostatic hyperplasia) CAD (coronary artery disease) Cellulitis of right leg Chronic GERD COPD (chronic obstructive pulmonary disease) Duodenal ulcer High cholesterol HTN (hypertension) Leg ulcer, left Morbid obesity with BMI of 45.0-49.9, adult Neuropathy Obesity PAD (peripheral artery disease) Peptic ulcer disease Surgical History H/O wisdom tooth extraction History of cholecystectomy History of esophagogastroduodenoscopy (EGD) (~02/05/20) History of heart bypass surgery 10/28/2012--DOUBLE> EVANGELINA > FOLLOWS DR. BLACKBURN> JEANNE History of tonsillectomy Hx of angiography 01/29/2020 @ [facility] Hx of colonoscopy Family History Father Diabetes Heart disease Brother AAA (abdominal aortic aneurysm) Other No family history of adverse response to anesthesia Social History Smoking Status: Former smoker Tobacco Type: Cigarettes packs per day: 1; Second Hand Exposure: Yes; Do You Dip or Chew Tobacco: No; Tobacco Cessation Education Requested by Patient: No Hx Alcohol Use: No Hx Substance Use: No Preferred Language: Filipino Communication Ability: Effective Visual Impairment: Limited Hearing Ability: Normal Flatwork Washer Required: Voice Beliefs That Will Affect Care: None marital status: Current Living Situation: Spouse current occupational status: employed current occupation: [employer] How many Children do You have: 1 Other Information That Helps Us Care for You: No Feels Safe at Home: Yes Safety Concerns: Feels Safe At This Time Childhood Exposure to Second-Hand Smoke: Yes Assistive Devices: Glasses Review of Systems Review of Systems: As per above Physical Exam Constitutional: + obese and cooperative; not in distress Eyes: PERRL, conjunctivae normal, anicteric sclerae ENMT: External ear and nose normal, moist mucous membranes Respiratory: On NC oxygen. Anterior lung greene clear. No wheeze or rhonchi. Cardiovascular: Regular rhythm, normal rate. No murmur/rub/gallop. Non-pitting edema of bilateral lower extremities. Gastrointestinal (Abdomen): Abdomen soft, nontender and nondistended. +Bowel sounds. No masses palpated. Musculoskeletal: Able to moves limbs independently. Skin: no rashes, warm and dry Neurologic: No focal defects. Psychiatric: A+Ox3, euthymic affect Results & Data Results & Data Vital Signs (Past 12 Hours) Vital Signs Temp Pulse Pulse Resp BP BP Pulse Ox 02/24/23 10:35 62 13 107/71 93 02/24/23 10:00 64 13 106/76 93 02/24/23 10:31 65 02/24/23 09:30 63 14 94/68 L 93 02/24/23 09:00 62 15 114/87 95 02/24/23 08:54 64 15 113/67 95 02/24/23 08:27 64 14 94/58 L 92 02/24/23 08:01 64 16 121/57 L 99 02/24/23 07:00 66 14 127/81 96 02/24/23 08:28 63 16 94/58 L 93 02/24/23 08:00 62 20 121/57 L 97 02/24/23 07:49 97 02/24/23 06:29 37.2 C 75 16 116/66 84 L 02/24/23 06:28 75 O2 Del Method O2 Flow Rate 02/24/23 10:35 Nasal Cannula 3 02/24/23 10:00 Nasal Cannula 3 02/24/23 10:31 02/24/23 09:30 Nasal Cannula 3 02/24/23 09:00 Nasal Cannula 3 02/24/23 08:54 Nasal Cannula 3 02/24/23 08:27 Nasal Cannula 3 02/24/23 08:01 02/24/23 07:00 02/24/23 08:28 Nasal Cannula 4 02/24/23 08:00 Nasal Cannula 5 02/24/23 07:49 Nasal Cannula 5 02/24/23 06:29 Room Air 02/24/23 06:28 Resident Activity Tracking Resident Involvement: Resident Care Provided Care Provided: Adult Hospital Medicine
[2023-02-24 12:05] LABS: Adenovirus PCR Not Detected (NotDetected); Bordetella parapertussis PCR Not Detected (NotDetected); Bordetella pertussis PCR Not Detected (NotDetected); Chlamydia pneumoniae PCR Not Detected (NotDetected); Coronavirus 229E PCR Not Detected (NotDetected); Coronavirus CoV-2 (COVID19)PCR Not Detected (NotDetected); Coronavirus HKU1 PCR Not Detected (NotDetected); Coronavirus NL63 PCR Not Detected (NotDetected); Coronavirus OC43PCR Not Detected (NotDetected); Human Metapneumovirus PCR Not Detected (NotDetected); Influenza A PCR Not Detected (NotDetected); Influenza B PCR Not Detected (NotDetected); Mycoplasma pneumoniae PCR Not Detected (NotDetected); Parainfluenza Virus 1 PCR Not Detected (NotDetected); Parainfluenza Virus 2 PCR Not Detected (NotDetected); Parainfluenza Virus 3 PCR Not Detected (NotDetected); Parainfluenza Virus 4 PCR Not Detected (NotDetected); Respiratory Syncytial VirusPCR Not Detected (NotDetected); Rhinovirus/Enterovirus PCR Not Detected (NotDetected)
[2023-02-24] MEDS ORDERED: DEXTROSE 50% 50 ML SYRINGE IV PRN (12:39)
[2023-02-24] MEDS ORDERED: CARBOHYDRATES FOR HYPOGLYCEMIA PO PRN (12:39)
[2023-02-24] MEDS ORDERED: GLUCAGON FOR INJ 1 MG VIAL SQ PRN (12:39)
[2023-02-24] MEDS ORDERED: ACETAMINOPHEN 325 MG TAB PO PRN (12:39)
[2023-02-24] MEDS ORDERED: MoRPHine SULFATE 4 MG/ML 1 ML CARP\\VIAL IV PRN (12:39)
[2023-02-24] MEDS ORDERED: GLUCOSE 10 TAB/TUBE PO PRN (12:39)
[2023-02-24] MEDS ORDERED: MAGNESIUM HYDROXIDE SUSP 30 ML UDC PO PRN (12:39)
[2023-02-24] MEDS ORDERED: ALUMINUM/MAGNESIUM SUSP 30 ML UDC PO PRN (12:39)
[2023-02-24] MEDS ORDERED: GLUCOSE 40% GEL 15 GM TUBE PO PRN (12:39)
[2023-02-24] MEDS ORDERED: POLYETHYLENE (MIRALAX) 17 GM PACK PO PRN (12:39)
[2023-02-24] MEDS ORDERED: ONDANSETRON INJ 2 MG/ML 2 ML VIAL IV PRN (12:39)
[2023-02-24] MEDS: POTASSIUM CHLORIDE / WTR 10 MEQ/100 ML PLCT IV SCH ×2 (12:41→14:50)
[2023-02-24] MEDS ORDERED: CALCIUM GLUCONATE 10% 2,000 MG in DEXTROSE 5% 50 ML IV ONE (12:45)
[2023-02-24] MEDS: oxyCODONE HCL IR 5 MG TAB (IMMEDIATE RELEASE) PO PRN (12:57)
[2023-02-24] MEDS ORDERED: SODIUM CHLORIDE 0.9% 1000ML 1,000 ML IV SCH (13:04)
[2023-02-24] MEDS: GABAPENTIN 300 MG CAP PO SCH ×2 (13:19→20:06)
[2023-02-24] MEDS: LIDOCAINE 5% 1 PATCH TD SCH (13:19)
[2023-02-24] MEDS: INSULIN ASPART PER UNIT CHARGE SC SCH ×3 (13:21→21:55)
--- NOTE | 2023-02-24 13:47 | Electrocardiogram Report ---
Test Reason : Blood Pressure : / mmHG Vent. Rate : 074 BPM Atrial Rate : 074 BPM P-R Int : 170 ms QRS Dur : 086 ms QT Int : 346 ms P-R-T Axes : 029 089 -81 degrees QTc Int : 384 ms Normal sinus rhythm Nonspecific ST and T wave abnormality Abnormal ECG When compared with ECG of 26-JUL-2021 05:39, Premature ventricular complexes are no longer Present Nonspecific T wave abnormality has replaced inverted T waves in Lateral leads Confirmed by Arsenio Avila ([id number]) on 02/24/2023 1:47:00 PM Referred By: REFERRED SELF Confirmed By:Arsenio Avila
[2023-02-24] MEDS ORDERED: MIDAZOLAM HCL 1 MG/ML 2ML VIAL ONE (13:48)
[2023-02-24] MEDS ORDERED: fentaNYL citrate PF 100 MCG/2 ML VIAL ONE (13:49)
[2023-02-24] MEDS ORDERED: PNEUMOCOCCAL POLYSACCHARIDES 25 MCG/0.5 ML VIAL/SYR IM ONE (14:47)
--- NOTE | 2023-02-24 14:54 | Billing Data ---
Date of Service February 24, 2023 Coding Level of Care Code 75744 IN/OBS CONSULT LVL 4,60M
--- NOTE | 2023-02-24 15:12 | Post Anesthesia Assessment ---
Date of Service February 24, 2023 Post Sedation Assessment Vital Signs Temp Pulse Pulse Resp BP BP Pulse Ox 02/24/23 12:30 97.5 F L 02/24/23 13:35 62 22 123/62 100 02/24/23 13:00 02/24/23 13:00 97.5 F L 63 21 100/66 98 02/24/23 10:35 62 13 107/71 93 02/24/23 10:00 64 13 106/76 93 02/24/23 10:31 65 02/24/23 09:30 63 14 94/68 L 93 02/24/23 09:00 62 15 114/87 95 02/24/23 08:54 64 15 113/67 95 02/24/23 08:27 64 14 94/58 L 92 02/24/23 08:01 64 16 121/57 L 99 02/24/23 07:00 66 14 127/81 96 02/24/23 08:28 63 16 94/58 L 93 02/24/23 08:00 62 20 121/57 L 97 02/24/23 07:49 97 02/24/23 06:29 99.0 F 75 16 116/66 84 L 02/24/23 06:28 75 O2 Del Method O2 Flow Rate 02/24/23 12:30 02/24/23 13:35 Nasal Cannula 3 02/24/23 13:00 Nasal Cannula 3 02/24/23 13:00 Nasal Cannula 3 02/24/23 10:35 Nasal Cannula 3 02/24/23 10:00 Nasal Cannula 3 02/24/23 10:31 02/24/23 09:30 Nasal Cannula 3 02/24/23 09:00 Nasal Cannula 3 02/24/23 08:54 Nasal Cannula 3 02/24/23 08:27 Nasal Cannula 3 02/24/23 08:01 02/24/23 07:00 02/24/23 08:28 Nasal Cannula 4 02/24/23 08:00 Nasal Cannula 5 02/24/23 07:49 Nasal Cannula 5 02/24/23 06:29 Room Air 02/24/23 06:28 Recovery Score Activity: Moves 4 extremities Respiration: Deep Breath/Cough Circulation: +/-20% PreAnes Value Consciousness: Fully Awake Oxygen Saturation: O2 needed for >90% Discharge Sedation Level of Care: Fast Track Phase II Post Sedation Plan On clinical assessment, the patient appears to have tolerated the sedation without complications. Patient is recovering as anticipated. Patient will continue to be monitored by nursing and may be discharged when sedation discharge criteria are met per below protocol. Upon Completions of procedure up to 15 minutes continue every 5 minute vital signs and the P.A.R. score; then discharge to a Phase I or Fast Track to Phase II per the following guidelines: * Discharge Patient to appropriate Phase II area if PAR is 8 or greater or return to pre- procedure baseline. The post - procedure orders will be as directed. * If PAR score is less than 8 or not return to pre-procedure baseline then patient will follow Phase I monitoring till PAR is reached for Phase II. The Phase I may be done in procedure room or may call to secure a Phase I area. * If naloxone or flumazenil are used for reversal, hold in Phase I for continued monitoring from when last reversal dose was given for a minimum of 60 minutes or longer pending the nurse and/or physician discretion of patient condition before discharge to Phase II. Please call the Sedation Physician to re-evaluate and complete post-note for discharge to Phase II area. Do NOT discharge from procedure sedation or Phase 1 until post- sedation evaluation note is complete by procedure /sedation MD Sedation Discharge Instructions to be given to the patient at discharge to home.
--- NOTE | 2023-02-24 15:18 | Cardiac Catheterization ---
[facility] Data: Machine Folder Cardiac Status Clinical evaluation leading to the procedure CAD Presenation: Sx unlikely to be ischemic Diagnostic Physicians Name: Juan Ferguson MD Closure Device Recommendations: Management Recommendatons Cardiac Cath Procedure Full Procedure Date February 24, 2023 Pre-Procedure Diagnosis Pre-Procedure Diagnosis: Cardiothoracic Symptom (Cardiac arrest) AUC Score AUC Score: 7 Post-Procedure Diagnosis Post-Procedure Diagnosis: Cardiothoracic Finding (Pericardial effusion, Tamponade) Procedure(s) Performed Procedure(s) Performed: Pericardiocentesis Making Machine Catcher Juan Ferguson MD Shipwright Apprentice(s) Deibler Estimated Blood Loss Estimated Blood Loss: <5 ml Medication(s) Medication(s): Fentanyl, Lidocaine 1% and Versed Summary of Findings Pericardiocentesis Indication: Syncope/Cardiac arrest. Large pericardial effusion with echocardiographic signs of tamponade. Procedure: - Subxiphoid approach - Local anesthesia with lidocaine - Under ultrasound and fluoroscopic guidance pericardial space accessed - 6Fr sheath placed and 6Fr pigtail catheter navigated into pericardial space - Removed 750 ml of straw colored fluid - Post procedure echo showed only trace residual fluid with well-expanded RV - Sheath and pigtail catheter sutured into place Opening pericardial pressure: 34 Post pericardiocentesis pericardial pressure: 14 Summary: 1. Successful ultrasound guided pericardiocentesis with removal of 750 ml of straw colored fluid. Recommendations: - ICU for continued monitoring - Follow-up on cell counts, cell cultures and cytology - Start colchicine 0.6 mg BID - Hold Xarelto - Pericardial drain to gravity overnight. - Repeat limited echo in AM. Hemodynamics Rest Ao:: -- Final Ao: -- LV: -- Recommendations Recommendations: Management Recommendatons Specimens Specimens: None Radiation Exposure (mGy) 56 Contrast (mls) -- Drains Drains: Pericardial drain Anesthesia Moderate 1400 - 1422 Procedural Complication(s) None Disposition ICU I attest to the content of the Intraoperative Record and any orders documented therein. Any exceptions are noted below. [facility] Card Cath Procedure Codes Therapeutic Services & Ancillary Procedure 1: Cardiovascular Tx and Anc Procedures: 08039 Pericardiocentesis w / Imaging Moderate Sedation Procedure 1: Sedation/Anesthesia: 63512 Mod Sedation by the same physician;Init15 Min Child Age 5 & Up PG Care Time/CCT Total # of Minutes Spent Total Time Spent with Patient: Total time spent is greater than 50% in coordination of care (as documented) at patient's floor/unit and/or counseling patient:
[2023-02-24] MEDS: HYDROmorphone INJ 0.5 MG/0.5 ML SYR IV PRN ×3 (15:44→23:43)
[2023-02-24 17:55] LABS: Appearance Urine Clear (Clear); Bilirubin Urine Negative (Negative); Blood Urine Negative (Negative); Color Urine Dark Yellow; Glucose Urine UA Negative (Negative); Ketones Urine Negative (Negative); Leukocyte Esterase Urine Negative (Negative); Nitrite Urine Negative (Negative); Protein Urine 1+ (Negative); Specific Gravity Urine 1.022 (1.000-1.030); Urobilinogen Urine Negative (Negative); pH Urine 5.5 (4.5-7.5)
[2023-02-24 18:19] LABS: RBC Urine Automated 0-4 /hpf (0-4)
[2023-02-24 18:20] LABS: Bacteria Urine Automated Negative (Negative); Epithelial Cell Urine Auto 0-5 /lpf (0-5)
[2023-02-24] MEDS: PANTOprazole 40 MG TAB PO SCH (20:07)
[2023-02-24] MEDS: DOXAZosin MESYLATE TAB 2 MG TAB PO SCH (20:07)
[2023-02-24] MEDS: COLCHICINE 0.6 MG TAB PO SCH (20:07)
[2023-02-24] MEDS: DOCUSATE SODIUM/SENNA 50/8.6MG TAB PO SCH (20:07)
[2023-02-24] MEDS: ASPIRIN 81 MG ECTAB PO SCH (20:07)
[2023-02-24] MEDS: ATORVASTATIN 40 MG TAB PO SCH (20:08)
[2023-02-24 20:46] LABS: BUN Creatinine Ratio 18.3 (10-20); Calcium 8.6 mg/dl (8.6-10.3); Creatinine Clr Calc Pharmacy 52.9 ml/min; Est GFR (African American) 43.8 ml/min; Est GFR (Non-African American) 37.8 ml/min
[2023-02-24 21:03] LABS: Troponin I High Sensitivity 88.6 pg/ml (0-20)
[2023-02-25] MEDS: SODIUM CHLORIDE 0.9% 1000ML 1,000 ML IV SCH (03:39)
[2023-02-25 04:42] LABS: Basophils # (auto) 0.04 K/uL (0-0.2); Basophils % (auto) 0.4 %; Eosinophils # (auto) 0.07 K/uL (0-0.50); Eosinophils % (auto) 0.7 %; Hematocrit (blood only) 32.1 % (42.0-52.0); Hemoglobin 10.1 g/dl (14.0-18.0); Immature Granulocytes # (auto) 0.03 K/uL (0.01-0.20); Immature Granulocytes % (auto) 0.3 %; Lymphocytes # (auto) 0.88 K/uL (1.2-3.4); Lymphocytes % (auto) 8.9 %; Mean Corpuscular Hemoglobin 26.8 pg (25.0-34.0); Mean Corpuscular Hgb Conc 31.5 g/dL (32.0-36.0); Mean Corpuscular Volume 85.1 fL (80.0-100.0); Monocytes # (auto) 0.98 K/uL (0.11-0.59); Monocytes % (auto) 9.9 %; Neutrophils # (auto) 7.86 K/uL (1.40-6.50); Neutrophils % (auto) 79.8 %; Nucleated RBC # (auto) 0.04 K/uL (0-0.12); Nucleated RBC % (auto) 0.4 %; Platelet Count 215 K/uL (130-400); RDW Coefficient of Variation 14.6 % (11.5-14.5); RDW Standard Deviation 44.9 fL (36.4-46.3); Red Blood Count 3.77 M/uL (4.70-6.10); White Blood Count 9.86 K/ul (4.8-10.8)
[2023-02-25 04:59] LABS: Albumin Globulin Ratio 1.2 (0.9-2); Albumin Level 3.2 gm/dl (3.4-5.0); BUN Creatinine Ratio 18.2 (10-20); Bilirubin,Total 1.3 mg/dl (0.2-1.0); Calcium 8.4 mg/dl (8.6-10.3); Creatinine Clr Calc Pharmacy 58.2 ml/min; Est GFR (African American) 49.2 ml/min; Est GFR (Non-African American) 42.4 ml/min; Globulin 2.7 gm/dl (2.5-4.0); Magnesium 1.8 mg/dl (1.7-2.4); Potassium 3.5 mmol/L (3.5-5.1); Total Protein 5.9 gm/dl (6.0-8.3)
[2023-02-25 05:06] LABS: INR 1.4 (0.9-1.1); Prothrombin Time 15.1 Seconds (9.0-12.0)
[2023-02-25] MEDS ORDERED: POTASSIUM CHLORIDE CRTAB 20 MEQ TABCR PO STA (05:13)
[2023-02-25] MEDS ORDERED: MAGNESIUM OXIDE 400 MG TAB PO ONE (05:15)
[2023-02-25 05:38] LABS: Troponin I High Sensitivity 75.6 pg/ml (0-20)
[2023-02-25] MEDS: HYDROmorphone INJ 0.5 MG/0.5 ML SYR IV PRN ×2 (06:36→22:58)
--- NOTE | 2023-02-25 07:07 | Ultrasound Report ---
US venous doppler LE BI CLINICAL HISTORY: r/o dvt TECHNIQUE: Bilateral lower extremity real-time compression venous ultrasound with Color Doppler imagi ng. Utilizing real-time ultrasonic imaging multiple real time high-resolution ultrasonic images with compression and noncompression maneuvers of the deep venous system in addition to color doppler imagi ng were performed from the common femoral vein through the proximal calf veins. COMPARISON: Comparison is made to left lower extremity Doppler ultrasound 11/19/2019 FINDINGS/IMPRESSION: Currently there is normal compressibility of the deep venous system from the common femoral vein thro ugh the proximal calf veins. No superficial venous thrombosis is identified. ACT 112: Negative or not required by law. Electronically signed by: Georgi Rutledge M.D. 02/25/2023 7:05 AM
--- NOTE | 2023-02-25 07:37 | Critical Care Progress Note ---
Date of Service February 25, 2023 Assessment & Plan (1) Hypoxia: (2) Hypocalcemia: (3) Pre-diabetes: (4) Acute renal failure superimposed on stage 3 chronic kidney disease: (5) Syncope: (6) Venous stasis ulcer of left lower extremity: (7) PAD (peripheral artery disease): (8) Venous stasis ulcer of right lower leg with edema of right lower leg: (9) Acute on chronic heart failure with preserved ejection fraction (HFpEF): Ángel Burgess is a 72 year-old male with known history of CAD s/p CABG x2 in 2011, chronic HFpEF, chronic small pericardial effusion, PAD s/p atherectomy and angioplasty on xarelto 2.5 mg BID, HTN, HLD, prediabetes, and CKD stage III, COPD who presented to ED after falling and becoming unresponsive at his home. An echo upon arrival revealed cardiac tamponade and is s/p pericardiocentesis (02/24). Neuro - ICU CAM: negative Analgesia: Dilaudid 0.5mg q4h PRN, Oxycodone 10mg q4h PRN, MS Contin 15mg BID * Alert and oriented * CT head negative * Rib fracture pain not controlled, adjusted oral pain regimen as above Cardiac - Cardiac Tamponade, Unresponsiveness, HFpEF, PAD, Venous Insufficiency * Hx of chronic pericardial effusion and EF 50-55% from prior echo * Echo completed yesterday which identified signs of cardiac tamponade- s/p pericardiocentesis with drainage of 750mL straw colored fluid * Fluid sent for cell count/culture/cytology- results pending * Pericardial drain remains in place, no additional drainage overnight * Repeat limited echo completed this morning, read pending * BP has been stable at 130s/60s * Tele: normal sinus rhythm with rare PVCs. EKG this a.m.- prolonged QTc to 538 * Continue ASA, statin, metoprolol, started colchicine 0.6mg BID * LE Venous Duplex w/o signs of DVT, carotid ultrasound: severe stenosis of proximal left external carotid artery, no significant stenosis of internal carotids bilaterally Respiratory - COPD * No respiratory distress, but difficult to take deep breaths due to pain * Currently on 2L NC * Not on any inhalers at home * Added DuoNebs q4h, encourage use of incentive spirometer GI - * Diet: Heart healthy * Protonix 40 daily * Bowel regimen of Miralax, Docusate/Senna. No BM since arrival, will monitor given increased opioid requirement Renal/Lytes - CKD Stage III, Superimposed ELIZ- Resolved * Baseline Cr ~1.6, Cr of 2.06 on arrival. Today Cr 1.59, BUN 29 * Suspect ELIZ from hypoperfusion, did receive IVF overnight (now stopped) * Potassium 3.5, Magnesium 1.8 (Received 40 KCl, 400 Mag Oxide this morning) * Replete electrolytes as needed * CK normal - * Strict I's and O's * Output of roughly 800mL in 24hr Endo - * Follow ICU hyperglycemia protocol * Prediabetic, not on any medications at home * Ordered A1C Heme - * Hemoglobin at 10.1 today * Holding Xarelto due to rib fractures and pericardiocentesis ID - * COVID and BioFire negative * 1x dose of Unasyn in ED * Afebrile, white count downtrending (9.86 today) Lines/IV Access - * Peripheral IVs intact * Pericardial drain intact DVT Prophylaxis - * Holding home Xarelto Thank you for allowing us to be a part of this patient's care. Please refer to Dr. White's documentation for additional recommendations. Admission and Anticipated Discharge Date Admission Date: February 24, 2023 Supervising Physician Co-Signing Physician Notes Patient seen and examined with resident. Status post pericardial drain with resolution of tamponade. Pericardial effusion management per cardiology. Patient having ongoing chest pain due to rib fractures from chest compressions. We will start MS Contin 15 mg twice daily, increase dose of as needed oxycodone and keep dose of Dilaudid 0.5 mg every 4 hours. Continue incentive spirometer and out of bed to chair. Repeat echo with minimal pericardial effusion. Follow cultures, cytology and cell counts. Can downgrade to PCU status once pericardial drain out. Subjective Patient was seen and examined at bedside. Mr. Guthrie was seated upright in bed eating breakfast at time of encounter. He notes that he still has significant pain in his ribs (8/10 intensity) and worsens with movement and deep breaths- notes that the pain medication helps some but it is still very painful. He denies any shortness of breath or tightness in his chest, is currently on 2L NC. No significant drainage from pericardial drain overnight. Denies dizzines s/lightheadedness, weakness, abdominal pain, nausea/vomiting. Review of Systems Review of Systems: As per above Physical Exam Constitutional: + obese and cooperative; not in distress Eyes: PERRL, conjunctivae normal, anicteric sclerae ENMT: Moist mucous membranes Neck: trachea midline, no thyromegaly Respiratory: No increased work of breathing, No wheezes/rhonchi. Cardiovascular: Normal rate, regular rhythm. No murmur. +2 radial pulses. Gastrointestinal (Abdomen): Abdomen soft, nondistended, nontender. No palpated masses. Musculoskeletal: Able to move limbs independently Skin: no rashes, warm and dry Psychiatric: A+Ox3, euthymic affect Results & Data Results & Data Vital Signs (Past 12 Hours) Vital Signs Temp Pulse Resp BP Pulse Ox O2 Del Method O2 Flow Rate 02/25/23 06:00 71 13 109/48 L 95 Nasal Cannula 2 02/25/23 05:30 71 12 93 Nasal Cannula 2 02/25/23 05:00 73 18 124/52 L 93 Nasal Cannula 2 02/25/23 04:30 70 14 93 Nasal Cannula 2 02/25/23 04:00 37 C 74 12 115/58 L 93 Nasal Cannula 2 02/25/23 03:30 72 20 94 Nasal Cannula 2 02/25/23 03:00 82 20 135/51 L 92 Nasal Cannula 2 02/25/23 02:30 75 12 92 Nasal Cannula 2 02/25/23 02:00 73 14 149/76 H 91 Nasal Cannula 2 02/25/23 01:30 74 12 92 Nasal Cannula 2 02/25/23 01:00 73 13 143/65 H 93 Nasal Cannula 2 02/25/23 00:30 69 12 92 Nasal Cannula 2 02/25/23 00:00 36.9 C 68 14 123/65 94 Nasal Cannula 2 02/24/23 23:30 67 12 96 Nasal Cannula 2 02/24/23 23:00 67 13 135/62 97 Nasal Cannula 2 02/24/23 22:30 71 12 100 Nasal Cannula 2 02/24/23 22:00 71 12 136/62 97 Nasal Cannula 2 02/24/23 21:30 74 14 93 Nasal Cannula 2 02/24/23 21:00 73 12 132/72 95 Nasal Cannula 2 02/24/23 20:30 76 16 92 Room Air 02/24/23 20:00 36.8 C 70 17 113/61 93 Room Air Diagnostic Findings Venous Doppler Study 02/24/23 10:10 US venous doppler LE BI CLINICAL HISTORY: r/o dvt TECHNIQUE: Bilateral lower extremity real-time compression venous ultrasound with Color Doppler imaging. Utilizing real-time ultrasonic imaging multiple real time high-resolution ultrasonic images with compression and noncompression ma neuvers of the deep venous system in addition to color doppler imaging were performed from the common femoral vein through the proximal calf veins. COMPARISON: Comparison is made to left lower extremity Doppler ultrasound 11/19/2019 FINDINGS/IMPRESSION: Currently there is normal compressibility of the deep venous system from the common femoral vein through the proximal calf veins. No superficial venous thrombosis is identified. ACT 112: Negative or not required by law. Electronically signed by: Georgi Rutledge M.D. 02/25/2023 7:05 AM Carotid Doppler Study 02/24/23 12:14 US carotid doppler BI CLINICAL HISTORY: 72 years-old Male with unresponsive episode. Acutely altered mental status COMPARISON: Head CT of same day TECHNIQUE: Multiple real time sonographic images of the carotid bifurcations were obtained assessing martinez scale, color Doppler and spectral wave form appearance FINDINGS: RIGHT CAROTID: The peak systolic velocity measured within the right ICA is 95 cm/sec. The end diastolic velocity measured 14 cm/sec. The ICA to CCA ratio measured 0.93 which correlates with a stenosis of 0-50%. Mild atherosclerotic plaque of the right carotid bulb. LEFT CAROTID: The peak systolic velocity measured within the left ICA is 08 cm/sec. The end diastolic velocity measured 25 cm/sec. The ICA to CCA ratio measured 0.96 which correlates with a stenosis of 0-50%. Elevated peak systolic velocities within the proximal external carotid artery measure up to 293 cm/s secondary to underlying atherosclerotic plaque. There is mild to moderate atherosclerotic plaque within the left carotid bulb. There is normal antegrade vertebral flow bilaterally. IMPRESSION: 1. No hemodynamically significant stenosis within the internal carotid arteries. 2. Normal antegrade vertebral flow bilaterally. 3. High-grade stenosis within the proximal left external carotid artery. ACT 112: Negative or not required by law. The above report was generated using voice recognition software. It may contain grammatical, syntax or spelling errors. Electronically signed by: Michael Schmidt M.D. 02/25/2023 8:03 AM Resident Activity Tracking Resident Involvement: Resident Care Provided Care Provided: Adult [facility]
[2023-02-25] MEDS: oxyCODONE HCL IR 5 MG TAB (IMMEDIATE RELEASE) PO PRN ×3 (07:39→17:42)
--- NOTE | 2023-02-25 08:05 | Ultrasound Report ---
US carotid doppler BI CLINICAL HISTORY: 72 years-old Male with unresponsive episode. Acutely altered mental status COMPARISON: Head CT of same day TECHNIQUE: Multiple real time sonographic images of the carotid bifurcations were obtained assessing martinez scale, color Doppler and spectral wave form appearance FINDINGS: RIGHT CAROTID: The peak systolic velocity measured within the right ICA is 95 cm/sec. The end diast olic velocity measured 14 cm/sec. The ICA to CCA ratio measured 0.93 which correlates with a stenosi s of 0-50%. Mild atherosclerotic plaque of the right carotid bulb. LEFT CAROTID: The peak systolic velocity measured within the left ICA is 08 cm/sec. The end diastol ic velocity measured 25 cm/sec. The ICA to CCA ratio measured 0.96 which correlates with a stenosis o f 0-50%. Elevated peak systolic velocities within the proximal external carotid artery measure up to 293 cm/s secondary to underlying atherosclerotic plaque. There is mild to moderate atherosclerotic p laque within the left carotid bulb. There is normal antegrade vertebral flow bilaterally. IMPRESSION: 1. No hemodynamically significant stenosis within the internal carotid arteries. 2. Normal antegrade vertebral flow bilaterally. 3. High-grade stenosis within the proximal left external carotid artery. ACT 112: Negative or not required by law. The above report was generated using voice recognition software. It may contain grammatical, syntax o r spelling errors. Electronically signed by: Michael Schmidt M.D. 02/25/2023 8:03 AM
[2023-02-25] MEDS: INSULIN ASPART PER UNIT CHARGE SC SCH ×4 (08:12→20:07)
[2023-02-25] MEDS: COLCHICINE 0.6 MG TAB PO SCH ×2 (08:13→20:21)
[2023-02-25] MEDS: LIDOCAINE 5% 1 PATCH TD SCH (08:13)
[2023-02-25] MEDS: GABAPENTIN 300 MG CAP PO SCH ×2 (08:14→20:05)
[2023-02-25] MEDS: METOPROLOL SUCC 50MG EXT REL TAB PO SCH (08:14)
[2023-02-25] MEDS: POLYETHYLENE (MIRALAX) 17 GM PACK PO SCH (08:14)
[2023-02-25] MEDS ORDERED: MoRPHine SULFATE CR 15 MG TABCR PO ONE (10:00)
--- NOTE | 2023-02-25 10:20 | XRay Report ---
XR chest 1V portable CLINICAL HISTORY: rib fractures, difficulty breathing TECHNIQUE: Single frontal radiograph of the chest was obtained. Comparison: Comparison is made to chest radiograph 02/24/2023 FINDINGS: Median sternotomy wires are unchanged. Cardiomegaly is noted. Right lower lung airspace opacities are noted. Prominence of the pulmonary vasculature is seen. No evidence of pleural effusion or pneumotho rax. IMPRESSION: 1. Cardiomegaly and mild pulmonary edema. 2. Right lower lung airspace opacities likely represent atelectasis, pneumonia, and/or aspiration. ACT 112: Negative or not required by law. Electronically signed by: Georgi Rutledge M.D. 02/25/2023 10:18 AM
--- NOTE | 2023-02-25 10:33 | Billing Data ---
Date of Service February 25, 2023 Coding Level of Care Code 42976 SUB INP/OBS CARE
[2023-02-25] MEDS: ALBUT/IPRATROP 3MG/0.5MG NEB 3 ML VIAL NEB SCH ×2 (11:38→15:33)
--- NOTE | 2023-02-25 11:44 | Consultation Report ---
NEPHROLOGY CONSULTATION NOTE DATE OF SERVICE: 02/25/2023 REASON FOR CONSULTATION: Acute renal failure on background CKD. HISTORY OF PRESENT ILLNESS: The patient is a 72-year-old male who presented to the hospital yesterda y morning after a syncopal episode prior to arrival. The patient's syncopal episode was unwitnessed and the patient does not recall any of the event. The patient has known CKD III with a baseline crea tinine around 1.6. On admission, he had a creatinine of 2.1, but since then it has come down back to baseline. The patient was found to have cardiac arrest with cardiac tamponade. Since being admitted , the patient has also had a pericardiocentesis done. The patient feels significantly better at this time. The patient also had a CPR on the scene and has sustained some rib fracture. The patient cori efly received IV fluid overnight, but since then it has been stopped. At home, patient takes Bumex 1 mg twice daily and spironolactone 25 daily as well as metolazone 2.5 mg Wednesday, Wednesday, and with potassium supplement. At this point of time, he is not getting any diuretics, nor any IV fluid . The patient's vital signs appear to be much better. The patient is making urine, although it does not seem to be accurately measured at this point. PAST MEDICAL AND SURGICAL HISTORY: Includes chronic diastolic congestive heart failure, pericardial effusion in 2020, coronary artery disease, status post CABG x2, known chronic occlusion of the right coronary artery, peripheral arterial disease, hypertension, dyslipidemia, chronic kidney disease stag e III, baseline creatinine 1.6. ALLERGIES: None. MEDICATIONS: Home medication list was reviewed in detail and is as per the medicine reconciliation l ist and the H and P. The patient is on 3 different diuretics, Bumex, spironolactone and metolazone. FAMILY HISTORY: Negative for renal disease or dialysis. SOCIAL HISTORY: Former smoker. He is and lives with his spouse. 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 REVIEW OF SYSTEMS: Twelve systems reviewed and negative. PHYSICAL EXAMINATION: GENERAL: Elderly white male who is somewhat obese. He is awake, alert, oriented x3, in no acute dis tress. VITAL SIGNS: Blood pressure is 106/51, pulse rate 63, temperature 37 degrees Celsius, 95% on 2 liter nasal cannula. HEENT: Mucous membrane moist. NECK: Supple. No jugular venous distention. No bruit. CHEST: Bilateral decreased breath sounds, but clear to auscultation. CARDIOVASCULAR: Distant heart sound. Systolic ejection murmur heard. ABDOMEN: Soft, nontender, obese. EXTREMITIES: Show bilateral skin changes of venous insufficiency. LABORATORY TEST: Baseline creatinine 1.6, on admission was 2.1, this morning is back to 1.6. Sodium 141, potassium 3.5, BUN 29. CT chest showed numerous bilateral anterior rib fractures, emphysema, ca rdiomegaly, moderate pericardial effusion, congestive heart failure, pulmonary edema. ASSESSMENT AND PLAN: A 72-year-old male who presented with cardiac arrest at home secondary to cardi ac tamponade from pericardial effusion. The patient already had pericardiocentesis done yesterday. I have been consulted for acute renal failure. Acute renal failure: The patient's baseline creatinine is 1.6 and on admission was 2.1. Fortunately , it has already normalized and is back to baseline of 1.6. The patient normally gets 3 different di uretics, spironolactone, Bumex and metolazone. However, given the cardiac tamponade and significant right ventricular systolic compression, the patient actually had IV fluid yesterday. We will defer d iuretics and fluid management to cardiology. No further workup is needed from renal standpoint. Thank you very much for the consult. Job ID: [id number]
--- NOTE | 2023-02-25 12:00 | Cardiology Progress Note ---
Date of Service February 25, 2023 Assessment & Plan (1) Cardiac arrest: (2) Cardiac tamponade: (3) Hypoxia: (4) Hypocalcemia: (5) Acute renal failure superimposed on stage 3 chronic kidney disease: (6) Syncope: (7) PAD (peripheral artery disease): (8) Hypoalbuminemia: (9) CAD (coronary artery disease): (10) COPD (chronic obstructive pulmonary disease): Plan pericardial effusion resolved s/p pericardiocentesis still with significant rib pain s/p chest compressions await fluid analysis cont colchicine drain removal per our interventional colleagues, no further output this AM Admission and Anticipated Discharge Date Admission Date: February 24, 2023 Review of Systems Review of Systems: All systems reviewed & are unremarkable except as noted in HPI & below Physical Exam Physical Exam: General: Awake, alert and oriented x 3. No acute distress. HEENT: Normocephalic, atraumatic. Pupils equal, round and reactive to light and accommodation. Extraocular muscles are intact. Anicteric sclera. Moist mucous membranes. Neck: No JVD. No bruit. Cardiovascular: Regular but distant. Positive S-4. Normal S-1 and S-2. No S- 3. 3/6 mid to late systolic ejection murmur, greatest at the right sternal border, second intercostal space with radiation to the bilateral carotids. No rubs. Pulmonary: Clear to auscultation bilaterally. No rales, rhonchi, or wheezing. Abdomen: Bowel sounds x 4, soft. No rebound, guarding or tenderness. No organomegaly. Extremities: No clubbing, cyanosis or edema. +2 pedal pulses bilaterally. Skin: Warm and dry. Results & Data Vital Signs (Past 12 Hours) Vital Signs Temp Pulse Pulse Resp BP Pulse Ox O2 Del Method 02/25/23 08:00 36.5 C 02/25/23 11:40 36.5 C 02/25/23 11:38 65 13 96 Nasal Cannula 02/25/23 11:00 63 12 106/51 L 95 02/25/23 10:00 67 17 125/57 L 95 02/25/23 09:00 70 14 121/59 L 93 02/25/23 08:00 78 18 108/54 L 93 02/25/23 07:00 68 15 110/55 L 88 L Nasal Cannula 02/25/23 08:00 68 03/30/23 06:00 71 13 109/48 L 95 Nasal Cannula 02/25/23 05:30 71 12 93 Nasal Cannula 02/25/23 05:00 73 18 124/52 L 93 Nasal Cannula 02/25/23 04:30 70 14 93 Nasal Cannula 02/25/23 04:00 37 C 74 12 115/58 L 93 Nasal Cannula 02/25/23 03:30 72 20 94 Nasal Cannula 02/25/23 03:00 82 20 135/51 L 92 Nasal Cannula 02/25/23 02:30 75 12 92 Nasal Cannula 02/25/23 02:00 73 14 149/76 H 91 Nasal Cannula 02/25/23 01:30 74 12 92 Nasal Cannula 02/25/23 01:00 73 13 143/65 H 93 Nasal Cannula 02/25/23 00:30 69 12 92 Nasal Cannula 02/25/23 00:00 36.9 C 68 14 123/65 94 Nasal Cannula O2 Flow Rate 02/25/23 08:00 02/25/23 11:40 02/25/23 11:38 2 02/25/23 11:00 02/25/23 10:00 02/25/23 09:00 02/25/23 08:00 02/25/23 07:00 2 02/25/23 08:00 02/25/23 06:00 2 02/25/23 05:30 2 02/25/23 05:00 2 02/25/23 04:30 2 02/25/23 04:00 2 02/25/23 03:30 2 02/25/23 03:00 2 02/25/23 02:30 2 02/25/23 02:00 2 02/25/23 01:30 2 02/25/23 01:00 2 02/25/23 00:30 2 02/25/23 00:00 2
[2023-02-25] MEDS ORDERED: ALBUT/IPRATROP 3MG/0.5MG NEB 3 ML VIAL NEB PRN (15:49)
--- NOTE | 2023-02-25 16:32 | Hospitalist Progress Note ---
Date of Service February 25, 2023 Assessment & Plan (1) Syncope: (2) Hypoxia: (3) Lactic acidosis: (4) Hypocalcemia: (5) Acute renal failure superimposed on stage 3 chronic kidney disease: (6) CAD (coronary artery disease): (7) COPD (chronic obstructive pulmonary disease): (8) PAD (peripheral artery disease): (9) HTN (hypertension): (10) Pre-diabetes: Plan This is a 72-year-old male who has significant past medical history of CAD status post CABG x2 in 2011, chronic HFpEF, chronic small pericardial effusion, PAD status post atherectomy and angioplasty managed on Xarelto, HTN, HLD, prediabetes, CKD stage III with baseline creatinine of 1.6-1.7, chronic venous insufficiency, COPD, former tobacco abuser who presents to ED after sustaining a syncopal/collapse episode prior to arrival. Patient had unexplained syncopal/collapse this morning that was unwitnessed in which he does not recall any of the events. Last event he recalls was being in the bathroom this morning and was trying to make it back to his bedroom. Syncope Cardiac tamponade elevated troponin Unclear if cardiac tamponade reason for syncope or subsequent result of chest compressions ?cardiac etiology vs arrhythmia, unlikely PE as pt is on xarelto last echo was 01/26/23 which showed preserved EF 55%, mild AV stenosis, mild chronic pericardial effusion Echo on admission showing cardiac tamponade S/p pericardiocentesis - fluid analysis pending, likely to remove drain tomorrow Started colchicine Admitted to ICU, continue cardiac monitoring Cardiology consulted and following Hypocalcemia replete and monitor Hypokalemia replete and monitor Lactic acidosis likely secondary to hypoperfusion vs hypoxia IVF, trend lactic acid Hypoxia B/L rib fx 2/2 traumatic from CPR Anterior R 2-7th; L 3-7th; 2nd anterior costal cartilage fx continue O2 supplementation incentive spirometry oxycodone for pain scheduled bowel regimen lidocaine patches Chest CT did mention b/l pleural effusions again likely 2/2 fracture; also of concern was ? asp PNA. He did receive Unasyn in ED. He is w/o resp complaint and procal negative will monitor off antibiotics for now Care per ICU Leukocytosis he does not meet SIRS/SEPSIS criteria will monitor off antibiotic blood/urine culture ordered, follow WBC 9.8K - normalized A/C CKD -3 baseline cr 1.6-7 cr 2.0 ? atn in setting of hypoperfusion vs dehydration received gentle fluids nephrology was consulted Cr back to baseline today CAD hx of CABG x 2 PAD w/ hx of angioplasty Chronic HFpEf HTN continue asa, statin, metoprolol hold bumex, metolazone for now hold xarelto due to trauma from rib fx Resume per cardiology COPD, emphysema hx of tobacco abuse no acute exac Pre DM a1c 6.3, 02/15/[address] on insulin SS if BSG remains elevated consider adding Lantus BID DVT ppx: SCDS for now, xarelto on hold FULL CODE PCP: Dr. Esquivel Dispo: ICU, return to home when medically stable Admission and Anticipated Discharge Date Admission Date: February 24, 2023 Subjective Pt seen s/p syncope , and cardiac tamponade, ? cardiac arrest outside of hospit al Now s/p pericardiocentesis Sitting up in chair, in no acute distress Currently using supplemental oxygen, 2 L Has some chest pain from chest compressions No shortness of breath, no abdominal pain nausea vomiting Eating well, voiding well as well Patient's present at the bedside Review of Systems Review of Systems: All systems reviewed & are unremarkable except as noted in Subjective Physical Exam Physical Exam: Constitutional: WD/WN, Obese, M in NAD, sitting up in chair, on suppl. O2 Head: Normocephalic, Atraumatic Eyes: PERRL, EOMI, conjunctivae normal, anicteric sclerae ENMT: external ear and nose normal Neck: normal visual inspection Respiratory:Normal insp/exp effort, no accessory muscle use, somewhat diminished breath sounds Cardiovascular: RRR, +syst. murmur, no LE edema, bilateral venous stasis changes noted Chest: + drain, dressings applied (pericardiocentesis) Abdomen: normal bowel sounds, soft, nontender, obese Musculoskeletal: moves extremities Skin: no rashes, warm and dry normal turgor Neurologic: PERRL, EOMI, no face palsy, speech fluent, moves all extremities Psychiatric: A+Ox3, euthymic affect Results & Data Results & Data Vital Signs (Past 12 Hours) Vital Signs Temp Pulse Pulse Resp BP BP Pulse Ox 02/25/23 15:48 37.2 C 64 18 93/54 L 94 02/25/23 15:35 65 14 91 02/25/23 14:57 66 15 93/54 L 91 02/25/23 14:00 62 10 L 117/50 L 93 02/25/23 13:38 107/51 L 02/25/23 13:35 106/54 L 02/25/23 13:33 110/54 L 02/25/23 13:30 109/52 L 02/25/23 13:28 116/55 L 02/25/23 13:25 124/66 02/25/23 13:23 66 11 L 107/52 L 93 02/25/23 13:00 66 18 114/62 89 L 02/25/23 12:00 68 13 112/47 L 90 02/25/23 08:00 36.5 C 02/25/23 11:40 36.5 C 02/25/23 11:38 65 13 96 02/25/23 11:00 63 12 106/51 L 95 02/25/23 10:00 67 17 125/57 L 95 02/25/23 09:00 70 14 121/59 L 93 02/25/23 08:00 78 18 108/54 L 93 02/25/23 07:00 68 15 110/55 L 88 L 02/25/23 08:00 68 02/25/23 06:00 71 13 109/48 L 95 02/25/23 05:30 71 12 93 02/25/23 05:00 73 18 124/52 L 93 O2 Del Method O2 Flow Rate 02/25/23 15:48 Nasal Cannula 2.0 02/25/23 15:35 Nasal Cannula 2 02/25/23 14:57 02/25/23 14:00 02/25/23 13:38 02/25/23 13:35 02/25/23 13:33 02/25/23 13:30 02/25/23 13:28 02/25/23 13:25 02/25/23 13:23 02/25/23 13:00 02/25/23 12:00 02/25/23 08:00 02/25/23 11:40 02/25/23 11:38 Nasal Cannula 2 02/25/23 11:00 02/25/23 10:00 02/25/23 09:00 02/25/23 08:00 02/25/23 07:00 Nasal Cannula 2 02/25/23 08:00 02/25/23 06:00 Nasal Cannula 2 02/25/23 05:30 Nasal Cannula 2 02/25/23 05:00 Nasal Cannula 2 Laboratory Results 02/25/23 02/25/23 02/25/23 Range/Units 16:20 11:14 07:41 WBC (4.8-10.8) K/ul RBC (4.70-6.10) M/uL Hgb (14.0-18.0) g/dl Hct (42.0-52.0) % MCV (80.0-100.0) fL MCH (25.0-34.0) pg MCHC (32.0-36.0) g/dL RDW Std Deviation (36.4-46.3) fL RDW Coeff of Alan (11.5-14.5) % Plt Count (130-400) K/uL MPV (9.4-12.4) fL Immature Gran % (Auto) % Neut % (Auto) % Lymph % (Auto) % [place] % (Auto) % Eos % (Auto) % Baso % (Auto) % Neut # (Auto) (1.40-6.50) K/uL Lymph # (Auto) (1.2-3.4) K/uL [place] # (Auto) (0.11-0.59) K/uL Eos # (Auto) (0-0.50) K/uL Baso # (Auto) (0-0.2) K/uL Immature Gran # (Auto) (0.01-0.20) K/uL Absolute Nucleated RBC (0-0.12) K/uL Nucleated RBC % (auto) % PT (9.0-12.0) Seconds INR (0.9-1.1) Sodium (136-145) mmol/L Potassium (3.5-5.1) mmol/L Chloride (98-107) mmol/L Carbon Dioxide (21-32) mmol/L Anion Gap (3-11) BUN (6-23) mg/dl Creatinine (0.6-1.4) mg/dl Est Cr Clr Drug Dosing ml/min Est GFR ( Amer) ml/min Est GFR (Non-Af Amer) ml/min BUN/Creatinine Ratio (10-20) Glucose (70-99(Fasting)) mg/dl POC Glucose 104 H 114 H 152 H (70-99) mg/dl Estimat Average Glucose Hemoglobin A1c Lactate (0.4-2.0) mmol/L Calcium (8.6-10.3) mg/dl Magnesium (1.7-2.4) mg/dl Total Bilirubin (0.2-1.0) mg/dl AST (13-39) U/L ALT (7-52) U/L Alkaline Phosphatase (34-104) U/L Troponin I High Sens (0-20) pg/ml Total Protein (6.0-8.3) gm/dl Albumin (3.4-5.0) gm/dl Globulin (2.5-4.0) gm/dl Albumin/Globulin Ratio (0.9-2) Urine Color Urine Appearance (Clear) Urine pH (4.5-7.5) Ur Specific [place] (1.000-1.030) Urine Protein (Negative) Urine Glucose (UA) (Negative) Urine Ketones (Negative) Urine Blood (Negative) Urine Nitrite (Negative) Urine Bilirubin (Negative) Urine Urobilinogen (Negative) Ur Leukocyte Esterase (Negative) Urine WBC (Auto) (0-5) /hpf Urine RBC (Auto) (0-4) /hpf U Hyaline Cast (Auto) (0-5) /lpf U Epithel Cells (Auto) (0-5) /lpf Urine Bacteria (Auto) (Negative) Nasal Screen MRSA (PCR) (Negative) 02/25/23 02/25/23 02/25/23 Range/Units 03:57 03:57 03:57 WBC (4.8-10.8) K/ul RBC (4.70-6.10) M/uL Hgb (14.0-18.0) g/dl Hct (42.0-52.0) % MCV (80.0-100.0) fL MCH (25.0-34.0) pg MCHC (32.0-36.0) g/dL RDW Std Deviation (36.4-46.3) fL RDW Coeff of Alan (11.5-14.5) % Plt Count (130-400) K/uL MPV (9.4-12.4) fL Immature Gran % (Auto) % Neut % (Auto) % Lymph % (Auto) % [place] % (Auto) % Eos % (Auto) % Baso % (Auto) % Neut # (Auto) (1.40-6.50) K/uL Lymph # (Auto) (1.2-3.4) K/uL [place] # (Auto) (0.11-0.59) K/uL Eos # (Auto) (0-0.50) K/uL Baso # (Auto) (0-0.2) K/uL Immature Gran # (Auto) (0.01-0.20) K/uL Absolute Nucleated RBC (0-0.12) K/uL Nucleated RBC % (auto) % PT 15.1 H (9.0-12.0) Seconds INR 1.4 H (0.9-1.1) Sodium 141 (136-145) mmol/L Potassium 3.5 (3.5-5.1) mmol/L Chloride 104 (98-107) mmol/L Carbon Dioxide 29 (21-32) mmol/L Anion Gap 8 (3-11) BUN 29 H (6-23) mg/dl Creatinine 1.59 H (0.6-1.4) mg/dl Est Cr Clr Drug Dosing 58.2 ml/min Est GFR ( Amer) 49.2 ml/min Est GFR (Non-Af Amer) 42.4 ml/min BUN/Creatinine Ratio 18.2 (10-20) Glucose 116 H (70-99(Fasting)) mg/dl POC Glucose (70-99) mg/dl Estimat Average Glucose Pending Hemoglobin A1c Pending Lactate (0.4-2.0) mmol/L Calcium 8.4 L (8.6-10.3) mg/dl Magnesium 1.8 (1.7-2.4) mg/dl Total Bilirubin 1.3 H D (0.2-1.0) mg/dl AST 20 (13-39) U/L ALT 15 (7-52) U/L Alkaline Phosphatase 50 (34-104) U/L Troponin I High Sens 75.6 H* D (0-20) pg/ml Total Protein 5.9 L (6.0-8.3) gm/dl Albumin 3.2 L (3.4-5.0) gm/dl Globulin 2.7 (2.5-4.0) gm/dl Albumin/Globulin Ratio 1.2 (0.9-2) Urine Color Urine Appearance (Clear) Urine pH (4.5-7.5) Ur Specific [place] (1.000-1.030) Urine Protein (Negative) Urine Glucose (UA) (Negative) Urine Ketones (Negative) Urine Blood (Negative) Urine Nitrite (Negative) Urine Bilirubin (Negative) Urine Urobilinogen (Negative) Ur Leukocyte Esterase (Negative) Urine WBC (Auto) (0-5) /hpf Urine RBC (Auto) (0-4) /hpf U Hyaline Cast (Auto) (0-5) /lpf U Epithel Cells (Auto) (0-5) /lpf Urine Bacteria (Auto) (Negative) Nasal Screen MRSA (PCR) (Negative) 02/25/23 02/24/23 02/24/23 Range/Units 03:57 20:17 20:16 WBC 9.86 (4.8-10.8) K/ul RBC 3.77 L (4.70-6.10) M/uL Hgb 10.1 L (14.0-18.0) g/dl Hct 32.1 L (42.0-52.0) % MCV 85.1 (80.0-100.0) fL MCH 26.8 (25.0-34.0) pg MCHC 31.5 L (32.0-36.0) g/dL RDW Std Deviation 44.9 (36.4-46.3) fL RDW Coeff of Alan 14.6 H (11.5-14.5) % Plt Count 215 (130-400) K/uL MPV 11.0 (9.4-12.4) fL Immature Gran % (Auto) 0.3 % Neut % (Auto) 79.8 % Lymph % (Auto) 8.9 % [place] % (Auto) 9.9 % Eos % (Auto) 0.7 % Baso % (Auto) 0.4 % Neut # (Auto) 7.86 H (1.40-6.50) K/uL Lymph # (Auto) 0.88 L (1.2-3.4) K/uL [place] # (Auto) 0.98 H (0.11-0.59) K/uL Eos # (Auto) 0.07 (0-0.50) K/uL Baso # (Auto) 0.04 (0-0.2) K/uL Immature Gran # (Auto) 0.03 (0.01-0.20) K/uL Absolute Nucleated RBC 0.04 (0-0.12) K/uL Nucleated RBC % (auto) 0.4 % PT (9.0-12.0) Seconds INR (0.9-1.1) Sodium 140 (136-145) mmol/L Potassium 4.0 D (3.5-5.1) mmol/L Chloride 104 (98-107) mmol/L Carbon Dioxide 31 (21-32) mmol/L Anion Gap 5 (3-11) BUN 32 H (6-23) mg/dl Creatinine 1.75 H D (0.6-1.4) mg/dl Est Cr Clr Drug Dosing 52.9 ml/min Est GFR ( Amer) 43.8 ml/min Est GFR (Non-Af Amer) 37.8 ml/min BUN/Creatinine Ratio 18.3 (10-20) Glucose 124 H (70-99(Fasting)) mg/dl POC Glucose 132 H (70-99) mg/dl Estimat Average Glucose Hemoglobin A1c Lactate (0.4-2.0) mmol/L Calcium 8.6 (8.6-10.3) mg/dl Magnesium (1.7-2.4) mg/dl Total Bilirubin (0.2-1.0) mg/dl AST (13-39) U/L ALT (7-52) U/L Alkaline Phosphatase (34-104) U/L Troponin I High Sens 88.6 H* (0-20) pg/ml Total Protein (6.0-8.3) gm/dl Albumin (3.4-5.0) gm/dl Globulin (2.5-4.0) gm/dl Albumin/Globulin Ratio (0.9-2) Urine Color Urine Appearance (Clear) Urine pH (4.5-7.5) Ur Specific [place] (1.000-1.030) Urine Protein (Negative) Urine Glucose (UA) (Negative) Urine Ketones (Negative) Urine Blood (Negative) Urine Nitrite (Negative) Urine Bilirubin (Negative) Urine Urobilinogen (Negative) Ur Leukocyte Esterase (Negative) Urine WBC (Auto) (0-5) /hpf Urine RBC (Auto) (0-4) /hpf U Hyaline Cast (Auto) (0-5) /lpf U Epithel Cells (Auto) (0-5) /lpf Urine Bacteria (Auto) (Negative) Nasal Screen MRSA (PCR) (Negative) 02/24/23 02/24/23 02/24/23 Range/Units 17:00 16:40 12:15 WBC (4.8-10.8) K/ul RBC (4.70-6.10) M/uL Hgb (14.0-18.0) g/dl Hct (42.0-52.0) % MCV (80.0-100.0) fL MCH (25.0-34.0) pg MCHC (32.0-36.0) g/dL RDW Std Deviation (36.4-46.3) fL RDW Coeff of Alan (11.5-14.5) % Plt Count (130-400) K/uL MPV (9.4-12.4) fL Immature Gran % (Auto) % Neut % (Auto) % Lymph % (Auto) % [place] % (Auto) % Eos % (Auto) % Baso % (Auto) % Neut # (Auto) (1.40-6.50) K/uL Lymph # (Auto) (1.2-3.4) K/uL [place] # (Auto) (0.11-0.59) K/uL Eos # (Auto) (0-0.50) K/uL Baso # (Auto) (0-0.2) K/uL Immature Gran # (Auto) (0.01-0.20) K/uL Absolute Nucleated RBC (0-0.12) K/uL Nucleated RBC % (auto) % PT (9.0-12.0) Seconds INR (0.9-1.1) Sodium (136-145) mmol/L Potassium (3.5-5.1) mmol/L Chloride (98-107) mmol/L Carbon Dioxide (21-32) mmol/L Anion Gap (3-11) BUN (6-23) mg/dl Creatinine (0.6-1.4) mg/dl Est Cr Clr Drug Dosing ml/min Est GFR ( Amer) ml/min Est GFR (Non-Af Amer) ml/min BUN/Creatinine Ratio (10-20) Glucose (70-99(Fasting)) mg/dl POC Glucose (70-99) mg/dl Estimat Average Glucose Hemoglobin A1c Lactate 2.3 H* (0.4-2.0) mmol/L Calcium (8.6-10.3) mg/dl Magnesium (1.7-2.4) mg/dl Total Bilirubin (0.2-1.0) mg/dl AST (13-39) U/L ALT (7-52) U/L Alkaline Phosphatase (34-104) U/L Troponin I High Sens (0-20) pg/ml Total Protein (6.0-8.3) gm/dl Albumin (3.4-5.0) gm/dl Globulin (2.5-4.0) gm/dl Albumin/Globulin Ratio (0.9-2) Urine Color Dark Yellow Urine Appearance Clear (Clear) Urine pH 5.5 (4.5-7.5) Ur Specific [place] 1.022 (1.000-1.030) Urine Protein 1+ H (Negative) Urine Glucose (UA) Negative (Negative) Urine Ketones Negative (Negative) Urine Blood Negative (Negative) Urine Nitrite Negative (Negative) Urine Bilirubin Negative (Negative) Urine Urobilinogen Negative (Negative) Ur Leukocyte Esterase Negative (Negative) Urine WBC (Auto) 1-5 (0-5) /hpf Urine RBC (Auto) 0-4 (0-4) /hpf U Hyaline Cast (Auto) 1-5 (0-5) /lpf U Epithel Cells (Auto) 0-5 (0-5) /lpf Urine Bacteria (Auto) Negative (Negative) Nasal Screen MRSA (PCR) Negative (Negative) Medications Administered Current Inpatient Medications Acetaminophen (Acetaminophen 325 Mg Tab) 650 mg PO Q4H PRN PRN Reason: Pain scale 1-3 or Fever Stop: 03/26/23 12:38 Last Admin: 02/25/23 09:58 Dose: 650 mg Al Hydrox/Mg Hydrox/Simethicone (Aluminum/Magnesium Susp 30 Ml Udc) 15 ml PO Q4H PRN PRN Reason: Dyspepsia Stop: 03/26/23 12:38 Albuterol (Albut/Ipratrop 3mg/0.5mg Neb 3 Ml Vial) 3 ml NEB Q4R PRN; Protocol PRN Reason: Shortness Of Breath Or Wheezing Stop: 03/27/23 10:59 Aspirin (Aspirin 81 Mg Ectab) 81 mg PO HS [facility] Stop: 03/26/23 20:59 Last Admin: 02/24/23 20:07 Dose: 81 mg Atorvastatin Calcium (Atorvastatin 40 Mg Tab) 40 mg PO HS [facility] Stop: 03/26/23 20:59 Last Admin: 02/24/23 20:08 Dose: 40 mg Colchicine (Colchicine 0.6 Mg Tab) 0.6 mg PO BID [facility] Stop: 03/26/23 20:59 Last Admin: 02/25/23 08:13 Dose: 0.6 mg Dextrose (Dextrose 50% 50 Ml Syringe) 25 - 50 ml IV UD PRN; Protocol PRN Reason: Hypoglycemia Protocol Stop: 03/26/23 12:38 Doxazosin Mesylate (Doxazosin Mesylate Tab 2 Mg Tab) 2 mg PO HS [facility] Stop: 03/26/23 20:59 Last Admin: 02/24/23 20:07 Dose: 2 mg Gabapentin (Gabapentin 300 Mg Cap) [facility] Stop: 03/26/23 12:59 Last Admin: 02/25/23 08:14 Dose: 300 mg Gabapentin (Gabapentin 300 Mg Cap) 600 mg PO HS [facility] Stop: 03/26/23 20:59 Last Admin: 02/24/23 20:06 Dose: 600 mg Glucagon (Glucagon For Inj 1 Mg Vial) 1 mg SQ UD PRN; Protocol PRN Reason: Hypoglycemia Protocol Stop: 03/26/23 12:38 Glucose (Glucose 10 Tab/Tube) 4 - 8 tab PO UD PRN; Protocol PRN Reason: Hypoglycemia Treatment Stop: 03/26/23 12:38 Glucose (Glucose 40% Gel 15 Gm Tube) 15 - 30 gm PO UD PRN; Protocol PRN Reason: Hypoglycemia Protocol Stop: 03/26/23 12:38 Hydromorphone HCl (Hydromorphone Inj 0.5 Mg/0.5 Ml Syr) 0.5 mg IV Q4H PRN PRN Reason: SEVERE PAIN 7-10 Stop: 03/10/23 14:51 Last Admin: 02/25/23 06:36 Dose: 0.5 mg Insulin Aspart (Insulin Aspart Per Unit Charge) 0 units SC ACHS [facility] Stop: 03/26/23 12:49 Last Admin: 02/25/23 12:09 Dose: 5 units Lidocaine (Lidocaine 5% 1 Patch) 1 patch TD QAM [facility] Stop: 03/26/23 12:44 Last Admin: 02/25/23 08:13 Dose: 1 patch Magnesium Hydroxide (Magnesium Hydroxide Susp 30 Ml Udc) 30 ml PO Q12H PRN PRN Reason: Constipation Stop: 03/26/23 12:38 Metoprolol Succinate (Metoprolol Succ 50mg Ext Rel Tab) 50 mg PO DAILY [facility] Stop: 03/27/23 08:59 Last Admin: 02/25/23 08:14 Dose: 50 mg Miscellaneous (Remove Lidoderm Patch) 1 each N/A DAILY@2100 [facility] Stop: 03/26/23 20:59 Last Admin: 02/24/23 21:56 Dose: 1 each Miscellaneous (Carbohydrates For Hypoglycemia ) 15 - 30 gm PO UD PRN PRN Reason: Hypoglycemia Protocol Stop: 03/26/23 12:38 Morphine Sulfate (Morphine Sulfate Cr 15 Mg Tabcr) 15 mg PO BID [facility] Stop: 03/11/23 20:59 Ondansetron HCl (Ondansetron Inj 2 Mg/Ml 2 Ml Vial) 4 mg IV Q6H PRN PRN Reason: Nausea Stop: 03/26/23 12:38 Last Admin: 02/25/23 02:50 Dose: 4 mg Oxycodone HCl (Oxycodone Hcl Ir 5 Mg Tab (Immediate Release)) 10 mg PO Q4H PRN PRN Reason: MODERATE Pain (4,5,6) & Pre PT Stop: 03/11/23 09:43 Last Admin: 02/25/23 13:09 Dose: 10 mg Pantoprazole Sodium (Pantoprazole 40 Mg Tab) 40 mg PO HS [facility] Stop: 03/26/23 20:59 Last Admin: 02/24/23 20:07 Dose: 40 mg Polyethylene Glycol (Polyethylene (Miralax) 17 Gm Pack) 17 gm PO DAILY PRN PRN Reason: Constipation Stop: 03/26/23 12:38 Polyethylene Glycol (Polyethylene (Miralax) 17 Gm Pack) 17 gm PO DAILY [facility] Stop: 03/27/23 08:59 Last Admin: 02/25/23 08:14 Dose: 17 gm Senna/Docusate Sodium (Docusate Sodium/Senna 50/8.6mg Tab) 2 tab PO HS [facility] Stop: 03/26/23 20:59 Last Admin: 02/24/23 20:07 Dose: 2 tab
--- NOTE | 2023-02-25 17:32 | Communication Note ---
Date of Service: February 25, 2023 Repeat limited echo reviewed. Small increase in pericardial effusion when compared with immediately post procedure. No output from drain overnight. Pericardial drain aspirated manuallyremoved 85 mL of of straw-colored fluid. We will plan on repeat manual drainage tomorrow morning. If <50 mL overnight will remove pericardial drain.
[2023-02-25 19:49] LABS: Estimated Average Glucose 134 mg/dl; Hemoglobin A1C 6.3 % (4.5-5.6)
[2023-02-25] MEDS: PANTOprazole 40 MG TAB PO SCH (20:05)
[2023-02-25] MEDS: MoRPHine SULFATE CR 15 MG TABCR PO SCH (20:05)
[2023-02-25] MEDS: DOXAZosin MESYLATE TAB 2 MG TAB PO SCH (20:06)
[2023-02-25] MEDS: DOCUSATE SODIUM/SENNA 50/8.6MG TAB PO SCH (20:06)
[2023-02-25] MEDS: ATORVASTATIN 40 MG TAB PO SCH (20:06)
[2023-02-25] MEDS: ASPIRIN 81 MG ECTAB PO SCH (20:06)
[2023-02-26 04:22] LABS: Hematocrit (blood only) 32.3 % (42.0-52.0); Hemoglobin 10.1 g/dl (14.0-18.0); Mean Corpuscular Hemoglobin 26.7 pg (25.0-34.0); Mean Corpuscular Hgb Conc 31.3 g/dL (32.0-36.0); Mean Corpuscular Volume 85.4 fL (80.0-100.0); Mean Platelet Volume 10.7 fL (9.4-12.4); Nucleated RBC # (auto) 0.02 K/uL (0-0.12); Nucleated RBC % (auto) 0.3 %; Platelet Count 215 K/uL (130-400); RDW Coefficient of Variation 14.7 % (11.5-14.5); RDW Standard Deviation 45.1 fL (36.4-46.3); Red Blood Count 3.78 M/uL (4.70-6.10); White Blood Count 7.95 K/ul (4.8-10.8)
[2023-02-26] MEDS: HYDROmorphone INJ 0.5 MG/0.5 ML SYR IV PRN (04:37)
[2023-02-26 04:39] LABS: BUN Creatinine Ratio 18.2 (10-20); Calcium 8.6 mg/dl (8.6-10.3); Creatinine Clr Calc Pharmacy 56.1 ml/min; Est GFR (Non-African American) 40.6 ml/min; Potassium 4.2 mmol/L (3.5-5.1)
--- NOTE | 2023-02-26 05:41 | Electrocardiogram Report ---
Test Reason : Blood Pressure : / mmHG Vent. Rate : 071 BPM Atrial Rate : 071 BPM P-R Int : 176 ms QRS Dur : 088 ms QT Int : 408 ms P-R-T Axes : 026 044 120 degrees QTc Int : 444 ms Normal sinus rhythm Low voltage QRS Nonspecific T wave abnormality Abnormal ECG When compared with ECG of 24-FEB-2023 06:29, Inverted T waves have replaced nonspecific T wave abnormality in Lateral leads Confirmed by Addison Soto ([id number]) on 02/26/2023 5:41:39 AM Referred By: REFERRED SELF Confirmed By:Addison Soto
--- NOTE | 2023-02-26 06:57 | Critical Care Progress Note ---
Date of Service February 26, 2023 Assessment & Plan (1) Hypoxia: (2) Hypocalcemia: (3) Pre-diabetes: (4) Acute renal failure superimposed on stage 3 chronic kidney disease: (5) Syncope: (6) Venous stasis ulcer of left lower extremity: (7) PAD (peripheral artery disease): (8) Venous stasis ulcer of right lower leg with edema of right lower leg: (9) Acute on chronic heart failure with preserved ejection fraction (HFpEF): Ángel Burgess is a 72 year-old male with known history of CAD s/p CABG x2 in 2011, chronic HFpEF, chronic small pericardial effusion, PAD s/p atherectomy and angioplasty on xarelto 2.5 mg BID, HTN, HLD, prediabetes, and CKD stage III, COPD who presented to ED after falling and becoming unresponsive at his home. An echo upon arrival revealed cardiac tamponade and is s/p pericardiocentesis (02/24). -Patient stable for downgrade from ICU. Neuro - ICU CAM: negative Analgesia: Dilaudid 0.5mg q4h PRN, Oxycodone 10mg q4h PRN, MS Contin 15mg BID * Alert and oriented * CT head negative Cardiac - Cardiac Tamponade, Unresponsiveness, HFpEF, PAD, Venous Insufficiency * Hx of chronic pericardial effusion and EF 50-55% from prior echo * Echo completed on arrival which identified signs of cardiac tamponade- s/p pericardiocentesis with drainage of 750mL straw colored fluid * Fluid sent for cell count/culture/cytology- results pending * Pericardial drain- 80cc output yesterday afternoon, additional 20cc overnight. Dr. Ferguson removed pericardial drain today. * Continue ASA, statin, metoprolol, colchicine 0.6mg BID * LE Venous Duplex w/o signs of DVT, carotid ultrasound: severe stenosis of proximal left external carotid artery, no significant stenosis of internal carotids bilaterally Respiratory - COPD * No respiratory distress, but difficult to take deep breaths due to pain * Not on any inhalers at home * DuoNebs q4h PRN GI - * Diet: Heart healthy * Protonix 40 daily * Bowel regimen of Miralax, Docusate/Senna. No BM since arrival Renal/Lytes - CKD Stage III, Superimposed ELIZ- Resolved * Baseline Cr ~1.6, Cr of 2.06 on arrival. Today Cr 1.65 * Suspect ELIZ from hypoperfusion * Potassium 4.2, Magnesium 2.0, Phosphorus 3.0 * Replete electrolytes as needed - * Monitor I's and O's Endo - * Follow ICU hyperglycemia protocol * Prediabetic, not on any medications at home * A1C 6.3 Heme - * Hemoglobin at 10.1 today * Holding Xarelto due to rib fractures and pericardiocentesis ID - * COVID and BioFire negative * 1x dose of Unasyn in ED * Afebrile, white count downtrending (7.95 today) Lines/IV Access - * Peripheral IVs intact * Pericardial drain removed DVT Prophylaxis - * Holding home Xarelto Thank you for allowing us to be a part of this patient's care. Please refer to Dr. White's documentation for additional recommendations. Admission and Anticipated Discharge Date Admission Date: February 24, 2023 Supervising Physician Co-Signing Physician Notes Patient seen examined with resident physician. Agree with the assessment and plan aside for any additions/exceptions noted: Pericardial drain removed. Cytology from the pericardial fluid is negative. Lymphocytosis noted. Etiology of the pericardial effusion is unclear. Possibly secondary to chronic volume overload. Syncopal event was likely combination of things including large pericardial effusion causing tamponade physiology, hypovolemia and hypotension. Creatinine has improved. We will restart gentle diuresis. Subjective Patient was seen and examined at bedside. He states that his pain is "as expected", slept upright in chair overnight which seems to be more comfortable. Denies chest tightness or shortness of breath. Has been eating and drinking well, has not had a bowel movement yet. Denies dizziness or weakness. Had output of ~20cc of fluid from pericardial drain overnight. Review of Systems Review of Systems: As per above Physical Exam Constitutional: + obese and cooperative; not in distress Eyes: PERRL, conjunctivae normal, anicteric sclerae Neck: trachea midline, no thyromegaly Respiratory: normal respiratory effort, lungs clear to auscultation Cardiovascular: Regular rhythm, normal rate. No murmur/rub/gallop Gastrointestinal (Abdomen): Abdomen soft, nontender and nondistended. No masses palpated. Skin: no rashes, warm and dry Psychiatric: A+Ox3, euthymic affect Results & Data Results & Data Vital Signs (Past 12 Hours) Vital Signs Temp Pulse Pulse Resp BP BP Pulse Ox 02/26/23 06:00 63 13 02/26/23 05:01 65 13 98 02/26/23 05:01 120/62 02/26/23 05:00 63 15 98 02/26/23 04:00 67 17 88 L 02/26/23 04:00 132/54 L 02/26/23 03:00 64 8 L 89 L 02/26/23 03:00 119/51 L 02/26/23 02:00 64 14 92 02/26/23 02:00 121/62 02/26/23 01:00 61 18 93 02/26/23 01:00 130/61 02/26/23 00:00 63 5 L 95 02/26/23 00:00 102/66 02/25/23 23:00 71 15 83 L 02/25/23 23:00 153/74 H 02/25/23 22:00 64 17 91 02/25/23 22:00 108/47 L 02/25/23 21:00 66 19 02/25/23 20:00 62 15 02/25/23 20:00 106/58 L 02/25/23 19:12 116/49 L 02/25/23 19:12 63 14 93 02/25/23 19:00 61 10 L 02/25/23 19:00 115/54 L 02/25/23 20:00 02/25/23 19:16 36.7 C 60 18 116/49 L 93 O2 Del Method O2 Flow Rate 02/26/23 06:00 02/26/23 05:01 02/26/23 05:01 02/26/23 05:00 02/26/23 04:00 02/26/23 04:00 02/26/23 03:00 02/26/23 03:00 02/26/23 02:00 02/26/23 02:00 02/26/23 01:00 02/26/23 01:00 02/26/23 00:00 02/26/23 00:00 02/25/23 23:00 02/25/23 23:00 02/25/23 22:00 02/25/23 22:00 02/25/23 21:00 02/25/23 20:00 02/25/23 20:00 02/25/23 19:12 02/25/23 19:12 02/25/23 19:00 02/25/23 19:00 02/25/23 20:00 Room Air 02/25/23 19:16 Nasal Cannula 2 Resident Activity Tracking Resident Involvement: Resident Care Provided Care Provided: Adult Hospital Medicine
[2023-02-26] MEDS: POLYETHYLENE (MIRALAX) 17 GM PACK PO SCH (08:15)
[2023-02-26] MEDS: MoRPHine SULFATE CR 15 MG TABCR PO SCH ×2 (08:16→21:12)
[2023-02-26] MEDS: INSULIN ASPART PER UNIT CHARGE SC SCH ×4 (08:16→21:13)
[2023-02-26] MEDS: COLCHICINE 0.6 MG TAB PO SCH ×2 (08:16→21:13)
[2023-02-26] MEDS: GABAPENTIN 300 MG CAP PO SCH ×2 (08:17→21:12)
[2023-02-26] MEDS: LIDOCAINE 5% 1 PATCH TD SCH (08:18)
[2023-02-26] MEDS: METOPROLOL SUCC 50MG EXT REL TAB PO SCH (08:21)
--- NOTE | 2023-02-26 09:05 | Hospitalist Progress Note ---
Date of Service February 26, 2023 Assessment & Plan (1) Syncope: (2) Hypoxia: (3) Lactic acidosis: (4) Hypocalcemia: (5) Acute renal failure superimposed on stage 3 chronic kidney disease: (6) CAD (coronary artery disease): (7) COPD (chronic obstructive pulmonary disease): (8) PAD (peripheral artery disease): (9) HTN (hypertension): (10) Pre-diabetes: Plan This is a 72-year-old male who has significant past medical history of CAD status post CABG x2 in 2011, chronic HFpEF, chronic small pericardial effusion, PAD status post atherectomy and angioplasty managed on Xarelto, HTN, HLD, prediabetes, CKD stage III with baseline creatinine of 1.6-1.7, chronic venous insufficiency, COPD, former tobacco abuser who presents to ED after sustaining a syncopal/collapse episode prior to arrival. Patient had unexplained syncopal/collapse this morning that was unwitnessed in which he does not recall any of the events. Last event he recalls was being in the bathroom this morning and was trying to make it back to his bedroom. Syncope Cardiac tamponade elevated troponin Unclear if cardiac tamponade reason for syncope or subsequent result of chest compressions ?cardiac etiology vs arrhythmia, unlikely PE as pt is on xarelto last echo was 01/26/23 which showed preserved EF 55%, mild AV stenosis, mild chronic pericardial effusion Echo on admission showing cardiac tamponade S/p pericardiocentesis - fluid analysis pending, cytology negative (Lymphocytes and scattered mesothelial cells are seen. No tumor seen.) Drain now removed (02/26) Started colchicine- continue Plan to repeat Echo tmrw AM to evaluate for fluid re-accumulation Admitted to ICU, continue cardiac monitoring, ok to transfer to PCU Cardiology consulted and following Hypocalcemia replete and monitor Hypokalemia replete and monitor Lactic acidosis likely secondary to hypoperfusion vs hypoxia IVF, trend lactic acid Hypoxia B/L rib fx 2/2 traumatic from CPR Anterior R 2-7th; L 3-7th; 2nd anterior costal cartilage fx continue O2 supplementation incentive spirometry oxycodone for pain scheduled bowel regimen lidocaine patches Chest CT did mention b/l pleural effusions again likely 2/2 fracture; also of concern was ? asp PNA. He did receive Unasyn in ED. He is w/o resp complaint and procal negative will monitor off antibiotics for now Care per ICU Leukocytosis he does not meet SIRS/SEPSIS criteria will monitor off antibiotic blood/urine culture ordered, follow WBC 7.9K - normalized A/C CKD -3 baseline cr 1.6-7 cr 2.0 ? atn in setting of hypoperfusion vs dehydration received gentle fluids nephrology was consulted Cr back to baseline CAD hx of CABG x 2 PAD w/ hx of angioplasty Chronic HFpEf HTN continue asa, statin, metoprolol hold bumex, metolazone for now hold xarelto due to trauma from rib fx Management per cardiology COPD, emphysema hx of tobacco abuse no acute exac Pre DM a1c 6.3, 02/15/[address] on insulin SS if BSG remains elevated consider adding Lantus BID DVT ppx: SCDS for now, xarelto on hold FULL CODE PCP: Dr. Esquivel Dispo: ICU -> PCU return to home when medically stable Admission and Anticipated Discharge Date Admission Date: February 24, 2023 Subjective Pt seen s/p syncope , and cardiac tamponade Now s/p pericardiocentesis Sitting up in chair, in no acute distress Currently using supplemental oxygen Has some chest pain from chest compressions No shortness of breath, no abdominal pain nausea vomiting Patient's present at the bedside Review of Systems Review of Systems: All systems reviewed & are unremarkable except as noted in Subjective Physical Exam Physical Exam: Constitutional: WD/WN, Obese, M in NAD, sitting up in chair, on suppl. O2 Head: Normocephalic, Atraumatic Eyes: PERRL, EOMI, conjunctivae normal, anicteric sclerae ENMT: external ear and nose normal Neck: normal visual inspection Respiratory:Normal insp/exp effort, no accessory muscle use, somewhat diminished breath sounds Cardiovascular: RRR, +syst. murmur, no LE edema, bilateral venous stasis changes noted Chest: drain removed (pericardiocentesis) dressings applied Abdomen: normal bowel sounds, soft, nontender, obese Musculoskeletal: moves extremities Skin: no rashes, warm and dry normal turgor Neurologic: PERRL, EOMI, no face palsy, speech fluent, moves all extremities Psychiatric: A+Ox3, euthymic affect Results & Data Results & Data Vital Signs (Past 12 Hours) Vital Signs Pulse Resp BP Pulse Ox 02/26/23 06:00 63 13 02/26/23 05:01 65 13 98 02/26/23 05:01 120/62 02/26/23 05:00 63 15 98 02/26/23 04:00 67 17 88 L 02/26/23 04:00 132/54 L 02/26/23 03:00 64 8 L 89 L 02/26/23 03:00 119/51 L 02/26/23 02:00 64 14 92 02/26/23 02:00 121/62 02/26/23 01:00 61 18 93 02/26/23 01:00 130/61 02/26/23 00:00 63 5 L 95 02/26/23 00:00 102/66 02/25/23 23:00 71 15 83 L 02/25/23 23:00 153/74 H 02/25/23 22:00 64 17 91 02/25/23 22:00 108/47 L Laboratory Results 02/26/23 02/26/23 02/25/23 Range/Units 03:47 03:47 19:53 WBC 7.95 (4.8-10.8) K/ul RBC 3.78 L (4.70-6.10) M/uL Hgb 10.1 L (14.0-18.0) g/dl Hct 32.3 L (42.0-52.0) % MCV 85.4 (80.0-100.0) fL MCH 26.7 (25.0-34.0) pg MCHC 31.3 L (32.0-36.0) g/dL RDW Std Deviation 45.1 (36.4-46.3) fL RDW Coeff of Alan 14.7 H (11.5-14.5) % Plt Count 215 (130-400) K/uL MPV 10.7 (9.4-12.4) fL Absolute Nucleated RBC 0.02 (0-0.12) K/uL Nucleated RBC % (auto) 0.3 % Sodium 138 (136-145) mmol/L Potassium 4.2 (3.5-5.1) mmol/L Chloride 102 (98-107) mmol/L Carbon Dioxide 31 (21-32) mmol/L Anion Gap 5 (3-11) BUN 30 H (6-23) mg/dl Creatinine 1.65 H (0.6-1.4) mg/dl Est Cr Clr Drug Dosing 56.1 ml/min Est GFR ( Amer) 47.0 ml/min Est GFR (Non-Af Amer) 40.6 ml/min BUN/Creatinine Ratio 18.2 (10-20) Glucose 114 H (70-99(Fasting)) mg/dl POC Glucose 98 (70-99) mg/dl Estimat Average Glucose mg/dl Hemoglobin A1c (4.5-5.6) % Calcium 8.6 (8.6-10.3) mg/dl Phosphorus 3.0 (2.5-4.9) mg/dl Magnesium 2.0 (1.7-2.4) mg/dl 02/25/23 02/25/23 02/25/23 Range/Units 16:20 11:14 03:57 WBC (4.8-10.8) K/ul RBC (4.70-6.10) M/uL Hgb (14.0-18.0) g/dl Hct (42.0-52.0) % MCV (80.0-100.0) fL MCH (25.0-34.0) pg MCHC (32.0-36.0) g/dL RDW Std Deviation (36.4-46.3) fL RDW Coeff of Alan (11.5-14.5) % Plt Count (130-400) K/uL MPV (9.4-12.4) fL Absolute Nucleated RBC (0-0.12) K/uL Nucleated RBC % (auto) % Sodium (136-145) mmol/L Potassium (3.5-5.1) mmol/L Chloride (98-107) mmol/L Carbon Dioxide (21-32) mmol/L Anion Gap (3-11) BUN (6-23) mg/dl Creatinine (0.6-1.4) mg/dl Est Cr Clr Drug Dosing ml/min Est GFR ( Amer) ml/min Est GFR (Non-Af Amer) ml/min BUN/Creatinine Ratio (10-20) Glucose (70-99(Fasting)) mg/dl POC Glucose 104 H 114 H (70-99) mg/dl Estimat Average Glucose 134 mg/dl Hemoglobin A1c 6.3 H (4.5-5.6) % Calcium (8.6-10.3) mg/dl Phosphorus (2.5-4.9) mg/dl Magnesium (1.7-2.4) mg/dl Medications Administered Current Inpatient Medications Acetaminophen (Acetaminophen 325 Mg Tab) 650 mg PO Q4H PRN PRN Reason: Pain scale 1-3 or Fever Stop: 03/26/23 12:38 Last Admin: 02/25/23 09:58 Dose: 650 mg Al Hydrox/Mg Hydrox/Simethicone (Aluminum/Magnesium Susp 30 Ml Udc) 15 ml PO Q4H PRN PRN Reason: Dyspepsia Stop: 03/26/23 12:38 Albuterol (Albut/Ipratrop 3mg/0.5mg Neb 3 Ml Vial) 3 ml NEB Q4R PRN; Protocol PRN Reason: Shortness Of Breath Or Wheezing Stop: 03/27/23 10:59 Aspirin (Aspirin 81 Mg Ectab) 81 mg PO HS MARY BETH Stop: 03/26/23 20:59 Last Admin: 02/25/23 20:06 Dose: 81 mg Atorvastatin Calcium (Atorvastatin 40 Mg Tab) 40 mg PO HS MARY BETH Stop: 03/26/23 20:59 Last Admin: 02/25/23 20:06 Dose: 40 mg Colchicine (Colchicine 0.6 Mg Tab) 0.6 mg PO BID MARY BETH Stop: 03/26/23 20:59 Last Admin: 02/26/23 08:16 Dose: 0.6 mg Dextrose (Dextrose 50% 50 Ml Syringe) 25 - 50 ml IV UD PRN; Protocol PRN Reason: Hypoglycemia Protocol Stop: 03/26/23 12:38 Doxazosin Mesylate (Doxazosin Mesylate Tab 2 Mg Tab) 2 mg PO HS MARY BETH Stop: 03/26/23 20:59 Last Admin: 02/25/23 20:06 Dose: 2 mg Gabapentin (Gabapentin 300 Mg Cap) 300 mg PO QA MARY BETH Stop: 03/26/23 12:59 Last Admin: 02/26/23 08:17 Dose: 300 mg Gabapentin (Gabapentin 300 Mg Cap) 600 mg PO HS MARY BETH Stop: 03/26/23 20:59 Last Admin: 02/25/23 20:05 Dose: 600 mg Glucagon (Glucagon For Inj 1 Mg Vial) 1 mg SQ UD PRN; Protocol PRN Reason: Hypoglycemia Protocol Stop: 03/26/23 12:38 Glucose (Glucose 10 Tab/Tube) 4 - 8 tab PO UD PRN; Protocol PRN Reason: Hypoglycemia Treatment Stop: 03/26/23 12:38 Glucose (Glucose 40% Gel 15 Gm Tube) 15 - 30 gm PO UD PRN; Protocol PRN Reason: Hypoglycemia Protocol Stop: 03/26/23 12:38 Hydromorphone HCl (Hydromorphone Inj 0.5 Mg/0.5 Ml Syr) 0.5 mg IV Q4H PRN PRN Reason: SEVERE PAIN 7-10 Stop: 03/10/23 14:51 Last Admin: 02/26/23 04:37 Dose: 0.5 mg Insulin Aspart (Insulin Aspart Per Unit Charge) 0 units SC ACHS [facility] Stop: 03/26/23 12:49 Last Admin: 02/26/23 08:16 Dose: 2 units Lidocaine (Lidocaine 5% 1 Patch) 1 patch TD QAM [facility] Stop: 03/26/23 12:44 Last Admin: 02/26/23 08:18 Dose: 1 patch Magnesium Hydroxide (Magnesium Hydroxide Susp 30 Ml Udc) 30 ml PO Q12H PRN PRN Reason: Constipation Stop: 03/26/23 12:38 Metoprolol Succinate (Metoprolol Succ 50mg Ext Rel Tab) 50 mg PO DAILY [facility] Stop: 03/27/23 08:59 Last Admin: 02/26/23 08:21 Dose: 50 mg Miscellaneous (Remove Lidoderm Patch) 1 each N/A DAILY@2100 [facility] Stop: 03/26/23 20:59 Last Admin: 02/25/23 20:21 Dose: 1 each Miscellaneous (Carbohydrates For Hypoglycemia ) 15 - 30 gm PO UD PRN PRN Reason: Hypoglycemia Protocol Stop: 03/26/23 12:38 Morphine Sulfate (Morphine Sulfate Cr 15 Mg Tabcr) 15 mg PO BID [facility] Stop: 03/11/23 20:59 Last Admin: 02/26/23 08:16 Dose: 15 mg Ondansetron HCl (Ondansetron Inj 2 Mg/Ml 2 Ml Vial) 4 mg IV Q6H PRN PRN Reason: Nausea Stop: 03/26/23 12:38 Last Admin: 02/25/23 02:50 Dose: 4 mg Oxycodone HCl (Oxycodone Hcl Ir 5 Mg Tab (Immediate Release)) 10 mg PO Q4H PRN PRN Reason: MODERATE Pain (4,5,6) & Pre PT Stop: 03/11/23 09:43 Last Admin: 02/25/23 17:42 Dose: 10 mg Pantoprazole Sodium (Pantoprazole 40 Mg Tab) 40 mg PO HS MARY BETH Stop: 03/26/23 20:59 Last Admin: 02/25/23 20:05 Dose: 40 mg Polyethylene Glycol (Polyethylene (Miralax) 17 Gm Pack) 17 gm PO DAILY PRN PRN Reason: Constipation Stop: 03/26/23 12:38 Polyethylene Glycol (Polyethylene (Miralax) 17 Gm Pack) 17 gm PO DAILY MARY BETH Stop: 03/27/23 08:59 Last Admin: 02/26/23 08:15 Dose: 17 gm Senna/Docusate Sodium (Docusate Sodium/Senna 50/8.6mg Tab) 2 tab PO HS MARY BETH Stop: 03/26/23 20:59 Last Admin: 02/25/23 20:06 Dose: 2 tab
--- NOTE | 2023-02-26 09:09 | Billing Data ---
Date of Service February 26, 2023 Coding Level of Care Code 97120 SUB INP/OBS CARE
[2023-02-26] MEDS ORDERED: DOCUSATE SODIUM/SENNA 50/8.6MG TAB PO ONE (09:45)
[2023-02-26] MEDS: BUMETANIDE 1 MG TAB PO SCH (09:53)
--- NOTE | 2023-02-26 11:48 | Cardiology Progress Note ---
Date of Service February 26, 2023 Assessment & Plan (1) Cardiac arrest: (2) Cardiac tamponade: (3) Hypoxia: (4) Hypocalcemia: (5) Acute renal failure superimposed on stage 3 chronic kidney disease: (6) Syncope: (7) PAD (peripheral artery disease): (8) Hypoalbuminemia: (9) CAD (coronary artery disease): (10) COPD (chronic obstructive pulmonary disease): Plan pericardial effusion resolved s/p pericardiocentesis still with significant rib pain s/p chest compressions await fluid analysis cont colchicine drain removal per our interventional colleagues, no further output this AM 02/26/2023: Drain to be removed by our interventional colleagues today Still await results of fluid analysis Okay to transfer to telemetry from a cardiac standpoint We will repeat limited echo in the a.m. to evaluate for fluid reaccumulation Admission and Anticipated Discharge Date Admission Date: February 24, 2023 Subjective Patient seen and examined, currently working with physical therapy. States that he feels well. No further output noted from pericardial drain overnight. Review of Systems Review of Systems: All systems reviewed & are unremarkable except as noted in HPI & below Physical Exam Physical Exam: General: Awake, alert and oriented x 3. No acute distress. HEENT: Normocephalic, atraumatic. Pupils equal, round and reactive to light and accommodation. Extraocular muscles are intact. Anicteric sclera. Moist mucous membranes. Neck: No JVD. No bruit. Cardiovascular: Regular but distant. Positive S-4. Normal S-1 and S-2. No S- 3. 3/6 mid to late systolic ejection murmur, greatest at the right sternal border, second intercostal space with radiation to the bilateral carotids. No rubs. Pulmonary: Clear to auscultation bilaterally. No rales, rhonchi, or wheezing. Abdomen: Bowel sounds x 4, soft. No rebound, guarding or tenderness. No organomegaly. Extremities: No clubbing, cyanosis or edema. +2 pedal pulses bilaterally. Skin: Warm and dry. Results & Data Vital Signs (Past 12 Hours) Vital Signs Temp Pulse Pulse Resp BP BP Pulse Ox 02/26/23 10:47 95 02/26/23 08:00 02/26/23 08:00 02/26/23 08:00 63 02/26/23 07:00 36.8 C 68 22 105/52 L 93 02/26/23 06:00 63 13 02/26/23 05:01 65 13 98 02/26/23 05:01 120/62 02/26/23 05:00 63 15 98 02/26/23 04:00 67 17 88 L 02/26/23 04:00 132/54 L 02/26/23 03:00 64 8 L 89 L 02/26/23 03:00 119/51 L 02/26/23 02:00 64 14 92 02/26/23 02:00 121/62 02/26/23 01:00 61 18 93 02/26/23 01:00 130/61 02/26/23 00:00 63 5 L 95 02/26/23 00:00 102/66 O2 Del Method O2 Flow Rate 02/26/23 10:47 02/26/23 08:00 Room Air 02/26/23 08:00 Nasal Cannula 02/26/23 08:00 02/26/23 07:00 Nasal Cannula 4 02/26/23 06:00 02/26/23 05:01 02/26/23 05:01 02/26/23 05:00 02/26/23 04:00 02/26/23 04:00 02/26/23 03:00 02/26/23 03:00 02/26/23 02:00 02/26/23 02:00 02/26/23 01:00 02/26/23 01:00 02/26/23 00:00 02/26/23 00:00
[2023-02-26 13:12] LABS: Fluid Appearance CLEAR; Fluid Basophil % 0 %; Fluid Color YELLOW; Fluid Comment DNR; Fluid Eosinophil % 0 %; Fluid Lymphocytes % 95 %; Fluid Mesothelial % 0 %; Fluid Monocyte/Macrophage % 1 %; Fluid Neutrophil % 4 %; Fluid Total Nucleated Cell Ct 550 cells/uL; Fluid Type PERICARDIAL FLUID
--- NOTE | 2023-02-26 14:52 | Electrocardiogram Report ---
Test Reason : Blood Pressure : / mmHG Vent. Rate : 068 BPM Atrial Rate : 068 BPM P-R Int : 170 ms QRS Dur : 080 ms QT Int : 466 ms P-R-T Axes : 016 037 054 degrees QTc Int : 495 ms Poor data quality, interpretation may be adversely affected Normal sinus rhythm Nonspecific ST and T wave abnormality Abnormal ECG When compared with ECG of 25-FEB-2023 05:40, No significant change Confirmed by Arsenio Avila ([id number] on 02/26/2023 2:52:20 PM Referred By: REFERRED SELF Confirmed By:Arsenio Avila
[2023-02-26] MEDS: oxyCODONE HCL IR 5 MG TAB (IMMEDIATE RELEASE) PO PRN (16:16)
[2023-02-26] MEDS: PANTOprazole 40 MG TAB PO SCH (21:12)
[2023-02-26] MEDS: ATORVASTATIN 40 MG TAB PO SCH (21:13)
[2023-02-26] MEDS: DOXAZosin MESYLATE TAB 2 MG TAB PO SCH (21:13)
[2023-02-26] MEDS: DOCUSATE SODIUM/SENNA 50/8.6MG TAB PO SCH (21:13)
[2023-02-26] MEDS: ASPIRIN 81 MG ECTAB PO SCH (21:13)
[2023-02-27 05:01] LABS: BUN Creatinine Ratio 19.7 (10-20); Calcium 8.6 mg/dl (8.6-10.3); Creatinine Clr Calc Pharmacy 53.5 ml/min; Est GFR (African American) 44.4 ml/min; Est GFR (Non-African American) 38.3 ml/min; Phosphorus 2.9 mg/dl (2.5-4.9); Potassium 3.7 mmol/L (3.5-5.1)
[2023-02-27 05:05] LABS: Hematocrit (blood only) 31.1 % (42.0-52.0); Hemoglobin 9.7 g/dl (14.0-18.0); Mean Corpuscular Hemoglobin 26.6 pg (25.0-34.0); Mean Corpuscular Hgb Conc 31.2 g/dL (32.0-36.0); Mean Corpuscular Volume 85.2 fL (80.0-100.0); Mean Platelet Volume 10.4 fL (9.4-12.4); Nucleated RBC # (auto) 0.02 K/uL (0-0.12); Nucleated RBC % (auto) 0.3 %; Platelet Count 217 K/uL (130-400); RDW Standard Deviation 45.7 fL (36.4-46.3); Red Blood Count 3.65 M/uL (4.70-6.10); White Blood Count 7.46 K/ul (4.8-10.8)
[2023-02-27] MEDS: INSULIN ASPART PER UNIT CHARGE SC SCH ×4 (07:38→20:24)
[2023-02-27] MEDS: MoRPHine SULFATE CR 15 MG TABCR PO SCH ×2 (07:45→20:31)
[2023-02-27] MEDS: LIDOCAINE 5% 1 PATCH TD SCH (07:46)
[2023-02-27] MEDS: COLCHICINE 0.6 MG TAB PO SCH ×2 (07:46→20:31)
[2023-02-27] MEDS: POLYETHYLENE (MIRALAX) 17 GM PACK PO SCH (07:46)
[2023-02-27] MEDS: METOPROLOL SUCC 50MG EXT REL TAB PO SCH (07:46)
[2023-02-27] MEDS: BUMETANIDE 1 MG TAB PO SCH (07:47)
[2023-02-27] MEDS: GABAPENTIN 300 MG CAP PO SCH ×2 (07:47→20:30)
--- NOTE | 2023-02-27 08:44 | Hospitalist Progress Note ---
Date of Service February 27, 2023 Assessment & Plan (1) Syncope: (2) Hypoxia: (3) Lactic acidosis: (4) Hypocalcemia: (5) Acute renal failure superimposed on stage 3 chronic kidney disease: (6) CAD (coronary artery disease): (7) COPD (chronic obstructive pulmonary disease): (8) PAD (peripheral artery disease): (9) HTN (hypertension): (10) Pre-diabetes: Plan This is a 72-year-old male who has significant past medical history of CAD status post CABG x2 in 2011, chronic HFpEF, chronic small pericardial effusion, PAD status post atherectomy and angioplasty managed on Xarelto, HTN, HLD, prediabetes, CKD stage III with baseline creatinine of 1.6-1.7, chronic venous insufficiency, COPD, former tobacco abuser who presents to ED after sustaining a syncopal/collapse episode prior to arrival. Patient had unexplained syncopal/collapse this morning that was unwitnessed in which he does not recall any of the events. Last event he recalls was being in the bathroom this morning and was trying to make it back to his bedroom. Syncope Cardiac tamponade elevated troponin Unclear if cardiac tamponade reason for syncope or subsequent result of chest compressions ?cardiac etiology vs arrhythmia, unlikely PE as pt is on xarelto last echo was 01/26/23 which showed preserved EF 55%, mild AV stenosis, mild chronic pericardial effusion Echo on admission showing cardiac tamponade S/p pericardiocentesis - cytology negative (Lymphocytes and scattered mesothelial cells are seen. No tumor seen.) Drain now removed (02/26) Started colchicine- continue Repeated Echo this AM to evaluate for fluid re-accumulation- trivial pericardial effusion on current echo (02/27/2023) Admitted to ICU initially, now PCU, continue cardiac monitoring Cardiology consulted and following Hypocalcemia replete and monitor Hypokalemia replete and monitor Lactic acidosis likely secondary to hypoperfusion vs hypoxia IVF, trended lactic acid Hypoxia B/L rib fx 2/2 traumatic from CPR Anterior R 2-7th; L 3-7th; 2nd anterior costal cartilage fx continue O2 supplementation incentive spirometry oxycodone for pain scheduled bowel regimen lidocaine patches Chest CT did mention b/l pleural effusions again likely 2/2 fracture; also of concern was ? asp PNA. He did receive Unasyn in ED. He is w/o resp complaint and procal negative will monitor off antibiotics for now Care per ICU Leukocytosis he does not meet SIRS/SEPSIS criteria will monitor off antibiotic blood/urine culture ordered, follow WBC 7.9K - normalized A/C CKD -3 baseline Cr 1.6-7 Cr 1.7 ? atn in setting of hypoperfusion vs dehydration received gentle fluids nephrology was consulted Cr back to baseline CAD hx of CABG x 2 PAD w/ hx of angioplasty Chronic HFpEf HTN continue asa, statin, metoprolol hold bumex, metolazone for now hold xarelto due to trauma from rib fx Management per cardiology COPD, emphysema hx of tobacco abuse no acute exac Pre DM a1c 6.3, 02/15/[address] on insulin SS if BSG remains elevated consider adding Lantus BID DVT ppx: SCDS for now, xarelto on hold FULL CODE PCP: Dr. Esquivel Dispo: PCU, plan to return to home when medically stable Admission and Anticipated Discharge Date Admission Date: February 24, 2023 Subjective Pt seen s/p syncope , and cardiac tamponade Now s/p pericardiocentesis Sitting up in chair, in no acute distress Currently using supplemental oxygen Has some chest pain from chest compressions No shortness of breath, no abdominal pain nausea vomiting Review of Systems Review of Systems: All systems reviewed & are unremarkable except as noted in Subjective Physical Exam Physical Exam: Constitutional: WD/WN, Obese, M in NAD, sitting up in chair, on suppl. O2 Head: Normocephalic, Atraumatic Eyes: PERRL, EOMI, conjunctivae normal, anicteric sclerae ENMT: external ear and nose normal Neck: normal visual inspection Respiratory:Normal insp/exp effort, no accessory muscle use, somewhat diminished breath sounds Cardiovascular: RRR, +syst. murmur, no LE edema, bilateral venous stasis changes noted Chest: drain removed (pericardiocentesis) dressings applied Abdomen: normal bowel sounds, soft, nontender, obese Musculoskeletal: moves extremities Skin: no rashes, warm and dry normal turgor Neurologic: PERRL, EOMI, no face palsy, speech fluent, moves all extremities Psychiatric: A+Ox3, euthymic affect Results & Data Results & Data Vital Signs (Past 12 Hours) Vital Signs Temp Pulse Pulse Resp BP BP Pulse Ox 02/27/23 08:00 37.1 C 75 20 133/56 L 94 02/27/23 07:00 85 20 02/27/23 06:00 72 24 02/27/23 05:00 72 15 02/27/23 04:00 71 20 02/27/23 03:00 70 16 02/27/23 02:00 78 20 02/27/23 01:00 91 H 19 02/27/23 00:00 75 22 02/26/23 23:00 73 32 H 02/26/23 22:17 165/66 H 02/26/23 22:17 74 14 02/26/23 22:00 95 H 21 02/26/23 21:00 75 17 O2 Del Method 02/27/23 08:00 Room Air 02/27/23 07:00 02/27/23 06:00 02/27/23 05:00 02/27/23 04:00 02/27/23 03:00 02/27/23 02:00 02/27/23 01:00 02/27/23 00:00 02/26/23 23:00 02/26/23 22:17 02/26/23 22:17 02/26/23 22:00 02/26/23 21:00 Laboratory Results 02/27/23 02/27/23 02/27/23 Range/Units 07:19 04:04 04:04 WBC 7.46 (4.8-10.8) K/ul RBC 3.65 L (4.70-6.10) M/uL Hgb 9.7 L (14.0-18.0) g/dl Hct 31.1 L (42.0-52.0) % MCV 85.2 (80.0-100.0) fL MCH 26.6 (25.0-34.0) pg MCHC 31.2 L (32.0-36.0) g/dL RDW Std Deviation 45.7 (36.4-46.3) fL RDW Coeff of Alan 15.0 H (11.5-14.5) % Plt Count 217 (130-400) K/uL MPV 10.4 (9.4-12.4) fL Absolute Nucleated RBC 0.02 (0-0.12) K/uL Nucleated RBC % (auto) 0.3 % Sodium 138 (136-145) mmol/L Potassium 3.7 (3.5-5.1) mmol/L Chloride 101 (98-107) mmol/L Carbon Dioxide 30 (21-32) mmol/L Anion Gap 7 (3-11) BUN 34 H (6-23) mg/dl Creatinine 1.73 H (0.6-1.4) mg/dl Est Cr Clr Drug Dosing 53.5 ml/min Est GFR ( Amer) 44.4 ml/min Est GFR (Non-Af Amer) 38.3 ml/min BUN/Creatinine Ratio 19.7 (10-20) Glucose 106 H (70-99(Fasting)) mg/dl POC Glucose 119 H (70-99) mg/dl Calcium 8.6 (8.6-10.3) mg/dl Phosphorus 2.9 (2.5-4.9) mg/dl Magnesium 2.0 (1.7-2.4) mg/dl Fluid Type Fluid Color Fluid Appearance Fld Tot Nucleated Cell cells/uL Fluid Neutrophils % % Fluid Lymphocytes % % Fluid Eosinophils % % Fluid Basophils % % Fl Monocyt/Macrophag % % Fld Mesothelial Cell % % Fluid Comment 2 Hepatitis C Ab (EIA) (NON-REACTIVE) Hep C Ab Signal/Cutoff (<1.00) 02/26/23 02/26/23 02/26/23 Range/Units 21:08 15:48 11:10 WBC (4.8-10.8) K/ul RBC (4.70-6.10) M/uL Hgb (14.0-18.0) g/dl Hct (42.0-52.0) % MCV (80.0-100.0) fL MCH (25.0-34.0) pg MCHC (32.0-36.0) g/dL RDW Std Deviation (36.4-46.3) fL RDW Coeff of Alan (11.5-14.5) % Plt Count (130-400) K/uL MPV (9.4-12.4) fL Absolute Nucleated RBC (0-0.12) K/uL Nucleated RBC % (auto) % Sodium (136-145) mmol/L Potassium (3.5-5.1) mmol/L Chloride (98-107) mmol/L Carbon Dioxide (21-32) mmol/L Anion Gap (3-11) BUN (6-23) mg/dl Creatinine (0.6-1.4) mg/dl Est Cr Clr Drug Dosing ml/min Est GFR ( Amer) ml/min Est GFR (Non-Af Amer) ml/min BUN/Creatinine Ratio (10-20) Glucose (70-99(Fasting)) mg/dl POC Glucose 121 H 105 H 120 H (70-99) mg/dl Calcium (8.6-10.3) mg/dl Phosphorus (2.5-4.9) mg/dl Magnesium (1.7-2.4) mg/dl Fluid Type Fluid Color Fluid Appearance Fld Tot Nucleated Cell cells/uL Fluid Neutrophils % % Fluid Lymphocytes % % Fluid Eosinophils % % Fluid Basophils % % Fl Monocyt/Macrophag % % Fld Mesothelial Cell % % Fluid Comment 2 Hepatitis C Ab (EIA) (NON-REACTIVE) Hep C Ab Signal/Cutoff (<1.00) 02/24/23 02/24/23 Range/Units 14:57 14:00 WBC (4.8-10.8) K/ul RBC (4.70-6.10) M/uL Hgb (14.0-18.0) g/dl Hct (42.0-52.0) % MCV (80.0-100.0) fL MCH (25.0-34.0) pg MCHC (32.0-36.0) g/dL RDW Std Deviation (36.4-46.3) fL RDW Coeff of Alan (11.5-14.5) % Plt Count (130-400) K/uL MPV (9.4-12.4) fL Absolute Nucleated RBC (0-0.12) K/uL Nucleated RBC % (auto) % Sodium (136-145) mmol/L Potassium (3.5-5.1) mmol/L Chloride (98-107) mmol/L Carbon Dioxide (21-32) mmol/L Anion Gap (3-11) BUN (6-23) mg/dl Creatinine (0.6-1.4) mg/dl Est Cr Clr Drug Dosing ml/min Est GFR ( Amer) ml/min Est GFR (Non-Af Amer) ml/min BUN/Creatinine Ratio (10-20) Glucose (70-99(Fasting)) mg/dl POC Glucose (70-99) mg/dl Calcium (8.6-10.3) mg/dl Phosphorus (2.5-4.9) mg/dl Magnesium (1.7-2.4) mg/dl Fluid Type PERICARDIAL FLUID Fluid Color YELLOW Fluid Appearance CLEAR Fld Tot Nucleated Cell 550 cells/uL Fluid Neutrophils % 4 % Fluid Lymphocytes % 95 % Fluid Eosinophils % 0 % Fluid Basophils % 0 % Fl Monocyt/Macrophag % 1 % Fld Mesothelial Cell % 0 % Fluid Comment 2 DNR Hepatitis C Ab (EIA) NON-REACTIVE (NON-REACTIVE) Hep C Ab Signal/Cutoff 0.02 (<1.00) Medications Administered Current Inpatient Medications Acetaminophen (Acetaminophen 325 Mg Tab) 650 mg PO Q4H PRN PRN Reason: Pain scale 1-3 or Fever Stop: 03/26/23 12:38 Last Admin: 02/25/23 09:58 Dose: 650 mg Al Hydrox/Mg Hydrox/Simethicone (Aluminum/Magnesium Susp 30 Ml Udc) 15 ml PO Q4H PRN PRN Reason: Dyspepsia Stop: 03/26/23 12:38 Albuterol (Albut/Ipratrop 3mg/0.5mg Neb 3 Ml Vial) 3 ml NEB Q4R PRN; Protocol PRN Reason: Shortness Of Breath Or Wheezing Stop: 03/27/23 10:59 Aspirin (Aspirin 81 Mg Ectab) 81 mg PO HS [facility] Stop: 03/26/23 20:59 Last Admin: 02/26/23 21:13 Dose: 81 mg Atorvastatin Calcium (Atorvastatin 40 Mg Tab) 40 mg PO HS [facility] Stop: 03/26/23 20:59 Last Admin: 02/26/23 21:13 Dose: 40 mg Bumetanide (Bumetanide 1 Mg Tab) 1 mg PO QAM [facility] Stop: 03/28/23 09:14 Last Admin: 02/27/23 07:47 Dose: 1 mg Colchicine (Colchicine 0.6 Mg Tab) 0.6 mg PO BID [facility] Stop: 03/26/23 20:59 Last Admin: 02/27/23 07:46 Dose: 0.6 mg Dextrose (Dextrose 50% 50 Ml Syringe) 25 - 50 ml IV UD PRN; Protocol PRN Reason: Hypoglycemia Protocol Stop: 03/26/23 12:38 Doxazosin Mesylate (Doxazosin Mesylate Tab 2 Mg Tab) [address] [facility] Stop: 03/26/23 20:59 Last Admin: 02/26/23 21:13 Dose: 2 mg Gabapentin (Gabapentin 300 Mg Cap) [address] [facility] Stop: 03/26/23 12:59 Last Admin: 02/27/23 07:47 Dose: 300 mg Gabapentin (Gabapentin 300 Mg Cap) [address] [facility] Stop: 03/26/23 20:59 Last Admin: 02/26/23 21:12 Dose: 600 mg Glucagon (Glucagon For Inj 1 Mg Vial) 1 mg SQ UD PRN; Protocol PRN Reason: Hypoglycemia Protocol Stop: 03/26/23 12:38 Glucose (Glucose 10 Tab/Tube) 4 - 8 tab PO UD PRN; Protocol PRN Reason: Hypoglycemia Treatment Stop: 03/26/23 12:38 Glucose (Glucose 40% Gel 15 Gm Tube) 15 - 30 gm PO UD PRN; Protocol PRN Reason: Hypoglycemia Protocol Stop: 03/26/23 12:38 Hydromorphone HCl (Hydromorphone Inj 0.5 Mg/0.5 Ml Syr) 0.5 mg IV Q4H PRN PRN Reason: SEVERE PAIN 7-10 Stop: 03/10/23 14:51 Last Admin: 02/26/23 04:37 Dose: 0.5 mg Insulin Aspart (Insulin Aspart Per Unit Charge) [address] [facility] Stop: 03/26/23 12:49 Last Admin: 02/27/23 07:38 Dose: Not Given Lidocaine ([facility]ocaine 5% 1 Patch) [facility] Stop: 03/26/23 12:44 Last Admin: 02/27/23 07:46 Dose: 1 patch Magnesium Hydroxide (Magnesium Hydroxide Susp 30 Ml Udc) 30 ml PO Q12H PRN PRN Reason: Constipation Stop: 03/26/23 12:38 Metoprolol Succinate (Metoprolol Succ 50mg Ext Rel Tab) [address] [facility] Stop: 03/27/23 08:59 Last Admin: 02/27/23 07:46 Dose: 50 mg Miscellaneous (Remove Lidoderm Patch) 1 each N/A DAILY@2100 [facility] Stop: 03/26/23 20:59 Last Admin: 02/26/23 21:13 Dose: 1 each Miscellaneous (Carbohydrates For Hypoglycemia ) 15 - 30 gm PO UD PRN PRN Reason: Hypoglycemia Protocol Stop: 03/26/23 12:38 Morphine Sulfate (Morphine Sulfate Cr 15 Mg Tabcr) 15 mg PO BID [facility] Stop: 03/11/23 20:59 Last Admin: 02/27/23 07:45 Dose: 15 mg Ondansetron HCl (Ondansetron Inj 2 Mg/Ml 2 Ml Vial) 4 mg IV Q6H PRN PRN Reason: Nausea Stop: 03/26/23 12:38 Last Admin: 02/25/23 02:50 Dose: 4 mg Oxycodone HCl (Oxycodone Hcl Ir 5 Mg Tab (Immediate Release)) 10 mg PO Q4H PRN PRN Reason: MODERATE Pain (4,5,6) & Pre PT Stop: 03/11/23 09:43 Last Admin: 02/26/23 16:16 Dose: 10 mg Pantoprazole Sodium (Pantoprazole 40 Mg Tab) 40 mg PO HS [facility] Stop: 03/26/23 20:59 Last Admin: 02/26/23 21:12 Dose: 40 mg Polyethylene Glycol (Polyethylene (Miralax) 17 Gm Pack) 17 gm PO DAILY PRN PRN Reason: Constipation Stop: 03/26/23 12:38 Polyethylene Glycol (Polyethylene (Miralax) 17 Gm Pack) 17 gm PO DAILY [facility] Stop: 03/27/23 08:59 Last Admin: 02/27/23 07:46 Dose: 17 gm Senna/Docusate Sodium (Docusate Sodium/Senna 50/8.6mg Tab) 2 tab PO HS [facility] Stop: 03/26/23 20:59 Last Admin: 02/26/23 21:13 Dose: 2 tab
[2023-02-27] MEDS: oxyCODONE HCL IR 5 MG TAB (IMMEDIATE RELEASE) PO PRN ×2 (12:06→16:11)
--- NOTE | 2023-02-27 12:43 | Cardiology Progress Note ---
Date of Service February 27, 2023 Assessment & Plan (1) Cardiac arrest: (2) Cardiac tamponade: (3) Hypoxia: (4) Hypocalcemia: (5) Acute renal failure superimposed on stage 3 chronic kidney disease: (6) Syncope: (7) PAD (peripheral artery disease): (8) Hypoalbuminemia: (9) CAD (coronary artery disease): (10) COPD (chronic obstructive pulmonary disease): Plan So far, labs are all negative. Echocardiogram repeated today revealed no reaccumulation of pericardial fluid. At this point would continue current treatment. Add physical therapy so the patient can start to ambulate. Admission and Anticipated Discharge Date Admission Date: February 24, 2023 Subjective The patient still has some soreness in the ribs from compression fractures during CPR Review of Systems Review of Systems: Review of Systems: See HPI for pertinent positives. All other 10 point review of systems are negative. Physical Exam Physical Exam: General: no acute distress and stated age Head: normocephalic, no masses, lesions, tenderness or abnormalities Eyes: conjunctiva are pink and non-injected, sclera clear Neck: supple, no adenopathy, no bruits, normal jugular venous pulse, no hepatojugular reflux Chest: normal shape and normal respiratory effort Lungs: clear to auscultation and percussion Cardiac Exam: - regular rate & rhythm, no murmurs gallops or rubs - normal S1, normal S2 Pulses: 2(+) throughout Abdomen: abdomen soft, non-tender, no abnormal masses and no hepatosplenomegaly Musculoskeletal: no gait disturbance, no joint inflammation, no deforming arthritis Extremities: no edema and no cyanosis Neuro: grossly normal exam Results & Data Vital Signs (Past 12 Hours) Vital Signs Temp Pulse Pulse Resp BP Pulse Ox O2 Del Method 02/27/23 11:07 36.9 C 67 20 155/69 H 100 Nasal Cannula 02/27/23 08:46 Room Air 02/27/23 08:00 37.1 C 75 20 133/56 L 94 Room Air 02/27/23 07:00 85 20 02/27/23 06:00 72 24 02/27/23 05:00 72 15 02/27/23 04:00 71 20 02/27/23 03:00 70 16 02/27/23 02:00 78 20 02/27/23 01:00 91 H 19 O2 Flow Rate 02/27/23 11:07 2 02/27/23 08:46 02/27/23 08:00 02/27/23 07:00 02/27/23 06:00 02/27/23 05:00 02/27/23 04:00 02/27/23 03:00 02/27/23 02:00 02/27/23 01:00 Laboratory Results Laboratory Results - last 24 hr 02/24/23 02/26/23 02/26/23 14:00 15:48 21:08 WBC RBC Hgb Hct MCV MCH MCHC RDW Std Deviation RDW Coeff of Alan Plt Count MPV Absolute Nucleated RBC Nucleated RBC % (auto) Sodium Potassium Chloride Carbon Dioxide Anion Gap BUN Creatinine Est Cr Clr Drug Dosing Est GFR ( Amer) Est GFR (Non-Af Amer) BUN/Creatinine Ratio Glucose POC Glucose 105 H 121 H Calcium Phosphorus Magnesium Fluid Type PERICARDIAL FLUID Fluid Color YELLOW Fluid Appearance CLEAR Fld Tot Nucleated Cell 550 Fluid Neutrophils % 4 Fluid Lymphocytes % 95 Fluid Eosinophils % 0 Fluid Basophils % 0 Fl Monocyt/Macrophag % 1 Fld Mesothelial Cell % 0 Fluid Comment 2 DNR 02/27/23 02/27/23 02/27/23 04:04 04:04 07:19 WBC 7.46 RBC 3.65 L Hgb 9.7 L Hct 31.1 L MCV 85.2 MCH 26.6 MCHC 31.2 L RDW Std Deviation 45.7 RDW Coeff of Alan 15.0 H Plt Count 217 MPV 10.4 Absolute Nucleated RBC 0.02 Nucleated RBC % (auto) 0.3 Sodium 138 Potassium 3.7 Chloride 101 Carbon Dioxide 30 Anion Gap 7 BUN 34 H Creatinine 1.73 H Est Cr Clr Drug Dosing 53.5 Est GFR ( Amer) 44.4 Est GFR (Non-Af Amer) 38.3 BUN/Creatinine Ratio 19.7 Glucose 106 H POC Glucose 119 H Calcium 8.6 Phosphorus 2.9 Magnesium 2.0 Fluid Type Fluid Color Fluid Appearance Fld Tot Nucleated Cell Fluid Neutrophils % Fluid Lymphocytes % Fluid Eosinophils % Fluid Basophils % Fl Monocyt/Macrophag % Fld Mesothelial Cell % Fluid Comment 2 02/27/23 11:02 WBC RBC Hgb Hct MCV MCH MCHC RDW Std Deviation RDW Coeff of Alan Plt Count MPV Absolute Nucleated RBC Nucleated RBC % (auto) Sodium Potassium Chloride Carbon Dioxide Anion Gap BUN Creatinine Est Cr Clr Drug Dosing Est GFR ( Amer) Est GFR (Non-Af Amer) BUN/Creatinine Ratio Glucose POC Glucose 127 H Calcium Phosphorus Magnesium Fluid Type Fluid Color Fluid Appearance Fld Tot Nucleated Cell Fluid Neutrophils % Fluid Lymphocytes % Fluid Eosinophils % Fluid Basophils % Fl Monocyt/Macrophag % Fld Mesothelial Cell % Fluid Comment 2 Medications Administered Current Inpatient Medications Acetaminophen (Acetaminophen 325 Mg Tab) 650 mg PO Q4H PRN PRN Reason: Pain scale 1-3 or Fever Stop: 03/26/23 12:38 Last Admin: 02/25/23 09:58 Dose: 650 mg Al Hydrox/Mg Hydrox/Simethicone (Aluminum/Magnesium Susp 30 Ml Udc) 15 ml PO Q4H PRN PRN Reason: Dyspepsia Stop: 03/26/23 12:38 Albuterol (Albut/Ipratrop 3mg/0.5mg Neb 3 Ml Vial) 3 ml NEB Q4R PRN; Protocol PRN Reason: Shortness Of Breath Or Wheezing Stop: 03/27/23 10:59 Aspirin (Aspirin 81 Mg Ectab) 81 mg PO HS [facility] Stop: 03/26/23 20:59 Last Admin: 02/26/23 21:13 Dose: 81 mg Atorvastatin Calcium (Atorvastatin 40 Mg Tab) 40 mg PO HS [facility] Stop: 03/26/23 20:59 Last Admin: 02/26/23 21:13 Dose: 40 mg Bumetanide (Bumetanide 1 Mg Tab) 1 mg PO QAM [facility] Stop: 03/28/23 09:14 Last Admin: 02/27/23 07:47 Dose: 1 mg Colchicine (Colchicine 0.6 Mg Tab) 0.6 mg PO BID [facility] Stop: 03/26/23 20:59 Last Admin: 02/27/23 07:46 Dose: 0.6 mg Dextrose (Dextrose 50% 50 Ml Syringe) 25 - 50 ml IV UD PRN; Protocol PRN Reason: Hypoglycemia Protocol Stop: 03/26/23 12:38 Doxazosin Mesylate (Doxazosin Mesylate Tab 2 Mg Tab) 2 mg PO HS [facility] Stop: 03/26/23 20:59 Last Admin: 02/26/23 21:13 Dose: 2 mg Gabapentin (Gabapentin 300 Mg Cap) 300 mg PO QAM [facility] Stop: 03/26/23 12:59 Last Admin: 02/27/23 07:47 Dose: 300 mg Gabapentin (Gabapentin 300 Mg Cap) 600 mg PO HS [facility] Stop: 03/26/23 20:59 Last Admin: 02/26/23 21:12 Dose: 600 mg Glucagon (Glucagon For Inj 1 Mg Vial) 1 mg SQ UD PRN; Protocol PRN Reason: Hypoglycemia Protocol Stop: 03/26/23 12:38 Glucose (Glucose 10 Tab/Tube) 4 - 8 tab PO UD PRN; Protocol PRN Reason: Hypoglycemia Treatment Stop: 03/26/23 12:38 Glucose (Glucose 40% Gel 15 Gm Tube) 15 - 30 gm PO UD PRN; Protocol PRN Reason: Hypoglycemia Protocol Stop: 03/26/23 12:38 Hydromorphone HCl (Hydromorphone Inj 0.5 Mg/0.5 Ml Syr) 0.5 mg IV Q4H PRN PRN Reason: SEVERE PAIN 7-10 Stop: 03/10/23 14:51 Last Admin: 02/26/23 04:37 Dose: 0.5 mg Insulin Aspart (Insulin Aspart Per Unit Charge) 0 units SC ACHS [facility] Stop: 03/26/23 12:49 Last Admin: 02/27/23 11:29 Dose: Not Given Lidocaine (Lidocaine 5% 1 Patch) 1 patch TD QAM [facility] Stop: 03/26/23 12:44 Last Admin: 02/27/23 07:46 Dose: 1 patch Magnesium Hydroxide (Magnesium Hydroxide Susp 30 Ml Udc) 30 ml PO Q12H PRN PRN Reason: Constipation Stop: 03/26/23 12:38 Metoprolol Succinate (Metoprolol Succ 50mg Ext Rel Tab) 50 mg PO DAILY [facility] Stop: 03/27/23 08:59 Last Admin: 02/27/23 07:46 Dose: 50 mg Miscellaneous (Remove Lidoderm Patch) 1 each N/A DAILY@2100 [facility] Stop: 03/26/23 20:59 Last Admin: 02/26/23 21:13 Dose: 1 each Miscellaneous (Carbohydrates For Hypoglycemia ) 15 - 30 gm PO UD PRN PRN Reason: Hypoglycemia Protocol Stop: 03/26/23 12:38 Morphine Sulfate (Morphine Sulfate Cr 15 Mg Tabcr) 15 mg PO BID [facility] Stop: 03/11/23 20:59 Last Admin: 02/27/23 07:45 Dose: 15 mg Ondansetron HCl (Ondansetron Inj 2 Mg/Ml 2 Ml Vial) 4 mg IV Q6H PRN PRN Reason: Nausea Stop: 03/26/23 12:38 Last Admin: 02/25/23 02:50 Dose: 4 mg Oxycodone HCl (Oxycodone Hcl Ir 5 Mg Tab (Immediate Release)) 10 mg PO Q4H PRN PRN Reason: MODERATE Pain (4,5,6) & Pre PT Stop: 03/11/23 09:43 Last Admin: 02/27/23 12:06 Dose: 10 mg Pantoprazole Sodium (Pantoprazole 40 Mg Tab) 40 mg PO HS [facility] Stop: 03/26/23 20:59 Last Admin: 02/26/23 21:12 Dose: 40 mg Polyethylene Glycol (Polyethylene (Miralax) 17 Gm Pack) 17 gm PO DAILY PRN PRN Reason: Constipation Stop: 03/26/23 12:38 Polyethylene Glycol (Polyethylene (Miralax) 17 Gm Pack) 17 gm PO DAILY [facility] Stop: 03/27/23 08:59 Last Admin: 02/27/23 07:46 Dose: 17 gm Senna/Docusate Sodium (Docusate Sodium/Senna 50/8.6mg Tab) 2 tab PO HS [facility] Stop: 03/26/23 20:59 Last Admin: 02/26/23 21:13 Dose: 2 tab
[2023-02-27] MEDS: ASPIRIN 81 MG ECTAB PO SCH (20:30)
[2023-02-27] MEDS: PANTOprazole 40 MG TAB PO SCH (20:31)
[2023-02-27] MEDS: DOXAZosin MESYLATE TAB 2 MG TAB PO SCH (20:31)
[2023-02-27] MEDS: ATORVASTATIN 40 MG TAB PO SCH (20:31)
[2023-02-27] MEDS: DOCUSATE SODIUM/SENNA 50/8.6MG TAB PO SCH (20:31)
[2023-02-28 04:42] LABS: Hematocrit (blood only) 30.1 % (42.0-52.0); Hemoglobin 9.7 g/dl (14.0-18.0); Mean Corpuscular Hemoglobin 27.3 pg (25.0-34.0); Mean Corpuscular Hgb Conc 32.2 g/dL (32.0-36.0); Mean Corpuscular Volume 84.8 fL (80.0-100.0); Mean Platelet Volume 10.4 fL (9.4-12.4); Platelet Count 211 K/uL (130-400); RDW Coefficient of Variation 15.1 % (11.5-14.5); RDW Standard Deviation 45.9 fL (36.4-46.3); Red Blood Count 3.55 M/uL (4.70-6.10); White Blood Count 5.24 K/ul (4.8-10.8)
[2023-02-28 04:44] LABS: BUN Creatinine Ratio 21.7 (10-20); Calcium 8.7 mg/dl (8.6-10.3); Creatinine Clr Calc Pharmacy 64.7 ml/min; Est GFR (African American) 55.9 ml/min; Est GFR (Non-African American) 48.2 ml/min; Potassium 3.5 mmol/L (3.5-5.1)
[2023-02-28] MEDS: INSULIN ASPART PER UNIT CHARGE SC SCH ×4 (08:35→20:53)
--- NOTE | 2023-02-28 08:36 | Hospitalist Progress Note ---
Date of Service February 28, 2023 Assessment & Plan (1) Syncope: (2) Hypoxia: (3) Lactic acidosis: (4) Hypocalcemia: (5) Acute renal failure superimposed on stage 3 chronic kidney disease: (6) CAD (coronary artery disease): (7) COPD (chronic obstructive pulmonary disease): (8) PAD (peripheral artery disease): (9) HTN (hypertension): (10) Pre-diabetes: Plan This is a 72-year-old male who has significant past medical history of CAD status post CABG x2 in 2011, chronic HFpEF, chronic small pericardial effusion, PAD status post atherectomy and angioplasty managed on Xarelto, HTN, HLD, prediabetes, CKD stage III with baseline creatinine of 1.6-1.7, chronic venous insufficiency, COPD, former tobacco abuser who presents to ED after sustaining a syncopal/collapse episode prior to arrival. Patient had unexplained syncopal/collapse this morning that was unwitnessed in which he does not recall any of the events. Last event he recalls was being in the bathroom this morning and was trying to make it back to his bedroom. Syncope Cardiac tamponade elevated troponin Unclear if cardiac tamponade reason for syncope or subsequent result of chest compressions ?cardiac etiology vs arrhythmia, unlikely PE as pt is on xarelto last echo was 01/26/23 which showed preserved EF 55%, mild AV stenosis, mild chronic pericardial effusion Echo on admission showing cardiac tamponade S/p pericardiocentesis - cytology negative (Lymphocytes and scattered mesothelial cells are seen. No tumor seen.) Drain now removed (02/26) Started colchicine- continue Repeated Echo yesterday AM to evaluate for fluid re-accumulation- trivial pericardial effusion on current echo (02/27/2023) Admitted to ICU initially, now PCU, continue cardiac monitoring Cardiology consulted and following Hypocalcemia replete and monitor Hypokalemia replete and monitor Lactic acidosis likely secondary to hypoperfusion vs hypoxia IVF, trended lactic acid Hypoxia B/L rib fx 2/2 traumatic from CPR Anterior R 2-7th; L 3-7th; 2nd anterior costal cartilage fx continue O2 supplementation incentive spirometry oxycodone for pain scheduled bowel regimen lidocaine patches Chest CT did mention b/l pleural effusions again likely 2/2 fracture; also of concern was ? asp PNA. He did receive Unasyn in ED. He is w/o resp complaint and procal negative will monitor off antibiotics for now Care per ICU Leukocytosis he does not meet SIRS/SEPSIS criteria will monitor off antibiotic blood/urine culture ordered, follow WBC 7.9K - normalized A/C CKD -3 baseline Cr 1.6-7 Cr 1.7 ? atn in setting of hypoperfusion vs dehydration received gentle fluids nephrology was consulted Cr back to baseline CAD hx of CABG x 2 PAD w/ hx of angioplasty Chronic HFpEf HTN continue asa, statin, metoprolol hold bumex, metolazone for now hold xarelto due to trauma from rib fx Management per cardiology COPD, emphysema hx of tobacco abuse no acute exac Pre DM a1c 6.3, 02/15/[address] on insulin SS if BSG remains elevated consider adding Lantus BID DVT ppx: SCDS for now, xarelto on hold FULL CODE PCP: Dr. Esquivel Dispo: PCU, poss. plan to return to home when medically stable vs rehab Admission and Anticipated Discharge Date Admission Date: February 24, 2023 Subjective Pt seen s/p syncope , and cardiac tamponade Now s/p pericardiocentesis Sitting up in chair, in no acute distress Currently on RA, sat. 93% Has some chest pain from chest compressions No shortness of breath, no abdominal pain nausea vomiting worked with PT yesterday, for now recommend rehab Discussed with cardiology Review of Systems Review of Systems: All systems reviewed & are unremarkable except as noted in Subjective Physical Exam Physical Exam: Constitutional: WD/WN, Obese, M in NAD, sitting up in chair, on RA sat 93% Head: Normocephalic, Atraumatic Eyes: PERRL, EOMI, conjunctivae normal, anicteric sclerae ENMT: external ear and nose normal Neck: normal visual inspection Respiratory:Normal insp/exp effort, no accessory muscle use, CTAB Cardiovascular: RRR, +syst. murmur, + LE edema, bilateral venous stasis changes noted Chest: drain removed (pericardiocentesis) dressings applied Abdomen: normal bowel sounds, soft, nontender, obese Musculoskeletal: moves extremities Skin: no rashes, warm and dry normal turgor Neurologic: PERRL, EOMI, no face palsy, speech fluent, moves all extremities Psychiatric: A+Ox3, euthymic affect Results & Data Results & Data Laboratory Results 02/28/23 02/28/23 02/28/23 Range/Units 08:07 03:56 03:56 WBC 5.24 (4.8-10.8) K/ul RBC 3.55 L (4.70-6.10) M/uL Hgb 9.7 L (14.0-18.0) g/dl Hct 30.1 L (42.0-52.0) % MCV 84.8 (80.0-100.0) fL MCH 27.3 (25.0-34.0) pg MCHC 32.2 (32.0-36.0) g/dL RDW Std Deviation 45.9 (36.4-46.3) fL RDW Coeff of Alan 15.1 H (11.5-14.5) % Plt Count 211 (130-400) K/uL MPV 10.4 (9.4-12.4) fL Sodium 139 (136-145) mmol/L Potassium 3.5 (3.5-5.1) mmol/L Chloride 100 (98-107) mmol/L Carbon Dioxide 33 H (21-32) mmol/L Anion Gap 6 (3-11) BUN 31 H (6-23) mg/dl Creatinine 1.43 H D (0.6-1.4) mg/dl Est Cr Clr Drug Dosing 64.7 ml/min Est GFR ( Amer) 55.9 ml/min Est GFR (Non-Af Amer) 48.2 ml/min BUN/Creatinine Ratio 21.7 H (10-20) Glucose 122 H (70-99(Fasting)) mg/dl POC Glucose 110 H (70-99) mg/dl Calcium 8.7 (8.6-10.3) mg/dl Phosphorus 3.0 (2.5-4.9) mg/dl Magnesium 2.0 (1.7-2.4) mg/dl 02/27/23 02/27/23 02/27/23 Range/Units 20:22 15:34 11:02 WBC (4.8-10.8) K/ul RBC (4.70-6.10) M/uL Hgb (14.0-18.0) g/dl Hct (42.0-52.0) % MCV (80.0-100.0) fL MCH (25.0-34.0) pg MCHC (32.0-36.0) g/dL RDW Std Deviation (36.4-46.3) fL RDW Coeff of Alan (11.5-14.5) % Plt Count (130-400) K/uL MPV (9.4-12.4) fL Sodium (136-145) mmol/L Potassium (3.5-5.1) mmol/L Chloride (98-107) mmol/L Carbon Dioxide (21-32) mmol/L Anion Gap (3-11) BUN (6-23) mg/dl Creatinine (0.6-1.4) mg/dl Est Cr Clr Drug Dosing ml/min Est GFR ( Amer) ml/min Est GFR (Non-Af Amer) ml/min BUN/Creatinine Ratio (10-20) Glucose (70-99(Fasting)) mg/dl POC Glucose 109 H 116 H 127 H (70-99) mg/dl Calcium (8.6-10.3) mg/dl Phosphorus (2.5-4.9) mg/dl Magnesium (1.7-2.4) mg/dl Medications Administered Current Inpatient Medications Acetaminophen (Acetaminophen 325 Mg Tab) 650 mg PO Q4H PRN PRN Reason: Pain scale 1-3 or Fever Stop: 03/26/23 12:38 Last Admin: 02/25/23 09:58 Dose: 650 mg Al Hydrox/Mg Hydrox/Simethicone (Aluminum/Magnesium Susp 30 Ml Udc) 15 ml PO Q4H PRN PRN Reason: Dyspepsia Stop: 03/26/23 12:38 Albuterol (Albut/Ipratrop 3mg/0.5mg Neb 3 Ml Vial) 3 ml NEB Q4R PRN; Protocol PRN Reason: Shortness Of Breath Or Wheezing Stop: 03/27/23 10:59 Aspirin (Aspirin 81 Mg Ectab) 81 mg PO HS [facility] Stop: 03/26/23 20:59 Last Admin: 02/27/23 20:30 Dose: 81 mg Atorvastatin Calcium (Atorvastatin 40 Mg Tab) 40 mg PO HS [facility] Stop: 03/26/23 20:59 Last Admin: 02/27/23 20:31 Dose: 40 mg Bumetanide (Bumetanide 1 Mg Tab) 1 mg PO QA [facility] Stop: 03/28/23 09:14 Last Admin: 02/27/23 07:47 Dose: 1 mg Colchicine (Colchicine 0.6 Mg Tab) 0.6 mg PO BID [facility] Stop: 03/26/23 20:59 Last Admin: 02/27/23 20:31 Dose: 0.6 mg Dextrose (Dextrose 50% 50 Ml Syringe) 25 - 50 ml IV UD PRN; Protocol PRN Reason: Hypoglycemia Protocol Stop: 03/26/23 12:38 Doxazosin Mesylate (Doxazosin Mesylate Tab 2 Mg Tab) 2 mg PO [facility] Stop: 03/26/23 20:59 Last Admin: 02/27/23 20:31 Dose: 2 mg Gabapentin (Gabapentin 300 Mg Cap) [facility] [place] Stop: 03/26/23 12:59 Last Admin: 02/27/23 07:47 Dose: 300 mg Gabapentin (Gabapentin 300 Mg Cap) 600 mg PO [facility] Stop: 03/26/23 20:59 Last Admin: 02/27/23 20:30 Dose: 600 mg Glucagon (Glucagon For Inj 1 Mg Vial) 1 mg SQ UD PRN; Protocol PRN Reason: Hypoglycemia Protocol Stop: 03/26/23 12:38 Glucose (Glucose 10 Tab/Tube) 4 - 8 tab PO UD PRN; Protocol PRN Reason: Hypoglycemia Treatment Stop: 03/26/23 12:38 Glucose (Glucose 40% Gel 15 Gm Tube) 15 - 30 gm PO UD PRN; Protocol PRN Reason: Hypoglycemia Protocol Stop: 03/26/23 12:38 Hydromorphone HCl (Hydromorphone Inj 0.5 Mg/0.5 Ml Syr) 0.5 mg IV Q4H PRN PRN Reason: SEVERE PAIN 7-10 Stop: 03/10/23 14:51 Last Admin: 02/26/23 04:37 Dose: 0.5 mg Insulin Aspart (Insulin Aspart Per Unit Charge) 0 units SC ACHS [facility] Stop: 03/26/23 12:49 Last Admin: 02/27/23 20:24 Dose: Not Given Lidocaine (Lidocaine 5% 1 Patch) 1 patch TD QAM [facility] Stop: 03/26/23 12:44 Last Admin: 02/27/23 07:46 Dose: 1 patch Magnesium Hydroxide (Magnesium Hydroxide Susp 30 Ml Udc) 30 ml PO Q12H PRN PRN Reason: Constipation Stop: 03/26/23 12:38 Metoprolol Succinate (Metoprolol Succ 50mg Ext Rel Tab) 50 mg PO DAILY [facility] Stop: 03/27/23 08:59 Last Admin: 02/27/23 07:46 Dose: 50 mg Miscellaneous (Remove Lidoderm Patch) 1 each N/A DAILY@2100 [facility] Stop: 03/26/23 20:59 Last Admin: 02/27/23 20:31 Dose: 1 each Miscellaneous (Carbohydrates For Hypoglycemia ) 15 - 30 gm PO UD PRN PRN Reason: Hypoglycemia Protocol Stop: 03/26/23 12:38 Morphine Sulfate (Morphine Sulfate Cr 15 Mg Tabcr) 15 mg PO BID [facility] Stop: 03/11/23 20:59 Last Admin: 02/27/23 20:31 Dose: 15 mg Ondansetron HCl (Ondansetron Inj 2 Mg/Ml 2 Ml Vial) 4 mg IV Q6H PRN PRN Reason: Nausea Stop: 03/26/23 12:38 Last Admin: 02/25/23 02:50 Dose: 4 mg Oxycodone HCl (Oxycodone Hcl Ir 5 Mg Tab (Immediate Release)) 10 mg PO Q4H PRN PRN Reason: MODERATE Pain (4,5,6) & Pre PT Stop: 03/11/23 09:43 Last Admin: 02/27/23 16:11 Dose: 10 mg Pantoprazole Sodium (Pantoprazole 40 Mg Tab) 40 mg PO HS [facility] Stop: 03/26/23 20:59 Last Admin: 02/27/23 20:31 Dose: 40 mg Polyethylene Glycol (Polyethylene (Miralax) 17 Gm Pack) 17 gm PO DAILY PRN PRN Reason: Constipation Stop: 03/26/23 12:38 Polyethylene Glycol (Polyethylene (Miralax) 17 Gm Pack) 17 gm PO DAILY [facility] Stop: 03/27/23 08:59 Last Admin: 02/27/23 07:46 Dose: 17 gm Senna/Docusate Sodium (Docusate Sodium/Senna 50/8.6mg Tab) 2 tab PO HS [facility] Stop: 03/26/23 20:59 Last Admin: 02/27/23 20:31 Dose: 2 tab
[2023-02-28] MEDS ORDERED: POTASSIUM CHLORIDE CRTAB 20 MEQ TABCR PO STA (08:40)
[2023-02-28] MEDS: MoRPHine SULFATE CR 15 MG TABCR PO SCH ×2 (08:42→20:52)
[2023-02-28] MEDS: METOPROLOL SUCC 50MG EXT REL TAB PO SCH (08:42)
[2023-02-28] MEDS: COLCHICINE 0.6 MG TAB PO SCH ×2 (08:42→20:51)
[2023-02-28] MEDS: POLYETHYLENE (MIRALAX) 17 GM PACK PO SCH (08:43)
[2023-02-28] MEDS: LIDOCAINE 5% 1 PATCH TD SCH (08:43)
[2023-02-28] MEDS: GABAPENTIN 300 MG CAP PO SCH ×2 (08:43→20:51)
[2023-02-28] MEDS: BUMETANIDE 1 MG TAB PO SCH ×2 (08:43→20:52)
[2023-02-28] MEDS ORDERED: SPIRONOLACTONE 25 MG TAB PO ONE (13:15)
[2023-02-28] MEDS ORDERED: metOLazone 2.5 MG TABLET PO ONE (13:15)
--- NOTE | 2023-02-28 13:18 | Cardiology Progress Note ---
Date of Service February 28, 2023 Assessment & Plan (1) Cardiac arrest: (2) Cardiac tamponade: (3) Hypoxia: (4) Hypocalcemia: (5) Acute renal failure superimposed on stage 3 chronic kidney disease: (6) Syncope: (7) PAD (peripheral artery disease): (8) Hypoalbuminemia: (9) CAD (coronary artery disease): (10) COPD (chronic obstructive pulmonary disease): Plan The patient has lower extremity edema. As an outpatient he has chronic lower extremity edema and venous stasis. I put him back on his home diuretics today. Hopefully that will take care of the problem. He was also on Xarelto which will eventually need to be restarted. Admission and Anticipated Discharge Date Admission Date: February 24, 2023 Review of Systems Review of Systems: Review of Systems: See HPI for pertinent positives. All other 10 point review of systems are negative. Physical Exam Physical Exam: General: no acute distress and stated age Head: normocephalic, no masses, lesions, tenderness or abnormalities Eyes: conjunctiva are pink and non-injected, sclera clear Neck: supple, no adenopathy, no bruits, normal jugular venous pulse, no hepatojugular reflux Chest: normal shape and normal respiratory effort Lungs: clear to auscultation and percussion Cardiac Exam: - regular rate & rhythm, no murmurs gallops or rubs - normal S1, normal S2 Pulses: 2(+) throughout Abdomen: abdomen soft, non-tender, no abnormal masses and no hepatosplenomegaly Musculoskeletal: no gait disturbance, no joint inflammation, no deforming arthritis Extremities: Bilateral lower extremity edema Neuro: grossly normal exam Results & Data Vital Signs (Past 12 Hours) Vital Signs Temp Pulse Resp BP Pulse Ox O2 Del Method 02/28/23 11:53 36.5 C 67 20 109/52 L 93 Room Air 02/28/23 09:25 Room Air 02/28/23 08:00 36.5 C 60 14 148/67 H 92 Room Air Laboratory Results Laboratory Results - last 24 hr 02/27/23 02/27/23 02/28/23 15:34 20:22 03:56 WBC 5.24 RBC 3.55 L Hgb 9.7 L Hct 30.1 L MCV 84.8 MCH 27.3 MCHC 32.2 RDW Std Deviation 45.9 RDW Coeff of Alan 15.1 H Plt Count 211 MPV 10.4 Sodium Potassium Chloride Carbon Dioxide Anion Gap BUN Creatinine Est Cr Clr Drug Dosing Est GFR ( Amer) Est GFR (Non-Af Amer) BUN/Creatinine Ratio Glucose POC Glucose 116 H 109 H Calcium Phosphorus Magnesium 02/28/23 02/28/23 02/28/23 03:56 08:07 11:10 WBC RBC Hgb Hct MCV MCH MCHC RDW Std Deviation RDW Coeff of Alan Plt Count MPV Sodium 139 Potassium 3.5 Chloride 100 Carbon Dioxide 33 H Anion Gap 6 BUN 31 H Creatinine 1.43 H D Est Cr Clr Drug Dosing 64.7 Est GFR ( Amer) 55.9 Est GFR (Non-Af Amer) 48.2 BUN/Creatinine Ratio 21.7 H Glucose 122 H POC Glucose 110 H 104 H Calcium 8.7 Phosphorus 3.0 Magnesium 2.0 Medications Administered Current Inpatient Medications Acetaminophen (Acetaminophen 325 Mg Tab) 650 mg PO Q4H PRN PRN Reason: Pain scale 1-3 or Fever Stop: 03/26/23 12:38 Last Admin: 02/25/23 09:58 Dose: 650 mg Al Hydrox/Mg Hydrox/Simethicone (Aluminum/Magnesium Susp 30 Ml Udc) 15 ml PO Q4H PRN PRN Reason: Dyspepsia Stop: 03/26/23 12:38 Albuterol (Albut/Ipratrop 3mg/0.5mg Neb 3 Ml Vial) 3 ml NEB Q4R PRN; Protocol PRN Reason: Shortness Of Breath Or Wheezing Stop: 03/27/23 10:59 Aspirin (Aspirin 81 Mg Ectab) 81 mg PO HS [facility] Stop: 03/26/23 20:59 Last Admin: 02/27/23 20:30 Dose: 81 mg Atorvastatin Calcium (Atorvastatin 40 Mg Tab) 40 mg PO HS [facility] Stop: 03/26/23 20:59 Last Admin: 02/27/23 20:31 Dose: 40 mg Bumetanide (Bumetanide 1 Mg Tab) 1 mg PO BID [facility] Stop: 03/30/23 20:59 Colchicine (Colchicine 0.6 Mg Tab) 0.6 mg PO BID [facility] Stop: 03/26/23 20:59 Last Admin: 02/28/23 08:42 Dose: 0.6 mg Dextrose (Dextrose 50% 50 Ml Syringe) 25 - 50 ml IV UD PRN; Protocol PRN Reason: Hypoglycemia Protocol Stop: 03/26/23 12:38 Doxazosin Mesylate (Doxazosin Mesylate Tab 2 Mg Tab) 2 mg PO HS [facility] Stop: 03/26/23 20:59 Last Admin: 02/27/23 20:31 Dose: 2 mg Gabapentin (Gabapentin 300 Mg Cap) 300 mg PO QAM [facility] Stop: 03/26/23 12:59 Last Admin: 02/28/23 08:43 Dose: 300 mg Gabapentin (Gabapentin 300 Mg Cap) 600 mg PO HS [facility] Stop: 03/26/23 20:59 Last Admin: 02/27/23 20:30 Dose: 600 mg Glucagon (Glucagon For Inj 1 Mg Vial) 1 mg SQ UD PRN; Protocol PRN Reason: Hypoglycemia Protocol Stop: 03/26/23 12:38 Glucose (Glucose 10 Tab/Tube) 4 - 8 tab PO UD PRN; Protocol PRN Reason: Hypoglycemia Treatment Stop: 03/26/23 12:38 Glucose (Glucose 40% Gel 15 Gm Tube) 15 - 30 gm PO UD PRN; Protocol PRN Reason: Hypoglycemia Protocol Stop: 03/26/23 12:38 Hydromorphone HCl (Hydromorphone Inj 0.5 Mg/0.5 Ml Syr) 0.5 mg IV Q4H PRN PRN Reason: SEVERE PAIN 7-10 Stop: 03/10/23 14:51 Last Admin: 02/26/23 04:37 Dose: 0.5 mg Insulin Aspart (Insulin Aspart Per Unit Charge) 0 units SC ACHS [facility] Stop: 03/26/23 12:49 Last Admin: 02/28/23 11:18 Dose: Not Given Lidocaine (Lidocaine 5% 1 Patch) [facility] [place] Stop: 03/26/23 12:44 Last Admin: 02/28/23 08:43 Dose: 1 patch Magnesium Hydroxide (Magnesium Hydroxide Susp 30 Ml Udc) 30 ml PO Q12H PRN PRN Reason: Constipation Stop: 03/26/23 12:38 Metolazone (Metolazone 2.5 Mg Tablet) 2.5 mg PO QAM [facility] Stop: 03/31/23 08:59 Metoprolol Succinate (Metoprolol Succ 50mg Ext Rel Tab) 50 mg PO DAILY [facility] Stop: 03/27/23 08:59 Last Admin: 02/28/23 08:42 Dose: 50 mg Miscellaneous (Remove Lidoderm Patch) 1 each N/A DAILY@2100 [facility] Stop: 03/26/23 20:59 Last Admin: 02/27/23 20:31 Dose: 1 each Miscellaneous (Carbohydrates For Hypoglycemia ) 15 - 30 gm PO UD PRN PRN Reason: Hypoglycemia Protocol Stop: 03/26/23 12:38 Morphine Sulfate (Morphine Sulfate Cr 15 Mg Tabcr) 15 mg PO BID [facility] Stop: 03/11/23 20:59 Last Admin: 02/28/23 08:42 Dose: 15 mg Ondansetron HCl (Ondansetron Inj 2 Mg/Ml 2 Ml Vial) 4 mg IV Q6H PRN PRN Reason: Nausea Stop: 03/26/23 12:38 Last Admin: 02/25/23 02:50 Dose: 4 mg Oxycodone HCl (Oxycodone Hcl Ir 5 Mg Tab (Immediate Release)) 10 mg PO Q4H PRN PRN Reason: MODERATE Pain (4,5,6) & Pre PT Stop: 03/11/23 09:43 Last Admin: 02/27/23 16:11 Dose: 10 mg Pantoprazole Sodium (Pantoprazole 40 Mg Tab) 40 mg PO HS [facility] Stop: 03/26/23 20:59 Last Admin: 02/27/23 20:31 Dose: 40 mg Polyethylene Glycol (Polyethylene (Miralax) 17 Gm Pack) 17 gm PO DAILY PRN PRN Reason: Constipation Stop: 03/26/23 12:38 Polyethylene Glycol (Polyethylene (Miralax) 17 Gm Pack) 17 gm PO DAILY [facility] Stop: 03/27/23 08:59 Last Admin: 02/28/23 08:43 Dose: 17 gm Senna/Docusate Sodium (Docusate Sodium/Senna 50/8.6mg Tab) 2 tab PO HS [facility] Stop: 03/26/23 20:59 Last Admin: 02/27/23 20:31 Dose: 2 tab Spironolactone (Spironolactone 25 Mg Tab) 25 mg PO QAM [facility] Stop: 03/31/23 08:59
[2023-02-28] MEDS: oxyCODONE HCL IR 5 MG TAB (IMMEDIATE RELEASE) PO PRN (20:51)
[2023-02-28] MEDS: DOCUSATE SODIUM/SENNA 50/8.6MG TAB PO SCH (20:51)
[2023-02-28] MEDS: ATORVASTATIN 40 MG TAB PO SCH (20:52)
[2023-02-28] MEDS: DOXAZosin MESYLATE TAB 2 MG TAB PO SCH (20:52)
[2023-02-28] MEDS: ASPIRIN 81 MG ECTAB PO SCH (20:52)
[2023-02-28] MEDS: PANTOprazole 40 MG TAB PO SCH (20:52)
[2023-03-01 04:58] LABS: Hematocrit (blood only) 31.6 % (42.0-52.0); Hemoglobin 10.1 g/dl (14.0-18.0); Mean Corpuscular Hemoglobin 26.8 pg (25.0-34.0); Mean Corpuscular Volume 83.8 fL (80.0-100.0); Mean Platelet Volume 10.2 fL (9.4-12.4); Platelet Count 209 K/uL (130-400); RDW Coefficient of Variation 15.3 % (11.5-14.5); RDW Standard Deviation 43.3 fL (36.4-46.3); Red Blood Count 3.77 M/uL (4.70-6.10); White Blood Count 4.02 K/ul (4.8-10.8)
[2023-03-01 05:13] LABS: BUN Creatinine Ratio 18.6 (10-20); Calcium 8.6 mg/dl (8.6-10.3); Creatinine Clr Calc Pharmacy 66.1 ml/min; Est GFR (African American) 57.4 ml/min; Est GFR (Non-African American) 49.5 ml/min; Magnesium 1.8 mg/dl (1.7-2.4); Potassium 3.1 mmol/L (3.5-5.1)
[2023-03-01] MEDS ORDERED: POTASSIUM CHLORIDE CRTAB 20 MEQ TABCR PO STA (07:36)
--- NOTE | 2023-03-01 07:38 | Hospitalist Progress Note ---
Date of Service March 01, 2023 Assessment & Plan (1) Syncope: (2) Hypoxia: (3) Lactic acidosis: (4) Hypocalcemia: (5) Acute renal failure superimposed on stage 3 chronic kidney disease: (6) CAD (coronary artery disease): (7) COPD (chronic obstructive pulmonary disease): (8) PAD (peripheral artery disease): (9) HTN (hypertension): (10) Pre-diabetes: Plan This is a 72-year-old male who has significant past medical history of CAD status post CABG x2 in 2011, chronic HFpEF, chronic small pericardial effusion, PAD status post atherectomy and angioplasty managed on Xarelto, HTN, HLD, prediabetes, CKD stage III with baseline creatinine of 1.6-1.7, chronic venous insufficiency, COPD, former tobacco abuser who presents to ED after sustaining a syncopal/collapse episode prior to arrival. Patient had unexplained syncopal/collapse this morning that was unwitnessed in which he does not recall any of the events. Last event he recalls was being in the bathroom this morning and was trying to make it back to his bedroom. Syncope Cardiac tamponade ? cardiac arrest (outside hospital) elevated troponin Unclear if cardiac tamponade reason for syncope or subsequent result of chest compressions ?cardiac etiology vs arrhythmia, unlikely PE as pt is on xarelto echo 01/26/23 which showed preserved EF 55%, mild AV stenosis, mild chronic pericardial effusion Echo on admission showing cardiac tamponade S/p pericardiocentesis - cytology negative (Lymphocytes and scattered mesothelial cells are seen. No tumor seen.) Drain now removed (02/26) Started colchicine- continue Repeated Echo to evaluate for fluid re-accumulation- trivial pericardial effusion on current echo (02/27/2023) Admitted to ICU initially, now PCU, continue cardiac monitoring Cardiology consulted and following 03/01 - Echo repeated , diuretics re-started, cont. to monitor overnight Hypocalcemia replete and monitor Hypokalemia replete and monitor Lactic acidosis likely secondary to hypoperfusion vs hypoxia IVF, trended lactic acid Hypoxia - resolved B/L rib fx 2/2 traumatic from CPR Anterior R 2-7th; L 3-7th; 2nd anterior costal cartilage fx continued O2 supplementation incentive spirometry oxycodone for pain scheduled bowel regimen lidocaine patches Chest CT did mention b/l pleural effusions again likely 2/2 fracture; also of concern was ? asp PNA. He did receive Unasyn in ED. He is w/o resp complaint and procal negative - monitor off antibiotics Pt is now on RA sat. 95% Leukocytosis - resolved he does not meet SIRS/SEPSIS criteria monitored off antibiotic blood/urine culture ordered, follow -negat. so far WBC normalized A/C CKD -3 baseline Cr 1.6-7 Cr 1.4 ? atn in setting of hypoperfusion vs dehydration received gentle fluids nephrology was consulted Cr back to baseline/ better than baseline CAD hx of CABG x 2 PAD w/ hx of angioplasty Chronic HFpEf HTN continue asa, statin, metoprolol resumed bumex, metolazone on hold - per cardiology hold xarelto due to trauma from rib fx Management per cardiology COPD, emphysema hx of tobacco abuse no acute exac Pre DM a1c 6.3, 02/15/[address] on insulin SS if BSG remains elevated consider adding Lantus BID DVT ppx: SCDS for now, xarelto on hold FULL CODE PCP: Dr. Esquivel Dispo: PCU, poss. plan to return to home when medically stable vs rehab Admission and Anticipated Discharge Date Admission Date: February 24, 2023 Subjective Pt seen s/p syncope , and cardiac tamponade, cardiac arrest Now s/p pericardiocentesis Sitting up in chair, in no acute distress Currently on RA, sat. 95% He is eating lunch. Has some chest pain from chest compressions No shortness of breath, no abdominal pain nausea vomiting Seen by cardiology today - echo repeated, diuretics restarted, cont. to monitor overnight Review of Systems Review of Systems: All systems reviewed & are unremarkable except as noted in Subjective Physical Exam Physical Exam: Constitutional: WD/WN, Obese, M in NAD, sitting up in chair, on RA sat 95% Head: Normocephalic, Atraumatic Eyes: PERRL, EOMI, conjunctivae normal, anicteric sclerae ENMT: external ear and nose normal Neck: normal visual inspection Respiratory:Normal insp/exp effort, no accessory muscle use, CTAB Cardiovascular: RRR, +syst. murmur, + LE edema, bilateral venous stasis changes noted Chest: drain removed (pericardiocentesis) dressings applied Abdomen: normal bowel sounds, soft, nontender, obese Musculoskeletal: moves extremities Skin: no rashes, warm and dry normal turgor Neurologic: PERRL, EOMI, no face palsy, speech fluent, moves all extremities Psychiatric: A+Ox3, euthymic affect Results & Data Results & Data Vital Signs (Past 12 Hours) Vital Signs Temp Pulse Resp BP Pulse Ox O2 Del Method 03/01/23 00:00 36.9 C 61 20 117/59 L 95 Room Air Laboratory Results 03/01/23 03/01/23 03/01/23 Range/Units 07:12 04:09 04:09 WBC 4.02 L (4.8-10.8) K/ul RBC 3.77 L (4.70-6.10) M/uL Hgb 10.1 L (14.0-18.0) g/dl Hct 31.6 L (42.0-52.0) % MCV 83.8 (80.0-100.0) fL MCH 26.8 (25.0-34.0) pg MCHC 32.0 (32.0-36.0) g/dL RDW Std Deviation 43.3 (36.4-46.3) fL RDW Coeff of Alan 15.3 H (11.5-14.5) % Plt Count 209 (130-400) K/uL MPV 10.2 (9.4-12.4) fL Sodium 140 (136-145) mmol/L Potassium 3.1 L (3.5-5.1) mmol/L Chloride 98 (98-107) mmol/L Carbon Dioxide 34 H (21-32) mmol/L Anion Gap 8 (3-11) BUN 26 H (6-23) mg/dl Creatinine 1.40 (0.6-1.4) mg/dl Est Cr Clr Drug Dosing 66.1 ml/min Est GFR ( Amer) 57.4 ml/min Est GFR (Non-Af Amer) 49.5 ml/min BUN/Creatinine Ratio 18.6 (10-20) Glucose 112 H (70-99(Fasting)) mg/dl POC Glucose 117 H (70-99) mg/dl Calcium 8.6 (8.6-10.3) mg/dl Phosphorus 3.0 (2.5-4.9) mg/dl Magnesium 1.8 (1.7-2.4) mg/dl 02/28/23 02/28/23 02/28/23 Range/Units 20:42 15:51 11:10 WBC (4.8-10.8) K/ul RBC (4.70-6.10) M/uL Hgb (14.0-18.0) g/dl Hct (42.0-52.0) % MCV (80.0-100.0) fL MCH (25.0-34.0) pg MCHC (32.0-36.0) g/dL RDW Std Deviation (36.4-46.3) fL RDW Coeff of Alan (11.5-14.5) % Plt Count (130-400) K/uL MPV (9.4-12.4) fL Sodium (136-145) mmol/L Potassium (3.5-5.1) mmol/L Chloride (98-107) mmol/L Carbon Dioxide (21-32) mmol/L Anion Gap (3-11) BUN (6-23) mg/dl Creatinine (0.6-1.4) mg/dl Est Cr Clr Drug Dosing ml/min Est GFR ( Amer) ml/min Est GFR (Non-Af Amer) ml/min BUN/Creatinine Ratio (10-20) Glucose (70-99(Fasting)) mg/dl POC Glucose 112 H 114 H 104 H (70-99) mg/dl Calcium (8.6-10.3) mg/dl Phosphorus (2.5-4.9) mg/dl Magnesium (1.7-2.4) mg/dl 02/28/23 Range/Units 08:07 WBC (4.8-10.8) K/ul RBC (4.70-6.10) M/uL Hgb (14.0-18.0) g/dl Hct (42.0-52.0) % MCV (80.0-100.0) fL MCH (25.0-34.0) pg MCHC (32.0-36.0) g/dL RDW Std Deviation (36.4-46.3) fL RDW Coeff of Alan (11.5-14.5) % Plt Count (130-400) K/uL MPV (9.4-12.4) fL Sodium (136-145) mmol/L Potassium (3.5-5.1) mmol/L Chloride (98-107) mmol/L Carbon Dioxide (21-32) mmol/L Anion Gap (3-11) BUN (6-23) mg/dl Creatinine (0.6-1.4) mg/dl Est Cr Clr Drug Dosing ml/min Est GFR ( Amer) ml/min Est GFR (Non-Af Amer) ml/min BUN/Creatinine Ratio (10-20) Glucose (70-99(Fasting)) mg/dl POC Glucose 110 H (70-99) mg/dl Calcium (8.6-10.3) mg/dl Phosphorus (2.5-4.9) mg/dl Magnesium (1.7-2.4) mg/dl Medications Administered Current Inpatient Medications Acetaminophen (Acetaminophen 325 Mg Tab) 650 mg PO Q4H PRN PRN Reason: Pain scale 1-3 or Fever Stop: 03/26/23 12:38 Last Admin: 02/25/23 09:58 Dose: 650 mg Al Hydrox/Mg Hydrox/Simethicone (Aluminum/Magnesium Susp 30 Ml Udc) 15 ml PO Q4H PRN PRN Reason: Dyspepsia Stop: 03/26/23 12:38 Albuterol (Albut/Ipratrop 3mg/0.5mg Neb 3 Ml Vial) 3 ml NEB Q4R PRN; Protocol PRN Reason: Shortness Of Breath Or Wheezing Stop: 03/27/23 10:59 Aspirin (Aspirin 81 Mg Ectab) 81 mg PO HS MARY BETH Stop: 03/26/23 20:59 Last Admin: 02/28/23 20:52 Dose: 81 mg Atorvastatin Calcium (Atorvastatin 40 Mg Tab) 40 mg PO HS MARY BETH Stop: 03/26/23 20:59 Last Admin: 02/28/23 20:52 Dose: 40 mg Bumetanide (Bumetanide 1 Mg Tab) 1 mg PO BID MARY BETH Stop: 03/30/23 20:59 Last Admin: 02/28/23 20:52 Dose: 1 mg Colchicine (Colchicine 0.6 Mg Tab) 0.6 mg PO BID MARY BETH Stop: 03/26/23 20:59 Last Admin: 02/28/23 20:51 Dose: 0.6 mg Dextrose (Dextrose 50% 50 Ml Syringe) 25 - 50 ml IV UD PRN; Protocol PRN Reason: Hypoglycemia Protocol Stop: 03/26/23 12:38 Doxazosin Mesylate (Doxazosin Mesylate Tab 2 Mg Tab) 2 mg PO HS [facility] Stop: 03/26/23 20:59 Last Admin: 02/28/23 20:52 Dose: 2 mg Gabapentin (Gabapentin 300 Mg Cap) 300 mg PO QAM [facility] Stop: 03/26/23 12:59 Last Admin: 02/28/23 08:43 Dose: 300 mg Gabapentin (Gabapentin 300 Mg Cap) 600 mg PO HS [facility] Stop: 03/26/23 20:59 Last Admin: 02/28/23 20:51 Dose: 600 mg Glucagon (Glucagon For Inj 1 Mg Vial) 1 mg SQ UD PRN; Protocol PRN Reason: Hypoglycemia Protocol Stop: 03/26/23 12:38 Glucose (Glucose 10 Tab/Tube) 4 - 8 tab PO UD PRN; Protocol PRN Reason: Hypoglycemia Treatment Stop: 03/26/23 12:38 Glucose (Glucose 40% Gel 15 Gm Tube) 15 - 30 gm PO UD PRN; Protocol PRN Reason: Hypoglycemia Protocol Stop: 03/26/23 12:38 Hydromorphone HCl (Hydromorphone Inj 0.5 Mg/0.5 Ml Syr) 0.5 mg IV Q4H PRN PRN Reason: SEVERE PAIN 7-10 Stop: 03/10/23 14:51 Last Admin: 02/26/23 04:37 Dose: 0.5 mg Insulin Aspart (Insulin Aspart Per Unit Charge) 0 units SC ACHS [facility] Stop: 03/26/23 12:49 Last Admin: 02/28/23 20:53 Dose: Not Given Lidocaine ([facility]ocaine 5% 1 Patch) [facility] [place] Stop: 03/26/23 12:44 Last Admin: 02/28/23 08:43 Dose: 1 patch Magnesium Hydroxide (Magnesium Hydroxide Susp 30 Ml Udc) 30 ml PO Q12H PRN PRN Reason: Constipation Stop: 03/26/23 12:38 Metolazone (Metolazone 2.5 Mg Tablet) [facility] [place] Stop: 03/31/23 08:59 Metoprolol Succinate (Metoprolol Succ 50mg Ext Rel Tab) 50 mg PO DAILY [facility] Stop: 03/27/23 08:59 Last Admin: 02/28/23 08:42 Dose: 50 mg Miscellaneous (Remove Lidoderm Patch) 1 each N/A DAILY@2100 MARY BETH Stop: 03/26/23 20:59 Last Admin: 02/28/23 21:27 Dose: 1 each Miscellaneous (Carbohydrates For Hypoglycemia ) 15 - 30 gm PO UD PRN PRN Reason: Hypoglycemia Protocol Stop: 03/26/23 12:38 Morphine Sulfate (Morphine Sulfate Cr 15 Mg Tabcr) 15 mg PO BID MARY BETH Stop: 03/11/23 20:59 Last Admin: 02/28/23 20:52 Dose: 15 mg Ondansetron HCl (Ondansetron Inj 2 Mg/Ml 2 Ml Vial) 4 mg IV Q6H PRN PRN Reason: Nausea Stop: 03/26/23 12:38 Last Admin: 02/25/23 02:50 Dose: 4 mg Oxycodone HCl (Oxycodone Hcl Ir 5 Mg Tab (Immediate Release)) 10 mg PO Q4H PRN PRN Reason: MODERATE Pain (4,5,6) & Pre PT Stop: 03/11/23 09:43 Last Admin: 02/28/23 20:51 Dose: 10 mg Pantoprazole Sodium (Pantoprazole 40 Mg Tab) 40 mg PO HS MARY BETH Stop: 03/26/23 20:59 Last Admin: 02/28/23 20:52 Dose: 40 mg Polyethylene Glycol (Polyethylene (Miralax) 17 Gm Pack) 17 gm PO DAILY PRN PRN Reason: Constipation Stop: 03/26/23 12:38 Polyethylene Glycol (Polyethylene (Miralax) 17 Gm Pack) 17 gm PO DAILY MARY BETH Stop: 03/27/23 08:59 Last Admin: 02/28/23 08:43 Dose: 17 gm Potassium Chloride (Potassium Chloride Crtab 20 Meq Tabcr) 40 meq PO NOW STA Stop: 03/01/23 07:37 Senna/Docusate Sodium (Docusate Sodium/Senna 50/8.6mg Tab) 2 tab PO HS MARY BETH Stop: 03/26/23 20:59 Last Admin: 02/28/23 20:51 Dose: 2 tab Spironolactone (Spironolactone 25 Mg Tab) 25 mg PO QAM MARY BETH Stop: 03/31/23 08:59
[2023-03-01] MEDS: GABAPENTIN 300 MG CAP PO SCH ×2 (08:03→20:51)
[2023-03-01] MEDS: METOPROLOL SUCC 50MG EXT REL TAB PO SCH (08:03)
[2023-03-01] MEDS: MoRPHine SULFATE CR 15 MG TABCR PO SCH ×2 (08:03→20:56)
[2023-03-01] MEDS: BUMETANIDE 1 MG TAB PO SCH ×2 (08:03→20:51)
[2023-03-01] MEDS: COLCHICINE 0.6 MG TAB PO SCH ×2 (08:04→20:51)
[2023-03-01] MEDS: SPIRONOLACTONE 25 MG TAB PO SCH (08:04)
[2023-03-01] MEDS: INSULIN ASPART PER UNIT CHARGE SC SCH ×4 (08:04→20:52)
[2023-03-01] MEDS: LIDOCAINE 5% 1 PATCH TD SCH (08:05)
[2023-03-01] MEDS: POLYETHYLENE (MIRALAX) 17 GM PACK PO SCH (08:05)
[2023-03-01] MEDS: POTASSIUM CHLORIDE CRTAB 20 MEQ TABCR PO SCH ×3 (08:56→20:50)
[2023-03-01] MEDS ORDERED: metOLazone 2.5 MG TABLET PO SCH (09:00)
--- NOTE | 2023-03-01 09:05 | Nephrology Progress Note ---
Date of Service March 01, 2023 Assessment & Plan (1) CKD (chronic kidney disease) stage 3, GFR 30-59 ml/min: Plan: baseline creatinine 1.6; better than baseline currently -continue current doses spironolactone and bumex; agree w/ holding metolazone -daily bmp >given low K will recheck bmp this evening > order in -ensure neph f/u post d/c (2) Acute on chronic heart failure with preserved ejection fraction (HFpEF): Plan: -continue current diuretics -agree w/ aggressive standing K dose Admission and Anticipated Discharge Date Admission Date: February 24, 2023 Subjective seen on rounds this am; no overnight events; states he did sleep somewhat poorly. edema persists but improved Review of Systems Review of Systems: All systems reviewed & are unremarkable except as noted in Subjective Physical Exam Constitutional: well developed, well nourished and + obese Eyes: EOM intact bilaterally ENMT: Ears: no external ear abnormality Nose: no external nose abnormality Mouth: + dry oral mucous membranes Neck: no nuchal rigidity Respiratory: normal respiratory effort Auscultation: + diminished lung sounds and + crackles (R basillar) Cardiovascular: Rate/Rhythm: regular rate and regular rhythm Extremities: + edema (3+ pedal) Gastrointestinal (Abdomen): Inspection/Auscultation: normal bowel sounds Percussion/Palpation: abdomen soft; abdomen nontender Musculoskeletal: Extremities: strength 5/5 throughout Skin: no rashes, warm and dry Neurologic: hernandez, fluent speech, no tremor Psychiatric: Orientation: oriented x 3 Results & Data Vital Signs (Past 12 Hours) Vital Signs Temp Pulse Resp BP Pulse Ox O2 Del Method 03/01/23 00:00 36.9 C 61 20 117/59 L 95 Room Air Laboratory Results 03/01/23 04:09 03/01/23 04:09
[2023-03-01] MEDS ORDERED: ALBUMIN 25% 100 mL 25 GM/100 ML VIAL IV ONE (09:48)
--- NOTE | 2023-03-01 09:48 | Cardiology Progress Note ---
Date of Service March 01, 2023 Assessment & Plan (1) Cardiac arrest: Plan: - 72-year-old male with history of obesity, coronary heart disease with CABG x2 in 2011 including Chronic right coronary artery occlusion that was not bypassed and chronic multifactorial lower extremity edema due to heart failure with preserved ejection fraction and venous insufficiency. He has a longstanding history of a small circumferential pericardial effusion. He is on chronic high-dose diuretics including Bumex, spironolactone, and metolazone which he takes 2 times per week. -Patient presented on 02/24/2023 with witnessed syncopal event at home, was found to not be breathing and did not have a pulse, bystander CPR started with spontaneous return of circulation. He was found to be hypotensive on presentation, and an echocardiogram revealed a large pericardial effusion with tamponade physiology for which the patient underwent emergent pericardiocentesis with removal of 750 mL of straw-colored fluid with opening pericardial pressure of 34 mmHg, pericardial pressure comple tion of procedure 14. -Patient continues to recover well. Does have recurrence of his chronic lower extremity edema. Yesterday, his prior to hospital treatment with Bumex 1 mg p.o. twice daily reinitiated as well as spironolactone 25 mg daily. He typically takes metolazone 2 times per week, and received a dose yesterday 02/28/2023 and again this morning on 03/01/2023. Potassium low at 3.1. -We will hold off on further doses of metolazone for now. In addition to the 40 mill equivalents of potassium ordered by the primary service this morning, I have placed him back on his prior to hospital dose of potassium chloride 20 mill equivalent 3 times daily. -With regards to the etiology of the pericardial effusion. Inflammatory markers not obtained on presentation, not that he has had a procedure, I do not think obtaining an ESR and CRP would be helpful at present. TSH within normal limits this hospital stay. ELIZ noted on presentation which has improved. Chronic hypoalbuminemia noted. -He has a history of peripheral arterial disease with past atherectomy/angioplasty with drug-eluting balloon to the left mid superficial femoral artery which was reoccluded on duplex performed July, for vascular notes. Also has chronic venous insufficiency and lymphedema. PAD dose of Xarelto, 2.5 mg PO BID , remains on hold , but will likely be restarted at time of discharge. -Will repeat a limited echo today, increase activity, repeat chemistry panel in am, possible disharge 03/02/23. Will arrange follow up with the undersigned in 2-4 weeks. (2) Syncope and collapse: (3) Multiple closed fractures of ribs of both sides: (4) Acute on chronic heart failure with preserved ejection fraction (HFpEF): (5) Pericardial effusion: (6) Hypokalemia: Admission and Anticipated Discharge Date Admission Date: February 24, 2023 Subjective Patient seen in cardiology follow up . He is sitting in the bedside chair. No subjective complaints with exception of chest / abdominal wall discomfort from have received chest compressions with resultant rib fractures. Telemetry reveals SR in the 60s with occasional PVCS. Review of Systems Review of Systems: All systems reviewed & are unremarkable except as noted in HPI & below Physical Exam Constitutional: + morbidly obese; no acute distress Respiratory: normal respiratory effort, lungs clear to auscultation Cardiovascular: Rate/Rhythm: regular rate Heart Sounds: no murmur Extremities: + edema (2+ bilateral LE edema ) Gastrointestinal (Abdomen): normal bowel sounds, soft, nontender, no hep atosplenomegaly Neurologic: PERRL, EOMI, accommodation nl, no face palsy, no dysarthria Results & Data Vital Signs (Past 12 Hours) Vital Signs Temp Pulse Resp BP Pulse Ox O2 Del Method 03/01/23 08:00 Room Air 03/01/23 07:00 36.5 C 64 20 143/68 H 95 Room Air 03/01/23 00:00 36.9 C 61 20 117/59 L 95 Room Air Laboratory Results CBC 03/01/23 Range/Units 04:09 WBC 4.02 L (4.8-10.8) K/ul RBC 3.77 L (4.70-6.10) M/uL Hgb 10.1 L (14.0-18.0) g/dl Hct 31.6 L (42.0-52.0) % Plt Count 209 (130-400) K/uL Comprehensive Metabolic Panel 03/01/23 Range/Units 04:09 Sodium 140 (136-145) mmol/L Potassium 3.1 L (3.5-5.1) mmol/L Chloride 98 (98-107) mmol/L Carbon Dioxide 34 H (21-32) mmol/L BUN 26 H (6-23) mg/dl Creatinine 1.40 (0.6-1.4) mg/dl Glucose 112 H (70-99(Fasting)) mg/dl Calcium 8.6 (8.6-10.3) mg/dl (3) Multiple closed fractures of ribs of both sides Encounter type: initial encounter Qualified Code(s): S22.43XA - Multiple fractures of ribs, bilateral, initial encounter for closed fracture
--- NOTE | 2023-03-01 16:00 | Electrocardiogram Report ---
Test Reason : Blood Pressure : / mmHG Vent. Rate : 064 BPM Atrial Rate : 064 BPM P-R Int : 186 ms QRS Dur : 094 ms QT Int : 400 ms P-R-T Axes : 032 046 222 degrees QTc Int : 412 ms Sinus rhythm with occasional Premature ventricular complexes Abnormal ECG When compared with ECG of 26-FEB-2023 09:01, Premature ventricular complexes are now Present T wave inversion more evident in Lateral leads Confirmed by Francisco Javier Pacheco ([id number] on 03/01/2023 4:00:36 PM Referred By: REFERRED SELF Confirmed By:Francisco Javier Pacheco
[2023-03-01] MEDS: PANTOprazole 40 MG TAB PO SCH (20:50)
[2023-03-01] MEDS: DOCUSATE SODIUM/SENNA 50/8.6MG TAB PO SCH (20:51)
[2023-03-01] MEDS: DOXAZosin MESYLATE TAB 2 MG TAB PO SCH (20:51)
[2023-03-01] MEDS: ASPIRIN 81 MG ECTAB PO SCH (20:52)
[2023-03-01] MEDS: ATORVASTATIN 40 MG TAB PO SCH (20:52)
[2023-03-02 04:33] LABS: Hematocrit (blood only) 32.3 % (42.0-52.0); Hemoglobin 10.4 g/dl (14.0-18.0); Mean Corpuscular Hemoglobin 26.9 pg (25.0-34.0); Mean Corpuscular Hgb Conc 32.2 g/dL (32.0-36.0); Mean Corpuscular Volume 83.5 fL (80.0-100.0); Mean Platelet Volume 9.8 fL (9.4-12.4); Platelet Count 226 K/uL (130-400); RDW Coefficient of Variation 15.8 % (11.5-14.5); RDW Standard Deviation 43.9 fL (36.4-46.3); Red Blood Count 3.87 M/uL (4.70-6.10); White Blood Count 3.83 K/ul (4.8-10.8)
[2023-03-02 04:41] LABS: Albumin Globulin Ratio 1.2 (0.9-2); Albumin Level 3.7 gm/dl (3.4-5.0); BUN Creatinine Ratio 17.4 (10-20); Bilirubin,Total 1.5 mg/dl (0.2-1.0); Calcium 9.2 mg/dl (8.6-10.3); Creatinine Clr Calc Pharmacy 64.2 ml/min; Est GFR (African American) 55.4 ml/min; Est GFR (Non-African American) 47.8 ml/min; Globulin 3.1 gm/dl (2.5-4.0); Magnesium 1.8 mg/dl (1.7-2.4); Phosphorus 3.2 mg/dl (2.5-4.9); Potassium 3.1 mmol/L (3.5-5.1); Total Protein 6.8 gm/dl (6.0-8.3)
[2023-03-02] MEDS: POLYETHYLENE (MIRALAX) 17 GM PACK PO SCH (08:46)
[2023-03-02] MEDS: INSULIN ASPART PER UNIT CHARGE SC SCH ×4 (08:46→20:10)
[2023-03-02] MEDS: COLCHICINE 0.6 MG TAB PO SCH ×2 (08:47→20:08)
[2023-03-02] MEDS: POTASSIUM CHLORIDE CRTAB 20 MEQ TABCR PO SCH ×4 (08:47→20:11)
[2023-03-02] MEDS: BUMETANIDE 1 MG TAB PO SCH (08:47)
[2023-03-02] MEDS: METOPROLOL SUCC 50MG EXT REL TAB PO SCH (08:47)
[2023-03-02] MEDS: SPIRONOLACTONE 25 MG TAB PO SCH (08:47)
[2023-03-02] MEDS: MoRPHine SULFATE CR 15 MG TABCR PO SCH ×2 (08:47→20:15)
[2023-03-02] MEDS: GABAPENTIN 300 MG CAP PO SCH ×2 (08:47→20:09)
[2023-03-02] MEDS: LIDOCAINE 5% 1 PATCH TD SCH (08:48)
--- NOTE | 2023-03-02 09:04 | Nephrology Progress Note ---
Date of Service March 02, 2023 Assessment & Plan (1) CKD (chronic kidney disease) stage 3, GFR 30-59 ml/min: Plan: baseline creatinine 1.6; better than baseline currently x 48 hrs -continue current doses spironolactone; agree w/ holding metolazone >> Cardiology and I had an extended discussion with the patient and his today: He remains significantly overloaded and we both recommend reverting to IV diuretics; will start IV Bumex 1 mg 3 times daily 6 AM, noon, 6 PM -daily bmp >>>given low K despite tid dosing and supplements yesterday increased tid dose to 40 mEq tid with extra 40 mEq dose at 11AM and recheck bmp 1600 -ensure neph f/u post d/c (2) Acute on chronic heart failure with preserved ejection fraction (HFpEF): Plan: -Reintensify diuretics > as above in discussion with cardiology >>><needs strict I/O and standing weights as ordered -agree w/ aggressive standing K dose Admission and Anticipated Discharge Date Admission Date: February 24, 2023 Subjective No acute interval clinical events. Weight at 930 this morning 133.8 kg. Walked the stairs today with occupational therapy. Denies exertional dyspnea. Acknowledges lower extremity edema is significantly more than baseline. Prior to admission. Remains with ongoing orthopnea relative to baseline 2 pillow. Review of Systems Review of Systems: All systems reviewed & are unremarkable except as noted in Subjective Physical Exam Constitutional: well developed, well nourished and + obese Eyes: EOM intact bilaterally ENMT: Ears: no external ear abnormality Nose: no external nose abnormality Mouth: + dry oral mucous membranes Neck: no nuchal rigidity Respiratory: normal respiratory effort Auscultation: + diminished lung sounds and + crackles (R basilar fine) Cardiovascular: Rate/Rhythm: regular rate and regular rhythm Extremities: + edema (4+ pedal and 2-3+ pretibial bilaterally) Gastrointestinal (Abdomen): Inspection/Auscultation: normal bowel sounds Percussion/Palpation: abdomen soft; abdomen nontender Musculoskeletal: Extremities: strength 5/5 throughout Skin: no rashes, warm and dry Psychiatric: Orientation: oriented x 3 Results & Data Vital Signs (Past 12 Hours) Vital Signs Temp Pulse Resp BP Pulse Ox O2 Del Method 03/02/23 03:48 36.6 C 62 16 119/55 L 96 Room Air 03/02/23 00:56 36.7 C 58 L 16 107/51 L 97 Room Air Laboratory Results 03/02/23 04:03 03/02/23 04:03
--- NOTE | 2023-03-02 10:03 | Hospitalist Progress Note ---
Date of Service March 02, 2023 Assessment & Plan (1) Syncope: (2) Hypoxia: (3) Lactic acidosis: (4) Hypocalcemia: (5) Acute renal failure superimposed on stage 3 chronic kidney disease: (6) CAD (coronary artery disease): (7) COPD (chronic obstructive pulmonary disease): (8) PAD (peripheral artery disease): (9) HTN (hypertension): (10) Pre-diabetes: Plan This is a 72-year-old male who has significant past medical history of CAD status post CABG x2 in 2011, chronic HFpEF, chronic small pericardial effusion, PAD status post atherectomy and angioplasty managed on Xarelto, HTN, HLD, prediabetes, CKD stage III with baseline creatinine of 1.6-1.7, chronic venous insufficiency, COPD, former tobacco abuser who presents to ED after sustaining a syncopal/collapse episode prior to arrival. Patient had unexplained syncopal/collapse this morning that was unwitnessed in which he does not recall any of the events. Last event he recalls was being in the bathroom this morning and was trying to make it back to his bedroom. Syncope Cardiac tamponade ? cardiac arrest (outside hospital) elevated troponin Unclear if cardiac tamponade reason for syncope or subsequent result of chest compressions ?cardiac etiology vs arrhythmia, unlikely PE as pt is on xarelto echo 01/26/23 which showed preserved EF 55%, mild AV stenosis, mild chronic pericardial effusion Echo on admission showing cardiac tamponade S/p pericardiocentesis - cytology negative (Lymphocytes and scattered mesothelial cells are seen. No tumor seen.) Drain now removed (02/26) Started colchicine- continue Repeated Echo to evaluate for fluid re-accumulation- trivial pericardial effusion present (02/27/2023) Admitted to ICU initially, now PCU, continue cardiac monitoring Cardiology consulted and following 03/01 - Echo repeated , diuretics re-started, cont. to monitor 03/02 - cardiology and nephrology following - increase diuretic and change to IV bumex, incr. potassium suppl. Hypocalcemia replete and monitor Hypokalemia replete and monitor - increase K suppl. as needed Lactic acidosis likely secondary to hypoperfusion vs hypoxia IVF, trended lactic acid Hypoxia - resolved B/L rib fx 2/2 traumatic from CPR Anterior R 2-7th; L 3-7th; 2nd anterior costal cartilage fx continued O2 supplementation incentive spirometry oxycodone for pain scheduled bowel regimen lidocaine patches Chest CT did mention b/l pleural effusions again likely 2/2 fracture; also of concern was ? asp PNA. He did receive Unasyn in ED. He is w/o resp complaint and procal negative - monitor off antibiotics Pt is now on RA sat. 97% Leukocytosis - resolved he does not meet SIRS/SEPSIS criteria monitored off antibiotic blood/urine culture ordered, follow -negat. so far WBC normalized A/C CKD -3 baseline Cr 1.6-7 Cr 1.44 ? atn in setting of hypoperfusion vs dehydration received gentle fluids nephrology was consulted Cr back to baseline/ better than baseline CAD hx of CABG x 2 PAD w/ hx of angioplasty Chronic HFpEf HTN continue asa, statin, metoprolol resumed bumex, metolazone on hold - per cardiology hold xarelto due to trauma from rib fx Management per cardiology COPD, emphysema hx of tobacco abuse no acute exac Pre DM a1c 6.3, 02/15/[address] on insulin SS if BSG remains elevated consider adding Lantus BID DVT ppx: SCDS for now, xarelto on hold FULL CODE PCP: Dr. Esquivel Dispo: PCU, poss. plan to return to home when medically stable vs rehab Admission and Anticipated Discharge Date Admission Date: February 24, 2023 Subjective Pt seen s/p syncope , and cardiac tamponade, cardiac arrest Now s/p pericardiocentesis Sitting up in chair, in no acute distress Currently on RA, sat. 97% Has some chest pain from chest compressions No shortness of breath, no abdominal pain nausea vomiting Followed by cardiology, nephrology Diuretics increased (IV bumex), repeat BMP this PM Review of Systems Review of Systems: All systems reviewed & are unremarkable except as noted in Subjective Physical Exam Physical Exam: Constitutional: WD/WN, Obese, M in NAD, sitting up in chair, on RA sat 97 % Head: Normocephalic, Atraumatic Eyes: PERRL, EOMI, conjunctivae normal, anicteric sclerae ENMT: external ear and nose normal Neck: normal visual inspection Respiratory:Normal insp/exp effort, no accessory muscle use, CTAB Cardiovascular: RRR, +syst. murmur, + LE edema (improved), bilateral venous stasis changes noted Chest: drain removed (pericardiocentesis) dressings applied Abdomen: normal bowel sounds, soft, nontender, obese Musculoskeletal: moves extremities Skin: no rashes, warm and dry normal turgor Neurologic: PERRL, EOMI, no face palsy, speech fluent, moves all extremities Psychiatric: A+Ox3, euthymic affect Results & Data Results & Data Vital Signs (Past 12 Hours) Vital Signs Temp Pulse Resp BP Pulse Ox O2 Del Method 03/02/23 08:00 Room Air 03/02/23 08:00 36.6 C 62 14 112/54 L 97 Room Air 03/02/23 03:48 36.6 C 62 16 119/55 L 96 Room Air 03/02/23 00:56 36.7 C 58 L 16 107/51 L 97 Room Air Laboratory Results 03/02/23 03/02/23 03/02/23 Range/Units 07:18 04:03 04:03 WBC 3.83 L (4.8-10.8) K/ul RBC 3.87 L (4.70-6.10) M/uL Hgb 10.4 L (14.0-18.0) g/dl Hct 32.3 L (42.0-52.0) % MCV 83.5 (80.0-100.0) fL MCH 26.9 (25.0-34.0) pg MCHC 32.2 (32.0-36.0) g/dL RDW Std Deviation 43.9 (36.4-46.3) fL RDW Coeff of Alan 15.8 H (11.5-14.5) % Plt Count 226 (130-400) K/uL MPV 9.8 (9.4-12.4) fL Sodium 140 (136-145) mmol/L Potassium 3.1 L (3.5-5.1) mmol/L Chloride 97 L (98-107) mmol/L Carbon Dioxide 36 H (21-32) mmol/L Anion Gap 7 (3-11) BUN 25 H (6-23) mg/dl Creatinine 1.44 H (0.6-1.4) mg/dl Est Cr Clr Drug Dosing 64.2 ml/min Est GFR ( Amer) 55.4 ml/min Est GFR (Non-Af Amer) 47.8 ml/min BUN/Creatinine Ratio 17.4 (10-20) Glucose 118 H (70-99(Fasting)) mg/dl POC Glucose 114 H (70-99) mg/dl Calcium 9.2 (8.6-10.3) mg/dl Phosphorus 3.2 (2.5-4.9) mg/dl Magnesium 1.8 (1.7-2.4) mg/dl Total Bilirubin 1.5 H (0.2-1.0) mg/dl AST 21 (13-39) U/L ALT 13 (7-52) U/L Alkaline Phosphatase 52 (34-104) U/L Total Protein 6.8 (6.0-8.3) gm/dl Albumin 3.7 (3.4-5.0) gm/dl Globulin 3.1 (2.5-4.0) gm/dl Albumin/Globulin Ratio 1.2 (0.9-2) 03/01/23 03/01/23 03/01/23 Range/Units 19:21 15:51 10:19 WBC (4.8-10.8) K/ul RBC (4.70-6.10) M/uL Hgb (14.0-18.0) g/dl Hct (42.0-52.0) % MCV (80.0-100.0) fL MCH (25.0-34.0) pg MCHC (32.0-36.0) g/dL RDW Std Deviation (36.4-46.3) fL RDW Coeff of Alan (11.5-14.5) % Plt Count (130-400) K/uL MPV (9.4-12.4) fL Sodium (136-145) mmol/L Potassium (3.5-5.1) mmol/L Chloride (98-107) mmol/L Carbon Dioxide (21-32) mmol/L Anion Gap (3-11) BUN (6-23) mg/dl Creatinine (0.6-1.4) mg/dl Est Cr Clr Drug Dosing ml/min Est GFR ( Amer) ml/min Est GFR (Non-Af Amer) ml/min BUN/Creatinine Ratio (10-20) Glucose (70-99(Fasting)) mg/dl POC Glucose 123 H 116 H 122 H (70-99) mg/dl Calcium (8.6-10.3) mg/dl Phosphorus (2.5-4.9) mg/dl Magnesium (1.7-2.4) mg/dl Total Bilirubin (0.2-1.0) mg/dl AST (13-39) U/L ALT (7-52) U/L Alkaline Phosphatase (34-104) U/L Total Protein (6.0-8.3) gm/dl Albumin (3.4-5.0) gm/dl Globulin (2.5-4.0) gm/dl Albumin/Globulin Ratio (0.9-2) Medications Administered Current Inpatient Medications Acetaminophen (Acetaminophen 325 Mg Tab) 650 mg PO Q4H PRN PRN Reason: Pain scale 1-3 or Fever Stop: 03/26/23 12:38 Last Admin: 02/25/23 09:58 Dose: 650 mg Al Hydrox/Mg Hydrox/Simethicone (Aluminum/Magnesium Susp 30 Ml Udc) 15 ml PO Q4H PRN PRN Reason: Dyspepsia Stop: 03/26/23 12:38 Albuterol (Albut/Ipratrop 3mg/0.5mg Neb 3 Ml Vial) 3 ml NEB Q4R PRN; Protocol PRN Reason: Shortness Of Breath Or Wheezing Stop: 03/27/23 10:59 Aspirin (Aspirin 81 Mg Ectab) 81 mg PO HS MARY BETH Stop: 03/26/23 20:59 Last Admin: 03/01/23 20:52 Dose: 81 mg Atorvastatin Calcium (Atorvastatin 40 Mg Tab) 40 mg PO HS MARY BETH Stop: 03/26/23 20:59 Last Admin: 03/01/23 20:52 Dose: 40 mg Bumetanide (Bumetanide 1 Mg Tab) 1 mg PO BID MARY BETH Stop: 03/30/23 20:59 Last Admin: 03/02/23 08:47 Dose: 1 mg Colchicine (Colchicine 0.6 Mg Tab) 0.6 mg PO BID MARY BETH Stop: 03/26/23 20:59 Last Admin: 03/02/23 08:47 Dose: 0.6 mg Dextrose (Dextrose 50% 50 Ml Syringe) 25 - 50 ml IV UD PRN; Protocol PRN Reason: Hypoglycemia Protocol Stop: 03/26/23 12:38 Doxazosin Mesylate (Doxazosin Mesylate Tab 2 Mg Tab) 2 mg PO HS MARY BETH Stop: 03/26/23 20:59 Last Admin: 03/01/23 20:51 Dose: 2 mg Gabapentin (Gabapentin 300 Mg Cap) 300 mg PO QAM [facility] Stop: 03/26/23 12:59 Last Admin: 03/02/23 08:47 Dose: 300 mg Gabapentin (Gabapentin 300 Mg Cap) 600 mg PO HS [facility] Stop: 03/26/23 20:59 Last Admin: 03/01/23 20:51 Dose: 600 mg Glucagon (Glucagon For Inj 1 Mg Vial) 1 mg SQ UD PRN; Protocol PRN Reason: Hypoglycemia Protocol Stop: 03/26/23 12:38 Glucose (Glucose 10 Tab/Tube) 4 - 8 tab PO UD PRN; Protocol PRN Reason: Hypoglycemia Treatment Stop: 03/26/23 12:38 Glucose (Glucose 40% Gel 15 Gm Tube) 15 - 30 gm PO UD PRN; Protocol PRN Reason: Hypoglycemia Protocol Stop: 03/26/23 12:38 Hydromorphone HCl (Hydromorphone Inj 0.5 Mg/0.5 Ml Syr) 0.5 mg IV Q4H PRN PRN Reason: SEVERE PAIN 7-10 Stop: 03/10/23 14:51 Last Admin: 02/26/23 04:37 Dose: 0.5 mg Insulin Aspart (Insulin Aspart Per Unit Charge) 0 units SC ACHS [facility] Stop: 03/26/23 12:49 Last Admin: 03/02/23 08:46 Dose: 7 units Lidocaine (Lidocaine 5% 1 Patch) 1 patch TD QAM [facility] Stop: 03/26/23 12:44 Last Admin: 03/02/23 08:48 Dose: Not Given Magnesium Hydroxide (Magnesium Hydroxide Susp 30 Ml Udc) 30 ml PO Q12H PRN PRN Reason: Constipation Stop: 03/26/23 12:38 Metoprolol Succinate (Metoprolol Succ 50mg Ext Rel Tab) 50 mg PO DAILY [facility] Stop: 03/27/23 08:59 Last Admin: 03/02/23 08:47 Dose: 50 mg Miscellaneous (Remove Lidoderm Patch) 1 each N/A DAILY@2100 [facility] Stop: 03/26/23 20:59 Last Admin: 03/01/23 20:57 Dose: 1 each Miscellaneous (Carbohydrates For Hypoglycemia ) 15 - 30 gm PO UD PRN PRN Reason: Hypoglycemia Protocol Stop: 03/26/23 12:38 Morphine Sulfate (Morphine Sulfate Cr 15 Mg Tabcr) 15 mg PO BID MARY BETH Stop: 03/11/23 20:59 Last Admin: 03/02/23 08:47 Dose: 15 mg Ondansetron HCl (Ondansetron Inj 2 Mg/Ml 2 Ml Vial) 4 mg IV Q6H PRN PRN Reason: Nausea Stop: 03/26/23 12:38 Last Admin: 02/25/23 02:50 Dose: 4 mg Oxycodone HCl (Oxycodone Hcl Ir 5 Mg Tab (Immediate Release)) 10 mg PO Q4H PRN PRN Reason: MODERATE Pain (4,5,6) & Pre PT Stop: 03/11/23 09:43 Last Admin: 02/28/23 20:51 Dose: 10 mg Pantoprazole Sodium (Pantoprazole 40 Mg Tab) 40 mg PO HS MARY BETH Stop: 03/26/23 20:59 Last Admin: 03/01/23 20:50 Dose: 40 mg Polyethylene Glycol (Polyethylene (Miralax) 17 Gm Pack) 17 gm PO DAILY PRN PRN Reason: Constipation Stop: 03/26/23 12:38 Polyethylene Glycol (Polyethylene (Miralax) 17 Gm Pack) 17 gm PO DAILY MARY BETH Stop: 03/27/23 08:59 Last Admin: 03/02/23 08:46 Dose: 17 gm Potassium Chloride (Potassium Chloride Crtab 20 Meq Tabcr) 40 meq PO TID MARY BETH Stop: 04/01/23 09:14 Last Admin: 03/02/23 09:27 Dose: 40 meq Potassium Chloride (Potassium Chloride Crtab 20 Meq Tabcr) 20 meq PO ONE ONE Stop: 03/02/23 11:01 Senna/Docusate Sodium (Docusate Sodium/Senna 50/8.6mg Tab) 2 tab PO HS MARY BETH Stop: 03/26/23 20:59 Last Admin: 03/01/23 20:51 Dose: 2 tab Spironolactone (Spironolactone 25 Mg Tab) 25 mg PO QAM MARY BETH Stop: 03/31/23 08:59 Last Admin: 03/02/23 08:47 Dose: 25 mg
[2023-03-02] MEDS ORDERED: POTASSIUM CHLORIDE CRTAB 20 MEQ TABCR PO ONE ×2 (11:00)
--- NOTE | 2023-03-02 11:19 | Cardiology Progress Note ---
Date of Service March 02, 2023 Assessment & Plan (1) Cardiac arrest: (2) Cardiac tamponade: (3) Acute on chronic heart failure with preserved ejection fraction (HFpEF): (4) Chronic venous insufficiency of lower extremity: Plan Echocardiogram performed 03/01/23 revealed trace residual pericardial fluid. -Continue colchicine -Increase diuretics, to bumex 1 mg IV TID -Increase potassium chloride to 40 meq TID -BMP today at 1500 and again tomorrow -Rsume Xarelto 2.5 mg BID, -PAD dose. Case discussed with Dr Ozuna for purpose of coordination of care. Admission and Anticipated Discharge Date Admission Date: February 24, 2023 Subjective Patient seen in follow up. Notes LE edema, worse than baseline. Slept in recliner last night with noted mild orthopnea per his description. Telemetry reveals SR in the 60s. Spouse at bedside. Review of Systems Review of Systems: All systems reviewed & are unremarkable except as noted in HPI & below Physical Exam Constitutional: + morbidly obese Respiratory: normal respiratory effort, lungs clear to auscultation Cardiovascular: Rate/Rhythm: regular rate Heart Sounds: no murmur Extremities: + edema (2+ bilateral LE edema ) Neurologic: PERRL, EOMI, accommodation nl, no face palsy, no dysarthria Results & Data Vital Signs (Past 12 Hours) Vital Signs Temp Pulse Resp BP Pulse Ox O2 Del Method 03/02/23 08:00 Room Air 03/02/23 08:00 36.6 C 62 14 112/54 L 97 Room Air 03/02/23 03:48 36.6 C 62 16 119/55 L 96 Room Air 03/02/23 00:56 36.7 C 58 L 16 107/51 L 97 Room Air Laboratory Results Cardiac Enzymes 03/02/23 Range/Units 04:03 AST 21 (13-39) U/L CBC 03/02/23 Range/Units 04:03 WBC 3.83 L (4.8-10.8) K/ul RBC 3.87 L (4.70-6.10) M/uL Hgb 10.4 L (14.0-18.0) g/dl Hct 32.3 L (42.0-52.0) % Plt Count 226 (130-400) K/uL Comprehensive Metabolic Panel 03/02/23 Range/Units 04:03 Sodium 140 (136-145) mmol/L Potassium 3.1 L (3.5-5.1) mmol/L Chloride 97 L (98-107) mmol/L Carbon Dioxide 36 H (21-32) mmol/L BUN 25 H (6-23) mg/dl Creatinine 1.44 H (0.6-1.4) mg/dl Glucose 118 H (70-99(Fasting)) mg/dl Calcium 9.2 (8.6-10.3) mg/dl AST 21 (13-39) U/L ALT 13 (7-52) U/L Alkaline Phosphatase 52 (34-104) U/L Total Protein 6.8 (6.0-8.3) gm/dl Albumin 3.7 (3.4-5.0) gm/dl
[2023-03-02] MEDS: BUMETANIDE 1 MG in SYRINGE 0 ML IV SCH ×2 (12:32→18:17)
[2023-03-02] MEDS: RIVAROXABAN 2.5 MG TAB PO SCH ×2 (12:32→20:12)
[2023-03-02 16:21] LABS: Calcium 9.7 mg/dl (8.6-10.3); Potassium 3.2 mmol/L (3.5-5.1)
[2023-03-02 16:27] LABS: BUN Creatinine Ratio 17.6 (10-20); Creatinine Clr Calc Pharmacy 62.1 ml/min; Est GFR (African American) 53.6 ml/min; Est GFR (Non-African American) 46.3 ml/min
[2023-03-02] MEDS: ATORVASTATIN 40 MG TAB PO SCH (20:08)
[2023-03-02] MEDS: ASPIRIN 81 MG ECTAB PO SCH (20:08)
[2023-03-02] MEDS: DOCUSATE SODIUM/SENNA 50/8.6MG TAB PO SCH (20:10)
[2023-03-02] MEDS: DOXAZosin MESYLATE TAB 2 MG TAB PO SCH (20:11)
[2023-03-02] MEDS: PANTOprazole 40 MG TAB PO SCH (20:13)
[2023-03-03] MEDS: BUMETANIDE 1 MG in SYRINGE 0 ML IV SCH ×3 (05:36→17:27)
[2023-03-03 06:15] LABS: BUN Creatinine Ratio 17.9 (10-20); Calcium 9.4 mg/dl (8.6-10.3); Creatinine Clr Calc Pharmacy 54.3 ml/min; Est GFR (Non-African American) 39.7 ml/min; Magnesium 1.9 mg/dl (1.7-2.4); Phosphorus 3.5 mg/dl (2.5-4.9); Potassium 3.7 mmol/L (3.5-5.1)
--- NOTE | 2023-03-03 08:10 | Nephrology Progress Note ---
Date of Service March 03, 2023 Assessment & Plan (1) CKD (chronic kidney disease) stage 3, GFR 30-59 ml/min: Plan: baseline creatinine 1.6; slight bump upward w/ intensified diuretics -continue current doses spironolactone; agree w/ holding metolazone >>cont IV Bumex 1 mg 3 times daily 6 AM, noon, 6 PM -daily bmp >>>given low K despite tid dosing and supplements, increased tid dose 40 mEq to qid -ensure neph f/u post d/c (2) Acute on chronic heart failure with preserved ejection fraction (HFpEF): Plan: 133.8 kg on 03/02 > 132 w/ 1.4L negative -cont current diuretics >>><needs strict I/O and standing weights as ordered -agree w/ aggressive standing K dose Admission and Anticipated Discharge Date Admission Date: February 24, 2023 Subjective notes some improvedment in edema; no acut einterval events Review of Systems Review of Systems: All systems reviewed & are unremarkable except as noted in Subjective Physical Exam Constitutional: well developed, well nourished and + obese Eyes: EOM intact bilaterally ENMT: Ears: no external ear abnormality Nose: no external nose abnormality Mouth: + dry oral mucous membranes Neck: no nuchal rigidity Respiratory: normal respiratory effort Auscultation: + diminished lung sounds and + crackles (R basilar fine) Cardiovascular: Rate/Rhythm: regular rate and regular rhythm Extremities: + edema (3+ pedal and 2+ pretibial bilaterally) Gastrointestinal (Abdomen): Inspection/Auscultation: normal bowel sounds Percussion/Palpation: abdomen soft; abdomen nontender Musculoskeletal: Extremities: strength 5/5 throughout Skin: no rashes, warm and dry Psychiatric: Orientation: oriented x 3 Results & Data Vital Signs (Past 12 Hours) Vital Signs Temp Pulse Pulse Pulse Resp BP Pulse Ox 03/03/23 07:43 36.4 C L 58 L 14 139/63 95 03/03/23 07:38 03/03/23 00:00 36.3 C L 60 16 119/51 L 94 03/03/23 04:00 36.3 C L 58 L 16 119/52 L 95 03/03/23 00:00 60 O2 Del Method 03/03/23 07:43 Room Air 03/03/23 07:38 Room Air 03/03/23 00:00 Room Air 03/03/23 04:00 Room Air 03/03/23 00:00 Laboratory Results 03/02/23 04:03 03/03/23 05:31
[2023-03-03] MEDS: INSULIN ASPART PER UNIT CHARGE SC SCH ×4 (08:30→20:52)
[2023-03-03] MEDS: COLCHICINE 0.6 MG TAB PO SCH ×2 (08:36→20:51)
[2023-03-03] MEDS: GABAPENTIN 300 MG CAP PO SCH ×2 (08:37→20:53)
[2023-03-03] MEDS: SPIRONOLACTONE 25 MG TAB PO SCH (08:37)
[2023-03-03] MEDS: RIVAROXABAN 2.5 MG TAB PO SCH ×2 (08:38→20:54)
[2023-03-03] MEDS: POLYETHYLENE (MIRALAX) 17 GM PACK PO SCH (08:38)
[2023-03-03] MEDS: POTASSIUM CHLORIDE CRTAB 20 MEQ TABCR PO SCH ×4 (08:39→20:58)
[2023-03-03] MEDS: LIDOCAINE 5% 1 PATCH TD SCH (08:39)
[2023-03-03] MEDS: METOPROLOL SUCC 50MG EXT REL TAB PO SCH (08:40)
[2023-03-03] MEDS: MoRPHine SULFATE CR 15 MG TABCR PO SCH ×2 (08:42→20:57)
--- NOTE | 2023-03-03 11:14 | Cardiology Progress Note ---
Date of Service March 03, 2023 Assessment & Plan (1) Cardiac arrest: (2) Cardiac tamponade: (3) Acute on chronic heart failure with preserved ejection fraction (HFpEF): (4) Chronic venous insufficiency of lower extremity: Plan Echocardiogram performed 03/01/23 revealed trace residual pericardial fluid. - Continues to diurese patient optimized from a volume status standpoint. Weight down. Edema slightly improved today, 03/03/2023. - continue to monitor patient's kidney function, electrolytes, and blood pressure, on IV diuretic therapy. -Continue colchicine -bumex 1 mg IV TID -potassium chloride to 40 meq TID - Repeat chemistry panel in a.m.. - Continue Xarelto 2.5 mg BID, -PAD dose, which was re-initiated on 03/02/2023. Case discussed in person with Dr Hernández for purpose of coordination of care. Admission and Anticipated Discharge Date Admission Date: February 24, 2023 Subjective Patient seen in cardiology follow-up of lower extremity edema, recent pericardiocentesis. He is sitting in the bedside chair. He notes feeling well overall. Vigorous urination noted yesterday, 2.9 liters of urine output, and his weight is down 5 pounds compared to yesterday. Kidney function relatively stable, potassium improved to 3.7 millimole per liter. Telemetry reveals sinus rhythm in the 60s with occasional PVCs, and 1 episode of ventricular bigeminy. Physical Exam Constitutional: + morbidly obese; no acute distress Respiratory: normal respiratory effort, lungs clear to auscultation Cardiovascular: Rate/Rhythm: regular rate Heart Sounds: no murmur Extremities: + edema (1-2+ bilateral LE edema ) Gastrointestinal (Abdomen): normal bowel sounds, soft, nontender, no hepatosplenomegaly Neurologic: PERRL, EOMI, accommodation nl, no face palsy, no dysarthria Results & Data Vital Signs (Past 12 Hours) Vital Signs Temp Pulse Pulse Pulse Resp BP Pulse Ox 03/03/23 08:00 59 L 03/03/23 07:43 36.4 C L 58 L 14 139/63 95 03/03/23 07:38 03/03/23 00:00 36.3 C L 60 16 119/51 L 94 03/03/23 04:00 36.3 C L 58 L 16 119/52 L 95 03/03/23 00:00 60 O2 Del Method 03/03/23 08:00 03/03/23 07:43 Room Air 03/03/23 07:38 Room Air 03/03/23 00:00 Room Air 03/03/23 04:00 Room Air 03/03/23 00:00 Laboratory Results Comprehensive Metabolic Panel 03/02/23 03/03/23 Range/Units 15:51 05:31 Sodium 139 141 (136-145) mmol/L Potassium 3.2 L 3.7 (3.5-5.1) mmol/L Chloride 93 L 97 L (98-107) mmol/L Carbon Dioxide 38 H 35 H (21-32) mmol/L BUN 26 H 30 H (6-23) mg/dl Creatinine 1.48 H 1.68 H (0.6-1.4) mg/dl Glucose 91 103 H (70-99(Fasting)) mg/dl Calcium 9.7 9.4 (8.6-10.3) mg/dl Intake and Output 03/02/23 03/03/23 03/03/23 22:59 06:59 14:59 Intake Total 500 / 1550 500 / 1550 Output Total 1575 / 2975 900 / 2975 Balance -1075 / -1425 -400 / -1425 Intake: Oral 500 / 1550 500 / 1550 Output: Urine 1575 / 2975 900 / 2975 Other: Weight 132 kg Weight Measurement Method Standing Scale
--- NOTE | 2023-03-03 16:40 | Hospitalist Progress Note ---
Date of Service March 03, 2023 Assessment & Plan (1) Syncope: (2) Hypoxia: (3) Lactic acidosis: (4) Hypocalcemia: (5) Acute renal failure superimposed on stage 3 chronic kidney disease: (6) CAD (coronary artery disease): (7) COPD (chronic obstructive pulmonary disease): (8) PAD (peripheral artery disease): (9) HTN (hypertension): (10) Pre-diabetes: Plan Patient is a 72 yr male with H/O CAD S/P CABG x2 in 2011, chronic HFpEF, chronic small pericardial effusion, PAD status post atherectomy and angioplasty managed on Xarelto, HTN, HLD, prediabetes, CKD stage III with baseline creatinine of 1.6-1.7, chronic venous insufficiency, COPD, former tobacco abuser who presents to ED after sustaining a syncopal/collapse episode prior to arrival. Patient had unexplained unwitnessed syncopal/collapse which he does not recall any of the events. Last event he recalls was being in the bathroom this morning and was trying to make it back to his bedroom. Syncope Cardiac tamponade-POA ? cardiac arrest (outside hospital) elevated troponin Suspected Pericarditis-POA --ECHO: Large loculated anterior pericardial effusion is present. RV chamber collapse is present. 50% respiratory variation across the mitral annulus. Findings consistent with cardiac tamponade. --CXR:Cardiomegaly with interval development of asymmetric pulmonary edema. --Head CT:No acute intracranial abnormality. S/p pericardiocentesis - cytology negative (Lymphocytes and scattered mesothelial cells are seen. No tumor seen.) Drain removed on 02/26 Continue colchicine Appreciate Manager Dish/Cardiology Input Acute on chronic heart failure with preserved ejection fraction ECHO as above Continue Bumex 1 mg IV 3 times daily Continue potassium supplements Appreciate cardiology, nephrology input Monitor volume status Hypocalcemia Hypokalemia replete and monitor Lactic acidosis likely secondary to hypoperfusion vs hypoxia IVF, trended lactic acid Hypoxia - resolved B/L rib fx 2/2 traumatic from CPR Anterior R 2-7th; L 3-7th; 2nd anterior costal cartilage fx continued O2 supplementation incentive spirometry Analgesics as needed Currently saturating well on room air Leukocytosis - resolved Likely reactive Blood/pericardial fluid culture: Negative ELIZ on CKD III Baseline Cr 1.6-7 Cr 1.6 today Appreciate Nephrology Input Monitor renal function Avoid nephrotoxic agents as able CAD S/P CABG x 2 PAD H/O Angioplasty Continue asa, statin, metoprolol, Xarelto COPD H/O Tobacco abuse No signs of exacerbation Prediabetes HbA1c:6.3 DVT px On Xarelto Code Status FULL CODE Admission and Anticipated Discharge Date Admission Date: February 24, 2023 Subjective Patient is seen and examined at bedside. States feeling better today Reports having rib pain intermittently Also reports leg edema which is improving Denies any shortness of breath, dizziness, nausea, abdominal pain Family at bedside No other complaints Review of Systems Review of Systems: All systems reviewed & are unremarkable except as noted in Subjective Physical Exam Physical Exam: Physical Exam: Vitals signs as noted above General Appearance:Morbidly Obese, no apparent distress Head: normocephalic, Atraumatic Eyes: normal inspection, EOMI Neck: supple, Trachea midline Respiratory/Chest: Decreased breath sounds, CTA, No accessory muscle use Cardiovascular: S1, S2, No murmur Abdomen/GI:Soft, Non tender, Bowel sounds present Extremities/Musculoskeletal:normal inspection, 1=2+ B/L LE edema Neurologic/Psych:AAOX3, grossly no focal neurological deficits Skin: normal color, warm Results & Data Results & Data Vital Signs (Past 12 Hours) Vital Signs Temp Pulse Pulse Pulse Resp BP Pulse Ox 03/03/23 16:00 59 L 03/03/23 16:03 36.8 C 60 18 121/61 94 03/03/23 13:29 61 16 109/58 L 95 03/03/23 08:00 59 L 03/03/23 07:43 36.4 C L 58 L 14 139/63 95 03/03/23 07:38 O2 Del Method 03/03/23 16:00 03/03/23 16:03 Room Air 03/03/23 13:29 Room Air 03/03/23 08:00 03/03/23 07:43 Room Air 03/03/23 07:38 Room Air Laboratory Results BMP 03/02/23 03/03/23 15:51 05:31 Sodium 139 141 Potassium 3.2 L 3.7 Chloride 93 L 97 L Carbon Dioxide 38 H 35 H BUN 26 H 30 H Creatinine 1.48 H 1.68 H Glucose 91 103 H Calcium 9.7 9.4
[2023-03-03] MEDS: ASPIRIN 81 MG ECTAB PO SCH (20:51)
[2023-03-03] MEDS: ATORVASTATIN 40 MG TAB PO SCH (20:51)
[2023-03-03] MEDS: DOCUSATE SODIUM/SENNA 50/8.6MG TAB PO SCH (20:52)
[2023-03-03] MEDS: DOXAZosin MESYLATE TAB 2 MG TAB PO SCH (20:53)
[2023-03-03] MEDS: PANTOprazole 40 MG TAB PO SCH (20:54)
[2023-03-04] MEDS: BUMETANIDE 1 MG in SYRINGE 0 ML IV SCH (05:44)
[2023-03-04 05:50] LABS: Hematocrit (blood only) 35.2 % (42.0-52.0); Hemoglobin 11.2 g/dl (14.0-18.0); Mean Corpuscular Hemoglobin 26.8 pg (25.0-34.0); Mean Corpuscular Hgb Conc 31.8 g/dL (32.0-36.0); Mean Corpuscular Volume 84.2 fL (80.0-100.0); Mean Platelet Volume 9.7 fL (9.4-12.4); Platelet Count 234 K/uL (130-400); RDW Coefficient of Variation 15.9 % (11.5-14.5); RDW Standard Deviation 45.8 fL (36.4-46.3); Red Blood Count 4.18 M/uL (4.70-6.10); White Blood Count 4.12 K/ul (4.8-10.8)
[2023-03-04 06:07] LABS: BUN Creatinine Ratio 21.1 (10-20); Calcium 9.4 mg/dl (8.6-10.3); Creatinine Clr Calc Pharmacy 54.9 ml/min; Est GFR (African American) 46.7 ml/min; Est GFR (Non-African American) 40.3 ml/min; Potassium 4.1 mmol/L (3.5-5.1)
[2023-03-04] MEDS ORDERED: BUMETANIDE 1 MG in SYRINGE 0 ML IV ONE (07:45)
[2023-03-04] MEDS: INSULIN ASPART PER UNIT CHARGE SC SCH ×4 (08:28→20:57)
[2023-03-04] MEDS: RIVAROXABAN 2.5 MG TAB PO SCH ×2 (09:08→20:57)
[2023-03-04] MEDS: GABAPENTIN 300 MG CAP PO SCH ×2 (09:08→20:57)
[2023-03-04] MEDS: METOPROLOL SUCC 50MG EXT REL TAB PO SCH (09:08)
[2023-03-04] MEDS: LIDOCAINE 5% 1 PATCH TD SCH (09:09)
[2023-03-04] MEDS: SPIRONOLACTONE 25 MG TAB PO SCH (09:10)
[2023-03-04] MEDS: POLYETHYLENE (MIRALAX) 17 GM PACK PO SCH (09:10)
[2023-03-04] MEDS: POTASSIUM CHLORIDE CRTAB 20 MEQ TABCR PO SCH ×4 (09:14→20:56)
[2023-03-04] MEDS: MoRPHine SULFATE CR 15 MG TABCR PO SCH ×2 (09:14→21:00)
[2023-03-04] MEDS: COLCHICINE 0.6 MG TAB PO SCH ×2 (09:50→20:56)
--- NOTE | 2023-03-04 11:58 | Nephrology Progress Note ---
Date of Service March 04, 2023 Assessment & Plan (1) CKD (chronic kidney disease) stage 3, GFR 30-59 ml/min: Plan: baseline creatinine 1.6; slight bump upward w/ intensified diuretics Recommend further intensifying diuretic as tolerated. To do this would -Starting tomorrow hold spironolactone and continue to hold metolazone >> Increase IV Bumex to 2 mg 3 times daily 6 AM, noon, 6 PM -daily bmp Continue 1.5 L fluid limit > Further increase potassium supplement to 60 mEq qid -ensure neph f/u post d/c (2) Acute on chronic heart failure with preserved ejection fraction (HFpEF): Plan: 133.8 kg on 03/02 > 132 w/ 1.4L negative > 131.5 (this is the first day he was actually weighed before breakfast) -cont current diuretics intravenous and hope to change to p.o. late tomorrow or early March 06 >>><needs strict I/O and standing weights as ordered -agree w/ aggressive standing K dose Admission and Anticipated Discharge Date Admission Date: February 24, 2023 Subjective No interval events clinically. Leg edema continues to improve. Denies lightheadedness or dizziness Review of Systems Review of Systems: All systems reviewed & are unremarkable except as noted in Subjective Physical Exam Constitutional: well developed, well nourished and + obese Eyes: EOM intact bilaterally ENMT: Ears: no external ear abnormality Nose: no external nose abnormality Mouth: + dry oral mucous membranes Neck: no nuchal rigidity Respiratory: normal respiratory effort Auscultation: + diminished lung sounds Cardiovascular: Rate/Rhythm: regular rate and regular rhythm Extremities: + edema (3+ pedal and 2+ pretibial bilaterally but slightly better) Gastrointestinal (Abdomen): Inspection/Auscultation: normal bowel sounds Percussion/Palpation: abdomen soft; abdomen nontender Musculoskeletal: Extremities: strength 5/5 throughout Skin: no rashes, warm and dry Psychiatric: Orientation: oriented x 3 Results & Data Vital Signs (Past 12 Hours) Vital Signs Temp Pulse Pulse Resp BP Pulse Ox O2 Del Method 03/04/23 07:51 36.7 C 56 L 18 111/50 L 95 Room Air 03/04/23 07:42 Room Air 03/04/23 04:26 36.7 C 57 L 14 114/53 L 94 Room Air Laboratory Results 03/04/23 05:35 03/04/23 05:35
--- NOTE | 2023-03-04 12:00 | Cardiology Progress Note ---
Date of Service March 04, 2023 Assessment & Plan (1) Cardiac arrest: (2) Cardiac tamponade: (3) Acute on chronic heart failure with preserved ejection fraction (HFpEF): (4) Chronic venous insufficiency of lower extremity: Plan Echocardiogram performed 03/01/23 revealed trace residual pericardial fluid. - Continues to diurese patient optimized from a volume status standpoint. Weight down. Edema slightly improved today, 03/03/2023. - continue to monitor patient's kidney function, electrolytes, and blood pressure, on IV diuretic therapy. -Continue colchicine. -bumex 1 mg IV TID -potassium chloride to 40 meq TID - Repeat chemistry panel in a.m.. - Continue Xarelto 2.5 mg BID, -PAD dose, which was re-initiated on 03/02/2023. If stable , possible discharge 03/05/23 on the following: Bumex 1 mg by mouth two times per day Metolazone 2.5 mg by mouth 2 days per week. Spironolactone 25 mg daily Potassium chloride 40 Meq TID , with a goal Potassium level of 3.8-4.9 . ASA 81 mg daily Xarelto 2.5 mg BID. Colchicine 0.6 mg , one time per day (titrate down from BID). BMP as outpatient on Wednesday03/09/23, results to Dr Love, order already in [facility]. Cardiology follow up visit: 03/24/2023 10:30 AM, Dr Love [facility]. Case discussed in person with Dr Hernández for purpose of coordination of care. Admission and Anticipated Discharge Date Admission Date: February 24, 2023 Subjective Mr Guthrie is seen in cardiology follow-up of recent pericardiocentesis, volume overload with lower extremity edema. Patient continues to diurese with IV Bumex. Potassium stable today, kidney function stable. Telemetry reveals sinus bradycardia and sinus rhythm in the 50s to 60s with occasional PVCs. Review of Systems Review of Systems: All systems reviewed & are unremarkable except as noted in HPI & below Physical Exam Constitutional: + obese Respiratory: normal respiratory effort, lungs clear to auscultation Cardiovascular: Rate/Rhythm: regular rate Heart Sounds: no murmur Extremities: + edema (1-2+ Edema trending toward improvement) Gastrointestinal (Abdomen): normal bowel sounds, soft, nontender, no hepatosplenomegaly Neurologic: PERRL, EOMI, accommodation nl, no face palsy, no dysarthria Results & Data Vital Signs (Past 12 Hours) Vital Signs Temp Pulse Pulse Resp BP Pulse Ox O2 Del Method 03/04/23 07:51 36.7 C 56 L 18 111/50 L 95 Room Air 03/04/23 07:42 Room Air 03/04/23 04:26 36.7 C 57 L 14 114/53 L 94 Room Air Laboratory Results CBC 03/04/23 Range/Units 05:35 WBC 4.12 L (4.8-10.8) K/ul RBC 4.18 L (4.70-6.10) M/uL Hgb 11.2 L (14.0-18.0) g/dl Hct 35.2 L (42.0-52.0) % Plt Count 234 (130-400) K/uL Comprehensive Metabolic Panel 03/04/23 Range/Units 05:35 Sodium 142 (136-145) mmol/L Potassium 4.1 (3.5-5.1) mmol/L Chloride 100 (98-107) mmol/L Carbon Dioxide 34 H (21-32) mmol/L BUN 35 H (6-23) mg/dl Creatinine 1.66 H (0.6-1.4) mg/dl Glucose 103 H (70-99(Fasting)) mg/dl Calcium 9.4 (8.6-10.3) mg/dl Intake and Output 03/03/23 03/04/23 03/04/23 22:59 06:59 14:59 Intake Total 950 / 1300 Balance 950 / 150 Intake: Oral 950 / 1300 Other: Weight 131.5 kg Weight Measurement Method Standing Scale
[2023-03-04] MEDS: BUMETANIDE 2 MG in SYRINGE 0 ML IV SCH ×3 (12:49→19:02)
[2023-03-04 13:15] LABS: Total Protein Urine Random 4.5 mg/dl (0-11.9)
[2023-03-04 13:22] LABS: Creatinine Urine Random 39.7 mg/dl; Protein Creatinine Ratio Urine 0.1 (0-0.2)
--- NOTE | 2023-03-04 16:12 | Hospitalist Progress Note ---
Date of Service March 04, 2023 Assessment & Plan (1) Syncope: (2) Hypoxia: (3) Lactic acidosis: (4) Hypocalcemia: (5) Acute renal failure superimposed on stage 3 chronic kidney disease: (6) CAD (coronary artery disease): (7) COPD (chronic obstructive pulmonary disease): (8) PAD (peripheral artery disease): (9) HTN (hypertension): (10) Pre-diabetes: Plan Patient is a 72 yr male with H/O CAD S/P CABG x2 in 2011, chronic HFpEF, chronic small pericardial effusion, PAD status post atherectomy and angioplasty managed on Xarelto, HTN, HLD, prediabetes, CKD stage III with baseline creatinine of 1.6-1.7, chronic venous insufficiency, COPD, former tobacco abuser who presents to ED after sustaining a syncopal/collapse episode prior to arrival. Patient had unexplained unwitnessed syncopal/collapse which he does not recall any of the events. Last event he recalls was being in the bathroom this morning and was trying to make it back to his bedroom. Syncope Cardiac tamponade-POA ? cardiac arrest (outside hospital) elevated troponin Suspected Pericarditis-POA --ECHO: Large loculated anterior pericardial effusion is present. RV chamber collapse is present. 50% respiratory variation across the mitral annulus. Findings consistent with cardiac tamponade. --CXR:Cardiomegaly with interval development of asymmetric pulmonary edema. --Head CT:No acute intracranial abnormality. S/p pericardiocentesis - cytology negative (Lymphocytes and scattered mesothelial cells are seen. 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 Continue current management Acute on chronic heart failure with preserved ejection fraction ECHO as above Continue potassium supplements Appreciate cardiology, nephrology input Monitor volume status Continue Bumex as per nephrology/cardiology Hypocalcemia Hypokalemia replete and monitor Lactic acidosis likely secondary to hypoperfusion vs hypoxia IVF, trended lactic acid Hypoxia - resolved B/L rib fx 2/2 traumatic from CPR Anterior R 2-7th; L 3-7th; 2nd anterior costal cartilage fx continued O2 supplementation incentive spirometry Analgesics as needed Currently saturating well on room air Leukocytosis - resolved Likely reactive Blood/pericardial fluid culture: Negative ELIZ on CKD III Baseline Cr 1.6-7 Cr 1.6 today Appreciate Nephrology Input Monitor renal function Avoid nephrotoxic agents as able CAD S/P CABG x 2 PAD H/O Angioplasty Continue asa, statin, metoprolol, Xarelto COPD H/O Tobacco abuse No signs of exacerbation Prediabetes HbA1c:6.3 DVT px On Xarelto Code Status FULL CODE Admission and Anticipated Discharge Date Admission Date: February 24, 2023 Subjective Patient is seen and examined at bedside. less rib pain today No new complaints leg edema improving Denies any shortness of breath, dizziness, nausea, abdominal pain Family at bedside Discussed with Cardiology today Review of Systems Review of Systems: All systems reviewed & are unremarkable except as noted in Subjective Physical Exam Physical Exam: Physical Exam: Vitals signs as noted above General Appearance:Morbidly Obese, no apparent distress Head: normocephalic, Atraumatic Eyes: normal inspection, EOMI Neck: supple, Trachea midline Respiratory/Chest: Decreased breath sounds, CTA, No accessory muscle use Cardiovascular: S1, S2, No murmur Abdomen/GI:Soft, Non tender, Bowel sounds present Extremities/Musculoskeletal:normal inspection, 1-2+ B/L LE edema Neurologic/Psych:AAOX3, grossly no focal neurological deficits Skin: normal color, warm Results & Data Results & Data Vital Signs (Past 12 Hours) Vital Signs Temp Pulse Pulse Resp BP Pulse Ox O2 Del Method 03/04/23 15:33 36.4 C L 56 L 16 125/64 98 Room Air 03/04/23 12:49 57 L 103/53 L 03/04/23 12:09 36.7 C 54 L 16 111/52 L 95 Room Air 03/04/23 07:51 36.7 C 56 L 18 111/50 L 95 Room Air 03/04/23 07:42 Room Air 03/04/23 04:26 36.7 C 57 L 14 114/53 L 94 Room Air Laboratory Results Short CBC 03/04/23 Range/Units 05:35 WBC 4.12 L (4.8-10.8) K/ul Hgb 11.2 L (14.0-18.0) g/dl Hct 35.2 L (42.0-52.0) % Plt Count 234 (130-400) K/uL BMP 03/04/23 05:35 Sodium 142 Potassium 4.1 Chloride 100 Carbon Dioxide 34 H BUN 35 H Creatinine 1.66 H Glucose 103 H Calcium 9.4
[2023-03-04] MEDS: ATORVASTATIN 40 MG TAB PO SCH (20:56)
[2023-03-04] MEDS: DOCUSATE SODIUM/SENNA 50/8.6MG TAB PO SCH (20:56)
[2023-03-04] MEDS: DOXAZosin MESYLATE TAB 2 MG TAB PO SCH (20:56)
[2023-03-04] MEDS: PANTOprazole 40 MG TAB PO SCH (20:56)
[2023-03-04] MEDS: ASPIRIN 81 MG ECTAB PO SCH (20:57)
[2023-03-05] MEDS: BUMETANIDE 2 MG in SYRINGE 0 ML IV SCH (05:51)
[2023-03-05 05:58] LABS: BUN Creatinine Ratio 22.2 (10-20); Calcium 9.7 mg/dl (8.6-10.3); Creatinine Clr Calc Pharmacy 56.2 ml/min; Est GFR (African American) 48.1 ml/min; Est GFR (Non-African American) 41.5 ml/min; Potassium 4.9 mmol/L (3.5-5.1)
[2023-03-05] MEDS: RIVAROXABAN 2.5 MG TAB PO SCH ×2 (08:07→20:34)
[2023-03-05] MEDS: POLYETHYLENE (MIRALAX) 17 GM PACK PO SCH (08:07)
[2023-03-05] MEDS: COLCHICINE 0.6 MG TAB PO SCH ×2 (08:07→20:29)
[2023-03-05] MEDS: LIDOCAINE 5% 1 PATCH TD SCH (08:08)
[2023-03-05] MEDS: GABAPENTIN 300 MG CAP PO SCH ×2 (08:08→20:29)
[2023-03-05] MEDS: METOPROLOL SUCC 50MG EXT REL TAB PO SCH (08:08)
[2023-03-05] MEDS: INSULIN ASPART PER UNIT CHARGE SC SCH ×4 (08:10→20:33)
[2023-03-05] MEDS: MoRPHine SULFATE CR 15 MG TABCR PO SCH ×2 (08:15→20:28)
--- NOTE | 2023-03-05 08:22 | Communication Note ---
Date of Service: March 05, 2023 Comprehensive Metabolic Panel 03/05/23 Range/Units 05:20 Sodium 140 (136-145) mmol/L Potassium 4.9 (3.5-5.1) mmol/L Chloride 103 (98-107) mmol/L Carbon Dioxide 31 (21-32) mmol/L BUN 36 H (6-23) mg/dl Creatinine 1.62 H (0.6-1.4) mg/dl Glucose 94 (70-99(Fasting)) mg/dl Calcium 9.7 (8.6-10.3) mg/dl Intake and Output 03/04/23 03/05/23 03/05/23 22:59 06:59 14:59 Intake Total 640 / 880 240 / 880 Output Total 1350 / 1950 600 / 1950 Balance -710 / -1070 -360 / -1070 Intake: Oral 640 / 880 240 / 880 Output: Urine 1350 / 1950 600 / 1950 # Bowel Movements 0 / 0 0 / 0 Anticipated discharge today on the following: Bumex 1 mg by mouth two times per day Metolazone 2.5 mg by mouth 2 days per week. Spironolactone 25 mg daily In light of potassium level of 4.9 today (chronically low as outpatient) plan of Potassium chloride 40 Meq TID on the days he take metolazone 20 meq TID on other days , with a goal Potassium level of 3.8-4.9 . ASA 81 mg daily Xarelto 2.5 mg BID. Colchicine 0.6 mg , one time per day (titrate down from BID). BMP as outpatient on Wednesday03/09/23, results to Dr Love, order already in [facility]. Cardiology follow up visit: 03/24/2023 10:30 AM, Dr Love, [facility].
[2023-03-05] MEDS ORDERED: metOLazone 2.5 MG TABLET PO ONE (08:27)
[2023-03-05] MEDS ORDERED: POTASSIUM CHLORIDE CRTAB 20 MEQ TABCR PO SCH (09:00)
[2023-03-05] MEDS: POTASSIUM CHLORIDE CRTAB 20 MEQ TABCR PO SCH ×2 (11:47→17:12)
--- NOTE | 2023-03-05 14:32 | Nephrology Progress Note ---
Date of Service March 05, 2023 Assessment & Plan (1) CKD (chronic kidney disease) stage 3, GFR 30-59 ml/min: Plan: baseline creatinine 1.6; slight bump upward w/ intensified diuretics Recommend further intensifying diuretic as tolerated. To do this would -Starting tomorrow hold spironolactone and continue to hold metolazone >> Increase IV Bumex to 2 mg 3 times daily today adn to complete one IV dose tomorrow am >repeat bmp in am -daily bmp Continue 1.5 L fluid limit >modified potassium supplement to 40 mEq tid -ensure neph f/u post d/c w/ me (2) Acute on chronic heart failure with preserved ejection fraction (HFpEF): Plan: 133.8 kg on 03/02 > 132 w/ 1.4L negative > 131.5 (this is the first day he was actually weighed before breakfast) > 131.7 (weighed after breakfast) -cont current diuretics intravenous and hope to change to p.o. midday March 06 >>><needs strict I/O and standing weights as ordered -agree w/ aggressive standing K dose cardiology d/c recs from today noted and d/w Dr Love >> he agrees for IV diuretics one more day; Dr Hernández updated. Admission and Anticipated Discharge Date Admission Date: February 24, 2023 Subjective Sitting up in chair. Diuresis is progressing but still slow. extremely disappointed not to be discharged today. Review of Systems Review of Systems: All systems reviewed & are unremarkable except as noted in Subjective Physical Exam Constitutional: well developed, well nourished and + obese Eyes: EOM intact bilaterally ENMT: Ears: no external ear abnormality Nose: no external nose abnormality Mouth: + dry oral mucous membranes Neck: no nuchal rigidity Respiratory: normal respiratory effort Auscultation: + diminished lung libia nds Cardiovascular: Rate/Rhythm: regular rate and regular rhythm Extremities: + edema (2++ pedal and 2+ pretibial bilaterally but slightly better) Gastrointestinal (Abdomen): Inspection/Auscultation: normal bowel sounds Percussion/Palpation: abdomen soft; abdomen nontender Musculoskeletal: Extremities: strength 5/5 throughout Skin: no rashes, warm and dry Psychiatric: Orientation: oriented x 3 Results & Data Vital Signs (Past 12 Hours) Vital Signs Temp Pulse Pulse Pulse Resp BP Pulse Ox 03/05/23 12:16 37.0 C 59 L 16 124/71 94 03/05/23 08:37 37.0 C 54 L 16 114/63 95 03/05/23 07:48 56 L 03/05/23 06:40 58 L 18 147/69 H 97 03/05/23 04:00 36.7 C 51 L 14 167/72 H 98 O2 Del Method 03/05/23 12:16 Room Air 03/05/23 08:37 Room Air 03/05/23 07:48 03/05/23 06:40 Room Air 03/05/23 04:00 Room Air Laboratory Results 03/04/23 05:35 03/05/23 05:20
[2023-03-05] MEDS ORDERED: BUMETANIDE 2 MG in SYRINGE 0 ML IV STA (14:49)
--- NOTE | 2023-03-05 15:48 | Hospitalist Progress Note ---
Date of Service March 05, 2023 Assessment & Plan (1) Syncope: (2) Hypoxia: (3) Lactic acidosis: (4) Hypocalcemia: (5) Acute renal failure superimposed on stage 3 chronic kidney disease: (6) CAD (coronary artery disease): (7) COPD (chronic obstructive pulmonary disease): (8) PAD (peripheral artery disease): (9) HTN (hypertension): (10) Pre-diabetes: Plan Patient is a 72 yr male with H/O CAD S/P CABG x2 in 2011, chronic HFpEF, chronic small pericardial effusion, PAD status post atherectomy and angioplasty managed on Xarelto, HTN, HLD, prediabetes, CKD stage III with baseline creatinine of 1.6-1.7, chronic venous insufficiency, COPD, former tobacco abuser who presents to ED after sustaining a syncopal/collapse episode prior to arrival. Patient had unexplained unwitnessed syncopal/collapse which he does not recall any of the events. Last event he recalls was being in the bathroom this morning and was trying to make it back to his bedroom. Syncope Cardiac tamponade-POA ? cardiac arrest (outside hospital) elevated troponin Suspected Pericarditis-POA --ECHO: Large loculated anterior pericardial effusion is present. RV chamber collapse is present. 50% respiratory variation across the mitral annulus. Findings consistent with cardiac tamponade. --CXR:Cardiomegaly with interval development of asymmetric pulmonary edema. --Head CT:No acute intracranial abnormality. S/p pericardiocentesis - cytology negative (Lymphocytes and scattered mesothelial cells are seen. 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 Acute on chronic heart failure with preserved ejection fraction ECHO as above Continue potassium supplements Appreciate cardiology, nephrology input Monitor volume status Continue Bumex Continue IV diuretics today as per nephrology Needs follow-up with cardiology, nephrology as outpatient Renal function stable Hypocalcemia Hypokalemia replete and monitor Lactic acidosis likely secondary to hypoperfusion vs hypoxia IVF, trended lactic acid Hypoxia - resolved B/L rib fx 2/2 traumatic from CPR Anterior R 2-7th; L 3-7th; 2nd anterior costal cartilage fx continued O2 supplementation incentive spirometry Analgesics as needed Currently saturating well on room air Leukocytosis - resolved Likely reactive Blood/pericardial fluid culture: Negative ELIZ on CKD III Baseline Cr 1.6-7 Cr 1.6 Appreciate Nephrology Input Monitor renal function Avoid nephrotoxic agents as able CAD S/P CABG x 2 PAD H/O Angioplasty Continue asa, statin, metoprolol, Xarelto COPD H/O Tobacco abuse No signs of exacerbation Prediabetes HbA1c:6.3 DVT px On Xarelto Code Status FULL CODE Admission and Anticipated Discharge Date Admission Date: February 24, 2023 Subjective Patient is seen and examined at bedside. Sitting in chair during my encounter Feels well today Offers no new complaints Discussed with cardiology and nephrology today Denies any chest pain, shortness of breath, dizziness, nausea, abdominal pain Review of Systems Review of Systems: All systems reviewed & are unremarkable except as noted in Subjective Physical Exam Physical Exam: Physical Exam: Vitals signs as noted above General Appearance:Morbidly Obese, no apparent distress Head: normocephalic, Atraumatic Eyes: normal inspection, EOMI Neck: supple, Trachea midline Respiratory/Chest: Decreased breath sounds, CTA, No accessory muscle use Cardiovascular: S1, S2, No murmur Abdomen/GI:Soft, Non tender, Bowel sounds present Extremities/Musculoskeletal:normal inspection, 1-2+ B/L LE edema Neurologic/Psych:AAOX3, grossly no focal neurological deficits Skin: normal color, warm Results & Data Results & Data Vital Signs (Past 12 Hours) Vital Signs Temp Pulse Pulse Pulse Resp BP Pulse Ox 03/05/23 15:19 51 L 03/05/23 12:16 37.0 C 59 L 16 124/71 94 03/05/23 08:37 37.0 C 54 L 16 114/63 95 03/05/23 07:48 56 L 03/05/23 06:40 58 L 18 147/69 H 97 03/05/23 04:00 36.7 C 51 L 14 167/72 H 98 O2 Del Method 03/05/23 15:19 03/05/23 12:16 Room Air 03/05/23 08:37 Room Air 03/05/23 07:48 03/05/23 06:40 Room Air 03/05/23 04:00 Room Air Laboratory Results [facility] 03/05/23 05:20 Sodium 140 Potassium 4.9 Chloride 103 Carbon Dioxide 31 BUN 36 H Creatinine 1.62 H Glucose 94 Calcium 9.7
[2023-03-05] MEDS ORDERED: BUMETANIDE 2 MG in SYRINGE 0 ML IV ONE (20:00)
[2023-03-05] MEDS: DOCUSATE SODIUM/SENNA 50/8.6MG TAB PO SCH (20:28)
[2023-03-05] MEDS: ATORVASTATIN 40 MG TAB PO SCH (20:29)
[2023-03-05] MEDS: ASPIRIN 81 MG ECTAB PO SCH (20:30)
[2023-03-05] MEDS: PANTOprazole 40 MG TAB PO SCH (20:30)
[2023-03-05] MEDS: DOXAZosin MESYLATE TAB 2 MG TAB PO SCH (20:30)
[2023-03-06] MEDS ORDERED: BUMETANIDE 2 MG in SYRINGE 0 ML IV ONE (06:00)
[2023-03-06 06:26] LABS: Hemoglobin 11.8 g/dl (14.0-18.0); Mean Corpuscular Hemoglobin 26.9 pg (25.0-34.0); Mean Corpuscular Hgb Conc 31.9 g/dL (32.0-36.0); Mean Corpuscular Volume 84.3 fL (80.0-100.0); Mean Platelet Volume 10.6 fL (9.4-12.4); Platelet Count 250 K/uL (130-400); RDW Coefficient of Variation 15.9 % (11.5-14.5); Red Blood Count 4.39 M/uL (4.70-6.10); White Blood Count 4.83 K/ul (4.8-10.8)
[2023-03-06 06:51] LABS: BUN Creatinine Ratio 20.5 (10-20); Calcium 9.7 mg/dl (8.6-10.3); Creatinine Clr Calc Pharmacy 48.8 ml/min; Est GFR (Non-African American) 35.3 ml/min; Potassium 3.9 mmol/L (3.5-5.1)
--- NOTE | 2023-03-06 07:49 | Nephrology Progress Note ---
Date of Service March 06, 2023 Assessment & Plan (1) CKD (chronic kidney disease) stage 3, GFR 30-59 ml/min: Plan: baseline creatinine 1.6; slight bump upward today w/ intensified diuretics Tolerated intensified diuresis. change to po bumex today from renal standpoint reasonable for d/c NEPHRO D/C RECS -hospital d/c appointment with me in 2-3 weeks -diuretics and f/u labs as per cardiology recs 03/05 note Continue 1.5 L fluid limit at d/c -resume daily standing wts at d/c >d/c on potassium 40 mEq bid Care coordinated with Dr. Hernández (2) Acute on chronic heart failure with preserved ejection fraction (HFpEF): Plan: 133.8 kg on 03/02 > 132 w/ 1.4L negative > 131.5 (this is the first day he was actually weighed before breakfast) > 131.7 (weighed after breakfast) > 129.8 cardiology d/c recs noted Admission and Anticipated Discharge Date Admission Date: February 24, 2023 Subjective Seen and evaluated on rounds this morning. Patient feeling well with again improved edema. No shortness of breath no new or worrisome voiding symptoms chest pain or palpitations Review of Systems Review of Systems: All systems reviewed & are unremarkable except as noted in Subjective Physical Exam Constitutional: well developed, well nourished and + obese Eyes: EOM intact bilaterally ENMT: Ears: no external ear abnormality Nose: no external nose abnormality Mouth: + dry oral mucous membranes Neck: no nuchal rigidity Respiratory: normal respiratory effort Auscultation: + diminished lung sounds Cardiovascular: Rate/Rhythm: regular rate and regular rhythm Extremities: + edema (1++ pedal and 1+ pretibial bilaterally but slightly better) Gastrointestinal (Abdomen): Inspection/Auscultation: normal bowel sounds Percussion/Palpation: abdomen soft; abdomen nontender Musculoskeletal: Extremities: strength 5/5 throughout Skin: no rashes, warm and dry Psychiatric: Orientation: oriented x 3 Results & Data Vital Signs (Past 12 Hours) Vital Signs Temp Pulse Pulse Resp BP Pulse Ox O2 Del Method 03/06/23 07:39 62 03/06/23 07:32 36.5 C 57 L 20 141/82 H 96 Room Air 03/06/23 02:55 37.0 C 60 18 124/84 95 Room Air 03/05/23 22:48 36.6 C 67 18 107/59 L 95 Room Air Laboratory Results 03/06/23 05:34 03/06/23 05:34
[2023-03-06] MEDS: METOPROLOL SUCC 50MG EXT REL TAB PO SCH (08:13)
[2023-03-06] MEDS: RIVAROXABAN 2.5 MG TAB PO SCH (08:13)
[2023-03-06] MEDS: GABAPENTIN 300 MG CAP PO SCH (08:13)
[2023-03-06] MEDS: POLYETHYLENE (MIRALAX) 17 GM PACK PO SCH (08:14)
[2023-03-06] MEDS: COLCHICINE 0.6 MG TAB PO SCH (08:14)
[2023-03-06] MEDS: POTASSIUM CHLORIDE CRTAB 20 MEQ TABCR PO SCH ×2 (08:14→11:42)
[2023-03-06] MEDS: LIDOCAINE 5% 1 PATCH TD SCH (08:14)
[2023-03-06] MEDS: INSULIN ASPART PER UNIT CHARGE SC SCH ×2 (08:15→11:45)
[2023-03-06] MEDS: MoRPHine SULFATE CR 15 MG TABCR PO SCH (08:22)
--- NOTE | 2023-03-06 12:35 | Hospitalist Progress Note ---
Date of Service March 06, 2023 Assessment & Plan (1) Syncope: (2) Hypoxia: (3) Lactic acidosis: (4) Hypocalcemia: (5) Acute renal failure superimposed on stage 3 chronic kidney disease: (6) CAD (coronary artery disease): (7) COPD (chronic obstructive pulmonary disease): (8) PAD (peripheral artery disease): (9) HTN (hypertension): (10) Pre-diabetes: Plan Patient is a 72 yr male with H/O CAD S/P CABG x2 in 2011, chronic HFpEF, chronic small pericardial effusion, PAD status post atherectomy and angioplasty managed on Xarelto, HTN, HLD, prediabetes, CKD stage III with baseline creatinine of 1.6-1.7, chronic venous insufficiency, COPD, former tobacco abuser who presents to ED after sustaining a syncopal/collapse episode prior to arrival. Patient had unexplained unwitnessed syncopal/collapse which he does not recall any of the events. Last event he recalls was being in the bathroom this morning and was trying to make it back to his bedroom. Syncope Cardiac tamponade-POA ? cardiac arrest (outside hospital) elevated troponin Suspected Pericarditis-POA --ECHO: Large loculated anterior pericardial effusion is present. RV chamber collapse is present. 50% respiratory variation across the mitral annulus. Findings consistent with cardiac tamponade. --CXR:Cardiomegaly with interval development of asymmetric pulmonary edema. --Head CT:No acute intracranial abnormality. S/p pericardiocentesis - cytology negative (Lymphocytes and scattered mesothelial cells are seen. No tumor seen.) Drain removed on 02/26 Continue colchicine Appreciate Brake Tester/Cardiology Input Needs follow-up with cardiology upon discharge Acute on chronic heart failure with preserved ejection fraction ECHO as above Continue potassium supplements Appreciate cardiology, nephrology input Monitor volume status Received IV Bumex Needs follow-up with cardiology, nephrology as outpatient Plan to discharge Bumex 1mg BID, Metolazone 2.5 mg 2 days per week, Spironolactone 25 mg daily Also will discharge on aspirin 81 mg daily, Xarelto 2.5 mg twice daily, colch icine 0.6 mg daily Hypocalcemia Hypokalemia replete and monitor Lactic acidosis likely secondary to hypoperfusion vs hypoxia IVF, trended lactic acid Hypoxia - resolved B/L rib fx 2/2 traumatic from CPR Anterior R 2-7th; L 3-7th; 2nd anterior costal cartilage fx continued O2 supplementation incentive spirometry Analgesics as needed Currently saturating well on room air Leukocytosis - resolved Likely reactive Blood/pericardial fluid culture: Negative ELIZ on CKD III Baseline Cr 1.6-7 Cr 1.8 Appreciate Nephrology Input Monitor renal function Avoid nephrotoxic agents as able CAD S/P CABG x 2 PAD H/O Angioplasty Continue asa, statin, metoprolol, Xarelto COPD H/O Tobacco abuse No signs of exacerbation Prediabetes HbA1c:6.3 DVT px On Xarelto Code Status FULL CODE Admission and Anticipated Discharge Date Admission Date: February 24, 2023 Subjective Patient is seen and examined at bedside. States feeling well today Discussed with nephrology today Offers no new complaints Denies any chest pain, shortness of breath, dizziness, nausea, abdominal pain Plan to discharge home today Review of Systems Review of Systems: All systems reviewed & are unremarkable except as noted in Subjective Physical Exam Physical Exam: Physical Exam: Vitals signs as noted above General Appearance:Morbidly Obese, no apparent distress Head: normocephalic, Atraumatic Eyes: normal inspection, EOMI Neck: supple, Trachea midline Respiratory/Chest: Decreased breath sounds, CTA, No accessory muscle use Cardiovascular: S1, S2, No murmur Abdomen/GI:Soft, Non tender, Bowel sounds present Extremities/Musculoskeletal:normal inspection, 1-2+ B/L LE edema Neurologic/Psych:AAOX3, grossly no focal neurological deficits Skin: normal color, warm Results & Data Results & Data Vital Signs (Past 12 Hours) Vital Signs Temp Pulse Pulse Resp BP Pulse Ox O2 Del Method 03/06/23 11:33 36.6 C 61 20 107/73 96 Room Air 03/06/23 07:39 62 03/06/23 07:32 36.5 C 57 L 20 141/82 H 96 Room Air 03/06/23 02:55 37.0 C 60 18 124/84 95 Room Air Laboratory Results Short CBC 03/06/23 Range/Units 05:34 WBC 4.83 (4.8-10.8) K/ul Hgb 11.8 L (14.0-18.0) g/dl Hct 37.0 L (42.0-52.0) % Plt Count 250 (130-400) K/uL BMP 04/08/23 05:34 Sodium 142 Potassium 3.9 D Chloride 99 Carbon Dioxide 32 BUN 38 H Creatinine 1.85 H Glucose 105 H Calcium 9.7
--- NOTE | 2023-03-06 13:02 | Discharge Summary ---
Date of Service March 06, 2023 Admission HPI Per Admitting Provider This is a 72-year-old male who has significant past medical history of CAD status post CABG x2 in 2012, chronic HFpEF, chronic small pericardial effusion, PAD status post atherectomy and angioplasty managed on Xarelto, HTN, HLD, prediabetes, CKD stage III with baseline creatinine of 1.6-1.7, chronic venous insufficiency, COPD, former tobacco abuser who presents to ED after sustaining a syncopal/collapse episode prior to arrival. Initial history mostly obtained from , Prehospital personnel and ED provider. patient had not been feeling well past 2 days the. stated that he had been a bit out of it yest erday and this morning did not seem to be himself. This morning he had a witnessed syncopal episode in which he was in the hallway and collapsed. stated patient was not breathing and did not have a pulse and CPR was started. 911 was called and on police arrival they continued CPR. Per EMS patient was in agonal respirations and he did have a pulse. He was placed on nasal cannula and brought to the ER. In ED patient was found to have lactic acidosis initially at 5.8 with repeat at 3.4, troponin elevated at 20.1, H&H stable at 12.4 and 39.6, WBC 12.65, creatinine mildly elevated from baseline at 2.3 and ionized calcium of 1.04. Initial head CT was without acute intracranial abnormality. Chest CT revealed numerous acute bilateral anterior rib fractures, right anterior second through seventh as well as left anterior [address] also reveals cardiomegaly, moderate pericardial effusion and evidence of fluid overload/congestive failure along with multifocal groundglass consolidation seen in both lungs likely representing pulmonary edema. Correlate clinically for a superimposed aspiration pneumonia nidus for possible pulmonary hemorrhage. CT abdomen pelvis was otherwise unremarkable although did note trace fluid in the left paracolic gutter and pelvis. In ED he received IV ampicillin, 500 mL fluid bolus and small dose of IV Dilaudid. Upon my evaluation patient was lying comfortably in bed and case discussed mostly with , son and [id number] at bedside. states patient went into the bathroom this morning and needed back to the bedroom when she heard a loud noise. She then found him unresponsive on the floor and passed out. She tried to pat his face and he would not wake up and it did not appear that he was breathing; therefore, she initiated CPR. She called 911 and police arrived on scene first to also continued CPR. states he was doing irregular breathing and was gasping for air. This is never happened in the past. He was in his normal state of health until yesterday when he just did not feel well. He did not go to work and complained of being, "queasy." He slept mostly all day and did eat some chicken broth in the evening. He has been compliant with his medications. Upon interviewing the patient he does recall going to the bathroom this morning in which he moved his bowels and passed urine. He then went back to his bedroom and he thought he made it back to his bed but states, "clearly I did not." He does not recall passing out and falling to the ground. He denies similar events in the past. He confirms what his had stated regarding being in his normal state of health until yesterday when he just did not feel well. He had no other complaints other than feeling queasy in the stomach. He does state that his weight has been up approximately 5 pounds for the last 4 to 5 days. He did weigh himself this morning and he was 298. He did not take any of his morning medications. Currently he complains of bilateral chest pain, pain with deep inspiration and chest pain with movement. He does admit to feeling dizzy this morning when he first got out of bed but currently denies any dizziness or lightheadedness, fever, chills, sweats, shortness of breath, cough, nausea, vomiting, abdominal pain, changes bowel or urinary habits. Principal Diagnosis Syncope Cardiac tamponade Suspected pericarditis Acute on chronic diastolic heart failure Hypocalcemia Hypokalemia ELIZ on CKD III Cardiac arrest Chronic venous insufficiency of lower extremity Discharge Data Allergies Allergy/AdvReac Type Severity Reaction Status Date / Time No Known Drug Allergies Allergy Unknown Verified 09/25/22 13:45 silver AdvReac Mild stinging Verified 09/18/22 10:44 pain Consultations 02/24/23 08:53 ED Decision to Admit Stat 02/24/23 10:10 Consult Cardiology Routine 02/24/23 10:33 Consult Epitaxial Reactor Operator Routine 02/24/23 10:41 Consult Nephrology Routine Procedures Performed Operation Date: 02/24/23 13:30 Actual Procedures p Pericardiocentesis Initial - Brandyn R. Ferguson, MD s Ultrasound Vascular Access - Brandyn Ferguson MD Laboratory Results WBC 4.83 K/ul (4.8-10.8) 03/06/23 05:34 RBC 4.39 M/uL (4.70-6.10) L 03/06/23 05:34 Hgb 11.8 g/dl (14.0-18.0) L 03/06/23 05:34 POC Hgb 13.3 g/dl (14.0-18.0) L 02/24/23 07:00 Hct 37.0 % (42.0-52.0) L 03/06/23 05:34 POC Hct 39 % (42-52) L 02/24/23 07:00 MCV 84.3 fL (80.0-100.0) 03/06/23 05:34 MCH 26.9 pg (25.0-34.0) 03/06/23 05:34 MCHC 31.9 g/dL (32.0-36.0) L 03/06/23 05:34 RDW Std Deviation 46.0 fL (36.4-46.3) 03/06/23 05:34 RDW Coeff of Alan 15.9 % (11.5-14.5) H 03/06/23 05:34 Plt Count 250 K/uL (130-400) 03/06/23 05:34 MPV 10.6 fL (9.4-12.4) 03/06/23 05:34 Immature Gran % (Auto) 0.3 % 02/25/23 03:57 Neut % (Auto) 79.8 % 02/25/23 03:57 Lymph % (Auto) 8.9 % 02/25/23 03:57 Cascade % (Auto) 9.9 % 02/25/23 03:57 Eos % (Auto) 0.7 % 02/25/23 03:57 Baso % (Auto) 0.4 % 02/25/23 03:57 Neut # (Auto) 7.86 K/uL (1.40-6.50) H 02/25/23 03:57 Lymph # (Auto) 0.88 K/uL (1.2-3.4) L 02/25/23 03:57 Cascade # (Auto) 0.98 K/uL (0.11-0.59) H 02/25/23 03:57 Eos # (Auto) 0.07 K/uL (0-0.50) 02/25/23 03:57 Baso # (Auto) 0.04 K/uL (0-0.2) 02/25/23 03:57 Immature Gran # (Auto) 0.03 K/uL (0.01-0.20) 02/25/23 03:57 Absolute Nucleated RBC 0.02 K/uL (0-0.12) 02/27/23 04:04 Nucleated RBC % (auto) 0.3 % 02/27/23 04:04 PT 15.1 Seconds (9.0-12.0) H 02/25/23 03:57 INR 1.4 (0.9-1.1) H 02/25/23 03:57 APTT 25.5 Seconds (21.0-31.0) 02/24/23 06:53 PTT Ratio 0.9 02/24/23 06:53 D-Dimer 6750 ug/L FEU (0-500) H* 02/24/23 08:16 POC Sodium 140 mmol/L (135-144) 02/24/23 07:00 Sodium 142 mmol/L (136-145) 03/06/23 05:34 POC Potassium 3.2 mmol/L (3.3-5.0) L 02/24/23 07:00 Potassium 3.9 mmol/L (3.5-5.1) D 03/06/23 05:34 POC Chloride 97 mmol/L (101-112) L 02/24/23 07:00 Chloride 99 mmol/L (98-107) 03/06/23 05:34 Carbon Dioxide 32 mmol/L (21-32) 03/06/23 05:34 POC Total CO2 28 mmol/L (24-31) 02/24/23 07:00 Anion Gap 11 (3-11) 03/06/23 05:34 POC Anion Gap 20.0 mmol/L (16-25) 02/24/23 07:00 POC BUN 31 mg/dl (7-18) H 02/24/23 07:00 BUN 38 mg/dl (6-23) H 03/06/23 05:34 Creatinine 1.85 mg/dl (0.6-1.4) H 03/06/23 05:34 POC Creatinine 2.3 mg/dl (0.6-1.3) H 02/24/23 07:00 Est Cr Clr Drug Dosing 48.8 ml/min 03/06/23 05:34 Est GFR ( Amer) 41.0 ml/min 03/06/23 05:34 Est GFR (Non-Af Amer) 35.3 ml/min 03/06/23 05:34 BUN/Creatinine Ratio 20.5 (10-20) H 03/06/23 05:34 Glucose 105 mg/dl (70-99(Fasting)) H 03/06/23 05:34 POC Glucose 115 mg/dl (70-99) H 03/06/23 10:56 POC Glucose (other) 193 mg/dl (70-99) H 02/24/23 07:00 Estimat Average Glucose 134 mg/dl 02/25/23 03:57 Hemoglobin A1c 6.3 % (4.5-5.6) H 02/25/23 03:57 Lactate 2.3 mmol/L (0.4-2.0) H* 02/24/23 16:40 Calcium 9.7 mg/dl (8.6-10.3) 03/06/23 05:34 POC Ioniz Calcium Fidencio 1.04 mmol/l (1.12-1.32) L 02/24/23 07:00 Phosphorus 3.5 mg/dl (2.5-4.9) 03/03/23 05:31 Magnesium 2.0 mg/dl (1.7-2.4) 03/05/23 05:20 Total Bilirubin 1.5 mg/dl (0.2-1.0) H 03/02/23 04:03 Direct Bilirubin 0.2 mg/dl (0-0.2) 02/24/23 06:52 AST 21 U/L (13-39) 03/02/23 04:03 ALT 13 U/L (7-52) 03/02/23 04:03 Alkaline Phosphatase 52 U/L (34-104) 03/02/23 04:03 Total Creatine Kinase 60 U/L (30-223) 02/24/23 08:16 Troponin I High Sens 75.6 pg/ml (0-20) H* D 02/25/23 03:57 B-Natriuretic Peptide 176 pg/ml (0-100) H 02/24/23 09:25 Total Protein 6.8 gm/dl (6.0-8.3) 03/02/23 04:03 Albumin 3.7 gm/dl (3.4-5.0) 03/02/23 04:03 Globulin 3.1 gm/dl (2.5-4.0) 03/02/23 04:03 Albumin/Globulin Ratio 1.2 (0.9-2) 03/02/23 04:03 Procalcitonin < 0.05 ng/ml (0-0.5) 02/24/23 06:52 TSH 3.129 uIu/ml (0.300-4.500) 02/24/23 09:25 Urine Color Dark Yellow 02/24/23 17:00 Urine Appearance Clear (Clear) 02/24/23 17:00 Urine pH 5.5 (4.5-7.5) 02/24/23 17:00 Ur Specific Harlan 1.022 (1.000-1.030) 02/24/23 17:00 Urine Protein 1+ (Negative) H 02/24/23 17:00 Urine Glucose (UA) Negative (Negative) 02/24/23 17:00 Urine Ketones Negative (Negative) 02/24/23 17:00 Urine Blood Negative (Negative) 02/24/23 17:00 Urine Nitrite Negative (Negative) 02/24/23 17:00 Urine Bilirubin Negative (Negative) 02/24/23 17:00 Urine Urobilinogen Negative (Negative) 02/24/23 17:00 Ur Leukocyte Esterase Negative (Negative) 02/24/23 17:00 Urine WBC (Auto) 1-5 /hpf (0-5) 02/24/23 17:00 Urine RBC (Auto) 0-4 /hpf (0-4) 02/24/23 17:00 U Hyaline Cast (Auto) 1-5 /lpf (0-5) 02/24/23 17:00 U Epithel Cells (Auto) 0-5 /lpf (0-5) 02/24/23 17:00 Urine Bacteria (Auto) Negative (Negative) 02/24/23 17:00 Ur Random Creatinine 39.7 mg/dl 03/04/23 11:40 U Random Total Protein 4.5 mg/dl (0-11.9) 03/04/23 11:40 Protein/Creatinin Ratio 0.1 (0-0.2) 03/04/23 11:40 Fluid Type PERICARDIAL FLUID 02/24/23 14:00 Fluid Color YELLOW 02/24/23 14:00 Fluid Appearance CLEAR 02/24/23 14:00 Fld Tot Nucleated Cell 550 cells/uL 02/24/23 14:00 Fluid Neutrophils % 4 % 02/24/23 14:00 Fluid Lymphocytes % 95 % 02/24/23 14:00 Fluid Eosinophils % 0 % 02/24/23 14:00 Fluid Basophils % 0 % 02/24/23 14:00 Fl Monocyt/Macrophag % 1 % 02/24/23 14:00 Fld Mesothelial Cell % 0 % 02/24/23 14:00 Fluid Comment 2 DNR 02/24/23 14:00 Nasal Screen MRSA (PCR) Negative (Negative) 02/24/23 12:15 Adenovirus (PCR) Not Detected (NotDetected) 02/24/23 Unknown B. pertussis DNA (PCR) Not Detected (NotDetected) 02/24/23 Unknown B.parapertussis DNA PCR Not Detected (NotDetected) 02/24/23 Unknown C. pneumoniae DNA (PCR) Not Detected (NotDetected) 02/24/23 Unknown Coronavirus OC43 (PCR) Not Detected (NotDetected) 02/24/23 Unknown Coronavirus HKU1 (PCR) Not Detected (NotDetected) 02/24/23 Unknown Coronavirus 229E (PCR) Not Detected (NotDetected) 02/24/23 Unknown SARS-CoV-2 (PCR) Not Detected (NotDetected) 02/24/23 Unknown Coronavirus NL63 (PCR) Not Detected (NotDetected) 02/24/23 Unknown Hepatitis C Ab (EIA) NON-REACTIVE (NON-REACTIVE) 02/24/23 14:57 Hep C Ab Signal/Cutoff 0.02 (<1.00) 02/24/23 14:57 Human Metapneumovir PCR Not Detected (NotDetected) 02/24/23 Unknown Influenza Type A (PCR) Not Detected (NotDetected) 02/24/23 Unknown Influenza Type B (PCR) Not Detected (NotDetected) 02/24/23 Unknown M. pneumoniae (PCR) Not Detected (NotDetected) 02/24/23 Unknown Parainfluenza 1 (PCR) Not Detected (NotDetected) 02/24/23 Unknown Parainfluenza 2 (PCR) Not Detected (NotDetected) 02/24/23 Unknown Parainfluenza 3 (PCR) Not Detected (NotDetected) 02/24/23 Unknown Parainfluenza 4 (PCR) Not Detected (NotDetected) 02/24/23 Unknown RSV (RT-PCR) Negative (Neg) 02/24/23 06:55 RSV (PCR) Not Detected (NotDetected) 02/24/23 Unknown Entero/Rhino (PCR) Not Detected (NotDetected) 02/24/[address] 02/24/23 06:[address] DOSE: 926.94 mGycm HISTORY: Unresponsive. cardiac arrest TECHNIQUE: Multiaxial CT images of the head were performed without the use of intravenous contrast. Automated exposure control was utilized for this study. A dose lowering technique was utilized adhering to the principles of ALARA. Comparison: None. Findings: The paranasal sinuses and mastoid air cells are clear. The calvarium and skull base are intact. The ventricles and sulci are within normal limits. There is no mass, hematoma, midline shift, or acute infarct. Impression: No acute intracranial abnormality. ACT 112: Negative or not required by law. Electronically signed by: Regan Yousif M.D. 02/24/2023 7:42 AM Abdomen/Pelvis CT 02/24/23 07:01 CT SCAN OF THE CHEST, ABDOMEN, AND PELVIS WITHOUT IV CONTRAST CLINICAL HISTORY: Status post cardiac arrest. COMPARISON STUDY: Chest x-ray dated 02/24/2023. Abdominal CT dated 11/21/2019. TECHNIQUE: Unenhanced CT scan of the chest, abdomen, and pelvis was performed from the thoracic inlet to the proximal femora. Images are reviewed in the axial, sagittal, and coronal planes. IV contrast was not administered for this examination. A dose lowering technique was utilized adhering to the principles of ALARA. CT DOSE: 627.21 mGycm (accession [id number]), 970.06 mGycm (accession [id number]) FINDINGS: CHEST: Thyroid: Imaged portions of the thyroid gland are normal in size and attenuation. Thoracic aorta: There is atherosclerotic calcification of the thoracic aorta, which is normal in caliber and demonstrates standard 3-vessel arch anatomy. Heart: The patient is status post midline sternotomy. The heart is enlarged noting a moderate pericardial effusion. The coronary arteries extensive calcified. Lungs and pleural spaces: Evaluation of the lung parenchyma is degraded by motion artifact. Emphysematous change is noted. Diffuse intralobular septal thickening indicates fluid overload/congestive failure. There are trace pleural effusions. There is multifocal ground glass consolidation seen throughout both lungs. This is most confluent posteriorly within the right upper and lower lobes. The trachea and central airways are clear. There is a 4 mm pleural-based nodule in the left upper lobe seen on image #105. No pneumothorax is seen. Mediastinum: There is no mediastinal lymphadenopathy. Berenice: Not well assessed without contrast. Axillae: There is no axillary lymphadenopathy. Bony thorax: The skeletal structures are osteopenic. There are acute right anterior 2nd through 7th rib fractures, as well as acute left anterior 3rd through 7th rib fractures. There is fracture of the 2nd anterior costal cartilage. Degenerative change is seen throughout the thoracic spine. No lytic or blastic lesions are identified. ABDOMEN AND PELVIS: Liver: The unenhanced liver is normal in size, contour, and attenuation. There is no intra- or extrahepatic biliary ductal dilatation. Gallbladder: Surgically absent noting clips in the gallbladder fossa. Spleen: Normal in size and attenuation. Pancreas: Unremarkable. Adrenal glands: A 2.4 cm left adrenal adenoma is unchanged, as is calcification of the right adrenal gland. Kidneys: The unenhanced kidneys demonstrate cortical atrophy and are without hydronephrosis. No renal calculi are identified. There is no evidence of contour deforming renal mass lesion. Abdominal vasculature: There is advanced atherosclerotic calcification and mild ectasia of the abdominal aorta. Bowel: The small bowel and colon are normal in course and caliber. The appendix is well-visualized and normal. Peritoneum: No intraperitoneal free air is seen. There is trace fluid in the paracolic gutter and pelvis. There is a fat-containing umbilical hernia. Lymphadenopathy: None. Pelvic viscera: The prostate gland is mildly enlarged and heterogeneous. The bladder is decompressed, and the wall appears thickened/trabeculated indicating chronic outlet obstruction. Skeletal structures: The skeletal structures are osteopenic. There is moderate lumbosacral spondylosis. No lytic or blastic lesions are seen. IMPRESSION: 1. There are numerous acute bilateral anterior rib fractures as above. 2. Emphysema. 3. Cardiomegaly and moderate pericardial effusion with evidence of fluid overload/congestive failure. 4. Multifocal groundglass consolidation is seen throughout both lungs as above. This likely represents pulmonary edema. Correlate clinically for evidence of superimposed pneumonia/aspiration pneumonitis or possibly pulmonary hemorrhage. 5. There is no pneumothorax. 6. Trace pleural effusions. 7. There is no evidence of solid organ injury in the abdomen or pelvis on this unenhanced examination. 8. There is trace free fluid in the left paracolic gutter and pelvis. This could be related to hydration status. If there is clinical concern for occult injury consider short-term CT follow-up. 9. Additional findings as above. ACT 112: Negative or not required by law. Electronically signed by: Juan Carlos Krishna M.D. 02/24/2023 8:[address] 02/24/23 07:01 CT SCAN OF THE CHEST, ABDOMEN, AND PELVIS WITHOUT IV CONTRAST CLINICAL HISTORY: Status post cardiac arrest. COMPARISON STUDY: Chest x-ray dated 02/24/2023. Abdominal CT dated 11/21/2019. TECHNIQUE: Unenhanced CT scan of the chest, abdomen, and pelvis was performed from the thoracic inlet to the proximal femora. Images are reviewed in the axial, sagittal, and coronal planes. IV contrast was not administered for this examination. A dose lowering technique was utilized adhering to the principles of ALARA. CT DOSE: 627.21 mGycm (accession [id number]), 970.06 mGycm (accession [id number]) FINDINGS: CHEST: Thyroid: Imaged portions of the thyroid gland are normal in size and attenuation. Thoracic aorta: There is atherosclerotic calcification of the thoracic aorta, which is normal in caliber and demonstrates standard 3-vessel arch anatomy. Heart: The patient is status post midline sternotomy. The heart is enlarged noting a moderate pericardial effusion. The coronary arteries extensive calcified. Lungs and pleural spaces: Evaluation of the lung parenchyma is degraded by motion artifact. Emphysematous change is noted. Diffuse intralobular septal thickening indicates fluid overload/congestive failure. There are trace pleural effusions. There is multifocal ground glass consolidation seen throughout both lungs. This is most confluent posteriorly within the right upper and lower lobes. The trachea and central airways are clear. There is a 4 mm pleural-based nodule in the left upper lobe seen on image #105. No pneumothorax is seen. Mediastinum: There is no mediastinal lymphadenopathy. Berenice: Not well assessed without contrast. Axillae: There is no axillary lymphadenopathy. Bony thorax: The skeletal structures are osteopenic. There are acute right anterior 2nd through 7th rib fractures, as well as acute left anterior 3rd through 7th rib fractures. There is fracture of the 2nd anterior costal cartilage. Degenerative change is seen throughout the thoracic spine. No lytic or blastic lesions are identified. ABDOMEN AND PELVIS: Liver: The unenhanced liver is normal in size, contour, and attenuation. There is no intra- or extrahepatic biliary ductal dilatation. Gallbladder: Surgically absent noting clips in the gallbladder fossa. Spleen: Normal in size and attenuation. Pancreas: Unremarkable. Adrenal glands: A 2.4 cm left adrenal adenoma is unchanged, as is calcification of the right adrenal gland. Kidneys: The unenhanced kidneys demonstrate cortical atrophy and are without hydronephrosis. No renal calculi are identified. There is no evidence of contour deforming renal mass lesion. Abdominal vasculature: There is advanced atherosclerotic calcification and mild ectasia of the abdominal aorta. Bowel: The small bowel and colon are normal in course and caliber. The appendix is well-visualized and normal. Peritoneum: No intraperitoneal free air is seen. There is trace fluid in the paracolic gutter and pelvis. There is a fat-containing umbilical hernia. Lymphadenopathy: None. Pelvic viscera: The prostate gland is mildly enlarged and heterogeneous. The bladder is decompressed, and the wall appears thickened/trabeculated indicating chronic outlet obstruction. Skeletal structures: The skeletal structures are osteopenic. There is moderate lumbosacral spondylosis. No lytic or blastic lesions are seen. IMPRESSION: 1. There are numerous acute bilateral anterior rib fractures as above. 2. Emphysema. 3. Cardiomegaly and moderate pericardial effusion with evidence of fluid overload/congestive failure. 4. Multifocal groundglass consolidation is seen throughout both lungs as above. This likely represents pulmonary edema. Correlate clinically for evidence of superimposed pneumonia/aspiration pneumonitis or possibly pulmonary hemorrhage. 5. There is no pneumothorax. 6. Trace pleural effusions. 7. There is no evidence of solid organ injury in the abdomen or pelvis on this unenhanced examination. 8. There is trace free fluid in the left paracolic gutter and pelvis. This could be related to hydration status. If there is clinical concern for occult injury consider short-term CT follow-up. 9. Additional findings as above. ACT 112: Negative or not required by law. Electronically signed by: Juan Carlos Krishna M.D. 02/24/2023 8:18 AM Venous Doppler Study 02/24/23 10:10 US venous doppler LE BI CLINICAL HISTORY: r/o dvt TECHNIQUE: Bilateral lower extremity real-time compression venous ultrasound with Color Doppler imaging. Utilizing real-time ultrasonic imaging multiple real time high-resolution ultrasonic images with compression and noncompression maneuvers of the deep venous system in addition to color doppler imaging were performed from the common femoral vein through the proximal calf veins. COMPARISON: Comparison is made to left lower extremity Doppler ultrasound 11/19/2019 FINDINGS/IMPRESSION: Currently there is normal compressibility of the deep venous system from the common femoral vein through the proximal calf veins. No superficial venous thrombosis is identified. ACT 112: Negative or not required by law. Electronically signed by: Georgi Rutledge M.D. 02/25/2023 7:05 AM Carotid Doppler Study 02/24/23 12:14 US carotid doppler BI CLINICAL HISTORY: 72 years-old Male with unresponsive episode. Acutely altered mental status COMPARISON: Head CT of same day TECHNIQUE: Multiple real time sonographic images of the carotid bifurcations were obtained assessing martinez scale, color Doppler and spectral wave form appearance FINDINGS: RIGHT CAROTID: The peak systolic velocity measured within the right ICA is 95 cm/sec. The end diastolic velocity measured 14 cm/sec. The ICA to CCA ratio measured 0.93 which correlates with a stenosis of 0-50%. Mild atherosclerotic plaque of the right carotid bulb. LEFT CAROTID: The peak systolic velocity measured within the left ICA is 08 cm/sec. The end diastolic velocity measured 25 cm/sec. The ICA to CCA ratio measured 0.96 which correlates with a stenosis of 0-50%. Elevated peak systolic velocities within the proximal external carotid artery measure up to 293 cm/s secondary to underlying atherosclerotic plaque. There is mild to moderate atherosclerotic plaque within the left carotid bulb. There is normal antegrade vertebral flow bilaterally. IMPRESSION: 1. No hemodynamically significant stenosis within the internal carotid arteries. 2. Normal antegrade vertebral flow bilaterally. 3. High-grade stenosis within the proximal left external carotid artery. ACT 112: Negative or not required by law. The above report was generated using voice recognition software. It may contain grammatical, syntax or spelling errors. Electronically signed by: Michael Schmidt M.D. 02/25/2023 8:03 AM Chest X-Ray 02/25/23 09:34 XR chest 1V portable CLINICAL HISTORY: rib fractures, difficulty breathing TECHNIQUE: Single frontal radiograph of the chest was obtained. Comparison: Comparison is made to chest radiograph 02/24/2023 FINDINGS: Median sternotomy wires are unchanged. Cardiomegaly is noted. Right lower lung airspace opacities are noted. Prominence of the pulmonary vasculature is seen. No evidence of pleural effusion or pneumothorax. IMPRESSION: 1. Cardiomegaly and mild pulmonary edema. 2. Right lower lung airspace opacities likely represent atelectasis, pneumonia, and/or aspiration. ACT 112: Negative or not required by law. Electronically signed by: Georgi Rutledge M.D. 02/25/2023 10:18 AM Ordered Studies 02/24/23 06:29 CT head/brain wo con Stat 02/24/23 07:01 CT abd pelvis wo con Stat CT chest diagnostic wo con Stat 02/24/23 10:10 US venous doppler LE BI Routine 02/24/23 12:14 Carotid duplex [US carotid doppler BI] Routine 02/24/23 13:13 CL Cath Imgs for PACS use only Urgent Hospital Course (1) Syncope: (2) Hypoxia: (3) Lactic acidosis: (4) Hypocalcemia: (5) Acute renal failure superimposed on stage 3 chronic kidney disease: (6) CAD (coronary artery disease): (7) COPD (chronic obstructive pulmonary disease): (8) PAD (peripheral artery disease): (9) HTN (hypertension): (10) Pre-diabetes: Plan Patient is a 72 yr male with H/O CAD S/P CABG x2 in 2011, chronic HFpEF, chronic small pericardial effusion, PAD status post atherectomy and angioplasty managed on Xarelto, HTN, HLD, prediabetes, CKD stage III with baseline creatinine of 1.6-1.7, chronic venous insufficiency, COPD, former tobacco abuser who presents to ED after sustaining a syncopal/collapse episode prior to arrival. Patient had unexplained unwitnessed syncopal/collapse which he does not recall any of the events. Last event he recalls was being in the bathroom this morning and was trying to make it back to his bedroom. Syncope Cardiac tamponade-POA cardiac arrest (outside hospital) elevated troponin Suspected Pericarditis-POA --ECHO: Large loculated anterior pericardial effusion is present. RV chamber collapse is present. 50% respiratory variation across the mitral annulus. Findings consistent with cardiac tamponade. --CXR:Cardiomegaly with interval development of asymmetric pulmonary edema. --Head CT:No acute intracranial abnormality. S/p pericardiocentesis - cytology negative (Lymphocytes and scattered meso thelial cells are seen. 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 Input Needs follow-up with cardiology upon discharge Acute on chronic heart failure with preserved ejection fraction ECHO as above Continue potassium supplements Appreciate cardiology, nephrology input Monitor volume status Received IV Bumex Needs follow-up with cardiology, nephrology as outpatient Plan to discharge Bumex 1mg BID, Metolazone 2.5 mg 2 days per week, Spironolactone 25 mg daily Also will discharge on aspirin 81 mg daily, Xarelto 2.5 mg twice daily, colchicine 0.6 mg daily, potassium 40 mEq twice daily Hypocalcemia Hypokalemia replete and monitor Lactic acidosis likely secondary to hypoperfusion vs hypoxia IVF, trended lactic acid Hypoxia - resolved B/L rib fx 2/2 traumatic from CPR Anterior R 2-7th; L 3-7th; 2nd anterior costal cartilage fx continued O2 supplementation incentive spirometry Analgesics as needed Currently saturating well on room air Leukocytosis - resolved Likely reactive Blood/pericardial fluid culture: Negative ELIZ on CKD III Baseline Cr 1.6-7 Cr 1.8 Appreciate Nephrology Input Monitor renal function Avoid nephrotoxic agents as able CAD S/P CABG x 2 PAD H/O Angioplasty Continue asa, statin, metoprolol, Xarelto COPD H/O Tobacco abuse No signs of exacerbation Prediabetes HbA1c:6.3 DVT px On Xarelto Code Status FULL CODE Total Time Total Time Spent Total Time Spent (In Minutes): 67 minutes Discharge Plan Discharge Items Patient Disposition: Home - Home Health Services Reason For Visit: SYNCOPE, COLLAPSE Discharge Diagnosis: Syncope Cardiac tamponade Suspected pericarditis Acute on chronic diastolic heart failure Hypocalcemia Hypokalemia ELIZ on CKD III Cardiac arrest Chronic venous insufficiency of lower extremity Activity: Per Instructions section Exercise/Sports: Wait until after follow-up appointment Non-emergency contact: Primary Care Provider, 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 Valente Esquivel in 1 week Follow-up with your deliverer merchandise on 03/24/2023 10:30 AM as scheduled Follow-up with your barge worker Dr. Arce in 2-3 weeks as advised --Obtain blood test: BMP as outpatient on Wednesday03/09/23 and follow up with Dr Love for further recommendations. Seek immediate medical attention if your symptoms reoccur or worsen Please take all medications as instructed on discharge list below. Please call if you have any questions or problems. You can reach a [facility] [id number] ospitalist on duty at [facility] 24 hours a day by calling [phone] Call your Primary Care doctor if any of the following symptoms or problems start or get worse: * Shortness of breath or difficulty breathing * Wake up at night short of breath * Chest pain * Cough * Swelling of your hands, feet, or legs * More fatigued or tired with your normal activity * Palpitations - sudden fast heart beats WEIGHT * Weigh yourself every morning after using the bathroom. * Use the same scale. * Wear the same amount of clothing. * Write your weight down on a chart. * Call your Primary Care doctor if you gain more than 2-3 pounds in 1-2 days. MEDICATIONS * Use this discharge instruction sheet for medication instructions. * Take your medications at the time your doctor ordered. * Do not skip a dose of your medicines. * If you miss a dose of medicine, take it as soon as possible, but DO NOT DOUBLE A DOSE. * Read your medicine information when you get home. * Know all of the side effects of your medicine. If in doubt, ask your pharmacist * Call your Primary Care doctor's office if you have any side effects. * Be sure all of your doctors know what medicine and herbs you take (including cold, flu, and herbal medicine). Take the following with you to your follow-up doctor appointments: * Weight Chart * Medication List * List of questions Do not drink excessive alcohol, beer or wine. Pending Studies at Discharge: No Stand-Alone Forms: [facility] [employer], Smoking Cessation Medications and DC Order Prescriptions: New colchicine [Colcrys] 0.6 mg Tablet 0.6 mg PO DAILY Qty: 30 1RF Continued aspirin [Adult Aspirin Regimen] 81 mg tablet,delayed release (DR/EC) 81 mg PO HS doxazosin [Cardura] 2 mg tablet 2 mg PO HS atorvastatin [Lipitor] 40 mg tablet 40 mg PO HS nitroglycerin [Nitrostat] 0.4 mg tablet, sublingual 0.4 mg SL Q5M PRN (Reason: Chest Pain) gabapentin [Neurontin] 300 mg capsule See Rx Instructions .ROUTE .COMPLEX Rx Instructions: 1 cap in a.m. and 2 cap at HS Xarelto 2.5 mg tablet 2.5 mg PO BID Qty: 60 11RF pantoprazole [Protonix] 40 mg tablet,delayed release (DR/EC) 40 mg PO HS metoprolol succinate 50 mg tablet extended release 24 hr 50 mg PO DAILY spironolactone 25 mg tablet 25 mg PO DAILY Qty: 30 0RF bumetanide 1 mg Tablet 1 mg PO [id number] Qty: 60 0RF Changed potassium chloride [Klor-Con M20] 20 mEq tablet,ER particles/crystals 40 meq PO BID Qty: 120 0RF metolazone 2.5 mg tablet 2.5 mg PO 2XWK Qty: 30 0RF Rx Instructions: ON Wednesday, Discharge Orders: Discharge Order (Routine); Ordered 03/06/23 Ordered By: Pelon Blackburn/Other Patient Handouts: Prediabetes, 5 Steps for Eating Healthier Admission Data Admit Date/Time: 02/24/23 09:17 Attending Provider: Pelon Hernández Admit Provider: Kahlil Mario Primary Care Provider: Valente Esquivel Other Providers: Kahlil Mario ; Oleg Blanc ; Zachery White ; Brendan De La Cruz ; Yessenia,[facility]
== END 2023-03-06 14:01 | disposition home health service (06) | DRG 314 ==
LOC: ED 06:22 → 1E 09:17 → SUATTDRO 09:17 → 1E 10:40 → 2E 03-05 06:33